=== PATIENT | male | born 1970 | race Caucasian/White ===

== ENCOUNTER 2016-05-14 14:54 | Emergency (ER) | payer MEDICARE ==
--- NOTE | 2016-05-14 15:04 | ER Document Report ---
ED Medical Screen (RME) - General Stated Complaint: MEDS ISSUE Time seen by provider: 15:03 Mode of Arrival: Ambulatory Information source: Patient Notes: 46-year-old male presents to ED for a Haldol injection. The has a letter from [facility] that states that they did not have any bite giving his Haldol today and they would like the emergency room to give him his Haldol. He has the medicine with him. TRAVEL OUTSIDE OF THE [place] IN LAST 30 DAYS: No - Related Data Allergies/Adverse Reactions: No Known Allergies Allergy (Verified 10/22/15 13:02) Past Medical History Pulmonary Medical History: Reports: Hx Bronchitis, Hx COPD Endocrine Medical History: Reports: Hx Diabetes Mellitus Type 2 Skin Medical History: Reports Hx Cellulitis Psychiatric Medical History: Reports: Hx Bipolar Disorder, Hx Depression, Hx Schizophrenia - Immunizations Immunizations up to date: Yes Hx Diphtheria, Pertussis, Tetanus Vaccination: Yes
--- NOTE | 2016-05-14 15:17 | ER Document Report ---
ED General - General Chief Complaint: Medication Refill Stated Complaint: MEDS ISSUE Mode of Arrival: Ambulatory Notes: 46-year-old male past medical history psychiatric disorders here requesting that ED staff give him his dose of monthly Haldol Decanoate because [facility] health services did not have a qualified professional to administer the medication. Therefore they sent him here to the emergency department for us to give him his medication. He does present a letter on official [facility] letterhead and a letter from Amelia Stewart MA TELEGRAPHIC SERVICE DISPATCHER [employer], that states/corroborates what he is describing to us. He denies any other complaints. I called and spoke with Ms. Stewart to verify the dose and the last time it was given. He was last given Haldol Decanoate 150 mg IM on 04/07/16. TRAVEL OUTSIDE OF THE [place] IN LAST 30 DAYS: No - Related Data Allergies/Adverse Reactions: No Known Allergies Allergy (Verified 05/14/16 15:05) Past Medical History - General Information source: Patient - Social History Smoking Status: Unknown if Ever Smoked Chew tobacco use (# tins/day): No Frequency of alcohol use: None Drug Abuse: None Family History: Reviewed & Not Pertinent, CVA, DM, Hypertension Patient has suicidal ideation: No Patient has homicidal ideation: No Pulmonary Medical History: Reports: Hx Bronchitis, Hx COPD Endocrine Medical History: Reports: Hx Diabetes Mellitus Type 2 Renal/ Medical History: Denies: Hx Peritoneal Dialysis Skin Medical History: Reports Hx Cellulitis Psychiatric Medical History: Reports: Hx Bipolar Disorder, Hx Depression, Hx Schizophrenia - Immunizations Immunizations up to date: Yes Hx Diphtheria, Pertussis, Tetanus Vaccination: Yes Review of Systems - Review of Systems Notes: See history of present illness for pertinent positive review of systems; otherwise all review of systems have been reviewed and are negative Physical Exam - Vital signs Vitals: Temp Pulse Resp BP Pulse Ox 97.7 F 88 16 121/76 95 05/14/16 15:05 05/14/16 15:05 05/14/16 15:05 05/14/16 15:05 05/14/16 15:05 - Notes Notes: PHYSICAL EXAMINATION: GENERAL: Well-appearing and in no acute distress. HEAD: Atraumatic, normocephalic. EYES: Pupils equal round and reactive to light, extraocular movements intact, sclera anicteric, conjunctiva are normal. ENT: nares patent, oropharynx clear without exudates. Moist mucous membranes. NECK: Normal range of motion, supple without lymphadenopathy LUNGS: CTAB and equal. No wheezes rales or rhonchi. HEART: Regular rate and rhythm without murmurs ABDOMEN: Soft, no tenderness. No guarding, no rebound EXTREMITIES: Normal range of motion, no pitting edema. No cyanosis. NEUROLOGICAL: Cranial nerves grossly intact. Normal sensory/motor exams. PSYCH: Normal mood, normal affect. SKIN: Warm, Dry, normal turgor, no rashes or lesions noted Course - Re-evaluation Re-evalutation: 05/14/16 15:29 MEDICAL DECISION MAKING: Mr. Ward only brought 1 vial of Haldol Decanoate with him This equates to 100 mg when his usual dose is 150 mg Will order 50 mg here to equal 150 mg IM which will be administered by nurse Patient instructed to continue following up with [facility] outpatient Patient understands and agrees to the plan of care - Vital Signs Vital signs: Temp Pulse Resp BP Pulse Ox 97.7 F 88 16 121/76 95 05/14/16 15:05 05/14/16 15:05 05/14/16 15:05 05/14/16 15:05 05/14/16 15:05 Discharge - Discharge Clinical Impression: Medication refill Condition: Good Disposition: HOME, SELF-CARE Additional Instructions: You were seen in the emergency department at [facility]. You were administered 150 mg of Haldol Decanoate intramuscularly per your request. Please followup with your outpatient provider in the next few days for further management/evaluation. Please return to the emergency department for worsening of symptoms or any symptom that you deem to be concerning or life-threatening. Thank you for allowing us to be part of your care.
[2016-05-14] MEDS ORDERED: HALOPERIDOL DECANOATE INJ 100 MG/1 ML VIAL IM PRN ×2 (15:30→16:10)
[2016-05-14 16:59] VITALS: BP 144/69
== END 2016-05-14 16:45 | disposition home or self-care (01) ==
LOC: ER 14:54
DX: Z76.0 Encounter for issue of repeat prescription (principal)
CPT/HCPCS: 99281; 96372; J1631

== ENCOUNTER 2016-07-01 11:54 | Emergency (ER) | payer MEDICARE ==
[2016-07-01 12:00] VITALS: BP 144/85
--- NOTE | 2016-07-01 12:00 | ER Document Report ---
ED Medical Screen (RME) - General Stated Complaint: INJECTION Notes: patient is a 46 year old male who was referred over by [facility] for medication administration of Haldol IM. I have greeted and performed a rapid initial assessment of this patient. A comprehensive ED assessment and evaluation of the patient, analysis of test results and completion of the medical decision making process will be conducted by additional ED providers. TRAVEL OUTSIDE OF THE [place] IN LAST 30 DAYS: No - Related Data Allergies/Adverse Reactions: No Known Allergies Allergy (Verified 07/01/16 11:56) Past Medical History Pulmonary Medical History: Reports: Hx Bronchitis, Hx COPD Endocrine Medical History: Reports: Hx Diabetes Mellitus Type 2 Renal/ Medical History: Denies: Hx Peritoneal Dialysis Skin Medical History: Reports Hx Cellulitis Psychiatric Medical History: Reports: Hx Bipolar Disorder, Hx Depression, Hx Schizophrenia - Immunizations Immunizations up to date: Yes Hx Diphtheria, Pertussis, Tetanus Vaccination: Yes
--- NOTE | 2016-07-01 12:39 | ER Document Report ---
HPI - HPI Patient complains to provider of: medication injection Onset: Other - monthly Pain Level: Denies Context: Patient presents to the ED with request of medication injection. Patient has hx of schizoeffective disorder and is here requesting that ED staff give him his dose of monthly Haldol Decanoate because [facility] health services did not have a qualified professional to administer the medication. Therefore they sent him here to the emergency department for us to give him his medication. He does present a letter on official [facility] letterhead and a letter from Amelia Stewart MA PMP PROJECT MANAGER [employer], that states/corroborates what he is describing to us. He denies any other complaints. Denies fever vomiting diarrhea. I called and spoke with the sales receptionist Nuris to verify the dose and the last time it was given. She reports the last dose he received according to her was in March there at [facility]. In April he received a dose here at [facility]. He received haloperidol 150 mg on 05/14/16. Patient reports he missed his May dose and he is overdue. Patient is post be following up with [facility] but reports they are not giving him an appointment until August. Associated Symptoms: None Exacerbated by: Denies Relieved by: Denies Similar symptoms previously: Yes Recently seen / treated by doctor: Yes - REPRODUCTIVE Reproductive: DENIES: : - DERM Skin Color: Normal Past Medical History - General Information source: Patient - Social History Smoking Status: Current Every Day Smoker Cigarette use (# per day): Yes Chew tobacco use (# tins/day): Yes Frequency of alcohol use: Occasional Drug Abuse: None Family History: Reviewed & Not Pertinent, CVA, DM, Hypertension Patient has suicidal ideation: No Patient has homicidal ideation: No Pulmonary Medical History: Reports: Hx Bronchitis, Hx COPD Endocrine Medical History: Reports: Hx Diabetes Mellitus Type 2 Renal/ Medical History: Denies: Hx Peritoneal Dialysis Skin Medical History: Reports Hx Cellulitis Psychiatric Medical History: Reports: Hx Bipolar Disorder, Hx Depression, Hx Schizophrenia - Immunizations Immunizations up to date: Yes Hx Diphtheria, Pertussis, Tetanus Vaccination: Yes Vertical Provider Document - CONSTITUTIONAL Agree With Documented VS: Yes Exam Limitations: No Limitations General Appearance: WD/WN, No Apparent Distress - INFECTION CONTROL TRAVEL OUTSIDE OF THE [place] IN LAST 30 DAYS: No - HEENT HEENT: Atraumatic, Normocephalic - NECK Neck: Supple - RESPIRATORY Respiratory: Breath Sounds Normal, No Respiratory Distress O2 Sat by Pulse Oximetry: 95 - CARDIOVASCULAR Cardiovascular: Regular Rate - NEURO Level of Consciousness: Awake, Alert, Appropriate Motor/Sensory: No Motor Deficit - DERM Integumentary: Warm, Dry Course - Re-evaluation Re-evalutation: 07/01/16 12:50 I contacted the pharmacy here in [facility] to ascertain if they needed to check the medication. The pharmacist declined reports that it's an outpatient and they don't need to check it. - Vital Signs Vital signs: Temp Pulse Resp BP Pulse Ox 97.6 F 97 20 144/85 H 95 07/01/16 11:58 07/01/16 11:58 07/01/16 11:58 07/01/16 11:58 07/01/16 11:58 Discharge - Discharge Clinical Impression: medication injection Condition: Stable Disposition: HOME, SELF-CARE Instructions: [facility] Additional Instructions: *You have been treated for a medication injection *Follow up with the [facility] today to schedule an appointment for the monthly injections *Return to ED for worsening condition, changes, needs
== END 2016-07-01 13:30 | disposition home or self-care (01) ==
LOC: ER 11:54
DX: F25.9 Schizoaffective disorder, unspecified (principal); F17.210 Nicotine dependence, cigarettes, uncomplicated
CPT/HCPCS: 99281

== ENCOUNTER 2017-09-11 22:52 | Emergency (ER) | payer MEDICARE, MEDICAID ==
--- NOTE | 2017-09-12 00:46 | EKG REPORT ---
SEVERITY:- NORMAL ECG - SINUS RHYTHM : Confirmed by: Flor Logan 12-Sep-2017 00:44:54
[2017-09-12 01:55] LABS: ABSOLUTE BASOPHILS # (AUTO) 0.1 10^3/uL (0.0-0.2); ABSOLUTE EOSINOPHILS # (AUTO) 0.2 10^3/uL (0.0-0.6); ABSOLUTE LYMPHOCYTES (AUTO) 2.6 10^3/uL (0.5-4.7); ABSOLUTE MONOCYTES (AUTO) 0.8 10^3/uL (0.1-1.4); ABSOLUTE NEUT (AUTO) 8.3 10^3/uL (1.7-8.2); EOSINOPHILS % (AUTO) 2.1 % (0-6); HEMATOCRIT 41.9 % (37.9-51.0); HEMOGLOBIN 14.6 g/dL (13.5-17.0); LYMPHOCYTES % (AUTO) 21.4 % (13-45); MEAN CORPUSCULAR HEMOGLOBIN 30.8 pg (27.0-33.4); MEAN CORPUSCULAR HGB CONC 34.9 g/dL (32.0-36.0); MEAN CORPUSCULAR VOLUME 88 fl (80-97); MONOCYTES % (AUTO) 6.8 % (3-13); PLATELET COUNT 330 10^3/uL (150-450); RED BLOOD COUNT 4.76 10^6/uL (4.35-5.55); RED CELL DISTRIBUTION WIDTH 12.9 % (11.5-14.0); SEGMENTED NEUTROPHILS % (AUTO) 68.7 % (42-78); TOTAL CELLS COUNTED % (AUTO) 100 %
[2017-09-12 02:04] LABS: ACETAMINOPHEN < 10 ug/mL (10-30); ALANINE AMINOTRANSFERASE 30 U/L (21-72); ALBUMIN 3.9 g/dL (3.5-5.0); ALCOHOL < 10 mg/dL (NONE DETECTED); ALKALINE PHOSPHATASE 61 U/L (38-126); ANION GAP 11 (5-19); ASPARTATE AMINO TRANSFERASE 21 U/L (17-59); BILIRUBIN,DIRECT 0.2 mg/dL (0.0-0.4); BILIRUBIN,TOTAL 0.4 mg/dL (0.2-1.3); BLOOD UREA NITROGEN 11 mg/dL (7-20); CARBON DIOXIDE 29 mmol/L (22-30); CHLORIDE 92 mmol/L (98-107); GLUCOSE 154 mg/dL (75-110); POTASSIUM 4.3 mmol/L (3.6-5.0); SALICYLATE < 1.0 mg/dL (2.0-20.0); SODIUM 132.4 mmol/L (137-145); TOTAL PROTEIN 6.4 g/dL (6.3-8.2)
[2017-09-12 02:51] LABS: APPEARANCE,URINE CLEAR; BILIRUBIN,URINE NEGATIVE (NEGATIVE); COLOR,URINE STRAW; GLUCOSE, URINE NEGATIVE (NEGATIVE); KETONES,URINE NEGATIVE (NEGATIVE); LEUKOCYTE ESTERASE,URINE NEGATIVE (NEGATIVE); NITRITE,URINE NEGATIVE (NEGATIVE); PROTEIN,URINE NEGATIVE (NEGATIVE); URINE SPECIFIC GRAVITY 1.002; UROBILINOGEN,URINE NEGATIVE mg/dL (<2.0)
[2017-09-12 03:07] LABS: URINE AMPHETAMINES SCREEN NEGATIVE; URINE BARBITURATES SCREEN NEGATIVE; URINE BENZODIAZEPINES SCREEN NEGATIVE; URINE COCAINE SCREEN NEGATIVE; URINE MARIJUANA (THC) SCREEN NEGATIVE; URINE METHADONE SCREEN NEGATIVE; URINE PHENCYCLIDINE SCREEN NEGATIVE
--- NOTE | 2017-09-12 03:36 | ER Document Report ---
ED General - General Chief Complaint: Psych Problem Stated Complaint: PSYCH EVAL Time Seen by Provider: 09/11/17 23:18 Notes: Patient is a 47-year-old male with a past medical history of schizoaffective disorder currently off all medications who presents with feeling "weird". Patient notes that he has been having more visual and auditory hallucinations and is also feeling somewhat more restless. He states he discontinued his medications 2 weeks ago because he felt they were not working and making him feel unusual. He has not seen his primary care doctor regarding today's concerns. He denies any acute suicidal or homicidal ideation. He states that he has had similar symptoms in the past and his medications have been off. He denies any acute medical concerns. TRAVEL OUTSIDE OF THE [place] IN LAST 30 DAYS: No - Related Data Allergies/Adverse Reactions: No Known Allergies Allergy (Verified 07/01/16 11:56) Past Medical History - General Information source: Patient - Social History Smoking Status: Never Smoker Frequency of alcohol use: None Drug Abuse: None Lives with: Alone Family History: Reviewed & Not Pertinent, CVA, DM, Hypertension Pulmonary Medical History: Reports: Hx Bronchitis, Hx COPD Endocrine Medical History: Reports: Hx Diabetes Mellitus Type 2 Renal/ Medical History: Denies: Hx Peritoneal Dialysis Skin Medical History: Reports Hx Cellulitis Psychiatric Medical History: Reports: Hx Bipolar Disorder, Hx Depression, Hx Schizophrenia - Immunizations Immunizations up to date: Yes Hx Diphtheria, Pertussis, Tetanus Vaccination: Yes Review of Systems - Review of Systems Notes: Constitutional: Negative for fever. HENT: Negative for sore throat. Eyes: Negative for visual changes. Cardiovascular: Negative for chest pain. Respiratory: Negative for shortness of breath. Gastrointestinal: Negative for abdominal pain, vomiting or diarrhea. Genitourinary: Negative for dysuria. Musculoskeletal: Negative for back pain. Skin: Negative for rash. Neurological: Negative for headaches, weakness or numbness. 10 point ROS negative except as marked above and in HPI. Physical Exam - Vital signs Vitals: Temp Pulse Resp BP Pulse Ox 98.0 F 95 16 153/86 H 96 09/11/17 23:01 09/11/17 23:01 09/11/17 23:01 09/11/17 23:01 09/11/17 23:01 Interpretation: Hypertensive Notes: PHYSICAL EXAMINATION: GENERAL: Well-appearing, well-nourished and in no acute distress. HEAD: Atraumatic, normocephalic. EYES: Pupils equal round and reactive to light, extraocular movements intact, sclera anicteric, conjunctiva are normal. ENT: nares patent, oropharynx clear without exudates. Moist mucous membranes. NECK: Normal range of motion, supple without lymphadenopathy LUNGS: Breath sounds clear to auscultation bilaterally and equal. No wheezes rales or rhonchi. HEART: Regular rate and rhythm without murmurs ABDOMEN: Soft, nontender, normoactive bowel sounds. No guarding, no rebound. No masses appreciated. EXTREMITIES: Normal range of motion, no pitting or edema. No cyanosis. NEUROLOGICAL: No focal neurological deficits. Moves all extremities spontaneously and on command. PSYCH: Somewhat restless, vigorously scratching himself. Unable to really sit still. SKIN: Warm, Dry, normal turgor, no rashes or lesions noted. Course - Re-evaluation Re-evalutation: 09/12/17 03:36 Patient presents with some psychomotor agitation, intermittently noted to be talking to himself. He is otherwise pleasant, calm and cooperative. He denies any suicidal homicidal suspect exacerbation of his underlying schizoaffective disorder in the setting of discontinuing his home medications. The patient will remain in the emergency department and be seen by psychiatry in the morning. He has undergone medical clearance examination which is unremarkable. - Vital Signs Vital signs: Temp Pulse Resp BP Pulse Ox 98.0 F 95 16 153/86 H 96 09/11/17 23:01 09/11/17 23:01 09/11/17 23:01 09/11/17 23:01 09/11/17 23:01 - Laboratory Result Diagrams: 09/12/17 01:30 09/12/17 01:30 Laboratory results interpreted by me: 09/12/17 09/12/17 01:30 01:30 WBC 12.0 H Absolute Neutrophils 8.3 H Sodium 132.4 L Chloride 92 L Glucose 154 H Salicylates < 1.0 L Acetaminophen < 10 L - EKG Interpretation by Me Additional EKG results interpreted by me: 09/12/17 03:37 Sinus rhythm. Rate 85. No ST elevations or depressions. QTC is 443. Discharge - Discharge Clinical Impression: Psychomotor agitation Schizoaffective disorder Qualifiers: Schizoaffective disorder type: bipolar Qualified Code(s): F25.0 - Schizoaffective disorder, bipolar type Condition: Fair Disposition: PSYCH HOSP/UNIT
[2017-09-12 06:34] VITALS: BP 133/61
--- NOTE | 2017-09-12 09:51 | PSYCHOLOGICAL NOTE ---
Psych Note - Psych Note Psych Note: Reason for consult: Medication refill Patient is a 47 year old male. Patient reports he came for medication refill. Patient reports he ran out of meds 2 weeks ago but stated he saw his provider one month ago and received his medications. Patient reports he sees Dr. Brown monthly just for medication management. Patient report she has history of schizophrenia. Patient reports he cannot afford his medications, however then stated he has medicaid. Patient reports he does not have any thoughts of wanting to hurt himself or others. Medication recommendations made by contracted [facility] provider Dr. Niraj MD. includes: None Diagnosis: Per History of 295.90 ( F20.9) Schizophrenia Impression/Plan: Patient is psychiatrically cleared for discharge . Patient denied SI/HI thoughts. Recommendation for patient to follow up with [facility] today as walk in for medication refill. Clinician explained plan to patient who agreed to go in as a walk in. Clinician's tire service supervisor is familiar with patient, and stated historically patient has visited the Emergency Department for medications. Attending physician in agreement with plan and disposition. Consulted with Dr. Galeano regarding the management and care of patient.
== END 2017-09-12 10:28 | disposition home or self-care (01) ==
LOC: ER 22:52
DX: F25.0 Schizoaffective disorder, bipolar type (principal); Z91.19 Patient's noncompliance with other medical treatment and regimen; J44.9 Chronic obstructive pulmonary disease, unspecified; E11.9 Type 2 diabetes mellitus without complications; R45.1 Restlessness and agitation
CPT/HCPCS: 36415; 80053; 80307; 81001; 85025; 93005; 93010; 99285

== ENCOUNTER 2017-11-30 03:03 | Emergency (ER) | payer MEDICARE, MEDICAID ==
[2017-11-30] MEDS ORDERED: CITALOPRAM HYDROBROMIDE 20 MG TABLET PO ONE (04:55)
[2017-11-30] MEDS ORDERED: HALOPERIDOL 5 MG TABLET PO ONE (04:55)
[2017-11-30 05:36] LABS: ABSOLUTE BASOPHILS # (AUTO) 0.1 10^3/uL (0.0-0.2); ABSOLUTE EOSINOPHILS # (AUTO) 0.2 10^3/uL (0.0-0.6); ABSOLUTE LYMPHOCYTES (AUTO) 2.6 10^3/uL (0.5-4.7); ABSOLUTE MONOCYTES (AUTO) 0.8 10^3/uL (0.1-1.4); ABSOLUTE NEUT (AUTO) 7.9 10^3/uL (1.7-8.2); EOSINOPHILS % (AUTO) 1.6 % (0-6); HEMATOCRIT 43.6 % (37.9-51.0); HEMOGLOBIN 15.4 g/dL (13.5-17.0); LYMPHOCYTES % (AUTO) 22.3 % (13-45); MEAN CORPUSCULAR HEMOGLOBIN 30.7 pg (27.0-33.4); MEAN CORPUSCULAR HGB CONC 35.4 g/dL (32.0-36.0); MEAN CORPUSCULAR VOLUME 87 fl (80-97); MONOCYTES % (AUTO) 7.2 % (3-13); PLATELET COUNT 332 10^3/uL (150-450); RED BLOOD COUNT 5.02 10^6/uL (4.35-5.55); RED CELL DISTRIBUTION WIDTH 13.1 % (11.5-14.0); SEGMENTED NEUTROPHILS % (AUTO) 67.9 % (42-78); TOTAL CELLS COUNTED % (AUTO) 100 %; WHITE BLOOD COUNT 11.7 10^3/uL (4.0-10.5)
[2017-11-30 05:58] LABS: ALANINE AMINOTRANSFERASE 32 U/L (21-72); ALBUMIN 4.1 g/dL (3.5-5.0); ALKALINE PHOSPHATASE 77 U/L (38-126); ANION GAP 13 (5-19); ASPARTATE AMINO TRANSFERASE 19 U/L (17-59); BILIRUBIN,DIRECT 0.3 mg/dL (0.0-0.4); BILIRUBIN,TOTAL 0.5 mg/dL (0.2-1.3); BLOOD UREA NITROGEN 10 mg/dL (7-20); CALCIUM 10.1 mg/dL (8.4-10.2); CARBON DIOXIDE 28 mmol/L (22-30); CHLORIDE 90 mmol/L (98-107); GLUCOSE 336 mg/dL (75-110); POTASSIUM 4.6 mmol/L (3.6-5.0); SODIUM 130.7 mmol/L (137-145); TOTAL PROTEIN 6.8 g/dL (6.3-8.2)
--- NOTE | 2017-11-30 06:13 | ER Document Report ---
ED General - General Chief Complaint: Psych Problem Stated Complaint: PSYCH EVAL Time Seen by Provider: 11/30/17 04:55 Notes: Patient is a 47-year-old male who presents with complaint of needing his psychiatric medications. He says he has been off the Celexa and Haldol. When is been out for a while he starts to feel unwell. On the triage and he mentioned abdominal pain. Patient says he has chronic abdominal pain that he thinks is related constipation. Today is more right sided more than right upper quadrant. Says his pain also seems to worsen when he has not had his Celexa or Haldol. He denies any vomiting. No diarrhea. No fevers. Pain is not made worse with eating. He has no other complaints this time. He has an upcoming appointment with his psychiatrist in approximately 1 week. TRAVEL OUTSIDE OF THE [place] IN LAST 30 DAYS: No - Related Data Allergies/Adverse Reactions: No Known Allergies Allergy (Verified 07/01/16 11:56) Past Medical History - Social History Smoking Status: Current Every Day Smoker Chew tobacco use (# tins/day): No Frequency of alcohol use: Occasional Drug Abuse: None Family History: Reviewed & Not Pertinent, CVA, DM, Hypertension Patient has suicidal ideation: No Patient has homicidal ideation: No Pulmonary Medical History: Reports: Hx Bronchitis, Hx COPD Endocrine Medical History: Reports: Hx Diabetes Mellitus Type 2 Renal/ Medical History: Denies: Hx Peritoneal Dialysis Skin Medical History: Reports Hx Cellulitis Psychiatric Medical History: Reports: Hx Bipolar Disorder, Hx Depression, Hx Schizophrenia - Immunizations Immunizations up to date: Yes Hx Diphtheria, Pertussis, Tetanus Vaccination: Yes Review of Systems - Review of Systems Notes: My Normal Review Basic REVIEW OF SYSTEMS: CONSTITUTIONAL : Denies fever, chills, or sweats. Denies recent illness. CARDIOVASCULAR: Denies chest pain. RESPIRATORY: Denies cough, cold, or chest congestion. Denies shortness of breath, difficulty breathing, or wheezing. GASTROINTESTINAL: Normal pain. Denies nausea, vomiting, or diarrhea. History of constipation. GENITOURINARY: Denies difficulty urinating, painful urination, burning, frequency, or blood in urine. MUSCULOSKELETAL: Denies neck or back pain or joint pain or swelling. SKIN: Denies rash or skin lesions. NEUROLOGICAL: Denies altered mental status or loss of consciousness. Denies headache. Denies weakness or paralysis or loss of use of either side. Denies problems with gait or speech. Denies sensory or motor loss. PSYCHIATRIC: History of psychosis and Haldol and Celexa. Patient denies any suicidal ideations. ALL OTHER SYSTEMS REVIEWED AND NEGATIVE. Physical Exam - Notes Notes: General Appearance: Well nourished, alert, cooperative, no acute distress, no obvious discomfort. Well appearing. Vitals: reviewed, See vital signs table. Head: no swelling or tenderness to the head Eyes: PERRL, EOMI, Conjuctiva clear Mouth: No decreasd moisture Throat: No tonsillar inflammation, No airway obstruction, No lymphadenopathy Neck: Supple, no neck tenderness, No thyromegaly Lungs: No wheezing, No rales, No rhonci, No accessory muscle use, good air exchange bilaterally. Heart: Normal rate, Regular rythm, No murmur, no rub Abdomen: Normal BS, soft, No rigidity, mild right upper quadrant abdominal tenderness to palpation, No guarding, no rebound, no abdominal masses, no organomegaly Extremities: strength 5/5 in all extremities, good pulses in all extremities, no swelling or tenderness in the extremities, no edema. Skin: warm, dry, appropriate color, no rash Neuro: speech clear, oriented x 3, normal affect, responds appropriately to questions. Psychiatric: Patient answers questions appropriately. Is not tearful or anxious appearing. He is not hallucinating or delusional. Course - Re-evaluation Re-evalutation: 11/30/17 06:24 Patient will be discharged home. He is received his medications and feels better. A right prescription for him for his Celexa and Haldol to get him through until he sees his psychiatrist. His abdominal exam is very benign and his labs are non-concerning. I feel he is safe to be discharged home. I strongly encouraged her return to ER if he has worsening abdominal pain, fevers , vomiting, any thoughts of suicide, if he feels that his psychiatric illness is worsening in any way. Patient agrees with plan will be discharged home. Dictation of this chart was performed using voice recognition software; therefore, there may be some unintended grammatical errors. - Laboratory Result Diagrams: 11/30/17 05:00 11/30/17 05:00 Laboratory results interpreted by me: 11/30/17 11/30/17 05:00 05:00 WBC 11.7 H Sodium 130.7 L Chloride 90 L Glucose 336 H Discharge - Discharge Clinical Impression: Psychiatric care Abdominal pain Qualifiers: Abdominal location: generalized Qualified Code(s): R10.84 - Generalized abdominal pain Condition: Good Disposition: HOME, SELF-CARE Additional Instructions: Please take your medications as prescribed. Please return to the ER immediately if you have worsening abdominal pain, fevers, vomiting, or feel that you are psychiatric illness is worsening or if you feel depressed or suicidal. Prescriptions: Citalopram Hydrobromide [Celexa 20 mg Tablet] 20 mg PO DAILY #30 tablet Haloperidol [Haldol 5 mg Tablet] 10 mg PO BID #60 tablet Referrals: FLORIDA LUIS NP [Primary Care Provider] - Follow up in 3-5 days
[2017-11-30 06:20] VITALS: BP 151/79
== END 2017-11-30 06:37 | disposition home or self-care (01) ==
LOC: ER 03:03
DX: F31.9 Bipolar disorder, unspecified (principal); F20.9 Schizophrenia, unspecified; T43.4X6A Underdosing of butyrophenone and thiothixene neuroleptics, initial encounter; T43.226A Underdosing of selective serotonin reuptake inhibitors, initial encounter; Z91.128 Patient's intentional underdosing of medication regimen for other reason; Z91.14 Patient's other noncompliance with medication regimen; R10.84 Generalized abdominal pain; R10.811 Right upper quadrant abdominal tenderness; F17.200 Nicotine dependence, unspecified, uncomplicated; J44.9 Chronic obstructive pulmonary disease, unspecified; E11.9 Type 2 diabetes mellitus without complications
CPT/HCPCS: 99284; 36415; 85025; 80053; A9270 ×2

== ENCOUNTER 2018-02-20 18:55 | Emergency (ER) | payer MEDICARE, OTHER ==
[2018-02-20] MEDS ORDERED: IBUPROFEN 800 MG TABLET PO ONE (20:34)
--- NOTE | 2018-02-20 20:43 | ER Document Report ---
ED Neck/Back Problem - General Chief Complaint: Hip Pain Stated Complaint: HIP AND LEG PAIN Time Seen by Provider: 02/20/18 20:05 Mode of Arrival: Ambulatory Information source: Patient Notes: 47-year-old male presents to ED for complaint of low back pain that radiates to his left hip down his left leg. He states his been hurting since June or July. He states sometimes it is there and sometimes it is not. He is alert and oriented respirations regular and unlabored and does walk with a even steady gait. TRAVEL OUTSIDE OF THE [place] IN LAST 30 DAYS: No - HPI Patient complains to provider of: Lower back Onset: Other - 6-8 months Onset: Chronic Timing: Still present Quality of pain: Sharp Severity: Moderate Pain Level: 4 Recent injury: No Associated symptoms: Like prior neck/back pain, Radiation to leg Exacerbated by: Movement of trunk, Sitting position Relieved by: Nothing Similar symptoms previously: Yes Recently seen / treated by doctor: Yes - Related Data Allergies/Adverse Reactions: No Known Allergies Allergy (Verified 02/20/18 18:59) Past Medical History - General Information source: Patient - Social History Smoking Status: Current Every Day Smoker Chew tobacco use (# tins/day): No Frequency of alcohol use: None Drug Abuse: None Family History: Reviewed & Not Pertinent, CVA, DM, Hypertension Patient has suicidal ideation: No Patient has homicidal ideation: No - Past Medical History Cardiac Medical History: Reports: None Pulmonary Medical History: Reports: Hx Bronchitis, Hx COPD EENT Medical History: Reports: None Neurological Medical History: Reports: None Endocrine Medical History: Reports: Hx Diabetes Mellitus Type 2 Renal/ Medical History: Reports: None Malignancy Medical History: Reports None GI Medical History: Reports: None Musculoskeletal Medical History: Reports None Skin Medical History: Reports Hx Cellulitis Psychiatric Medical History: Reports: Hx Bipolar Disorder, Hx Depression, Hx Schizophrenia Traumatic Medical History: Reports: None Infectious Medical History: Reports: None Surgical Hx: Negative Past Surgical History: Reports: None - Immunizations Immunizations up to date: Yes Hx Diphtheria, Pertussis, Tetanus Vaccination: Yes Review of Systems - Review of Systems Constitutional: No symptoms reported EENT: No symptoms reported Cardiovascular: No symptoms reported Respiratory: No symptoms reported Gastrointestinal: No symptoms reported Genitourinary: No symptoms reported Male Genitourinary: No symptoms reported Musculoskeletal: Back pain - Radiating down left hip and leg Skin: No symptoms reported Hematologic/Lymphatic: No symptoms reported Neurological/Psychological: No symptoms reported -: Yes All other systems reviewed and negative Physical Exam - Vital signs Vitals: Temp Pulse Resp BP Pulse Ox 98.2 F 96 18 146/69 H 93 02/20/18 19:07 02/20/18 19:07 02/20/18 19:07 02/20/18 19:07 02/20/18 19:07 Interpretation: Normal - General General appearance: Appears well, Alert - HEENT Head: Normocephalic, Atraumatic Eyes: Normal Pupils: PERRL - Respiratory Respiratory status: No respiratory distress Chest status: Nontender Breath sounds: Normal Chest palpation: Normal - Cardiovascular Rhythm: Regular Heart sounds: Normal auscultation Murmur: No - Abdominal Inspection: Normal Distension: No distension Bowel sounds: Normal Tenderness: Nontender Organomegaly: No organomegaly - Back Back: Normal, Nontender, Tender, Vertebra tenderness - Radiating down left leg and hip. No: Deformity/step-off, CVA tenderness, Scars, Scoliosis, Wounds - Extremities General upper extremity: Normal inspection, Nontender, Normal color, Normal ROM , Normal temperature General lower extremity: Normal inspection, Nontender, Normal color, Normal ROM , Normal temperature, Normal weight bearing. No: Kapil's sign - Neurological Neuro grossly intact: Yes Cognition: Normal Orientation: AAOx4 Keon Coma Scale Eye Opening: Spontaneous Ezel Coma Scale Verbal: Oriented Ezel Coma Scale Motor: Obeys Commands Keon Coma Scale Total: 15 Speech: Normal Motor strength normal: LUE, RUE, LLE, RLE Sensory: Normal - Psychological Associated symptoms: Normal affect, Normal mood - Skin Skin Temperature: Warm Skin Moisture: Dry Skin Color: Normal Course - Re-evaluation Re-evalutation: 02/20/18 23:20 X-ray discussed with Dr. Manzanares and she stated that the patient needed to be informed of the fracture and that he should follow-up with pain management if he continued to have pain. Patient was informed that he had a compression fracture and that he needed to follow-up with pain management if he continued to have pain. Patient was given ibuprofen and a Lidoderm patch in the emergency room and instructed on [id number] ibuprofen at home. Patient was also given instructions on ice and warm packs. Patient instructed to follow -up with his psych doctor as scheduled. Patient was given instructions on stopping smoking. Patient verbalized understanding of instructions and was discharged home. - Vital Signs Vital signs: Temp Pulse Resp BP Pulse Ox 97.2 F 88 18 148/77 H 94 02/20/18 22:50 02/20/18 22:50 02/20/18 22:50 02/20/18 22:50 02/20/18 22:50 - Diagnostic Test Radiology reviewed: Image reviewed, Reports reviewed Discharge - Discharge Clinical Impression: Chronic back pain greater than 3 months duration Compression fracture of L1 lumbar vertebra Qualifiers: Encounter type: initial encounter Fracture type: closed Qualified Code(s): S32.010A - Wedge compression fracture of first lumbar vertebra, initial encounter for closed fracture Low back pain Qualifiers: Chronicity: chronic Back pain laterality: left Sciatica presence: with sciatica Sciatica laterality: sciatica of left side Qualified Code(s): M54.42 - Lumbago with sciatica, left side Condition: Stable Disposition: HOME, SELF-CARE Instructions: Use of Kwyr-Wde-Smgragq Ibuprofen ([facility]) Additional Instructions: Compression Fracture of the Spine A vertebra within your spine has been crushed. This is called a "compression fracture." Typically, this type of injury is caused by a sudden bending or compressing force such as an auto accident or a fall. Although painful, the fracture is not serious. You can expect to recover fully within a few weeks. The treatment of this fracture is essentially the same as for a severe back strain. Muscle relaxers or antiinflammatory medication may be prescribed. You should rest in bed for a few days until the pain eases, then begin light activity. A re-check will determine when you are ready to resume work or sports. Ice pack the painful area at first. After you are active again, you may want to apply gentle heat intermittently to relax sore muscles. You can continue with ice packs if you find them helpful in reducing muscle pain. Call the doctor or return at once if you develop radiating pains, muscle weakness, problems with the bladder or bowels, or numbness. LOW BACK PAIN: Three out of every four people will have an episode of disabling back pain during their lifetime. Most commonly the pain is due to straining of the muscles and ligaments in the low back. Usual treatment includes: (1) Rest on a firm surface. Avoid lying on your stomach. (2) Ice pack the painful area. After a few days, gentle heat may be used intermittently to relax the area, or ice packs can be continued. (3) Medication may be needed -- muscle relaxers and antiinflammatory medicines are commonly used. (4) As the back improves, exercises are prescribed to strengthen the back and abdominal muscles. Your doctor will advise you on the proper care for your back at each stage in your recovery. You may be better in a few days -- or healing may take several weeks. If new symptoms of a "herniated disc" (radiation of pain, numbness, or tingling down the back of the leg or weakness in the leg) occur, you should be re-examined. Further testing may be necessary. ICE PACKS: Apply ice packs frequently against the painful area. Many different schedules are recommended, such as "20 minutes on, 20 minutes off" or "one hour ice, two hours rest." If you need to work, you may need to go longer between ice treatments. You should plan to have the area ice packed AT LEAST one fourth of the time. The ice should be applied over the wrap, tape, or splint, or over a layer of cloth -- not directly against the skin. Some ice bags have a built-in cloth and can be put directly on the skin. WARM PACKS: After approximately two days, apply gentle heat (such as a heating pad or hot water bottle) for about 20 to 30 minutes about every two hours -- at least four times daily. Warmth and elevation will help you make a more rapid recovery , and will ease the pain considerably. Do not use HOT heat, and never apply heat for longer than 30 minutes. The continuous heat can invisibly damage skin and muscles -- even when no burn is seen on the surface. Damaged muscles can make you MORE sore. A Lidoderm patch has been applied to your back. Please take it off and 12 hours. This patch cannot stay on more than 12 hours. Please follow-up with a paperhanger and painter if your pain continues. I have given you the name and number of a paperhanger and painter. FOLLOW-UP CARE: If you have been referred to a physician for follow-up care, call the physician s office for an appointment as you were instructed or within the next two days. If you experience worsening or a significant change in your symptoms, notify the physician immediately or return to the Emergency Department at any time for re-evaluation. Forms: Elevated Blood Pressure, Smoking Cessation Education Referrals: [facility] [Provider Group] - Follow up as needed
--- NOTE | 2018-02-20 21:26 | RADIOLOGY REPORT (SQ) ---
EXAM DESCRIPTION: XR LUMBAR SPINE ANTEROPOSTERIOR, LATERAL, AND OBLIQUES COMPLETED DATE/TME: 02/20/2018 20:34 CLINICAL HISTORY: 47 years, Male, left leg and low back pain Findings: There is minimal grade 1 anterolisthesis of L5 versus L4, likely due to degenerative changes. Mild wedging of L1 vertebral body anteriorly with about 15% loss of height. This contributes to mild reversal of normal lordosis at T12-L1. Mild diffuse vascular calcification. IMPRESSION: Mild L1 wedge compression fracture. This is of indeterminate age but may be subacute. Recommend follow-up MRI on nonemergent basis for further evaluation for acuity.
[2018-02-20] MEDS ORDERED: LIDOCAINE 5% (700 MG) TRANSDERMAL ADH..PATCH TP ONE (22:44)
[2018-02-20 23:01] VITALS: BP 148/77
== END 2018-02-20 23:03 | disposition home or self-care (01) ==
LOC: ER 18:55
DX: S32.010A Wedge compression fracture of first lumbar vertebra, initial encounter for closed fracture (principal); X58.XXXA Exposure to other specified factors, initial encounter; M54.42 Lumbago with sciatica, left side; G89.29 Other chronic pain; F17.200 Nicotine dependence, unspecified, uncomplicated; J44.9 Chronic obstructive pulmonary disease, unspecified; E11.9 Type 2 diabetes mellitus without complications
CPT/HCPCS: 99283; 72110; A9270

== ENCOUNTER 2018-03-24 16:55 | Emergency (ER) | payer MEDICARE, MEDICAID ==
[2018-03-24] MEDS ORDERED: ASPIRIN 81 MG TABLET, CHEWABLE PO ONE (17:06)
[2018-03-24] MEDS ORDERED: MECLIZINE HCL 25 MG TABLET PO ONE (17:08)
--- NOTE | 2018-03-24 17:08 | ER Document Report ---
ED Medical Screen (RME) - General Chief Complaint: Numbness of Arm Stated Complaint: TINGLING IN ARM, SPEECH DIFFERENCE Time Seen by Provider: 03/24/18 17:05 Notes: 47 years old male with a history of psychiatric disorder, smoking and alcohol on and off. Presents today with extreme dizziness and lightheadedness since 3: 00. With a history of vertigo. Denies any focal weakness numbness tingling sensation denies any chest pain palpitation or diaphoresis. On examination has horizontal nystagmus noted extreme dizziness. No pronator drift. No focal signs. TRAVEL OUTSIDE OF THE [place] IN LAST 30 DAYS: No - Related Data Allergies/Adverse Reactions: No Known Allergies Allergy (Verified 03/24/18 16:55) Past Medical History Pulmonary Medical History: Reports: Hx Bronchitis, Hx COPD Endocrine Medical History: Reports: Hx Diabetes Mellitus Type 2 Renal/ Medical History: Denies: Hx Peritoneal Dialysis Skin Medical History: Reports Hx Cellulitis Psychiatric Medical History: Reports: Hx Bipolar Disorder, Hx Depression, Hx Schizophrenia - Immunizations Immunizations up to date: Yes Hx Diphtheria, Pertussis, Tetanus Vaccination: Yes
[2018-03-24] MEDS ORDERED: NORMAL SALINE 1000 ML 1,000 ML IV ONE (17:18)
[2018-03-24 17:45] LABS: ABSOLUTE BASOPHILS # (AUTO) 0.1 10^3/uL (0.0-0.2); ABSOLUTE EOSINOPHILS # (AUTO) 0.2 10^3/uL (0.0-0.6); ABSOLUTE LYMPHOCYTES (AUTO) 2.2 10^3/uL (0.5-4.7); ABSOLUTE MONOCYTES (AUTO) 0.5 10^3/uL (0.1-1.4); ABSOLUTE NEUT (AUTO) 6.5 10^3/uL (1.7-8.2); BASOPHILS % (AUTO) 1.4 % (0-2); EOSINOPHILS % (AUTO) 1.8 % (0-6); HEMATOCRIT 44.6 % (37.9-51.0); HEMOGLOBIN 15.8 g/dL (13.5-17.0); LYMPHOCYTES % (AUTO) 23.1 % (13-45); MEAN CORPUSCULAR HEMOGLOBIN 31.1 pg (27.0-33.4); MEAN CORPUSCULAR HGB CONC 35.4 g/dL (32.0-36.0); MEAN CORPUSCULAR VOLUME 88 fl (80-97); MONOCYTES % (AUTO) 5.1 % (3-13); PLATELET COUNT 397 10^3/uL (150-450); RED BLOOD COUNT 5.08 10^6/uL (4.35-5.55); RED CELL DISTRIBUTION WIDTH 13.8 % (11.5-14.0); SEGMENTED NEUTROPHILS % (AUTO) 68.6 % (42-78); TOTAL CELLS COUNTED % (AUTO) 100 %; WHITE BLOOD COUNT 9.5 10^3/uL (4.0-10.5)
[2018-03-24 17:55] LABS: ALANINE AMINOTRANSFERASE 19 U/L (21-72); ALBUMIN 4.1 g/dL (3.5-5.0); ALKALINE PHOSPHATASE 65 U/L (38-126); ANION GAP 14 (5-19); ASPARTATE AMINO TRANSFERASE 16 U/L (17-59); BILIRUBIN,DIRECT 0.3 mg/dL (0.0-0.4); BILIRUBIN,TOTAL 0.6 mg/dL (0.2-1.3); BLOOD UREA NITROGEN 14 mg/dL (7-20); CALCIUM 9.8 mg/dL (8.4-10.2); CARBON DIOXIDE 29 mmol/L (22-30); CHLORIDE 89 mmol/L (98-107); CREATINE KINASE 112 U/L (55-170); GLUCOSE 242 mg/dL (75-110); POTASSIUM 4.3 mmol/L (3.6-5.0); SODIUM 132.2 mmol/L (137-145); TOTAL PROTEIN 6.8 g/dL (6.3-8.2)
[2018-03-24 18:08] LABS: TROPONIN I < 0.012 ng/mL
--- NOTE | 2018-03-24 18:17 | RADIOLOGY REPORT (SQ) ---
EXAM DESCRIPTION: CT HEAD WITHOUT COMPLETED DATE/TIME: 03/24/2018 6:06 pm REASON FOR STUDY: Feeling dizzy COMPARISON: 05/10/2009 and earlier TECHNIQUE: Axial images acquired through the brain without intravenous contrast. Images reviewed wi th bone, brain and subdural windows. Additional sagittal and coronal reconstructions were generated. Images stored on PACS. All CT scanners at this facility use dose modulation, iterative reconstruction, and/or weight based d osing when appropriate to reduce radiation dose to as low as reasonably achievable (ALARA). [facility]: Dose Right [facility]: CareDose [facility]: Dose Right [facility]: Teradose 4D [facility]: Smart [employer] RADIATION DOSE: CT Rad equipment meets quality standard of care and radiation dose reduction techniq ues were employed. CTDIvol: 53.2 mGy. DLP: 1017 mGy-cm. mGy. LIMITATIONS: None. FINDINGS: VENTRICLES: Normal size and contour. CEREBRUM: No masses. No hemorrhage. No midline shift. No evidence for acute infarction. Normal gra y/white matter differentiation. No areas of low density in the white matter. CEREBELLUM: No masses. No hemorrhage. No alteration of density. No evidence for acute infarction. EXTRAAXIAL SPACES: No fluid collections. No masses. ORBITS AND GLOBE: No intra- or extraconal masses. Normal contour of globe without masses. CALVARIUM: No fracture. PARANASAL SINUSES: No fluid or mucosal thickening. SOFT TISSUES: No mass or hematoma. Unchanged nonspecific fullness of the adenoids. OTHER: No other significant finding. IMPRESSION: NO ACUTE INTRACRANIAL IMAGING FINDINGS. EVIDENCE OF ACUTE STROKE: NO. COMMENT: Quality ID # [id number]: Final reports with documentation of one or more dose reduction techniques (e.g., Automated exposure control, adjustment of the mA and/or kV according to patient size, use of iterative reconstruction technique) TECHNICAL DOCUMENTATION: JOB ID: [id number] [employer]- All Rights Reserved Reading location - IP/workstation name: [email or web address]
--- NOTE | 2018-03-24 18:54 | ER Document Report ---
ED General - General Chief Complaint: Numbness of Arm Stated Complaint: TINGLING IN ARM, SPEECH DIFFERENCE Time Seen by Provider: 03/24/18 17:05 TRAVEL OUTSIDE OF THE [place] IN LAST 30 DAYS: No - Related Data Allergies/Adverse Reactions: No Known Allergies Allergy (Verified 03/24/18 16:55) Past Medical History - Social History Smoking Status: Current Every Day Smoker Chew tobacco use (# tins/day): No Frequency of alcohol use: None Drug Abuse: None Family History: Reviewed & Not Pertinent, CVA, DM, Hypertension Patient has suicidal ideation: No Patient has homicidal ideation: No Pulmonary Medical History: Reports: Hx Bronchitis, Hx COPD Endocrine Medical History: Reports: Hx Diabetes Mellitus Type 2 Renal/ Medical History: Denies: Hx Peritoneal Dialysis Skin Medical History: Reports Hx Cellulitis Psychiatric Medical History: Reports: Hx Bipolar Disorder, Hx Depression, Hx Schizophrenia - Immunizations Immunizations up to date: Yes Hx Diphtheria, Pertussis, Tetanus Vaccination: Yes Physical Exam - Vital signs Vitals: Pulse Resp BP Pulse Ox 104 H 20 96/63 L 94 03/24/18 16:57 03/24/18 16:57 03/24/18 16:57 03/24/18 16:57 Course - Re-evaluation Re-evalutation: 03/24/18 18:50 Patient presents with orthostasis and paresthesias the right upper extremity the been ongoing for the past 4-5 hours. Patient states that he was feeling lightheaded, presyncopal when he went from a sitting to standing position which has now resolved after he received a 1 L bolus of normal saline in triage. Patient was placed from a sitting to standing position at the bedside, had no symptoms. He did also complain of some paresthesias of the right upper extremity diffusely. He was very clear to state that there was no loss of sensation or motor weakness. His NIH stroke scale is 0. He has no focal neurologic deficits on complete neurologic examination. RMU motor and sensory distribution is intact laterally including against resistance on motor testing. A CT of the head was obtained in triage, noted to be normal. Labs are remarkable for hyperglycemia as well as mild acute kidney injury which would be consistent with the patient's orthostasis. This may also account for some of the patient's paresthesias of the right upper extremity. I have advised the patient that the likelihood of an acute stroke given the absence of any true neurologic deficit is low. I have advised that he follow-up with his primary care doctor to get under better glycemic control, continue to drink plenty of fluids and that if his right upper extremity paresthesias do not resolve within the next 24-48 hours he should follow-up for possible MRI of the head. I do not believe there is an emergent indication for MRI at this time given the absence of any neurologic deficit and otherwise reassuring evaluation. Very low clinical suspicion for any acute life-threatening event. Patient clearly denies any chest pain, shortness of breath, headache, neck pain, or altered mental status. He states he feels much better after receiving therapy in triage. At this time will discharge with return precautions and follow-up recommendations. Verbal discharge instructions given a the bedside and opportunity for questions given. Medication warnings reviewed. Patient is in agreement with this plan and has verbalized understanding of return precautions and the need for primary care follow-up in the next 24-72 hours. - Vital Signs Vital signs: Temp Pulse Resp BP Pulse Ox 97.7 F 92 19 131/79 H 95 03/24/18 19:46 03/24/18 19:46 03/24/18 19:46 03/24/18 19:46 03/24/18 19:46 - Laboratory Result Diagrams: 03/24/18 17:30 03/24/18 17:30 Laboratory results interpreted by me: 03/24/18 17:30 Sodium 132.2 L Chloride 89 L Creatinine 1.27 H Glucose 242 H AST 16 L ALT 19 L - Diagnostic Test Radiology reviewed: Image reviewed, Reports reviewed Radiology results interpreted by me: 03/24/18 18:52 CT head: No acute intercranial bleed or mass - EKG Interpretation by Me Additional EKG results interpreted by me: 03/24/18 18:52 Sinus rhythm. Rate 80. No ST elevations or depressions. QTC is 466. Discharge - Discharge Clinical Impression: Paresthesia of right upper extremity, Orthostasis, Dehydration Condition: Good Disposition: HOME, SELF-CARE Additional Instructions: You were seen today for lightheadedness/dizziness. The exact cause of your symptoms is unclear, appears likely be related to dehydration given your mildly low blood pressure and labs. Please follow closely with your primary care physician in the next 1-3 days. Return if you pass out, have additional episodes of lightheadedness, develop weakness/loss of sensation in the right upper extremity, have persistent vomiting, chest pain, shortness of breath or any other symptoms that are concerning to you. If the sensation of tingling in your right upper extremity does not resolve in the next 24 hours I would advise that you would do an MRI of your head to definitively exclude a stroke.
--- NOTE | 2018-03-24 19:48 | EKG REPORT ---
SEVERITY:- BORDERLINE ECG - SINUS RHYTHM BORDERLINE T WAVE ABNORMALITIES : Confirmed by: Andrew Dumont MD 24-Mar-2018 19:48:15
[2018-03-24 19:50] VITALS: BP 131/79
--- NOTE | 2018-03-25 03:04 | ER Document Report ---
ED General - General Chief Complaint: Numbness of Arm Stated Complaint: TINGLING IN ARM Time Seen by Provider: 03/24/18 17:05 Notes: Patient is a 47-year-old male with a past history of multiple psychiatric comorbidities, intermittent alcohol and tobacco abuse who presents with positional lightheadedness and right arm tingling that has been ongoing for the past 4 hours. The patient states that he has had intermittent sensation of the arm being asleep but denies any weakness or true loss of sensation. He is still able to use the hand normally. Nothing seems to improve or worsen the symptom. He does note that when he goes from sitting to standing position he feels quite lightheaded like he is about to pass out but has not actually lost consciousness. He denies any headache, neck pain, chest pain or shortness of breath. States that he has had similar symptoms several times in the past that were related to dehydration. Denies any recent medication changes. Denies any trauma to the shoulder or neck. TRAVEL OUTSIDE OF THE [place] IN LAST 30 DAYS: No - Related Data Allergies/Adverse Reactions: No Known Allergies Allergy (Verified 03/24/18 16:55) Past Medical History - General Information source: Patient - Social History Smoking Status: Current Every Day Smoker Chew tobacco use (# tins/day): No Frequency of alcohol use: None Drug Abuse: None Lives with: Spouse/Significant other Family History: Reviewed & Not Pertinent, CVA, DM, Hypertension Patient has suicidal ideation: No Patient has homicidal ideation: No Pulmonary Medical History: Reports: Hx Bronchitis, Hx COPD Endocrine Medical History: Reports: Hx Diabetes Mellitus Type 2 Renal/ Medical History: Denies: Hx Peritoneal Dialysis Skin Medical History: Reports Hx Cellulitis Psychiatric Medical History: Reports: Hx Bipolar Disorder, Hx Depression, Hx Schizophrenia - Immunizations Immunizations up to date: Yes Hx Diphtheria, Pertussis, Tetanus Vaccination: Yes Review of Systems - Review of Systems Notes: Constitutional: Negative for fever. HENT: Negative for sore throat. Eyes: Negative for visual changes. Cardiovascular: Negative for chest pain. Positive for lightheadedness Respiratory: Negative for shortness of breath. Gastrointestinal: Negative for abdominal pain, vomiting or diarrhea. Genitourinary: Negative for dysuria. Musculoskeletal: Negative for back pain. Skin: Negative for rash. Neurological: Negative for headaches, weakness, positive for paresthesias of the right upper extremity 10 point ROS negative except as marked above and in HPI. Physical Exam - Vital signs Vitals: Pulse Resp BP Pulse Ox 104 H 20 96/63 L 94 03/24/18 16:57 03/24/18 16:57 03/24/18 16:57 03/24/18 16:57 Interpretation: Tachycardic Notes: PHYSICAL EXAMINATION: GENERAL: Well-appearing, well-nourished and in no acute distress. HEAD: Atraumatic, normocephalic. EYES: Pupils equal round and reactive to light, extraocular movements intact, sclera anicteric, conjunctiva are normal. ENT: nares patent, oropharynx clear without exudates. Moderately dry mucous membranes. NECK: Normal range of motion, supple without lymphadenopathy LUNGS: Breath sounds clear to auscultation bilaterally and equal. No wheezes rales or rhonchi. HEART: Regular rate and rhythm without murmurs ABDOMEN: Soft, nontender, normoactive bowel sounds. No guarding, no rebound. No masses appreciated. EXTREMITIES: Normal range of motion, no pitting or edema. No cyanosis. NEUROLOGICAL: Face symmetric. Tongue protrudes midline. Extraocular motions intact. Pupils are 2 mm and equally reactive. Normal speech, normal gait. 5 out of 5 strength in both the distal and proximal upper and lower extremities bilaterally. Sensation is grossly intact throughout. Finger to nose testing normal. Pronator drift normal. PSYCH: Normal mood, normal affect. SKIN: Warm, Dry, normal turgor, no rashes or lesions noted. Course - Re-evaluation Re-evalutation: 03/25/18 03:04 Patient presents with orthostasis and paresthesias the right upper extremity the been ongoing for the past 4-5 hours. Patient states that he was feeling lightheaded, presyncopal when he went from a sitting to standing position which has now resolved after he received a 1 L bolus of normal saline in triage. Patient was placed from a sitting to standing position at the bedside, had no symptoms. He did also complain of some paresthesias of the right upper extremity diffusely. He was very clear to state that there was no loss of sensation or motor weakness. His NIH stroke scale is 0. He has no focal neurologic deficits on complete neurologic examination. RMU motor and sensory distribution is intact laterally including against resistance on motor testing. A CT of the head was obtained in triage, noted to be normal. Labs are remarkable for hyperglycemia as well as mild acute kidney injury which would be consistent with the patient's orthostasis. This may also account for some of the patient's paresthesias of the right upper extremity. I have advised the patient that the likelihood of an acute stroke given the absence of any true neurologic deficit is low. I have advised that he follow-up with his primary care doctor to get under better glycemic control, continue to drink plenty of fluids and that if his right upper extremity paresthesias do not resolve within the next 24-48 hours he should follow-up for possible MRI of the head. I do not believe there is an emergent indication for MRI at this time given the absence of any neurologic deficit and otherwise reassuring evaluation. Very low clinical suspicion for any acute life-threatening event. Patient clearly denies any chest pain, shortness of breath, headache, neck pain, or altered mental status. He states he feels much better after receiving therapy in triage. At this time will discharge with return precautions and follow-up recommendations. Verbal discharge instructions given a the bedside and opportunity for questions given. Medication warnings reviewed. Patient is in agreement with this plan and has verbalized understanding of return precautions and the need for primary care follow-up in the next 24-72 hours. - Vital Signs Vital signs: Temp Pulse Resp BP Pulse Ox 97.7 F 92 19 131/79 H 95 03/24/18 19:46 03/24/18 19:46 03/24/18 19:46 03/24/18 19:46 03/24/18 19:46 - Laboratory Result Diagrams: 03/24/18 17:30 03/24/18 17:30 Laboratory results interpreted by me: 03/24/18 17:30 Sodium 132.2 L Chloride 89 L Creatinine 1.27 H Glucose 242 H AST 16 L ALT 19 L - Diagnostic Test Radiology reviewed: Image reviewed, Reports reviewed Radiology results interpreted by me: 03/25/18 03:05 CT head: No acute intracranial bleed or mass - EKG Interpretation by Me Additional EKG results interpreted by me: 03/25/18 03:06 Sinus rhythm. Rate 80. No ST elevations or depressions. QTC is 466. Discharge - Discharge Clinical Impression: Paresthesia of right upper extremity, Orthostasis, Dehydration Condition: Good Disposition: HOME, SELF-CARE Additional Instructions: You were seen today for lightheadedness/dizziness. The exact cause of your symptoms is unclear, appears likely be related to dehydration given your mildly low blood pressure and labs. Please follow closely with your primary care physician in the next 1-3 days. Return if you pass out, have additional episodes of lightheadedness, develop weakness/loss of sensation in the right upper extremity, have persistent vomiting, chest pain, shortness of breath or any other symptoms that are concerning to you. If the sensation of tingling in your right upper extremity does not resolve in the next 24 hours I would advise that you would do an MRI of your head to definitively exclude a stroke.
== END 2018-03-24 19:51 | disposition home or self-care (01) ==
LOC: ER 16:55
DX: R20.0 Anesthesia of skin (principal); I95.1 Orthostatic hypotension; E86.0 Dehydration; F17.200 Nicotine dependence, unspecified, uncomplicated; E11.9 Type 2 diabetes mellitus without complications; J44.9 Chronic obstructive pulmonary disease, unspecified
CPT/HCPCS: 93005; 99285; 96360; 36415; 82553; 82962; 82550; 85025; 80053; 84484; 70450; 93010; A9270 ×2; J7030

== ENCOUNTER 2018-07-28 14:35 | Emergency (ER) | payer MEDICARE, MEDICAID ==
--- NOTE | 2018-07-28 14:49 | ER Document Report ---
ED Medical Screen (RME) - General Chief Complaint: Suicidal Ideation Stated Complaint: PSYCH EVAL Time Seen by Provider: 07/28/18 14:44 Mode of Arrival: Ambulatory Information source: Patient Notes: Patient presents to the emergency department with complaints of request for mental health treatment. Patient reports intermittent suicidal thoughts related to his schizophrenia. He states that he saw his primary care provider who prescribed him Haldol however he does not have injectors for it and he cannot find anyone to help him with this. Patient reports he wants to seek inpatient treatment at [facility] or any other hospital for his mental health issues. Exam: Patient alert, answering all questions. Patient cooperative but anxious. I have greeted and performed a rapid initial assessment of this patient. A comprehensive ED assessment and evaluation of the patient, analysis of test results and completion of the medical decision making process will be conducted by additional ED providers. Dictation of this chart was performed using voice recognition software; therefore, there may be some unintended grammatical errors. TRAVEL OUTSIDE OF THE [place] IN LAST 30 DAYS: No - Related Data Allergies/Adverse Reactions: No Known Allergies Allergy (Verified 07/28/18 14:37) Past Medical History Pulmonary Medical History: Reports: Hx Bronchitis, Hx COPD Endocrine Medical History: Reports: Hx Diabetes Mellitus Type 2 Renal/ Medical History: Denies: Hx Peritoneal Dialysis Skin Medical History: Reports Hx Cellulitis Psychiatric Medical History: Reports: Hx Bipolar Disorder, Hx Depression, Hx Schizophrenia - Immunizations Immunizations up to date: Yes Hx Diphtheria, Pertussis, Tetanus Vaccination: Yes Physical Exam - Vital signs Vitals: Temp Pulse Resp BP Pulse Ox 97.6 F 105 H 16 124/67 95 07/28/18 14:40 07/28/18 14:40 07/28/18 14:40 07/28/18 14:40 07/28/18 14:40 Course - Vital Signs Vital signs: Temp Pulse Resp BP Pulse Ox 97.6 F 105 H 16 124/67 95 07/28/18 14:40 07/28/18 14:40 07/28/18 14:40 07/28/18 14:40 07/28/18 14:40
[2018-07-28 15:07] LABS: HEMOGLOBIN 14.4 g/dL (13.5-17.0); MEAN CORPUSCULAR HEMOGLOBIN 30.5 pg (27.0-33.4); MEAN CORPUSCULAR VOLUME 85 fl (80-97); PLATELET COUNT 357 10^3/uL (150-450); RED BLOOD COUNT 4.72 10^6/uL (4.35-5.55); RED CELL DISTRIBUTION WIDTH 14.1 % (11.5-14.0); WHITE BLOOD COUNT 10.4 10^3/uL (4.0-10.5)
[2018-07-28 15:18] LABS: APPEARANCE,URINE CLEAR; BILIRUBIN,URINE NEGATIVE (NEGATIVE); COLOR,URINE YELLOW; GLUCOSE, URINE NEGATIVE (NEGATIVE); KETONES,URINE NEGATIVE (NEGATIVE); LEUKOCYTE ESTERASE,URINE NEGATIVE (NEGATIVE); NITRITE,URINE NEGATIVE (NEGATIVE); PROTEIN,URINE NEGATIVE (NEGATIVE); URINE SPECIFIC GRAVITY 1.003; UROBILINOGEN,URINE NEGATIVE mg/dL (<2.0)
--- NOTE | 2018-07-28 15:26 | ER Document Report ---
ED Psych Disorder / Suicide <TOMLINSONCASANDRA - Last Filed: 07/28/18 16:29> - General Mode of Arrival: Ambulatory TRAVEL OUTSIDE OF THE [place] IN LAST 30 DAYS: No <PHILLIP TOVAR - Last Filed: 07/28/18 16:54> - General Chief Complaint: Suicidal Ideation Stated Complaint: PSYCH EVAL Time Seen by Provider: 07/28/18 14:44 Primary Care Provider: [facility] [Outside] - Follow up as needed Notes: Patient says he has been abusing cocaine and wanted to go to detox, but when he got there was told that they have no availability. He says he has been feeling depressed because of his using the cocaine. He is also depressed because of the of his mother and father, both in the past 6 months, mother and May and father in January. Patient has a history of schizoaffective disorder for which he is on 8 different medications. He usually gets a Haldol decanoate shot once a month, but says he cannot find a doctor to give it to him now. Patient denies abusing alcohol or any other substances. (PHILLIP TOVAR) - Related Data Allergies/Adverse Reactions: No Known Allergies Allergy (Verified 07/28/18 14:37) Past Medical History - General Information source: Patient - Social History Smoking Status: Current Every Day Smoker Family History: Reviewed & Not Pertinent, CVA, DM, Hypertension Patient has suicidal ideation: No Patient has homicidal ideation: No Pulmonary Medical History: Reports: Hx Bronchitis, Hx COPD Endocrine Medical History: Reports: Hx Diabetes Mellitus Type 2 Skin Medical History: Reports Hx Cellulitis Psychiatric Medical History: Reports: Hx Bipolar Disorder, Hx Depression, Hx Schizophrenia - Immunizations Immunizations up to date: Yes Hx Diphtheria, Pertussis, Tetanus Vaccination: Yes <PHILLIP TOVAR - Last Filed: 07/28/18 16:54> Review of Systems <PHILLIP TOVAR - Last Filed: 07/28/18 16:54> - Review of Systems Notes: REVIEW OF SYSTEMS: CONSTITUTIONAL : Denies fever. EENT: Denies eye, ear, nose or mouth or throat pain or other symptoms. CARDIOVASCULAR: Denies chest pain. RESPIRATORY: Denies cough, chest congestion, or shortness of breath. GASTROINTESTINAL: Denies abdominal pain or nausea, vomiting, or diarrhea. GENITOURINARY: Denies difficulty or painful urinating, urinary frequency, blood in urine. MUSCULOSKELETAL: Denies back or neck pain. Denies joint pain or swelling. SKIN: Denies rash or skin lesions. NEUROLOGICAL: Denies LOC or altered mental status. Denies headache. Denies sensory loss or motor deficits. ALL OTHER SYSTEMS REVIEWED AND NEGATIVE. (PHILLIP TOVAR) Physical Exam - Vital signs Interpretation: Normal <PHILLIP TOVAR - Last Filed: 07/28/18 16:54> - Vital signs Vitals: Temp Pulse Resp BP Pulse Ox 97.6 F 105 H 16 124/67 95 07/28/18 14:40 07/28/18 14:40 07/28/18 14:40 07/28/18 14:40 07/28/18 14:40 Notes: PHYSICAL EXAMINATION: GENERAL: Well-appearing, in no acute distress. Pleasant, cooperative. HEAD: Atraumatic, normocephalic. EYES: Pupils equal round and reactive to light, extraocular movements intact. ENT: oropharynx clear without exudates. Moist mucous membranes. NECK: Normal range of motion, supple. LUNGS: Except for an occasional scattered rhonchus, breath sounds clear and equal bilaterally. HEART: Regular rate and rhythm without murmurs. ABDOMEN: Soft, nontender. No guarding or rebound. No masses. BACK: No tenderness throughout entire back. EXTREMITIES: Normal range of motion without pain. NEUROLOGICAL: Normal speech, normal gait. Normal sensory, motor, and reflex exams. Awake, alert, and oriented x3. Cranial nerves normal. PSYCH: Normal mood, normal affect. Does not appear to be significantly depressed. SKIN: Warm, dry, no rashes. (PHILLIP TOVAR) Course - Laboratory Result Diagrams: 07/28/18 14:55 07/28/18 14:55 <CASANDRA TOMLINSON - Last Filed: 07/28/18 16:29> - Laboratory Result Diagrams: 07/28/18 14:55 07/28/18 14:55 <PHILLIP TOVAR - Last Filed: 07/28/18 16:54> - Vital Signs Vital signs: Temp Pulse Resp BP Pulse Ox 97.6 F 105 H 16 124/67 95 07/28/18 14:40 07/28/18 14:40 07/28/18 14:40 07/28/18 14:40 07/28/18 14:40 - Laboratory Laboratory results interpreted by me: 07/28/18 07/28/18 14:55 14:55 RDW 14.1 H Seg Neuts % (Manual) 80 H Monocytes % (Manual) 1 L Abs Neuts (Manual) 8.3 H Sodium 126.6 L Chloride 88 L BUN 3 L Glucose 165 H Salicylates < 1.0 L Acetaminophen < 10 L Discharge <CASANDRA TOMLINSON - Last Filed: 07/28/18 16:29> <PHILLIP TOVAR - Last Filed: 07/28/18 16:54> - Discharge Clinical Impression: Cocaine abuse, Bipolar 1 disorder Condition: Stable Disposition: HOME, SELF-CARE Additional Instructions: You have been evaluated both medical and behavioral health teams have been deemed appropriate for discharge. You received assistance in administering your home medication of Haldol Decanoate today. Please follow-up with your outpatient mental health provider in 3 to 5 days. You are highly encouraged to follow-up with substance abuse treatment. You have been provided a resource list of area providers including mobile crisis contact information, detox facilities and substance abuse treatment. DEPRESSION: Your evaluation reveals that you have mental depression. While symptoms may be vague, they often include disturbance of sleep, fatigue, loss of appetite, and general loss of interest in life. While depression may be a side effect of drugs, or a reaction to a major change in your life, many cases have no known cause. If depression is acute, and related to a major loss in your life, you can expect it to clear completely with time. If you have been depressed a long time, are prone to repeated bouts of depression or low mood, or have been thinking of suicide, get help. Depression can be treated with anti-depressant medication and counselling. Long-term depression will often take a few weeks to clear, even with appropriate medication. Follow-up care is important. SUICIDAL IDEATION: Suicidal ideation is a common medical term for thoughts about suicide, which may be as detailed as a formulated plan, without the suicidal act itself. Although most people who undergo suicidal ideation do not commit suicide, some go on to make suicide attempts. The range of suicidal ideation varies greatly from fleeting to detailed planning, role playing, and unsuccessful attempts. While thoughts about suicide are common, most people do not carry out serious actions to commit suicide. Based upon your evaluation and discussion with you, we do not believe you are currently at risk to act upon your thoughts of suicide. You have agreed to return to the Emergency Department, at any time, if you feel inclined to act upon your suicidal thoughts. FOLLOW-UP CARE: If you have been referred to a physician for follow-up care, call the physicians office for an appointment as you were instructed or within the next two days. If you experience worsening or a significant change in your symptoms, notify the physician immediately or return to the Emergency Department at any time for re-evaluation. Referrals: [facility] [Outside] - Follow up as needed
[2018-07-28 15:29] LABS: ACETAMINOPHEN < 10 ug/mL (10-30); ALANINE AMINOTRANSFERASE 30 U/L (21-72); ALBUMIN 4.1 g/dL (3.5-5.0); ALCOHOL < 10 mg/dL (NONE DETECTED); ALKALINE PHOSPHATASE 57 U/L (38-126); ANION GAP 12 (5-19); ASPARTATE AMINO TRANSFERASE 22 U/L (17-59); BILIRUBIN,DIRECT 0.3 mg/dL (0.0-0.4); BILIRUBIN,TOTAL 0.5 mg/dL (0.2-1.3); BLOOD UREA NITROGEN 3 mg/dL (7-20); CALCIUM 9.5 mg/dL (8.4-10.2); CARBON DIOXIDE 27 mmol/L (22-30); CHLORIDE 88 mmol/L (98-107); GLUCOSE 165 mg/dL (75-110); POTASSIUM 4.3 mmol/L (3.6-5.0); SALICYLATE < 1.0 mg/dL (2.0-20.0); SODIUM 126.6 mmol/L (137-145); TOTAL PROTEIN 6.7 g/dL (6.3-8.2)
[2018-07-28 15:33] LABS: URINE AMPHETAMINES SCREEN NEGATIVE; URINE BARBITURATES SCREEN NEGATIVE; URINE BENZODIAZEPINES SCREEN NEGATIVE; URINE COCAINE SCREEN UNCONFIRMED POSITIVE; URINE MARIJUANA (THC) SCREEN NEGATIVE; URINE METHADONE SCREEN NEGATIVE; URINE PHENCYCLIDINE SCREEN NEGATIVE
[2018-07-28 15:38] LABS: ABSOLUTE LYMPHOCYTES# (MANUAL) 1.8 10^3/uL (0.5-4.7); ABSOLUTE MONOCYTES # (MANUAL) 0.1 10^3/uL (0.1-1.4); ABSOLUTE NEUTROPHILS# (MANUAL) 8.3 10^3/uL (1.7-8.2); ANISOCYTOSIS SLIGHT; BASOPHILS % (MANUAL) 1 % (0-2); EOSINOPHILS % (MANUAL) 1 % (0-6); LYMPHOCYTES % (MANUAL) 17 % (13-45); MONOCYTES % (MANUAL) 1 % (3-13); OVALOCYTES SLIGHT; PLATELET COMMENT ADEQUATE; POIKILOCYTOSIS SLIGHT; SEGMENTED NEUTROPHILS % (MAN) 80 % (42-78); TOTAL CELLS COUNTED 100
--- NOTE | 2018-07-28 16:29 | PSYCHOLOGICAL NOTE ---
Psych Note - Psych Note Date seen by psych provider: 07/28/18 Time seen by psych provider: 16:00 Psych Note: Reason for Consult: Medication recommendations/substance abuse Patient says he has been abusing cocaine and wanted to go to detox, but when he got there was told that they have no availability. Patient has a history of schizoaffective disorder for which he is on 8 different medications. He usually gets a Haldol decanoate shot once a month, but says he cannot find a doctor to give it to him now. Patient report that his sister drove him to the local [employer] and he took the bus to [facility] because he is having trouble [facility]. He reports that he saw his outpatient mental health provider, Dr. Rivera, 2 days ago and received a prescription which includes his Haldol Decanoate shot. He was told that he had to take his shot to his primary doctor to get it administered however he does not have a primary physician. He reports that he brought it with him to [facility] in the hopes that someone would be able to administer it. When talking about thoughts of wanting to harm himself he discloses that he has chronic passive suicidal ideation i.e. no plans means or intent however has no concerns of returning home if he can get assistance in getting his decanoate shot. When asked about his substance abuse he reports that the last use of cocaine was "maybe 3-4 days ago." When it was explained that it was still in his toxicology patient then stated "maybe was to do 3 days ago." He discloses that he would like resource information for substance abuse treatment. Patient is alert and orientated to person, place, time and circumstance. Mood is euthymic with congruent affect as evidenced by smiling engaging with clinician. Patient reports chronic passive suicidal ideation i.e. no plans means or intent denies homicidal ideation. Delusions are absent behaviors congruent with an intact reality based presentation i.e. organized and linear thought process. Eye contact was well-maintained. Conversational speech is within normal rate, tone and prosody. Intellectual abilities appear to be within the average range. Attention and concentration are fair. Insight, judgment, impulse control are fair.\\ No medication recommendations at this time Cocaine abuse Schizoaffective; bipolar type per history provided by patient Impression\\plan: Patient is cleared from acute psychiatric services. Patient denies current suicidal and homicidal ideation and reports passive suicidal ideation i.e. no plans means or intent prior to arrival. Patient reports last use of cocaine was approximately 2 to 3 days ago. He understands that substance abuse treatment is voluntary. Behavior health team provided detox and substance abuse treatment information to patient. Patient reports that he last saw his outpatient provider 07/25/2018 and received his medications. This includes a Haldol Decanoate shot which his provider told him that he had to go see his doctor to get administered. He reports that he needs assistance in having this medication administered; patient does have the prescription with him. Attending physician ordered for home medication to be administered after pharmacy verified medication. Patient is encouraged to follow-up with substance abuse treatment. Dr. Galeano was consulted and the care management of this patient; attending physicians in agreement with recommendations and disposition.
[2018-07-28] MEDS ORDERED: HALOPERIDOL DECANOATE INJ 100 MG/1 ML VIAL IM PRN (17:00)
[2018-07-28 18:19] VITALS: BP 126/70
--- NOTE | 2018-07-28 18:37 | EKG REPORT ---
SEVERITY:- NORMAL ECG - SINUS RHYTHM : Confirmed by: Andrew Dumont MD 28-Jul-2018 18:36:57
== END 2018-07-28 18:22 | disposition home or self-care (01) ==
LOC: ER 14:35
DX: F14.10 Cocaine abuse, uncomplicated (principal); F25.0 Schizoaffective disorder, bipolar type; Z79.899 Other long term (current) drug therapy; R45.851 Suicidal ideations; F17.200 Nicotine dependence, unspecified, uncomplicated; J44.9 Chronic obstructive pulmonary disease, unspecified; E11.9 Type 2 diabetes mellitus without complications; Z63.4 Disappearance and death of family member
CPT/HCPCS: 93005; 99285; 96372; 36415; 80307 ×4; 85025; 80053; 81001; 93010; J1631

== ENCOUNTER 2018-08-03 00:53 | Emergency (ER) | payer MEDICARE, MEDICAID ==
--- NOTE | 2018-08-03 00:59 | ER Document Report ---
Addendum entered and electronically signed by NATHALIA HUFFMAN DO 08/03/18 14:49: Course - Re-evaluation Re-evalutation: 08/03/18 14:49 EKG shows sinus rhythm at a rate of 75, normal axis, normal R wave progression, no ST segment elevations or depressions, isolated nonspecific T wave inversions in aVL, QRS is slightly prolonged at 108, not significantly changed from prior EKG where it was 102 per my interpretation. - Vital Signs Vital signs: Temp Pulse Resp BP Pulse Ox 98.5 F 80 18 167/83 H 100 08/03/18 13:11 08/03/18 13:11 08/03/18 13:11 08/03/18 13:11 08/03/18 13:11 - Laboratory Result Diagrams: 08/03/18 01:15 08/03/18 01:15 Laboratory results interpreted by me: 08/03/18 08/03/18 01:15 01:15 RDW 14.3 H Sodium 128.3 L Chloride 94 L Acetaminophen < 10 L Addendum entered and electronically signed by NATHALIA HUFFMAN DO 08/03/18 12:59: Discharge - Discharge Clinical Impression: Homicidal thoughts Schizophrenia Qualifiers: Schizophrenia type: unspecified Qualified Code(s): F20.9 - Schizophrenia, unspecified Condition: Stable Disposition: HOME, SELF-CARE Additional Instructions: You have been evaluated by both medical and behavioral health providers while in the emergency department. Coordination was attempted by the [facility] team with outpatient mental health provider [facility] ([facility]) and Primary Care at [facility]. You should continue medications as prescribed by [facility]. You have been cleared from both acute medical and psychiatric services. Bipolar Disorder Bipolar disorder is also called manic-depressive disorder. Depression alternates with brain hyperactivity called tramaine. Each phase lasts from several days to a few weeks. We don't know exactly what causes bipolar disorder, but it's treatable. During the "manic phase," you may feel elated and energetic. You may have racing thoughts, rapid speech, increased activity, and grandiose ideas. During this time, you may not realize how poor your judgement is. Inappropriate spending, drug abuse, excessive alcohol use, marriage problems, and irresponsible sexual behavior are common during the manic phase. During the "depressive phase," you might feel depressed, guilty, worthless, fatigued, and unable to concentrate. You might have thoughts of suicide. Good treatments are available for bipolar disorder. [place] is a classic drug for bipolar disorder, and is still often useful. If the manic phase is very mild, an antidepressant alone can be prescribed. If the manic phase is very severe, an antipsychotic medicine (such as Haldol) may be needed. The treatment must be matched to your symptoms, so it's important to work closely with your psychiatric care provider. Contact your physician, the hospital emergency center, crisis line, or your counsellor if you are losing control or having self-destructive thoughts. Schizophrenia Schizophrenia is a chemical disorder that affects how the brain functions. The exact cause is unknown, but it tends to run in families. It is NOT caused by emotional trauma. Schizophrenia causes disordered thinking, including unusual beliefs and inability to "process" happenings around the patient. Patients with schizophrenia benefit greatly from medicine. These medicines are called antipsychotics. Never stop the medicine without the doctor's approval. Counselling may help the patient deal with his disease. Schizophrenics require a very ordered environment. Stresses and sudden changes may bring out symptoms. Drugs and alcohol abuse may become problems. Contact the counsellor or crisis line if there are thoughts of suicide or of harming others, or if you become aware of unusual thoughts or beliefs When there is a combination of Bipolar and Schizophrenia the diagnosis is often Schizoaffective Disorder Bipolar Type as it is a combination of symptoms from both. HOMICIDAL IDEATION: (often this is verbal expression due to anger and rage towards someone or a situation, there are thoughts, but never action or intent) Homicidal ideation is a common medical term for thoughts about homicide, w hich may be as detailed as a formulated plan, without the homicidal act itself. Although most people who undergo homicidal ideation do not commit homicide, some go on to make homicide attempts. The range of homicidal ideation varies greatly from fleeting to detailed planning, role playing, and unsuccessful attempts. While thoughts about homicide are common, most people do not carry out serious actions to commit homicide. Based upon your evaluation and discussion with you, we do not believe you are currently at risk to act upon your thoughts of homicide. You have agreed to return to the Emergency Department, at any time, if you feel inclined to act upon your homicidal thoughts. FOLLOW-UP CARE: The [facility] team has coordinated with both your mental health provider at [facility] ([facility]) and Primary Care at [facility] about the Haldol Deconoate shot administration. They will both be faxed a patient referral sheet regarding your visit. You should follow up with both your mental health provider and primary care within 7 days. If you experience worsening or a significant change in your symptoms, notify the physician immediately, utilize mobile crisis or return to the Emergency Department at any time for re-evaluation. Referrals: [facility] [Outside] - Follow up in 1 week IF Crisis Team [Outside] - Follow up as needed Addendum entered and electronically signed by LEONILA HILL LPC 08/03/18 12:51: Discharge - Discharge Clinical Impression: Homicidal thoughts Schizophrenia Qualifiers: Schizophrenia type: unspecified Qualified Code(s): F20.9 - Schizophrenia, unspecified Condition: Stable Disposition: HOME, SELF-CARE Additional Instructions: You have been evaluated by both medical and behavioral health providers while in the emergency department. Coordination was attempted by the [facility] team with outpatient mental health provider [facility] ([facility]) and Primary Care at [facility]. You should continue medications as prescribed by [facility]. You have been cleared from both acute medical and psychiatric services. Bipolar Disorder Bipolar disorder is also called manic-depressive disorder. Depression alternates with brain hyperactivity called tramaine. Each phase lasts from several days to a few weeks. We don't know exactly what causes bipolar disorder, but it's treatable. During the "manic phase," you may feel elated and energetic. You may have racing thoughts, rapid speech, increased activity, and grandiose ideas. During this time, you may not realize how poor your judgement is. Inappropriate spending, drug abuse, excessive alcohol use, marriage problems, and irresponsible sexual behavior are common during the manic phase. During the "depressive phase," you might feel depressed, guilty, worthless, fatigued, and unable to concentrate. You might have thoughts of suicide. Good treatments are available for bipolar disorder. [place] is a classic drug for bipolar disorder, and is still often useful. If the manic phase is very mild, an antidepressant alone can be prescribed. If the manic phase is very severe, an antipsychotic medicine (such as Haldol) may be needed. The treatment must be matched to your symptoms, so it's important to work closely with your psychiatric care provider. Contact your physician, the hospital emergency center, crisis line, or your counsellor if you are losing control or having self-destructive thoughts. Schizophrenia Schizophrenia is a chemical disorder that affects how the brain functions. The exact cause is unknown, but it tends to run in families. It is NOT caused by emotional trauma. Schizophrenia causes disordered thinking, including unusual beliefs and inability to "process" happenings around the patient. Patients with schizophrenia benefit greatly from medicine. These medicines are called antipsychotics. Never stop the medicine without the doctor's approval. Counselling may help the patient deal with his disease. Schizophrenics require a very ordered environment. Stresses and sudden changes may bring out symptoms. Drugs and alcohol abuse may become problems. Contact the counsellor or crisis line if there are thoughts of suicide or of harming others, or if you become aware of unusual thoughts or beliefs When there is a combination of Bipolar and Schizophrenia the diagnosis is often Schizoaffective Disorder Bipolar Type as it is a combination of symptoms from both. HOMICIDAL IDEATION: (often this is verbal expression due to anger and rage towards someone or a situation, there are thoughts, but never action or intent) Homicidal ideation is a common medical term for thoughts about homicide, which may be as detailed as a formulated plan, without the homicidal act itself. Although most people who undergo homicidal ideation do not commit homicide, bee e go on to make homicide attempts. The range of homicidal ideation varies greatly from fleeting to detailed planning, role playing, and unsuccessful attempts. While thoughts about homicide are common, most people do not carry out serious actions to commit homicide. Based upon your evaluation and discussion with you, we do not believe you are currently at risk to act upon your thoughts of homicide. You have agreed to return to the Emergency Department, at any time, if you feel inclined to act upon your homicidal thoughts. FOLLOW-UP CARE: The [facility] team has coordinated with both your mental health provider at [facility] ([facility]) and Primary Care at [facility] about the Haldol Deconoate shot administration. They will both be faxed a patient referral sheet regarding your visit. You should follow up with both your mental health provider and primary care within 7 days. If you experience worsening or a significant change in your symptoms, notify the physician immediately, utilize mobile crisis or return to the Emergency Department at any time for re-evaluation. Referrals: [facility] [Outside] - Follow up in 1 week [facility] Crisis Team [Outside] - Follow up as needed Original Note: ED General - General Stated Complaint: HOMICIDAL IDEATIONS Time Seen by Provider: 08/03/18 00:58 Notes: Patient is a 48-year-old male with history of schizophrenia that presents to the emergency department for chief complaint of homicidal ideations and left arm numbness. Patient states that he started feeling his arm numb earlier this e vening, he has had this before, he tells me he has had TIAs in the past, he is currently on Plavix, for history of PAD. He states the numbness bounces back and forth between left and right. He denies having any slurred speech, weakness, difficulty speaking, or swallowing. Has not noticed any facial droop, or lack of coordination. Denies any changes in his vision. He does states he has been having homicidal thoughts, about some of that affected his family, that lives in [place], has been having more these thoughts recently, and has a plan to shoot this individual, if he had the opportunity. He does not reveal this person's name. He has had these thoughts before, but states that there are more increased recently. Past Medical History: Diabetes mellitus, schizophrenia, peripheral artery disease Past Surgical History: Stenting in the left leg Social History: Admits to smoking cigarettes, occasional alcohol use, denies illicit drug use. Family History: Reviewed and noncontributory for presenting illness Allergies: Reviewed, see documented allergy list. REVIEW OF SYSTEMS: Other than noted above, the 12 point review of systems was reviewed with the patient and were negative, all pertinent findings are included in the HPI. PHYSICAL EXAMINATION: Vital signs reviewed, nursing noted reviewed. GENERAL: Patient appears somewhat disheveled, but in no acute distress HEAD: Atraumatic, normocephalic. EYES: Eyes appear normal, extraocular movements intact, sclera anicteric, con junctiva are normal. ENT: nares patent, oropharynx clear without exudates. Moist mucous membranes. NECK: Normal range of motion, supple without lymphadenopathy LUNGS: Breath sounds clear to auscultation bilaterally and equal. No wheezes rales or rhonchi. HEART: Regular rate and rhythm without murmurs ABDOMEN: Soft, nontender, normoactive bowel sounds. No rebound, guarding, or rigidity. No masses appreciated. EXTREMITIES: Nontender, good range of motion, no pitting or edema. NEUROLOGICAL: No focal neurological deficits. Moves all extremities spontaneously Motor and sensory grossly intact on exam. NIH stroke scale score: 0, no focal neurological findings on exam, patient had intact and equal sensation bilaterally in the upper and lower extremities. PSYCH: Normal mood, normal affect. SKIN: Warm, Dry, normal turgor, no rashes or lesions noted on exposed skin TRAVEL OUTSIDE OF THE [place] IN LAST 30 DAYS: No - Related Data Allergies/Adverse Reactions: No Known Allergies Allergy (Verified 07/28/18 14:37) Past Medical History - Social History Smoking Status: Current Every Day Smoker Family History: Reviewed & Not Pertinent, CVA, DM, Hypertension Pulmonary Medical History: Reports: Hx Bronchitis, Hx COPD Endocrine Medical History: Reports: Hx Diabetes Mellitus Type 2 Renal/ Medical History: Denies: Hx Peritoneal Dialysis Skin Medical History: Reports Hx Cellulitis Psychiatric Medical History: Reports: Hx Bipolar Disorder, Hx Depression, Hx Schizophrenia - Immunizations Immunizations up to date: Yes Hx Diphtheria, Pertussis, Tetanus Vaccination: Yes Physical Exam - Vital signs Vitals: Temp Pulse Resp BP Pulse Ox 97.8 F 83 18 131/65 H 97 08/03/18 01:01 08/03/18 01:01 08/03/18 01:01 08/03/18 01:01 08/03/18 01:01 Course - Re-evaluation Re-evalutation: Patient seen and examined, vital signs reviewed. Medical screening testing was ordered including bloodwork, EKG, and toxicology. Results of testing were reviewed. Testing demonstrated mild hyponatremia, which appears to be chronic for this patient based on prior labs, otherwise was unremarkable, his QTC was prolonged from prior though and EKG will be repeated in the morning, as the patient is on Haldol, which could be prolong his QTC. Patient has been stable from a hemodynamic standpoint. CT of the head was performed and negative, I did not suspect stroke or TIA in this patient, he did not have any findings on exam, only subjective numbness that he had earlier in the evening, did not seem consistent with any particular neurological pattern, as it went back and forth between each arm. Patient was complaining of being eyes, was given Visine, which improved this, he was also complaining of nicotine withdrawal symptoms, and nicotine patch was ordered. At this point I feel that the patient is medically cleared, but would want to review repeat EKG, prior to continuing potential QTC prolonging agents. Patient updated on plan of care. Laboratory 08/03/18 08/03/18 08/03/18 01:15 01:15 01:15 WBC 10.2 RBC 4.59 Hgb 14.0 Hct 39.2 MCV 86 MCH 30.5 MCHC 35.6 RDW 14.3 H Plt Count 339 Seg Neutrophils % 65.5 Lymphocytes % 24.8 Monocytes % 7.8 Eosinophils % 0.9 Basophils % 1.0 Absolute Neutrophils 6.7 Absolute Lymphocytes 2.5 Absolute Monocytes 0.8 Absolute Eosinophils 0.1 Absolute Basophils 0.1 Sodium 128.3 L Potassium 3.9 Chloride 94 L Carbon Dioxide 27 Anion Gap 7 BUN 9 Creatinine 0.73 Est GFR ( Amer) > 60 Est GFR (Non-Af Amer) > 60 Glucose 104 Calcium 9.9 Total Bilirubin 0.7 Direct Bilirubin 0.4 Neonat Total Bilirubin Not Reportable Neonat Direct Bilirubin Not Reportable Neonat Indirect Bili Not Reportable AST 34 ALT 38 Alkaline Phosphatase 55 Total Protein 6.8 Albumin 4.2 Urine Color STRAW Urine Appearance CLEAR Urine pH 6.0 Ur Specific [place] 1.003 Urine Protein NEGATIVE Urine Glucose (UA) NEGATIVE Urine Ketones NEGATIVE Urine Blood NEGATIVE Urine Nitrite NEGATIVE Urine Bilirubin NEGATIVE Urine Urobilinogen NEGATIVE Ur Leukocyte Esterase NEGATIVE Urine WBC (Auto) 0 Urine RBC (Auto) 1 Urine Bacteria (Auto) TRACE Urine Mucus (Auto) RARE Urine Ascorbic Acid NEGATIVE Salicylates 2.9 Urine Opiates Screen Urine Methadone Screen Acetaminophen < 10 L Ur Barbiturates Screen Ur Phencyclidine Scrn Ur Amphetamines Screen U Benzodiazepines Scrn Urine Cocaine Screen U Marijuana (THC) Screen Serum Alcohol < 10 08/03/18 01:15 WBC RBC Hgb Hct MCV MCH MCHC RDW Plt Count Seg Neutrophils % Lymphocytes % Monocytes % Eosinophils % Basophils % Absolute Neutrophils Absolute Lymphocytes Absolute Monocytes Absolute Eosinophils Absolute Basophils Sodium Potassium Chloride Carbon Dioxide Anion Gap BUN Creatinine Est GFR ( Amer) Est GFR (Non-Af Amer) Glucose Calcium Total Bilirubin Direct Bilirubin Neonat Total Bilirubin Neonat Direct Bilirubin Neonat Indirect Bili AST ALT Alkaline Phosphatase Total Protein Albumin Urine Color Urine Appearance Urine pH Ur Specific [place] Urine Protein Urine Glucose (UA) Urine Ketones Urine Blood Urine Nitrite Urine Bilirubin Urine Urobilinogen Ur Leukocyte Esterase Urine WBC (Auto) Urine RBC (Auto) Urine Bacteria (Auto) Urine Mucus (Auto) Urine Ascorbic Acid Salicylates Urine Opiates Screen NEGATIVE Urine Methadone Screen NEGATIVE Acetaminophen Ur Barbiturates Screen NEGATIVE Ur Phencyclidine Scrn NEGATIVE Ur Amphetamines Screen NEGATIVE U Benzodiazepines Scrn NEGATIVE Urine Cocaine Screen NEGATIVE U Marijuana (THC) Screen NEGATIVE Serum Alcohol - Vital Signs Vital signs: Temp Pulse Resp BP Pulse Ox 97.8 F 83 18 131/65 H 97 08/03/18 01:01 08/03/18 01:01 08/03/18 01:01 08/03/18 01:01 08/03/18 01:01 - Laboratory Result Diagrams: 08/03/18 01:15 08/03/18 01:15 Laboratory results interpreted by me: 08/03/18 08/03/18 01:15 01:15 RDW 14.3 H Sodium 128.3 L Chloride 94 L Acetaminophen < 10 L - EKG Interpretation by Me Additional EKG results interpreted by me: EKG demonstrates sinus rhythm with a ventricular rate of 97 bpm, normal axis, QTC prolonged at 508 ms, no evidence of acute ischemia, this is compared to prior EKG from 07/28/2018 where the QTC seems to be prolonged on today's EKG. Discharge - Discharge Clinical Impression: Homicidal thoughts Schizophrenia Qualifiers: Schizophrenia type: unspecified Qualified Code(s): F20.9 - Schizophrenia, unspecified Condition: Stable Disposition: PSYCH HOSP/UNIT
[2018-08-03 01:38] LABS: ABSOLUTE BASOPHILS # (AUTO) 0.1 10^3/uL (0.0-0.2); ABSOLUTE EOSINOPHILS # (AUTO) 0.1 10^3/uL (0.0-0.6); ABSOLUTE LYMPHOCYTES (AUTO) 2.5 10^3/uL (0.5-4.7); ABSOLUTE MONOCYTES (AUTO) 0.8 10^3/uL (0.1-1.4); ABSOLUTE NEUT (AUTO) 6.7 10^3/uL (1.7-8.2); EOSINOPHILS % (AUTO) 0.9 % (0-6); HEMATOCRIT 39.2 % (37.9-51.0); LYMPHOCYTES % (AUTO) 24.8 % (13-45); MEAN CORPUSCULAR HEMOGLOBIN 30.5 pg (27.0-33.4); MEAN CORPUSCULAR HGB CONC 35.6 g/dL (32.0-36.0); MEAN CORPUSCULAR VOLUME 86 fl (80-97); MONOCYTES % (AUTO) 7.8 % (3-13); PLATELET COUNT 339 10^3/uL (150-450); RED BLOOD COUNT 4.59 10^6/uL (4.35-5.55); RED CELL DISTRIBUTION WIDTH 14.3 % (11.5-14.0); SEGMENTED NEUTROPHILS % (AUTO) 65.5 % (42-78); TOTAL CELLS COUNTED % (AUTO) 100 %; WHITE BLOOD COUNT 10.2 10^3/uL (4.0-10.5)
[2018-08-03 02:06] LABS: APPEARANCE,URINE CLEAR; BILIRUBIN,URINE NEGATIVE (NEGATIVE); COLOR,URINE STRAW; GLUCOSE, URINE NEGATIVE (NEGATIVE); KETONES,URINE NEGATIVE (NEGATIVE); LEUKOCYTE ESTERASE,URINE NEGATIVE (NEGATIVE); NITRITE,URINE NEGATIVE (NEGATIVE); PROTEIN,URINE NEGATIVE (NEGATIVE); URINE SPECIFIC GRAVITY 1.003; UROBILINOGEN,URINE NEGATIVE mg/dL (<2.0)
[2018-08-03 02:14] LABS: ALANINE AMINOTRANSFERASE 38 U/L (21-72); ALBUMIN 4.2 g/dL (3.5-5.0); ALKALINE PHOSPHATASE 55 U/L (38-126); ANION GAP 7 (5-19); ASPARTATE AMINO TRANSFERASE 34 U/L (17-59); BILIRUBIN,DIRECT 0.4 mg/dL (0.0-0.4); BILIRUBIN,TOTAL 0.7 mg/dL (0.2-1.3); BLOOD UREA NITROGEN 9 mg/dL (7-20); CALCIUM 9.9 mg/dL (8.4-10.2); CARBON DIOXIDE 27 mmol/L (22-30); CHLORIDE 94 mmol/L (98-107); GLUCOSE 104 mg/dL (75-110); POTASSIUM 3.9 mmol/L (3.6-5.0); SALICYLATE 2.9 mg/dL (2.0-20.0); SODIUM 128.3 mmol/L (137-145); TOTAL PROTEIN 6.8 g/dL (6.3-8.2)
[2018-08-03 02:15] LABS: ACETAMINOPHEN < 10 ug/mL (10-30); ALCOHOL < 10 mg/dL (NONE DETECTED)
[2018-08-03 02:16] LABS: URINE AMPHETAMINES SCREEN NEGATIVE; URINE BARBITURATES SCREEN NEGATIVE; URINE BENZODIAZEPINES SCREEN NEGATIVE; URINE COCAINE SCREEN NEGATIVE; URINE MARIJUANA (THC) SCREEN NEGATIVE; URINE METHADONE SCREEN NEGATIVE; URINE PHENCYCLIDINE SCREEN NEGATIVE
[2018-08-03] MEDS ORDERED: TETRAHYDROZOLINE HCL 0.05% OPH SOLN 15 ML OU ONE (02:35)
[2018-08-03] MEDS ORDERED: NICOTINE 21 MG/24 HR PATCH.TD24 TD ONE (02:37)
[2018-08-03] MEDS ORDERED: TETRAHYDROZOLINE HCL 0.05% OPH SOLN 15 ML ONE (03:36)
--- NOTE | 2018-08-03 07:59 | RADIOLOGY REPORT (SQ) ---
EXAM DESCRIPTION: CT HEAD WITHOUT IV CONTRAST COMPLETED DATE/TME: 08/03/2018 01:27 CLINICAL HISTORY: 48 years Male, left arm numbness COMPARISON:Mar 24 2018 TECHNIQUE: No contrast. This exam was performed according to our departmental dose-optimization program, which includes automated exposure control, adjustment of the mA and/or kV according to patient size and/or use of iterative reconstruction technique. FINDINGS: No hemorrhage or infarct. No mass, mass effect, or midline shift. Atherosclerosis. Brain and extra-axial structures appear otherwise intact. IMPRESSION: No acute findings.
--- NOTE | 2018-08-03 11:07 | EKG REPORT ---
SEVERITY:- ABNORMAL ECG - SINUS RHYTHM PROLONGED QT INTERVAL : Confirmed by: Flor Logan 03-Aug-2018 11:07:06
--- NOTE | 2018-08-03 11:07 | EKG REPORT ---
SEVERITY:- NORMAL ECG - SINUS RHYTHM : Confirmed by: Flor Logan 03-Aug-2018 11:06:59
[2018-08-03 13:17] VITALS: BP 167/83
--- NOTE | 2018-08-03 18:47 | ER Document Report ---
Entered by FRIDA HOWARD SCRIBE 08/03/18 1834 Acting as scribe for:NATHALIA HUFFMAN DO Doctor's Note Notes: 08/03/18 18:34 Patient reports being able to get some rest last night. Patient states he feels much better today and he wishes to go home. Patient is in no acute distress and has no complaints at this time. PHYSICAL EXAM GENERAL: Alert, interacts well. No acute distress. HEAD: Normocephalic, atraumatic. EYES: Pupils equal, round, and reactive to light. Extraocular movements intact. ENT: Oral mucosa moist, tongue midline. NECK: Full range of motion. Supple. Trachea midline. LUNGS: Clear to auscultation bilaterally, no wheezes, rales, or rhonchi. No respiratory distress. HEART: Regular rate and rhythm. No murmurs, gallops, or rubs. EXTREMITIES: Moves all 4 extremities spontaneously. No edema, radial and dorsalis pedis pulses 2/4 bilaterally. No cyanosis. NEUROLOGICAL: Alert and oriented x3. Normal speech. PSYCH: Normal affect, normal mood. SKIN: Warm, dry, normal turgor. No rashes or lesions noted. 08/03/18 18:46 Agree with behavioral health team, patient is psychiatrically cleared. Discha rged home. I personally performed the services described in the documentation, reviewed and edited the documentation which was dictated to the scribe in my presence, and it accurately records my words and actions.
--- NOTE | 2018-08-04 17:58 | PSYCHOLOGICAL NOTE ---
Psych Note - Psych Note Date seen by psych provider: 08/03/18 Time seen by psych provider: 08:10 - At 0803 patient in Restroom. Evaluation from [id number]. Spoke to [facility] (at 0948) and [facility] Psych Note: Reason for Consult: Hx Schizophrenia, HI Contact Permissions: None. 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 He stated "I lost sleep the past 3 days and ain't right in the head." He reported he sees Dr. Tillman at [facility] and is prescribed Haldol Deconoate, Haldol, Cogentin, Celexa, Buspar and something for diabetes. He stated "I take my medications as prescribed, I don't drink, I don't do any other drugs but do smoke cigarettes." He admitted to previous hospitalizations, the last time was over the past year after his father and mother 4 months apart (January 2018 to May 2018) at [place], but before that had been 5 years. He mentioned having been to [facility] and [facility] as well as "hospitals in all surrounding counties." He denied SI/HI. He stated "I came in because of my right arm, I thought I was having a stroke, I have had TIAs before, I had a clot in my artery and a stent was put in my leg at [facility]." He noted "I was also concerned about no sleep, I don't want to hurt anybody I just wanted to get help." He stated "I hear things and people can read my mind but that's part of my diagnosis." He noted concern with "when I work, I go to get up and sometimes feel like I am going to pass out." As the day went on he inquired about getting discharged and commented "I need to get to work" which shows future/forward/goal oriented thinking. Commented on patients eyes being red and he said "it's this pollen, allergies, I mowed the yard the other day." UDS was negative for all substances tested for. He identified his PCM is Luz Downey at [facility]. Patient was alert and oriented to self, person, place, time and situation. Mood was euthymic with congruent affect. He denied SI/HI and he was worried about getting to work (future/forward/goal oriented thinking). He did not appear to be responding to internal stimuli as evidenced by fair eye contact, answering questions appropriately when addressed, staying on topic and carrying on dialogue conversation. Thought processes were linear. Conversational speech was within normal limits for rate, tone and prosody. Intellectual abilities are estimated to be average. Insight, judgment and impulse control were fair as evidenced by seeking help after not getting sleep and being concerns about arm pain since he has had previous TIAs. Coordinated care with [facility]. Spoke to Annalise. Completed a Release of Information and faxed it to [facility]. Annalise faxed over information from 06/27/2018 appointment. Documentation noted patient was "stable and doing well." Diagnosis is: Schizoaffective Bipolar Type. Medications are: Cogentin 1MG BID, Buspar 15MG BID, Celexa 20MG QD, Haldol 5MG BID and Haldol Deconoate 100MG IM Q monthly. [facility] identified they cannot administer the Deconoate shot due to no nurse staff availability. Documentation noted PCM would do it. [facility] stated patient has been going to their agency since November 2017 and was referred by A. Documentation also noted patient has a history of alcohol use, has had ECT treatment and has had TIAs. Contacted [employer] who noted Haldol Deconoate 100MG was picked up 07/24/18 and Haldol 10MG pills on 07/25/18 at [facility] location. Chart review revealed patient was seen 07/28/18 after his PCM would not administer Haldol Deconoate shot. It was administered by ED nurse at that time. UDS was positive for Cocaine at that visit. Contacted [facility] and left voice message. They returned call and said they would look into ability to administer Deconoate shot. They called again saying they would not be able to and mentioned Health Dept might. They stated they would try to find this out for patient. Diagnosis: 295.70 (F25.0) Schizoaffective Disorder, Bipolar Type by History per outpatient Provider [facility] Hx Polysubstance Use Alcohol Use Disorder (per [facility] information) Cocaine Use disorder (positive on 07/28/18 UDS) Impression/Plan: Patient is cleared from acute psychiatric services. He denied SI/HI and no observed psychosis that interfered with ability to appropriately interact with others and express wants/needs. He has a diagnosis of Schizoaffective Bipolar Type and history of polysubstance use. Patient was worried about getting to work as he was already supposed to be there (future/forward/goal oriented thinking). Coordinated with [facility] (current outpatient provider, seen 06/27/18), [facility] (last pick remover of Haldol Deconoate 100MG was 07/24/18, Haldol 10MG PO 07/25/18) and PCM at [facility]. He was seen in ED by behavioral health 07/28/18 because PCM would not administer Deconoate shot which he did get on 07/28/18 in the ED. [facility] mentioned [facility] for Deconoate administration and said would look into it for patient. Consulted with Dr. Galeano regarding the management and care of patient. ED Physician in agreement with recommendations.
== END 2018-08-03 13:17 | disposition home or self-care (01) ==
LOC: ER 00:53
DX: F20.9 Schizophrenia, unspecified (principal); R45.850 Homicidal ideations; R20.0 Anesthesia of skin; E11.9 Type 2 diabetes mellitus without complications; J44.9 Chronic obstructive pulmonary disease, unspecified; F17.210 Nicotine dependence, cigarettes, uncomplicated
CPT/HCPCS: 93005; 99285; 36415; 80307 ×4; 85025; 80053; 81001; 70450; 93010; J3490

== ENCOUNTER 2018-08-03 22:55 | Emergency (ER) | payer MEDICARE, MEDICAID ==
[2018-08-03 23:16] VITALS: BP 141/80
--- NOTE | 2018-08-03 23:37 | RADIOLOGY REPORT (SQ) ---
EXAM DESCRIPTION: XR FOREARM 2 VIEWS COMPLETED DATE/TME: 08/03/2018 00:00 CLINICAL HISTORY: 48 years, Male, pain COMPARISON: None. NUMBER OF VIEWS: Two TECHNIQUE: Frontal and lateral radiographs of the right forearm were obtained LIMITATIONS: None. FINDINGS: Visualized osseous structures are normal in appearance. Joint spaces are well-maintained. No acute fracture or dislocation is evident. IMPRESSION: No osseous anomaly. copyright 2010 [employer]- All Rights Reserved
== END 2018-08-03 23:38 | disposition left against medical advice (07) ==
LOC: ER 22:55
DX: Z53.21 Procedure and treatment not carried out due to patient leaving prior to being seen by health care provider (principal)

== ENCOUNTER 2018-08-04 00:35 | Emergency (ER) | payer MEDICARE, MEDICAID ==
--- NOTE | 2018-08-04 01:46 | ER Document Report ---
ED General - General Chief Complaint: Psych Problem Stated Complaint: PSYCH EVAL Time Seen by Provider: 08/04/18 01:23 Notes: Patient is a 48-year-old male that presents to the emergency department for chief complaint of abnormal thoughts. Patient states that he has schizophrenia and bipolar, he is to take his medication, but feels that he cannot sleep as well as he usually has and is been having racing thoughts, and states that he is having thoughts about demons. He was having homicidal thoughts yesterday and was seen in the emergency department about a person that lives in [place], but is no longer having those thoughts today. He feels that maybe his medications are working as well, he does have a psychiatrist that he sees, he received his Haldol decanoate injection 2 weeks ago. He states he has been taking his medications as prescribed. He was discharged after being seen by the psychiatric team in the emergency department earlier today. He is complaining of some numbness in the right arm, and his foot, that is unchanged from before, denies any other symptoms at this time. Past Medical History: Bipolar disorder, schizophrenia, peripheral vascular disease and history of TIA Past Surgical History: Lower extremity stent Social History: Admits to smoking, denies alcohol or drug use. Family History: Reviewed and noncontributory for presenting illness Allergies: Reviewed, see documented allergy list. REVIEW OF SYSTEMS: Other than noted above, the 12 point review of systems was reviewed with the patient and were negative, all pertinent findings are included in the HPI. PHYSICAL EXAMINATION: Vital signs reviewed, nursing noted reviewed. GENERAL: Well-appearing, well-nourished and in no acute distress. HEAD: Atraumatic, normocephalic. EYES: Eyes appear normal, extraocular movements intact, sclera anicteric, conjunctiva are normal. ENT: nares patent, oropharynx clear without exudates. Moist mucous membranes. NECK: Normal range of motion, supple without lymphadenopathy LUNGS: Breath sounds clear to auscultation bilaterally and equal. No wheezes rales or rhonchi. HEART: Regular rate and rhythm without murmurs ABDOMEN: Soft, nontender, normoactive bowel sounds. No rebound, guarding, or rigidity. No masses appreciated. EXTREMITIES: Nontender, good range of motion, no pitting or edema. NEUROLOGICAL: No focal neurological deficits. Moves all extremities spontaneously Motor and sensory grossly intact on exam. PSYCH: Normal mood, normal affect. SKIN: Warm, Dry, normal turgor, no rashes or lesions noted on exposed skin TRAVEL OUTSIDE OF THE [place] IN LAST 30 DAYS: No - Related Data Allergies/Adverse Reactions: No Known Allergies Allergy (Verified 08/03/18 07:18) Past Medical History - Social History Smoking Status: Current Every Day Smoker Family History: Reviewed & Not Pertinent, CVA, DM, Hypertension Patient has suicidal ideation: No Patient has homicidal ideation: No Pulmonary Medical History: Reports: Hx Bronchitis, Hx COPD Endocrine Medical History: Reports: Hx Diabetes Mellitus Type 2 Renal/ Medical History: Denies: Hx Peritoneal Dialysis Skin Medical History: Reports Hx Cellulitis Psychiatric Medical History: Reports: Hx Bipolar Disorder, Hx Depression, Hx Schizophrenia - Immunizations Immunizations up to date: Yes Hx Diphtheria, Pertussis, Tetanus Vaccination: Yes Physical Exam - Vital signs Vitals: Temp Pulse Resp BP Pulse Ox 97.4 F 81 22 H 154/83 H 97 08/04/18 00:55 08/04/18 00:55 08/04/18 00:55 08/04/18 00:55 08/04/18 00:55 Course - Re-evaluation Re-evalutation: Patient seen and examined, vital signs reviewed, patient appears well, and at baseline, I did see him yesterday, he was seen by our psychiatric team, he is having what sounds like a degree of insomnia, but he was resting comfortably, in the emergency department, plan on discharging the patient home, he was seen by our psychiatric team earlier today, and and has not had any new or change symptoms, he denies any suicidal or homicidal thoughts at this time. He denies having any active auditory or visual hallucinations, just thoughts of what he describes as "demons" advised he needs to follow-up with his psychiatrist, see me need to adjust medications, but this can be done as an outpatient, as I do not feel the patient needs acute management at this time as he is not demonstrating any active delusions, psychosis, suicidal or homicidal ideations. Patient was agreeable with this plan of care. - Vital Signs Vital signs: Temp Pulse Resp BP Pulse Ox 97.4 F 81 22 H 154/83 H 97 08/04/18 00:55 08/04/18 00:55 08/04/18 00:55 08/04/18 00:55 08/04/18 00:55 Discharge - Discharge Clinical Impression: Bipolar 1 disorder Schizophrenia Qualifiers: Schizophrenia type: unspecified Qualified Code(s): F20.9 - Schizophrenia, unspecified Condition: Stable Disposition: HOME, SELF-CARE Instructions: Schizophrenia ([facility]) Additional Instructions: Please follow-up with your primary care physician and your psychiatrist, as you may need adjustments to your medications, if you are continuing to have these symptoms. Referrals: [facility] [Provider Group] - Follow up as needed (mobile crisis )
[2018-08-04 06:33] VITALS: BP 140/84
== END 2018-08-04 06:32 | disposition home or self-care (01) ==
LOC: ER 00:35
DX: F20.9 Schizophrenia, unspecified (principal); F31.9 Bipolar disorder, unspecified; F17.200 Nicotine dependence, unspecified, uncomplicated; E11.9 Type 2 diabetes mellitus without complications
CPT/HCPCS: 99283

== ENCOUNTER 2018-08-04 20:57 | Emergency (ER) | payer MEDICARE, MEDICAID ==
[2018-08-04 22:43] LABS: ABSOLUTE BASOPHILS # (AUTO) 0.1 10^3/uL (0.0-0.2); ABSOLUTE EOSINOPHILS # (AUTO) 0.1 10^3/uL (0.0-0.6); ABSOLUTE LYMPHOCYTES (AUTO) 2.2 10^3/uL (0.5-4.7); ABSOLUTE MONOCYTES (AUTO) 0.7 10^3/uL (0.1-1.4); ABSOLUTE NEUT (AUTO) 7.6 10^3/uL (1.7-8.2); ALANINE AMINOTRANSFERASE 28 U/L (21-72); ALKALINE PHOSPHATASE 48 U/L (38-126); ANION GAP 10 (5-19); ASPARTATE AMINO TRANSFERASE 24 U/L (17-59); BASOPHILS % (AUTO) 1.2 % (0-2); BILIRUBIN,DIRECT 0.3 mg/dL (0.0-0.4); BILIRUBIN,TOTAL 0.4 mg/dL (0.2-1.3); BLOOD UREA NITROGEN 5 mg/dL (7-20); CALCIUM 9.6 mg/dL (8.4-10.2); CARBON DIOXIDE 26 mmol/L (22-30); CHLORIDE 94 mmol/L (98-107); EOSINOPHILS % (AUTO) 0.8 % (0-6); GLUCOSE 71 mg/dL (75-110); HEMATOCRIT 36.6 % (37.9-51.0); HEMOGLOBIN 13.1 g/dL (13.5-17.0); LYMPHOCYTES % (AUTO) 20.6 % (13-45); MEAN CORPUSCULAR HEMOGLOBIN 30.6 pg (27.0-33.4); MEAN CORPUSCULAR HGB CONC 35.8 g/dL (32.0-36.0); MEAN CORPUSCULAR VOLUME 86 fl (80-97); MONOCYTES % (AUTO) 6.9 % (3-13); PLATELET COUNT 322 10^3/uL (150-450); RED BLOOD COUNT 4.28 10^6/uL (4.35-5.55); RED CELL DISTRIBUTION WIDTH 14.4 % (11.5-14.0); SEGMENTED NEUTROPHILS % (AUTO) 70.5 % (42-78); SODIUM 129.6 mmol/L (137-145); TOTAL CELLS COUNTED % (AUTO) 100 %; TOTAL PROTEIN 6.5 g/dL (6.3-8.2); WHITE BLOOD COUNT 10.8 10^3/uL (4.0-10.5)
[2018-08-04 22:45] LABS: ACETAMINOPHEN < 10 ug/mL (10-30); ALCOHOL < 10 mg/dL (NONE DETECTED); SALICYLATE < 1.0 mg/dL (2.0-20.0)
[2018-08-04 23:34] LABS: APPEARANCE,URINE CLEAR; BILIRUBIN,URINE NEGATIVE (NEGATIVE); COLOR,URINE STRAW; GLUCOSE, URINE NEGATIVE (NEGATIVE); KETONES,URINE NEGATIVE (NEGATIVE); LEUKOCYTE ESTERASE,URINE NEGATIVE (NEGATIVE); NITRITE,URINE NEGATIVE (NEGATIVE); PROTEIN,URINE NEGATIVE (NEGATIVE); URINE SPECIFIC GRAVITY 1.004; UROBILINOGEN,URINE NEGATIVE mg/dL (<2.0)
[2018-08-04 23:47] LABS: URINE AMPHETAMINES SCREEN NEGATIVE; URINE BARBITURATES SCREEN NEGATIVE; URINE BENZODIAZEPINES SCREEN NEGATIVE; URINE COCAINE SCREEN NEGATIVE; URINE MARIJUANA (THC) SCREEN NEGATIVE; URINE METHADONE SCREEN NEGATIVE; URINE PHENCYCLIDINE SCREEN NEGATIVE
--- NOTE | 2018-08-04 23:55 | ER Document Report ---
ED General - General Chief Complaint: Psych Problem Stated Complaint: PSYCH Time Seen by Provider: 08/04/18 21:31 Primary Care Provider: LANDON COMBS PA-C [Primary Care Provider] - Follow up as needed Notes: Patient is a 48-year-old male with past medical history of schizoaffective disorder who stating that he is feeling suicidal. Does arrive by EMS. Was just discharged from the psychiatric service less than 24 hours ago. Patient states that after being released he tried to get an appointment with his primary psychiatric provider and was unable to obtain one. States "has been a rough day since that left and a lot of stuff has happened". States that he began to feel suicidal without a specific plan, means or intent to complete. However he came back to the emergency department feeling like he may not see it be safe to be by himself. He then states that he is here mostly because he has had insomnia and could not sleep tonight. Denies homicidal ideation. Denies any acute medical concerns. Nothing seems to improve or worsen his symptoms. TRAVEL OUTSIDE OF THE [place] IN LAST 30 DAYS: No - Related Data Allergies/Adverse Reactions: No Known Allergies Allergy (Verified 08/03/18 07:18) Past Medical History - General Information source: Patient - Social History Smoking Status: Current Every Day Smoker Chew tobacco use (# tins/day): No Frequency of alcohol use: None Drug Abuse: None Lives with: Alone Family History: Reviewed & Not Pertinent, CVA, DM, Hypertension Patient has suicidal ideation: Yes Patient has homicidal ideation: No Pulmonary Medical History: Reports: Hx Bronchitis, Hx COPD Endocrine Medical History: Reports: Hx Diabetes Mellitus Type 2 Renal/ Medical History: Denies: Hx Peritoneal Dialysis Skin Medical History: Reports Hx Cellulitis Psychiatric Medical History: Reports: Hx Bipolar Disorder, Hx Depression, Hx Schizophrenia - Immunizations Immunizations up to date: Yes Hx Diphtheria, Pertussis, Tetanus Vaccination: Yes Review of Systems - Review of Systems Notes: Constitutional: Negative for fever. HENT: Negative for sore throat. Eyes: Negative for visual changes. Cardiovascular: Negative for chest pain. Respiratory: Negative for shortness of breath. Gastrointestinal: Negative for abdominal pain, vomiting or diarrhea. Genitourinary: Negative for dysuria. Musculoskeletal: Negative for back pain. Skin: Negative for rash. Neurological: Negative for headaches, weakness or numbness. 10 point ROS negative except as marked above and in HPI. Physical Exam - Vital signs Vitals: Temp Pulse Resp BP Pulse Ox 97.3 F 96 20 161/80 H 96 08/04/18 21:03 08/04/18 21:03 08/04/18 21:03 08/04/18 21:03 08/04/18 21:03 Interpretation: Hypertensive Notes: PHYSICAL EXAMINATION: GENERAL: Well-appearing, well-nourished and in no acute distress. HEAD: Atraumatic, normocephalic. EYES: Pupils equal round and reactive to light, extraocular movements intact, sclera anicteric, conjunctiva are normal. ENT: nares patent, oropharynx clear without exudates. Moist mucous membranes. NECK: Normal range of motion, supple without lymphadenopathy LUNGS: Breath sounds clear to auscultation bilaterally and equal. No wheezes rales or rhonchi. HEART: Regular rate and rhythm without murmurs ABDOMEN: Soft, nontender, normoactive bowel sounds. No guarding, no rebound. No masses appreciated. EXTREMITIES: Normal range of motion, no pitting or edema. No cyanosis. NEUROLOGICAL: No focal neurological deficits. Moves all extremities spontaneously and on command. PSYCH: Somewhat anxious, talkative SKIN: Warm, Dry, normal turgor, no rashes or lesions noted. Course - Re-evaluation Re-evalutation: 08/04/18 23:54 Patient presents for suicidal ideation without specific plan. Patient states that he was just discharged this morning from psychiatric service, left, was unable to follow-up with his primary psychiatric provider, began feeling very suicidal. States that he continues to feel suicidal right now but does not state the manner in which he would commit suicide. Denies acute medical complaints. States that he has been compliant with all medications. Denies illicit substance use. Physical exam otherwise unremarkable. He is cleared for evaluation disposition by [facility] in the morning. 08/05/18 01:00 Patient states that he no longer feels suicidal at all. Patient never had a psychiatric plan, means or intention to complete. He is very forward thinking states that he is looking forward to follow-up as an outpatient, is adamant that he does not want to harm himself. Willing to d contract for safety. He does not meet IVC criteria, I do not have grounds but wished to hold him here against his will. Patient is electing to go home at this time and declining psychiatric evaluation in the morning. At this time will discharge with return precautions and follow-up recommendations. Verbal discharge instructions given a the bedside and opportunity for questions given. Patient is in agreement with this plan and has verbalized understanding of return precautions and the need for follow-up with his psychiatric provider in the morning. - Vital Signs Vital signs: Temp Pulse Resp BP Pulse Ox 98.1 F 81 20 155/78 H 97 08/05/18 01:06 08/05/18 01:06 08/05/18 01:06 08/05/18 01:06 08/05/18 01:06 - Laboratory Result Diagrams: 08/04/18 22:10 08/04/18 22:10 Laboratory results interpreted by me: 08/04/18 08/04/18 08/04/18 22:10 22:10 22:22 WBC 10.8 H RBC 4.28 L Hgb 13.1 L Hct 36.6 L RDW 14.4 H Sodium 129.6 L Chloride 94 L BUN 5 L Glucose 71 L Urine Blood SMALL H Salicylates < 1.0 L Acetaminophen < 10 L - EKG Interpretation by Me Additional EKG results interpreted by me: 08/05/18 04:06 Sinus rhythm, rate 83. No ST elevations or depressions. QTC is 461. Discharge - Discharge Clinical Impression: Passive suicidal ideations Schizophrenia Qualifiers: Schizophrenia type: unspecified Qualified Code(s): F20.9 - Schizophrenia, uns pecified Insomnia Qualifiers: Insomnia type: unspecified Qualified Code(s): G47.00 - Insomnia, unspecified Condition: Good Disposition: HOME, SELF-CARE Additional Instructions: Please return if you have thoughts of wanting to hurt yourself, hurt others, or have any other symptoms that are concerning to you. Referrals: LANDON COMBS PA-C [Primary Care Provider] - Follow up as needed
[2018-08-05 01:07] VITALS: BP 155/78
--- NOTE | 2018-08-05 13:16 | EKG REPORT ---
SEVERITY:- NORMAL ECG - SINUS RHYTHM : Confirmed by: Flor Logan 05-Aug-2018 13:15:34
== END 2018-08-05 01:05 | disposition home or self-care (01) ==
LOC: ER 20:57
DX: R45.851 Suicidal ideations (principal); G47.00 Insomnia, unspecified; F20.9 Schizophrenia, unspecified; E11.9 Type 2 diabetes mellitus without complications
CPT/HCPCS: 36415; 80053; 80307; 81001; 85025; 93005; 93010; 99284

== ENCOUNTER 2019-01-26 21:52 | Emergency (ER) | payer MEDICARE, MEDICAID ==
[2019-01-26 21:59] VITALS: BP 169/91
== END 2019-01-26 22:30 | disposition left against medical advice (07) ==
LOC: ER 21:52
DX: Z53.29 Procedure and treatment not carried out because of patient's decision for other reasons (principal); R73.9 Hyperglycemia, unspecified

== ENCOUNTER 2019-01-26 23:18 | Emergency (ER) | payer MEDICARE, MEDICAID ==
[2019-01-26 23:32] VITALS: BP 164/90
[2019-01-27 03:57] LABS: ABSOLUTE BASOPHILS # (AUTO) 0.1 10^3/uL (0.0-0.2); ABSOLUTE EOSINOPHILS # (AUTO) 0.1 10^3/uL (0.0-0.6); ABSOLUTE LYMPHOCYTES (AUTO) 1.6 10^3/uL (0.5-4.7); ABSOLUTE MONOCYTES (AUTO) 0.5 10^3/uL (0.1-1.4); ABSOLUTE NEUT (AUTO) 7.5 10^3/uL (1.7-8.2); BASOPHILS % (AUTO) 0.7 % (0-2); EOSINOPHILS % (AUTO) 0.8 % (0-6); HEMOGLOBIN 15.4 g/dL (13.5-17.0); LYMPHOCYTES % (AUTO) 16.1 % (13-45); MEAN CORPUSCULAR HEMOGLOBIN 30.5 pg (27.0-33.4); MEAN CORPUSCULAR HGB CONC 34.9 g/dL (32.0-36.0); MEAN CORPUSCULAR VOLUME 87 fl (80-97); MONOCYTES % (AUTO) 5.3 % (3-13); PLATELET COUNT 353 10^3/uL (150-450); RED BLOOD COUNT 5.04 10^6/uL (4.35-5.55); RED CELL DISTRIBUTION WIDTH 13.9 % (11.5-14.0); SEGMENTED NEUTROPHILS % (AUTO) 77.1 % (42-78); TOTAL CELLS COUNTED % (AUTO) 100 %; WHITE BLOOD COUNT 9.8 10^3/uL (4.0-10.5)
--- NOTE | 2019-01-27 03:58 | ER Document Report ---
ED General - General Chief Complaint: Low Blood Sugar Stated Complaint: GLUCOSE CHECK Time Seen by Provider: 01/27/19 02:24 Primary Care Provider: LANDON COMBS PA-C [Primary Care Provider] - Follow up in 1 week Mode of Arrival: Ambulatory Information source: Patient Notes: This 48-year-old male presents emergency department with reports that he was sent over here by [facility] for rehab. He reports he did have a bed there but he left AMA and when he went back he was told the bed was not available but it would be available in the morning and that he could wait over here at [place]. He denies fever vomiting diarrhea. Reports he has not had anything to drink in a long time. Denies drugs. Patient denies suicidal or homicidal ideations. Reports he has a history of stroke schizoaffective disorder and diabetes. I contacted [facility] at [phone]. I was informed by Caitlin that patient was admitted there for alcohol abuse but he left because he was having breathing problems with a history of COPD. He did return but was instructed that no bed was available and he could return tomorrow. He was not instructed to go to [facility] TRAVEL OUTSIDE OF THE U.S. IN LAST 30 DAYS: No - HPI Onset: Just prior to arrival Quality of pain: No pain Pain Level: Denies Associated symptoms: None Exacerbated by: Denies Relieved by: Denies Similar symptoms previously: Yes Recently seen / treated by doctor: No - Related Data Allergies/Adverse Reactions: No Known Allergies Allergy (Verified 08/03/18 07:18) Past Medical History - General Information source: Patient - Social History Smoking Status: Current Every Day Smoker Cigarette use (# per day): Yes Chew tobacco use (# tins/day): No Frequency of alcohol use: Occasional Drug Abuse: None Family History: Reviewed & Not Pertinent, CVA, DM, Hypertension Patient has suicidal ideation: No Patient has homicidal ideation: No Pulmonary Medical History: Reports: Hx Bronchitis, Hx COPD Endocrine Medical History: Reports: Hx Diabetes Mellitus Type 2 Renal/ Medical History: Denies: Hx Peritoneal Dialysis Skin Medical History: Reports Hx Cellulitis Psychiatric Medical History: Reports: Hx Bipolar Disorder, Hx Depression, Hx Schizoaffective Disorder, Hx Schizophrenia Surgical Hx: Negative - Immunizations Immunizations up to date: Yes Hx Diphtheria, Pertussis, Tetanus Vaccination: Yes Review of Systems - Review of Systems Notes: Review HPI for review of systems., All other systems negative Physical Exam - Vital signs Vitals: Temp Pulse Resp BP Pulse Ox 97.8 F 92 18 164/90 H 96 01/26/19 23:27 01/26/19 23:27 01/26/19 23:27 01/26/19 23:27 01/26/19 23:27 - General General appearance: Appears well, Alert In distress: None - HEENT Head: Normocephalic Eyes: Normal Neck: Normal, Supple. No: Lymphadenopathy - Respiratory Respiratory status: No respiratory distress Chest status: Nontender Breath sounds: Normal Chest palpation: Normal - Cardiovascular Rhythm: Regular Heart sounds: Normal auscultation Murmur: No - Abdominal Inspection: Normal Distension: No distension Tenderness: Nontender - Back Back: Normal - Extremities General upper extremity: Normal ROM General lower extremity: Normal ROM - Neurological Neuro grossly intact: Yes Cognition: Normal Orientation: AAOx4 [place] Coma Scale Eye Opening: Spontaneous [place] Coma Scale Verbal: Oriented [place] Coma Scale Motor: Obeys Commands [place] Coma Scale Total: 15 Speech: Normal - Psychological Associated symptoms: Normal affect, Normal mood - Skin Skin Temperature: Warm Skin Moisture: Dry Skin Color: Normal Course - Re-evaluation Re-evalutation: 01/27/19 04:00 Patient Accu-Chek was a little bit elevated at 149 upon checking in. Labs will be done with plan to discharge patient with all labs are unremarkable. 01/27/19 04:57 Patient called me to his bed. Reports he is ready to go home. He is calling his friend to come pick him up. He was also instructed on the importance of follow-up with [facility] for help with EtOH and his primary care provider to manage his diabetes. No leukocytosis sodium is 133. Review of chart shows he has had a lower sodium in the past with other labs comparable to his other previous visits.. Patient denies feeling weak numbness tingling cramps. Patient again was instructed to follow-up with his primary care provider, he verbalized understanding to all instructions. 01/27/19 03:39 01/27/19 03:39 MCV 87 fl (80-97) 01/27/19 03:39 MCH 30.5 pg (27.0-33.4) 01/27/19 03:39 MCHC 34.9 g/dL (32.0-36.0) 01/27/19 03:39 RDW 13.9 % (11.5-14.0) 01/27/19 03:39 Seg Neutrophils % 77.1 % (42-78) 01/27/19 03:39 Chloride 92 mmol/L (98-107) L 01/27/19 03:39 Carbon Dioxide 32 mmol/L (22-30) H 01/27/19 03:39 Anion Gap 9 (5-19) 01/27/19 03:39 Est GFR ( Amer) > 60 (>60) 01/27/19 03:39 Glucose 158 mg/dL (75-110) H 01/27/19 03:39 Calcium 9.7 mg/dL (8.4-10.2) 01/27/19 03:39 Total Bilirubin 0.4 mg/dL (0.2-1.3) 01/27/19 03:39 AST 31 U/L (17-59) 01/27/19 03:39 Alkaline Phosphatase 68 U/L (38-126) 01/27/19 03:39 Total Protein 7.4 g/dL (6.3-8.2) 01/27/19 03:39 Albumin 4.5 g/dL (3.5-5.0) 01/27/19 03:39 . - Vital Signs Vital signs: Temp Pulse Resp BP Pulse Ox 97.8 F 92 18 164/90 H 96 01/26/19 23:27 01/26/19 23:27 01/26/19 23:27 01/26/19 23:27 01/26/19 23:27 - Laboratory Result Diagrams: 01/27/19 03:39 01/27/19 03:39 Laboratory results interpreted by me: 01/27/19 01/27/19 03:36 03:39 Sodium 133.0 L Chloride 92 L Carbon Dioxide 32 H BUN 5 L Glucose 158 H POC Glucose 167 H Discharge - Discharge Clinical Impression: Low blood sugar Condition: Stable Disposition: HOME, SELF-CARE Additional Instructions: *You have been evaluated for low blood sugar *Take your medication as prescribed *Follow up with a primary care provider within one week for recheck *avoid ETOH, Follow up with [facility] tomorrow *Return to ED for worsening condition, changes, needs Monitor your blood pressure. Your blood pressure was elevated today. This may be because you were anxious, in pain or because you need medication. It is important to follow up with your primary care provider for full evaluation. * Forms: Smoking Cessation Education, Elevated Blood Pressure Referrals: LANDON COMBS PA-C [Primary Care Provider] - Follow up in 1 week
[2019-01-27 04:14] LABS: ALBUMIN 4.5 g/dL (3.5-5.0); ALKALINE PHOSPHATASE 68 U/L (38-126); ANION GAP 9 (5-19); ASPARTATE AMINO TRANSFERASE 31 U/L (17-59); BILIRUBIN,DIRECT 0.2 mg/dL (0.0-0.4); BILIRUBIN,TOTAL 0.4 mg/dL (0.2-1.3); BLOOD UREA NITROGEN 5 mg/dL (7-20); CALCIUM 9.7 mg/dL (8.4-10.2); CARBON DIOXIDE 32 mmol/L (22-30); CHLORIDE 92 mmol/L (98-107); GLUCOSE 158 mg/dL (75-110); POTASSIUM 4.5 mmol/L (3.6-5.0); TOTAL PROTEIN 7.4 g/dL (6.3-8.2)
[2019-01-27 04:22] LABS: ALCOHOL < 10 mg/dL (NONE DETECTED)
== END 2019-01-27 04:58 | disposition home or self-care (01) ==
LOC: ER 23:18
DX: E11.649 Type 2 diabetes mellitus with hypoglycemia without coma (principal); F17.210 Nicotine dependence, cigarettes, uncomplicated; J44.9 Chronic obstructive pulmonary disease, unspecified
CPT/HCPCS: 36415; 80053; 80307; 82962; 85025; 99284

== ENCOUNTER 2019-01-28 | Emergency (ER) | payer MEDICARE, MEDICAID ==
[2019-01-28 00:08] VITALS: BP 154/99
--- NOTE | 2019-01-28 00:49 | ER Document Report ---
HPI - HPI Patient complains to provider of: cough Time Seen by Provider: 01/28/19 00:34 Onset: This morning Onset/Duration: Sudden Pain Level: 3 Context: This 48-year-old male with history of COPD diabetic bipolor presents to the emergency department for reports of cough. He reports he started coughing today. Patient was evaluated in the emergency department last night for low blood sugar. He reports that he is trying to get a bed at [facility] for alcohol abuse. He did have a bed there but left AMA because he wanted to have a cigarette. When he returned they did not have a bed form so he came to the emergency department with reports of low blood sugar. He was cleared here and left with a friend. Patient tells me today that he went to [facility] and try to get in there. He reports he is going to sleep in the gazebo until Tuesday morning until he can get a bed at [facility]. Pt is speaking in clear sentences no cough noted during interview and exam. Patient reports that while he was sit ting at the [facility]ebo he believes he had a manic episode. He denies suicide or homicidal ideations. Reports he feels fine now Associated Symptoms: Nonproductive cough Exacerbated by: Denies Relieved by: Denies Similar symptoms previously: No Recently seen / treated by doctor: Yes - REPRODUCTIVE Reproductive: DENIES: : Past Medical History - General Information source: Patient - Social History Smoking Status: Current Every Day Smoker Cigarette use (# per day): Yes Chew tobacco use (# tins/day): No Frequency of alcohol use: recovering alcoholic Drug Abuse: None Lives with: Homeless Family History: Reviewed & Not Pertinent, CVA, DM, Hypertension Patient has suicidal ideation: No Patient has homicidal ideation: No Pulmonary Medical History: Reports: Hx Bronchitis, Hx COPD Endocrine Medical History: Reports: Hx Diabetes Mellitus Type 2 Renal/ Medical History: Denies: Hx Peritoneal Dialysis Skin Medical History: Reports Hx Cellulitis Psychiatric Medical History: Reports: Hx Bipolar Disorder, Hx Depression, Hx Schizoaffective Disorder, Hx Schizophrenia - Immunizations Immunizations up to date: Yes Hx Diphtheria, Pertussis, Tetanus Vaccination: Yes Vertical Provider Document - CONSTITUTIONAL Agree With Documented VS: Yes Exam Limitations: No Limitations General Appearance: WD/WN, No Apparent Distress - INFECTION CONTROL TRAVEL OUTSIDE OF THE [place] IN LAST 30 DAYS: No - HEENT HEENT: Atraumatic, Normocephalic. negative: Conjuctival Injection - NECK Neck: Normal Inspection, Supple. negative: Lymphadenopathy-Left, Lymphadenopathy-Right - RESPIRATORY Respiratory: No Respiratory Distress, Rhonchi. negative: Rales, Wheezing - CARDIOVASCULAR Cardiovascular: Regular Rate, Regular Rhythm - GI/ABDOMEN Gastrointestinal: Abdomen Soft, Abdomen Non-Tender - BACK Back: Normal Inspection - MUSCULOSKELETAL/EXTREMETIES Musculoskeletal/Extremeties: MAEW, FROM, Non-Tender - NEURO Level of Consciousness: Awake, Alert, Appropriate Motor/Sensory: No Motor Deficit - DERM Integumentary: Warm, Dry Course - Re-evaluation Re-evalutation: 01/28/19 01:17 48-year-old male with history of COPD diabetes bipolar presents emergency depart ment with reports of cough that started today. Was at this time reports he [facility] a bed opens at the [facility]. Denies fever vomiting diarrhea. Reports just having a cough. Chest x-ray negative. Patient was instructed to quit smoking, he was also instructed to monitor his cough and if he has difficulty breathing or any concerns to return here. He verbalized understanding. Chest X-Ray 01/28/19 00:00 IMPRESSION: Clear lungs. - Vital Signs Vital signs: Temp Pulse Resp BP Pulse Ox 97.8 F 109 H 18 154/99 H 95 01/28/19 00:07 01/28/19 00:07 01/28/19 00:07 01/28/19 00:07 01/28/19 00:07 - Diagnostic Test Radiology reviewed: Image reviewed, Reports reviewed Discharge - Discharge Clinical Impression: Cough Condition: Stable Disposition: HOME, SELF-CARE Instructions: Acetaminophen Additional Instructions: *You have been evaluated for cough *Increase fluid intake as discussed *quit smoking *Monitor your temperature, take Tylenol as indicated *Follow up with a primary care provider within one week *Return to ED for worsening condition, changes, needs, difficulty breathing, concerns Forms: Smoking Cessation Education Referrals: LANDON COMBS PA-C [Primary Care Provider] - Follow up in 1 week
--- NOTE | 2019-01-28 01:10 | RADIOLOGY REPORT (SQ) ---
CLINICAL HISTORY: difficulty breathing COMPARISON: None. TECHNIQUE: XR CHEST 2 VIEWS 01/28/2019 12:00 AM CDT FINDINGS: Cardiac silhouette is normal in size. Lungs are clear without consolidation, atelectasis, mass or edema. There is no pleural effusion. There is no pneumothorax. There are no acute osseous findings. IMPRESSION: Clear lungs.
== END 2019-01-28 01:30 | disposition home or self-care (01) ==
LOC: ER
DX: R05 Cough (principal); J44.9 Chronic obstructive pulmonary disease, unspecified; F31.9 Bipolar disorder, unspecified; F17.210 Nicotine dependence, cigarettes, uncomplicated; E11.9 Type 2 diabetes mellitus without complications
CPT/HCPCS: 71046; 99283

== ENCOUNTER 2019-01-30 22:08 | Observation (INO) | payer MEDICARE, MEDICAID ==
[2019-01-30 23:33] LABS: ALBUMIN 3.5 g/dL (3.5-5.0); ALKALINE PHOSPHATASE 51 U/L (38-126); ANION GAP 7 (5-19); ASPARTATE AMINO TRANSFERASE 30 U/L (17-59); BILIRUBIN,DIRECT 0.2 mg/dL (0.0-0.4); BILIRUBIN,TOTAL 0.3 mg/dL (0.2-1.3); BLOOD UREA NITROGEN 7 mg/dL (7-20); CALCIUM 8.8 mg/dL (8.4-10.2); CARBON DIOXIDE 29 mmol/L (22-30); CHLORIDE 85 mmol/L (98-107); GLUCOSE 173 mg/dL (75-110); TOTAL PROTEIN 5.9 g/dL (6.3-8.2)
[2019-01-30 23:34] LABS: ABSOLUTE BASOPHILS # (AUTO) 0.1 10^3/uL (0.0-0.2); ABSOLUTE EOSINOPHILS # (AUTO) 0.2 10^3/uL (0.0-0.6); ABSOLUTE LYMPHOCYTES (AUTO) 1.7 10^3/uL (0.5-4.7); ABSOLUTE MONOCYTES (AUTO) 0.8 10^3/uL (0.1-1.4); ABSOLUTE NEUT (AUTO) 6.8 10^3/uL (1.7-8.2); BASOPHILS % (AUTO) 0.6 % (0-2); EOSINOPHILS % (AUTO) 1.7 % (0-6); HEMATOCRIT 38.4 % (37.9-51.0); HEMOGLOBIN 13.5 g/dL (13.5-17.0); LYMPHOCYTES % (AUTO) 18.2 % (13-45); MEAN CORPUSCULAR HEMOGLOBIN 30.1 pg (27.0-33.4); MEAN CORPUSCULAR HGB CONC 35.1 g/dL (32.0-36.0); MEAN CORPUSCULAR VOLUME 86 fl (80-97); PLATELET COUNT 331 10^3/uL (150-450); RED BLOOD COUNT 4.48 10^6/uL (4.35-5.55); RED CELL DISTRIBUTION WIDTH 13.9 % (11.5-14.0); SEGMENTED NEUTROPHILS % (AUTO) 71.5 % (42-78); TOTAL CELLS COUNTED % (AUTO) 100 %; WHITE BLOOD COUNT 9.5 10^3/uL (4.0-10.5)
--- NOTE | 2019-01-30 23:40 | ER Document Report ---
ED General - General Chief Complaint: Psych Problem Stated Complaint: HANDS/FEET CRAMPING Time Seen by Provider: 01/30/19 22:56 Primary Care Provider: LANDON COMBS PA-C [Primary Care Provider] - Follow up as needed Notes: 48-year-old male presents emergency department complaining that he thinks he is having a stroke. Complains of numbness to his right arm and numbness to his bilateral feet that started earlier today, denies any weakness, slurred speech or facial droop. Also complains of cramping throughout his entire body. Doubt she had a bad [employer] is giving me a blue box cannot give me an exact last known well. States that he had a TIA back in July and this feels similar. Patient then very quickly transitions to talking about the fact that he is out of his bipolar medications. Patient states that he has been out of his bipolar medications for at least the past 7 days if not longer because he left them in a hotel room somewhere else in [place]. States that he has not had his Haldol, Celexa, Cogentin, BuSpar or trazodone in at least 7 days. States that if we just give him his psychiatric medications and a cab voucher and some food that he will go home and come back in the morning and pay us for his cab voucher. States that he will be able to get his other psychiatric medications tomorrow. Denies any suicidal or homicidal ideation, denies any auditory or visual hallucinations. TRAVEL OUTSIDE OF THE [place] IN LAST 30 DAYS: No - Related Data Allergies/Adverse Reactions: No Known Allergies Allergy (Verified 08/03/18 07:18) Past Medical History - General Information source: Patient - Social History Smoking Status: Current Every Day Smoker Frequency of alcohol use: 1 beer a day Drug Abuse: None Family History: Reviewed & Not Pertinent, CVA, DM, Hypertension Patient has suicidal ideation: No Patient has homicidal ideation: No Pulmonary Medical History: Reports: Hx Bronchitis, Hx COPD Endocrine Medical History: Reports: Hx Diabetes Mellitus Type 2 Renal/ Medical History: Denies: Hx Peritoneal Dialysis Skin Medical History: Reports Hx Cellulitis Psychiatric Medical History: Reports: Hx Bipolar Disorder, Hx Depression, Hx Schizoaffective Disorder, Hx Schizophrenia - Immunizations Immunizations up to date: Yes Hx Diphtheria, Pertussis, Tetanus Vaccination: Yes Review of Systems - Review of Systems Constitutional: No symptoms reported EENT: No symptoms reported Cardiovascular: No symptoms reported Respiratory: No symptoms reported Musculoskeletal: See HPI Neurological/Psychological: See HPI -: Yes All other systems reviewed and negative Physical Exam - Vital signs Vitals: Temp Pulse Resp BP Pulse Ox 98.2 F 95 16 134/79 H 97 01/30/19 22:21 01/30/19 22:21 01/30/19 22:21 01/30/19 22:21 01/30/19 22:21 Interpretation: Normal - Notes Notes: GENERAL: Alert,, somewhat distracted, jumps from subject to subject. No acute distress. HEAD: Normocephalic, atraumatic EYES: Pupils equal, round and reactive to light, extraocular movements intact. ENT: Oral mucosa moist, tongue midline. NECK: Full range of motion, supple, trachea midline. LUNGS: Clear to auscultation bilaterally, no wheezes, rales or rhonchi, no respiratory distress. HEART: Regular rate and rhythm, no murmurs, gallops, rubs. ABDOMEN: Soft, nontender, nondistended, bowel sounds present in all 4 quadrants. EXTREMITIES: Moves all 4 extremities spontaneously, no edema, radial and dorsalis pedis pulses 2/4 bilaterally. No cyanosis. NEUROLOGICAL: Alert and oriented x3, normal speech, cranial nerves II through XII grossly intact, biceps and patellar DTRs 2+ bilaterally. [id number] and [id number]-bs-[id number] test intact, able to walk up and down the wall without difficulty, NIH stroke scale 0. No focal deficits. PSYCH: Easily distracted, jumps from subject to subject however he is able to answer my questions, gives long and rambling answers. SKIN: Warm, Dry, normal turgor. Course - Re-evaluation Re-evalutation: 01/31/19 01:10 Absolutely no neurologic deficits whatsoever, no evidence of TIA, considering the patient states that he has numbness in his right hand and bilateral feet that was sudden onset I doubt that this represents a TIA as this does not correlate with neuroanatomy, CT scan of the head does not show any acute process, I think this is more likely related to some peripheral neuropathy as well as his sodium of 121.4, CBC unremarkable, CMP shows market hyponatremia at 121.4, patient has never had this before, mag low at 1.5, potassium normal, alcohol level is pending. Patient was discussed with hospitalist Dr. Haque for admission, agrees to admit the patient to his service on telemetry care unit. Patient does not currently meet any involuntary commitment criteria. No active evidence of acute ongoing psychiatric issues. Patient given home psychiatric medications. Patient agreeable to staying. Aware that there are no inpatient beds available in the hospital right now and agreeable to staying in the emergency department until a bed is available. - Vital Signs Vital signs: Temp Pulse Resp BP Pulse Ox 98.2 F 95 16 134/79 H 97 01/30/19 22:21 01/30/19 22:21 01/30/19 22:21 01/30/19 22:21 01/30/19 22:21 - Laboratory Result Diagrams: 01/30/19 22:28 01/30/19 22:28 Laboratory results interpreted by me: 01/30/19 22:28 Sodium 121.4 L Chloride 85 L Glucose 173 H Magnesium 1.5 L Total Protein 5.9 L Discharge - Discharge Clinical Impression: Hyponatremia, Noncompliance with home medications, Paresthesias Condition: Good Disposition: ADMITTED INPATIENT Admitting Provider: Garland (Hospitalist) Unit Admitted: Telemetry Referrals: LANDON COMBS PA-C [Primary Care Provider] - Follow up as needed ED NIH Stroke Scale - NIH Stroke Scale When completed:: Before Alteplase *: 1. NIH scale should be completed with appropriate accompanying assessment tools. *: 2. The NIH should reflect what the patient is capable of doing and should not be coached by the clinician. 1a. Level of Consciousness: 0=Alert;keenly responsive -: 1=Drowsy -: 2=Obtunded -: 3=Coma/unresponsive or reflex to noxious stimuli. 1a. Responses: 0 1b. Orientation Questions: a. What month is it? -: b. How old are you? -: 0=Answers both questions correctly. -: 1=Answers one question correctly or patient is intubated or has orotracheal trauma. -: 2=Answers neither question correctly. 1b. Responses: 0 1c. Response to commands: a. Open and close eyes? -: b. Chicken Buyer and release hand? -: Credit is given despite weakness. Demonstration of task is permitted. Substitute command if hands cannot be used. -: 0=Performs both tasks correctly -: 1=Performs one task correctly -: 2=Performs neither task correctly 1c. Responses: 0 2. Gaze: Establish eye contact and instruct patient to "Follow my finger" -: 0=Normal -: 1=Partial gaze palsy. Gaze is abnormal in one or both eyes, but where forced deviation or total gaze paresis is not present. -: 2=Forced deviation or total gaze paresis. 2. Responses: 0 3. Visual Gore: Sees fingers in all four quadrants. -: 0=No visual loss. -: 1=Partial hemianopsia. -: 2=Complete hemianopsia. -: 3=Bilateral hemianopsia (including Cortical blindness) 3. Responses: 0 4. Facial Movement: Instruct patient to: -: a. Show me your teeth -: b. Raise your eyebrows -: c. Close your eyes -: d. Smile -: 0=Normal symmetrical movement -: 1=Minor paralysis (flattened nasolabial fold, asymmetry on smiling). -: 2=Partial paralysis (total or near total paralysis of lower face). -: 3=Complete paralysis of upper and lower face 4. Responses: 0 5. Motor functions (left arm): Alternate sides and extend each arm with palms down (90 degrees if sitting or 45 degrees for supine). -: 0=No drift;limb holds for full 10 seconds. -: 1=Drift; limb holds but drifts down before full 10 seconds, but does not hit bed. -: 2=Some effort against gravity; limb cannot get to or maintain position. -: 3=No effort against gravity; limb falls. -: 4=No movement. -: UN=Amputation, joint fusion, explain in comments. 5. Responses (left arm): 0 5. Motor Functions (right arm): Alternate sides and extend each arm with palms down (90 degrees if sitting or 45 degrees for supine). -: 0=No drift;limb holds for full 10 seconds. -: 1=Drift; limb holds but drifts down before full 10 seconds, but does not hit bed. -: 2=Some effort against gravity; limb cannot get to or maintain position. -: 3=No effort against gravity; limb falls. -: 4=No movement. -: UN=Amputation, joint fusion, explain in comments. 5. Responses (right arm): 0 6. Motor Functions (left leg): With patient lying supine, alternate sides and extend each leg (30 degrees always while supine). -: 0=No drift, leg holds position for full 5 seconds -: 1=Drift; leg falls before full 5 seconds but does not hit bed. -: 2=Some effort against gravity, leg falls to bed but some effort against gravity. -: 3=No effort against gravity, leg falls to bed immediately. -: 4=No movement. -: UN=Amputation, joint fusion; explain in comments. 6. Responses (left leg): 0 6. Motor Functions (right leg): With patient lying supine, alternate sides and extend each leg (30 degrees always while supine). -: 0=No drift, leg holds position for full 5 seconds -: 1=Drift; leg falls before full 5 seconds but does not hit bed. -: 2=Some effort against gravity, leg falls to bed but some effort against gravity. -: 3=No effort against gravity, leg falls to bed immediately. -: 4=No movement. -: UN=Amputation, joint fusion; explain in comments. 6. Responses (right leg): 0 7. Limb Ataxia: With eyes open instruct patient to: -: a. "Touch your finger to your nose". -: b. "Touch your heel to your newton" -: 0=Absent -: 1=Present in one limb. -: 2=Present in two limbs. -: UN=Amputation or joint fusion; explain in comments. 7. Responses: 0 8. Sensory: Test sensation using pinprick or noxious stimuli. Test as many body parts as possible. -: 0=Normal;no sensory loss -: 1=Mile to moderate sensory loss (patient feels pin prick but is less sharp on affected side). -: 2=Severe or total sensory loss. 8. Responses: 0 9. Best Language: Instruct patient to: -: a. "Describe what you see in this picture." -: b. "Name the items in this picture." -: c. "Read these sentences." -: 0=No aphasia, normal -: 1=Mild to moderate aphasia. -: 2=Severe aphasia -: 3=Mute, global aphasia, no usable speech or auditory comprehension. 9. Responses: 0 10. Articulation, Dysarthia: Instruct patient to: -: "Read these words" or "Repeat these words" -: 0=Normal -: 1=Mild to moderate; patient may slur some words but can be understood without difficulty. -: 2=Severe; patients speech so slurred as to be unintelligible in the absence of dysphasia. -: UN=Intubated or other physical barrier, explain in comments. 10. Responses: 0 11. Extinction or inattention: 0=No abnormality -: 1= Visual, tactile, auditory, spatial, or personal inattention or extinction to bilateral simulation in one or the sensory modalities. -: 2=Profound pina-inattention or pina-inattention to more than one modality; does not recognize own hand. 11. Responses: 0 Total Score: 0 ED Alteplase Inc/Exc Criteria - Date/Time patient last known well: Date/Time: patient unable to specifiy - Date/Time patient arrived in ED: _: 01/30/19 22:08 - Inclusion Criteria: 1: Patient presented to ED within 3 hours of acute ischemic stroke symptom onset? -: No 2: Did baseline CT exclude intracranial hemorrhage and/or other risk factors? -: Yes 3: Is the age of the patient 18 years of age or greater? -: Yes : If any of the above questions are answered "NO" then stop, patient is not a candidate for Alteplase, : If all of the above questions are answered "YES" then continue with Exclusion Criteria. - Exclusion Criteria: 1: Is there evidence of intracranial hemorrhage on baseline CT? -: No 2: Is there suspicion of subarachnoid hemorrhage (even if CT negative)? -: No 3: Is there a history of serious head trauma, recent previous stroke or NC within 3 months? -: No 4: Does the patient have a clinical presentation consistent with NC or post-NC pericarditis? -: No 5: Is there history of intracranial hemorrhage? -: No 6: On repeated measurement is Systolic BP greater than 185mmHg or Diastolic BP greater that 110 mmHg and is aggressive treatment needed to reduce blood pressure to these limits (e.g. constant infusion of an anti-hypertensive)? -: No 7: Did the patient awake with stroke symptoms? -: No 8: Has the patient had a lumbar puncture or an arterial puncture at a non- compressile site within 7 days? -: No 9: With in the last 14 days did the patient have surgery or major trauma? -: No 10: Is the patient or less than 2 weeks? -: No 11: Was there any active bleeding or acute trauma? -: No 12: Does the patient have intracranial neoplasm, arteriovenous malformation or aneurysm? -: No 13: Does the patient have abnormal glucose (less than 50 or greater than 400mg/dl)? Record glucose in Comment. -: No 14: Patient has rapidly improving symptoms at the time Alteplase is to be Administered. -: Yes 15: Does the patient have any risks for bleeding, including but not limited to: a.: Current use of Coumadin with PT greater than 15 seconds or INR greater than 1.7. b.: Current use of Pradaxa (Dabigatran). c.: Heparin administereed within the past 48 hours and PTT elevated. d.: Platelet count less than 100,000/mm. e.: Major surgery or serious trauma within 14 days. f.: Gastrointestinal or gynecological urinary bleeding within 14 days. g.: Myocardial Infarction (NC) within 3 months. -: No : If the answer to any of the above questions is "YES" then stop, the patient is not a candidate for Alteplase. : If the answer to all of the above questions is "NO" then the patient may be eligible for the Administration of Alteplase. : If the patient is noted to have seizure activity at onset of Stroke symptoms; Consult Neurologist for further evaluation. - The patient is: -: Included and is eligible to receive Alteplase. *Initiate bed placement at higher level of care* --: No Reviewed risks & benefits of thrombolytic therapy: I have reviewed the risks and benefits of thrombolytic therapy with the patient and/or his/her family. -: Excluded and not eligible to receive Alteplase for the above exclusions. -: Excluded and not eligible to receive Alteplase for other reasons (specify in comments): - Diagnosis of TIA: -: Patient presented with transient symptoms that are now resolved and no other neurologic findings are currently present. List symptoms in comments. -: Patient is NOT a candidate for tPA. -: No -: ____(put name in comment) has been consulted for admission and continued evaluation of risk factor assessment. Comment: Patient has absolutely no symptoms at this time. No evidence of stroke or
[2019-01-31] MEDS ORDERED: CITALOPRAM HYDROBROMIDE 20 MG TABLET PO ONE (00:15)
[2019-01-31] MEDS ORDERED: HALOPERIDOL 5 MG TABLET PO ONE (00:15)
[2019-01-31] MEDS ORDERED: BENZTROPINE MESYLATE 1 MG TABLET PO ONE ×2 (00:15→06:26)
[2019-01-31] MEDS ORDERED: GABAPENTIN 100 MG CAPSULE PO ONE (00:15)
[2019-01-31] MEDS ORDERED: SITAGLIPTIN PHOSPHATE 25 MG TABLET PO ONE (00:15)
[2019-01-31] MEDS ORDERED: BUSPIRONE HCL 10 MG TABLET PO ONE (00:15)
--- NOTE | 2019-01-31 00:30 | RADIOLOGY REPORT (SQ) ---
EXAM DESCRIPTION: CT HEAD WITHOUT IV CONTRAST COMPLETED DATE/TME: 01/30/2019 23:20 CLINICAL HISTORY: 48 years, Male, right hand numbness COMPARISON: 08/03/2018 TECHNIQUE: Axial CT images of the brain were obtained without contrast. Sagittal and coronal reformats were performed. DL 1096 Images stored on PACS. All CT scanners at this facility use dose modulation, iterative reconstruction, and/or weight based dosing when appropriate to reduce radiation dose to as low as reasonably achievable (ALARA). [facility]: Dose Right [facility]: CareDose [facility]: Dose Right [facility]: Teradose 4D [facility]: [employer] LIMITATIONS: None. FINDINGS: There is no acute cortical infarct, hemorrhage, mass, edema, hydrocephalus, or extra-axial fluid collection. The bentley-white matter differentiation is preserved. The paranasal sinuses and mastoid air cells are clear. There is no acute fracture. IMPRESSION: No acute intracranial abnormality. TECHNICAL DOCUMENTATION: Quality ID # [id number]: Final reports with documentation of one or more dose reduction techniques (e.g., Automated exposure control, adjustment of the mA and/or kV according to patient size, use of iterative reconstruction technique) copyright 2010 [employer]- All Rights Reserved
[2019-01-31] MEDS ORDERED: TRAZODONE HCL 50 MG TABLET PO ONE (00:55)
[2019-01-31] MEDS ORDERED: HYDRALAZINE HCL INJ/PF 20 MG/1 ML SDV IV PRN (03:14)
[2019-01-31] MEDS ORDERED: IPRATROPIUM/ALBUTEROL 0.5-2.5 MG/3 ML AMPUL NEB PRN (03:15)
[2019-01-31] MEDS ORDERED: ACETAMINOPHEN 325 MG TABLET PO PRN (03:15)
[2019-01-31] MEDS ORDERED: MAG HYDROX/AL HYDROX/SIMETH SUSP 30 ML UDCUP PO PRN (03:15)
[2019-01-31] MEDS: MAGNESIUM SULFATE/D5W 1 GM/100 ML RTUPB IV SCH ×2 (04:44→05:57)
[2019-01-31] MEDS: HEPARIN SOD (PORCINE) 5,000 UNIT/ML 1 ML VIAL SUBCUT SCH ×3 (05:57→22:28)
--- NOTE | 2019-01-31 06:25 | PDOC H&P ---
History of Present Illness Admission Date/PCP: 01/31/19 01:23 LANDON COMBS PA-C History of Present Illness: TINY MCCLAIN is a 48 year old male with a history of obstructive sleep apnea, bipolar, COPD, tobacco, alcohol depression and anxiety. He presents with uncontrolled anxiety, confusion and muscle cramping following an abrupt discontinuation of his psychiatric regiment. In the emergency room is found to have hypertonicity of forearm musculature with twitching. He receives Cogentin, BiPAP and referred to the hospitalist for admission. Patient denies chest pain, shortness of breath, nausea vomiting. Patient is a poor historian Past Medical History Pulmonary Medical History: Reports: Bronchitis, Chronic Obstructive Pulmonary Disease (COPD) Endocrine Medical History: Reports: Diabetes Mellitus Type 2 Psychiatric Medical History: Reports: Alcohol Dependency, Bipolar Disorder, Depr ession, Schizoaffective Disorder, Tobacco Dependency Social History Information Source: Patient Smoking Status: Current Every Day Smoker Frequency of Alcohol Use: Heavy Drugs: Marijuana Hx Prescription Drug Abuse: No - Advance Directive Resuscitation Status: Full Code Family History Family History: CVA, DM, Hypertension Parental Family History Reviewed: Yes Children Family History Reviewed: Yes Sibling(s) Family History Reviewed.: Yes Medication/Allergy Home Medications: Benztropine Mesylate [Cogentin 1 mg Tablet] 2 mg PO BID 05/03/13 Citalopram Hydrobromide [Celexa 20 mg Tablet] 20 mg PO DAILY 05/03/13 Haloperidol [Haldol 5 mg Tablet] 10 mg PO BID 05/03/13 Hydroxyzine Pamoate [Vistaril 50 mg Capsule] 50 mg PO Q12H PRN 05/03/13 Buspirone HCl [Buspar 15 mg Tablet] 15 mg PO DAILY #0 tablet 03/27/14 Fluticasone Propionate [Flonase Nasal [place] 50 Mcg/[place] 16 gm] 2 spray NASL DAILY #1 spray.pump 03/27/14 Folic Acid [Folvite 1 mg Tablet] 1 mg PO DAILY #30 tablet 03/27/14 Lansoprazole [Prevacid 30 mg Odt Tablet] 30 mg PO BIDACBS #60 tab.rap. Thiamine HCl [Thiamine 100 mg Tablet] 100 mg PO DAILY #30 tablet 03/27/14 Albuterol Sulfate [Proair HFA Inhalation Aerosol 8.5 gm MDI] 1 puff IH Q4 PRN #1 mdi 07/24/14 Prednisone 40 mg PO DAILY #8 tablet 07/24/14 Sulfamethoxazole/Trimethoprim [Bactrim Ds Tablet] 2 each PO BID 10 Days tablet 08/04/14 Amoxicillin Trihydrate [Amoxil 500 mg Capsule] 500 mg PO TID #30 cap 04/28/15 Hydrocodone Bit/Acetaminophen [Hydrocodon-Acetaminophen 5-325] 1 each PO ASDIR PRN #15 tablet 04/28/15 Citalopram Hydrobromide [Celexa 20 mg Tablet] 20 mg PO DAILY #30 tablet 11/30/17 Haloperidol [Haldol 5 mg Tablet] 10 mg PO BID #60 tablet 11/30/17 Allergies/Adverse Reactions: No Known Allergies Allergy (Verified 08/03/18 07:18) Review of Systems ROS unobtainable: Due to mental status Physical Exam Vital Signs: Temp Pulse Resp BP Pulse Ox 98.6 F 76 21 H 141/74 H 99 01/31/19 02:45 01/31/19 05:39 01/31/19 05:39 01/31/19 05:39 01/31/19 05:39 Intake & Output 01/29/19 01/30/19 01/31/19 11:59 11:59 11:59 Intake Total 12 Balance 12 Weight 104.1 kg General appearance: PRESENT: disheveled, mild distress, well-developed, well- nourished. ABSENT: cooperative Head exam: PRESENT: atraumatic, normocephalic Eye exam: PRESENT: conjunctiva pink, EOMI, PERRLA. ABSENT: scleral icterus Ear exam: PRESENT: normal external ear exam Mouth exam: PRESENT: moist, tongue midline Neck exam: ABSENT: carotid bruit, JVD, lymphadenopathy, thyromegaly Respiratory exam: PRESENT: clear to auscultation joseph. ABSENT: rales, rhonchi, wheezes Cardiovascular exam: PRESENT: RRR. ABSENT: diastolic murmur, rubs, systolic murmur Pulses: PRESENT: normal dorsalis pedis pul Vascular exam: PRESENT: normal capillary refill GI/Abdominal exam: PRESENT: normal bowel sounds, soft. ABSENT: distended, guarding, mass, organolmegaly, rebound, tenderness Rectal exam: PRESENT: deferred Extremities exam: PRESENT: full ROM. ABSENT: calf tenderness, clubbing, pedal edema Musculoskeletal exam: PRESENT: full ROM, other. ABSENT: normal inspection, tenderness Neurological exam: PRESENT: alert, awake, oriented to person, oriented to place, oriented to time, oriented to situation, CN II-XII grossly intact. ABSENT: motor sensory deficit Psychiatric exam: PRESENT: agitated, anxious, unusual affect. ABSENT: normal mood Skin exam: PRESENT: dry, intact, warm. ABSENT: cyanosis, rash Results Laboratory Results: 01/30/19 22:28 01/30/19 22:28 01/30/19 01/30/19 01/30/19 22:28 22:28 22:28 WBC 9.5 RBC 4.48 Hgb 13.5 Hct 38.4 MCV 86 MCH 30.1 MCHC 35.1 RDW 13.9 Plt Count 331 Seg Neutrophils % 71.5 Sodium 121.4 L Potassium 4.0 Chloride 85 L Carbon Dioxide 29 Anion Gap 7 BUN 7 Creatinine 0.60 Est GFR ( Amer) > 60 Glucose 173 H Calcium 8.8 Magnesium 1.5 L Total Bilirubin 0.3 AST 30 Alkaline Phosphatase 51 Total Protein 5.9 L Albumin 3.5 TSH 0.78 01/30/19 22:28 NT-Pro-B Natriuret Pep 87 Impressions: Head CT 01/30/19 23:20 IMPRESSION: No acute intracranial abnormality. TECHNICAL DOCUMENTATION: Quality ID # [id number]: Final reports with documentation of one or more dose reduction techniques (e.g., Automated exposure control, adjustment of the mA and/or kV according to patient size, use of iterative reconstruction technique) copyright 2011 [employer]- All Rights Reserved Assessment and Plan - Diagnosis (1) Myoclonus Is this a current diagnosis for this admission?: Yes Plan: Secondary to abrupt discontinuation of Cogentin resume Cogentin (2) Selective serotonin reuptake inhibitor (SSRI) discontinuation syndrome Is this a current diagnosis for this admission?: Yes Plan: Resume SSRI, telemetry (3) Bipolar 1 disorder Is this a current diagnosis for this admission?: Yes Plan: Consider psychiatric consult. (4) ETOH abuse Is this a current diagnosis for this admission?: Yes Plan: Unclear history of alcohol withdrawal. Thiamine, Ativan as needed withdrawal symptoms (5) Tobacco abuse Is this a current diagnosis for this admission?: Yes Plan: Tobacco cessation counseling, nicotine replacement options discussed - Time Time Spent with patient: 25-34 minutes
[2019-01-31 07:36] LABS: ANION GAP 8 (5-19); BLOOD UREA NITROGEN 5 mg/dL (7-20); CALCIUM 8.6 mg/dL (8.4-10.2); CARBON DIOXIDE 28 mmol/L (22-30); CHLORIDE 87 mmol/L (98-107); GLUCOSE 176 mg/dL (75-110); POTASSIUM 4.1 mmol/L (3.6-5.0)
--- NOTE | 2019-01-31 09:28 | Progress Note ---
Provider Note Provider Note: Patient with a psychiatric history on multiple psychiatric medications including Haldol and Cogentin came in because he had been out of his medications for about a week and was wanting refills. He was also having some tremulousness and said he thought it was like a TIA that he had had before. The history is not really consistent with TIA and some labs were checked and so his sodium was 121. He had a bag of IV fluids and his sodium was, 123. His magnesium level was also a little bit low it has been replaced. We will continue normal saline and repeat his blood work. His psych medications have been restarted.
[2019-01-31] MEDS: HALOPERIDOL 5 MG TABLET PO SCH ×2 (09:29→22:27)
[2019-01-31] MEDS ORDERED: CITALOPRAM HYDROBROMIDE 20 MG TABLET PO SCH (10:00)
[2019-01-31] MEDS ORDERED: LORAZEPAM 1 MG TABLET PO ONE (11:41)
[2019-01-31] MEDS ORDERED: NICOTINE 7 MG/24 HR PATCH.TD24 TD ONE (11:41)
[2019-01-31 13:50] LABS: ANION GAP 9 (5-19); BLOOD UREA NITROGEN 8 mg/dL (7-20); CALCIUM 8.9 mg/dL (8.4-10.2); CARBON DIOXIDE 30 mmol/L (22-30); CHLORIDE 87 mmol/L (98-107); GLUCOSE 111 mg/dL (75-110); POTASSIUM 4.3 mmol/L (3.6-5.0)
[2019-01-31] MEDS: NORMAL SALINE 1000 ML 1,000 ML IV PRN (16:55)
[2019-01-31 20:14] LABS: ANION GAP 8 (5-19); BLOOD UREA NITROGEN 11 mg/dL (7-20); CALCIUM 8.8 mg/dL (8.4-10.2); CARBON DIOXIDE 29 mmol/L (22-30); CHLORIDE 87 mmol/L (98-107); GLUCOSE 96 mg/dL (75-110); POTASSIUM 4.6 mmol/L (3.6-5.0)
[2019-01-31] MEDS ORDERED: BENZTROPINE MESYLATE 1 MG TABLET PO SCH (22:00)
[2019-02-01 01:56] LABS: ANION GAP 9 (5-19); BLOOD UREA NITROGEN 11 mg/dL (7-20); CALCIUM 8.9 mg/dL (8.4-10.2); CARBON DIOXIDE 28 mmol/L (22-30); CHLORIDE 90 mmol/L (98-107); GLUCOSE 218 mg/dL (75-110); POTASSIUM 4.6 mmol/L (3.6-5.0)
[2019-02-01 02:09] VITALS: BP 149/74
[2019-02-01] MEDS: NORMAL SALINE 1000 ML 1,000 ML IV PRN (05:47)
[2019-02-01] MEDS: HEPARIN SOD (PORCINE) 5,000 UNIT/ML 1 ML VIAL SUBCUT SCH (05:51)
[2019-02-01] MEDS ORDERED: INFLUENZA QUAD (6MOS+) 2019-20 VAC 0.5 ML SYR IM ONE (08:00)
[2019-02-01 08:01] LABS: ANION GAP 7 (5-19); BLOOD UREA NITROGEN 9 mg/dL (7-20); CALCIUM 8.9 mg/dL (8.4-10.2); CARBON DIOXIDE 31 mmol/L (22-30); CHLORIDE 88 mmol/L (98-107); GLUCOSE 126 mg/dL (75-110); POTASSIUM 4.7 mmol/L (3.6-5.0)
--- NOTE | 2019-02-01 09:53 | Left Against Medical Advice ---
Against Medical Advice Admission Date/Time: 01/31/19 01:23 Primary Care Provider: LANDON COMBS PA-C Date of Patient Emigration: 02/01/19 - Diagnosis: (1) Hyponatremia Is this a current diagnosis for this admission?: Yes - Summary: Summary: Please see Admission and Progress Notes as well. TINY MCCLAIN is a 48 M, who LEFT AGAINST MEDICAL ADVICE. The Patient was admitted on 01/31/19 01:23.
== END 2019-02-01 08:00 | disposition left against medical advice (07) ==
LOC: ER 22:08 → EH 01-31 01:23 → INTOOBSV 01-31 01:23 → 5 01-31 15:49
PROVIDERS: ADMIT Internal Medicine; ATTEND Internal Medicine
DX: E87.1 Hypo-osmolality and hyponatremia (principal); G47.33 Obstructive sleep apnea (adult) (pediatric); J44.9 Chronic obstructive pulmonary disease, unspecified; F41.9 Anxiety disorder, unspecified; E11.9 Type 2 diabetes mellitus without complications; F10.20 Alcohol dependence, uncomplicated; F17.200 Nicotine dependence, unspecified, uncomplicated; F25.9 Schizoaffective disorder, unspecified; F12.90 Cannabis use, unspecified, uncomplicated; G25.3 Myoclonus; T44.3X5A Adverse effect of other parasympatholytics [anticholinergics and antimuscarinics] and spasmolytics, initial encounter; T43.225A Adverse effect of selective serotonin reuptake inhibitors, initial encounter; F31.9 Bipolar disorder, unspecified; Z91.14 Patient's other noncompliance with medication regimen; Z71.6 Tobacco abuse counseling; Z83.3 Family history of diabetes mellitus
CPT/HCPCS: 99285; 36415 ×3; 82962; 80307; 83735; 84443; 85025; 80048 ×2; 80053; 83880; 70450; 94660 ×2; 94640; G0378 ×3; A9270 ×10; J1644; J3475; J7030 ×2; J3490; J7620

== ENCOUNTER 2019-04-28 02:05 | Emergency (ER) | payer MEDICARE, MEDICAID ==
[2019-04-28 07:04] VITALS: BP 155/90
--- NOTE | 2019-04-28 08:43 | ER Document Report ---
ED Extremity Problem, Lower - General Chief Complaint: Skin Sore(s) Stated Complaint: BLISTERS ON FEET Time Seen by Provider: 04/28/19 08:09 Primary Care Provider: SAY MCKEON MD [Primary Care Provider] - Follow up as needed Notes: Patient is a 48-year-old male with a history of sleep apnea, bipolar, COPD, depr ession, anxiety who presents to the emergency department with a chief complaint of bilateral foot pain. Patient reports having bilateral foot pain that started yesterday. He reports that he is a type II diabetic and is on Januvia. Patient reports last time he checked his blood sugar was yesterday but cannot remember what his blood sugar was. Patient denies any open wounds. Patient reports he does walk a lot as he does not have a vehicle. Patient reports he does reside in [place] and is at [facility] because his son lives here. Patient denies fever. TRAVEL OUTSIDE OF THE [place] IN LAST 30 DAYS: No - Related Data Allergies/Adverse Reactions: No Known Allergies Allergy (Verified 04/28/19 02:37) Past Medical History - General Information source: Patient - Social History Smoking Status: Former Smoker Chew tobacco use (# tins/day): Yes Drug Abuse: Marijuana Lives with: Alone Family History: CVA, DM, Hypertension Patient has suicidal ideation: No Patient has homicidal ideation: No - Past Medical History Cardiac Medical History: Reports: None Pulmonary Medical History: Reports: Hx Bronchitis, Hx COPD EENT Medical History: Reports: None Neurological Medical History: Reports: None Endocrine Medical History: Reports: Hx Diabetes Mellitus Type 2 Renal/ Medical History: Reports: None. Denies: Hx Peritoneal Dialysis Malignancy Medical History: Reports None GI Medical History: Reports: None Musculoskeletal Medical History: Reports None Skin Medical History: Reports Hx Cellulitis Psychiatric Medical History: Reports: Hx Bipolar Disorder, Hx Depression, Hx Schizoaffective Disorder, Hx Schizophrenia Traumatic Medical History: Reports: None Infectious Medical History: Reports: None Surgical Hx: Negative - Immunizations Immunizations up to date: Yes Hx Diphtheria, Pertussis, Tetanus Vaccination: Yes Review of Systems - Review of Systems Constitutional: No symptoms reported EENT: No symptoms reported Cardiovascular: No symptoms reported Respiratory: No symptoms reported Gastrointestinal: No symptoms reported Genitourinary: No symptoms reported Male Genitourinary: No symptoms reported Musculoskeletal: See HPI Skin: No symptoms reported Hematologic/Lymphatic: No symptoms reported Neurological/Psychological: No symptoms reported Physical Exam - Vital signs Vitals: Temp Pulse Resp BP Pulse Ox 98.6 F 79 16 150/85 H 97 04/28/19 02:11 04/28/19 02:11 04/28/19 02:11 04/28/19 02:11 04/28/19 02:11 Interpretation: Hypertensive - Notes Notes: GENERAL: Sleeping, arouses to verbal stimuli, slurred speech, falls back asleep during questioning/conversation. HEAD: Atraumatic, normocephalic. EYES: Pupils equal round and reactive to light, extraocular movements intact, sclera anicteric, conjunctiva are normal. ENT: Nares patent, oropharynx clear without exudates. Moist mucous membranes. NECK: Normal range of motion, supple without lymphadenopathy or JVD. LUNGS: Breath sounds clear to auscultation bilaterally and equal. No wheezes rales or rhonchi. HEART: Regular rate and rhythm without murmurs, rubs or gallops. ABDOMEN: Soft, nontender, normoactive bowel sounds. No guarding, no rebound. No masses appreciated. BACK: No cervical, thoracic, lumbar midline tenderness. No saddle anesthesia, normal distal neurovascular exam. GENITOURINARY: Deferred. EXTREMITIES: Normal range of motion, no pitting or edema. No clubbing or cyanosis. NEUROLOGICAL: Cranial nerves II through XII grossly intact. Normal speech, normal gait. PSYCH: Normal mood, normal affect. SKIN: Multiple callus noted to bilateral feet on the plantar aspect, large blister noted to the right lateral foot beneath the lateral malleolus. No open wounds or draining wounds. No signs of cellulitis. No abscess. Course - Re-evaluation Re-evalutation: 04/28/19 08:39 Upon initial assessment patient is sleeping on the stretcher. Patient will arouse to verbal stimuli but speech is slurred. Patient reports he does drink marijuana occasionally but does not drink alcohol or has not done any other recreational drugs. Patient currently is a poor historian. Will obtain basic labs including a urine drug screen as well as a alcohol level. Patient does have blistering noted to his feet for examination. There is no open wounds. No signs of active infection such as cellulitis. 04/28/19 10:28 Patient sodium level 129.8. I did compare this to his previous sodium levels which does appear higher today than his baseline. Patient tolerating Gatorade and liquids at this time. Patient reports she does socially drink alcohol and his last alcohol use was about 2 weeks ago. Patient reports a few days ago he had a couple of episodes of vomiting but has since been able to tolerate liquids. Patient has had no nausea, vomiting or diarrhea since being here in the emergency department. Patient is more awake and alert at this time. Patient reports that he was just significantly tired. Patient reports he has been off of all of his medications for weeks. Patient reports that he does not take any of his medications because he feels like she has significant side effects. I did consult with Dr. De Los Santos my attending supervisor microfilm duplicating unit who suggests adding on a magnesium level. This was added. Patient refusing to stay. Left AMA. 04/28/19 11:39 Patient decided to stay and did not leave AMA. Patient's mag is 2.0 which is normal. Patient reports he feels much better and would like to go home. Patien t is not examined any new or worsening symptoms. Patient given strict return precautions. Patient to follow-up with his primary care physician. - Vital Signs Vital signs: Temp Pulse Resp BP Pulse Ox 97.4 F 81 20 155/90 H 97 04/28/19 06:52 04/28/19 06:52 04/28/19 06:52 04/28/19 06:52 04/28/19 06:52 - Laboratory Result Diagrams: 04/28/19 09:12 04/28/19 09:12 Laboratory results interpreted by me: 04/28/19 09:12 Sodium 129.8 L Chloride 93 L Glucose 126 H Laboratory 04/28/19 04/28/19 04/28/19 09:12 09:12 09:12 WBC 6.6 RBC 5.16 Hgb 16.0 Hct 44.7 MCV 87 MCH 31.0 MCHC 35.8 RDW 13.8 Plt Count 351 Lymph % (Auto) 21.9 [place] % (Auto) 8.2 Eos % (Auto) 1.4 Baso % (Auto) 1.2 Absolute Neuts (auto) 4.5 Absolute Lymphs (auto) 1.5 Absolute Monos (auto) 0.5 Absolute Eos (auto) 0.1 Absolute Basos (auto) 0.1 Seg Neutrophils % 67.3 Sodium 129.8 L Potassium 4.5 Chloride 93 L Carbon Dioxide 29 Anion Gap 8 BUN 7 Creatinine 0.59 Est GFR ( Amer) > 60 Est GFR (MDRD) Non-Af > 60 Glucose 126 H Calcium 9.6 Total Bilirubin 0.7 Direct Bilirubin 0.2 Neonat Total Bilirubin Not Reportable Neonat Direct Bilirubin Not Reportable Neonat Indirect Bili Not Reportable AST 36 ALT 39 Alkaline Phosphatase 66 Total Protein 7.3 Albumin 4.3 Urine Color STRAW Urine Appearance CLEAR Urine pH 8.0 Ur Specific Schu[place] 1.004 Urine Protein NEGATIVE Urine Glucose (UA) NEGATIVE Urine Ketones NEGATIVE Urine Blood NEGATIVE Urine Nitrite NEGATIVE Urine Bilirubin NEGATIVE Urine Urobilinogen NEGATIVE Ur Leukocyte Esterase NEGATIVE Urine WBC (Auto) 1 Urine RBC (Auto) 0 Urine Mucus (Auto) RARE Urine Ascorbic Acid NEGATIVE Urine Opiates Screen Urine Methadone Screen Ur Barbiturates Screen Ur Phencyclidine Scrn Ur Amphetamines Screen U Benzodiazepines Scrn Urine Cocaine Screen U Marijuana (THC) Screen Serum Alcohol < 10 04/28/19 09:12 WBC RBC Hgb Hct MCV MCH MCHC RDW Plt Count Lymph % (Auto) [place] % (Auto) Eos % (Auto) Baso % (Auto) Absolute Neuts (auto) Absolute Lymphs (auto) Absolute Monos (auto) Absolute Eos (auto) Absolute Basos (auto) Seg Neutrophils % Sodium Potassium Chloride Carbon Dioxide Anion Gap BUN Creatinine Est GFR ( Amer) Est GFR (MDRD) Non-Af Glucose Calcium Total Bilirubin Direct Bilirubin Neonat Total Bilirubin Neonat Direct Bilirubin Neonat Indirect Bili AST ALT Alkaline Phosphatase Total Protein Albumin Urine Color Urine Appearance Urine pH Ur Specific [place] Urine Protein Urine Glucose (UA) Urine Ketones Urine Blood Urine Nitrite Urine Bilirubin Urine Urobilinogen Ur Leukocyte Esterase Urine WBC (Auto) Urine RBC (Auto) Urine Mucus (Auto) Urine Ascorbic Acid Urine Opiates Screen NEGATIVE Urine Methadone Screen NEGATIVE Ur Barbiturates Screen NEGATIVE Ur Phencyclidine Scrn NEGATIVE Ur Amphetamines Screen NEGATIVE U Benzodiazepines Scrn NEGATIVE Urine Cocaine Screen NEGATIVE U Marijuana (THC) Screen NEGATIVE Serum Alcohol Discharge - Discharge Clinical Impression: Foot pain, bilateral, Hyponatremia Condition: Stable Disposition: AGAINST MEDICAL ADVICE Additional Instructions: *Today was seen in the emergency department for bilateral foot pain. You do have multiple calluses to the bottom of your feet which could be due to the constant walking that you have stated that you do daily. You also do have multiple blisters. Blisters are usually due to the rubbing of your shoes. Do not pop these blisters have you have reported you are a diabetic. Please continue taking your diabetes medications as prescribed. Please keep your feet clean and dry as possible. Monitor for skin breakdown and redness. Please check in between your toes as you can also have breakdown of skin in these areas. Please return if you notice any increased redness, swelling. Please rest and elevate your feet. *It was also noted in your blood work that you do have a low sodium level. This does appear consistent with your previous visits. This can cause weakness, fatigue and confusion even seizures. Make sure that you are hydrating a ppropriately with Gatorade and Pedialyte as an example. Please return emergency department if you have severe weakness, muscle twitching or cramping, palpitations, confusion, headache seizures or any new or alarming symptoms. Hyponatremia You have an abnormally low level of serum sodium, called hyponatremia. Low serum sodium may cause weakness, fatigue, confusion, or even seizures. Usually, low sodium is due to taking diuretics (water pills), combined with drinking too much water. It can also be due to excessive vomiting or diarrhea. If no obvious cause is evident, further evaluation will be necessary. If the hyponatremia results from taking diuretics, it's treated by restricting the amount of water you can drink. If it's due to vomiting and diarrhea, it's treated by drinking liberal amounts of rehydration solution (for example Lytren or Pedialyte). A follow-up blood test is often done to see that the sodium is returning to normal. Call the physician if you have severe weakness, muscle twitching or cramping, palpitations (pounding or irregular heartbeat), confusion, headache, seizures, or any other new or alarming symptoms. Referrals: SAY MCKEON MD [Primary Care Provider] - Follow up as needed
[2019-04-28 09:28] LABS: ABSOLUTE BASOPHILS # (AUTO) 0.1 10^3/uL (0.0-0.2); ABSOLUTE EOSINOPHILS # (AUTO) 0.1 10^3/uL (0.0-0.6); ABSOLUTE LYMPHOCYTES (AUTO) 1.5 10^3/uL (0.5-4.7); ABSOLUTE MONOCYTES (AUTO) 0.5 10^3/uL (0.1-1.4); ABSOLUTE NEUT (AUTO) 4.5 10^3/uL (1.7-8.2); BASOPHILS % (AUTO) 1.2 % (0-2); EOSINOPHILS % (AUTO) 1.4 % (0-6); HEMATOCRIT 44.7 % (37.9-51.0); LYMPHOCYTES % (AUTO) 21.9 % (13-45); MEAN CORPUSCULAR HGB CONC 35.8 g/dL (32.0-36.0); MEAN CORPUSCULAR VOLUME 87 fl (80-97); MONOCYTES % (AUTO) 8.2 % (3-13); PLATELET COUNT 351 10^3/uL (150-450); RED BLOOD COUNT 5.16 10^6/uL (4.35-5.55); RED CELL DISTRIBUTION WIDTH 13.8 % (11.5-14.0); SEGMENTED NEUTROPHILS % (AUTO) 67.3 % (42-78); TOTAL CELLS COUNTED % (AUTO) 100 %; WHITE BLOOD COUNT 6.6 10^3/uL (4.0-10.5)
[2019-04-28 09:35] LABS: APPEARANCE,URINE CLEAR; BILIRUBIN,URINE NEGATIVE (NEGATIVE); COLOR,URINE STRAW; GLUCOSE, URINE NEGATIVE (NEGATIVE); KETONES,URINE NEGATIVE (NEGATIVE); LEUKOCYTE ESTERASE,URINE NEGATIVE (NEGATIVE); NITRITE,URINE NEGATIVE (NEGATIVE); PROTEIN,URINE NEGATIVE (NEGATIVE); URINE SPECIFIC GRAVITY 1.004; UROBILINOGEN,URINE NEGATIVE mg/dL (<2.0)
[2019-04-28 09:50] LABS: ALBUMIN 4.3 g/dL (3.5-5.0); ALKALINE PHOSPHATASE 66 U/L (38-126); ANION GAP 8 (5-19); ASPARTATE AMINO TRANSFERASE 36 U/L (17-59); BILIRUBIN,DIRECT 0.2 mg/dL (0.0-0.4); BILIRUBIN,TOTAL 0.7 mg/dL (0.2-1.3); BLOOD UREA NITROGEN 7 mg/dL (7-20); CALCIUM 9.6 mg/dL (8.4-10.2); CARBON DIOXIDE 29 mmol/L (22-30); CHLORIDE 93 mmol/L (98-107); GLUCOSE 126 mg/dL (75-110); POTASSIUM 4.5 mmol/L (3.6-5.0); TOTAL PROTEIN 7.3 g/dL (6.3-8.2)
[2019-04-28 09:53] LABS: URINE AMPHETAMINES SCREEN NEGATIVE; URINE BARBITURATES SCREEN NEGATIVE; URINE BENZODIAZEPINES SCREEN NEGATIVE; URINE COCAINE SCREEN NEGATIVE; URINE MARIJUANA (THC) SCREEN NEGATIVE; URINE METHADONE SCREEN NEGATIVE; URINE PHENCYCLIDINE SCREEN NEGATIVE
[2019-04-28 09:55] LABS: ALCOHOL < 10 mg/dL (NONE DETECTED)
== END 2019-04-28 12:32 | disposition left against medical advice (07) ==
LOC: ER 02:05
DX: M79.671 Pain in right foot (principal); M79.672 Pain in left foot; E87.1 Hypo-osmolality and hyponatremia; L98.9 Disorder of the skin and subcutaneous tissue, unspecified; R47.81 Slurred speech; L84 Corns and callosities; Z87.891 Personal history of nicotine dependence
CPT/HCPCS: 36415; 80053; 80307; 81001; 83735; 85025; 99283

== ENCOUNTER 2019-04-30 15:48 | Emergency (ER) | payer MEDICARE, MEDICAID ==
--- NOTE | 2019-04-30 16:36 | ER Document Report ---
ED Medical Screen (RME) - General Chief Complaint: Psych Problem Stated Complaint: PSYCH EVAL Time Seen by Provider: 04/30/19 16:33 Primary Care Provider: SAY MCKEON MD [Primary Care Provider] - Follow up as needed Notes: Patient presents reporting a history of schizoaffective disorder. Patient reports visual hallucinations and suicidal ideation. Patient denies any homicidal ideation. Patient states he just wants to kill the demons. Patient states he is been off of his medications for the past 3 weeks. I have greeted and performed a rapid initial assessment of this patient. A comprehensive ED assessment and evaluation of the patient, analysis of test results and completion of the medical decision making process will be conducted by additional ED providers. TRAVEL OUTSIDE OF THE [place] IN LAST 30 DAYS: No - Related Data Allergies/Adverse Reactions: No Known Allergies Allergy (Verified 04/28/19 02:37) Past Medical History Pulmonary Medical History: Reports: Hx Bronchitis, Hx COPD Endocrine Medical History: Reports: Hx Diabetes Mellitus Type 2 Renal/ Medical History: Denies: Hx Peritoneal Dialysis Skin Medical History: Reports Hx Cellulitis Psychiatric Medical History: Reports: Hx Bipolar Disorder, Hx Depression, Hx Schizoaffective Disorder, Hx Schizophrenia - Immunizations Immunizations up to date: Yes Hx Diphtheria, Pertussis, Tetanus Vaccination: Yes Physical Exam - General General appearance: Alert In distress: None - Psychological Associated symptoms: Visual hallucinations Doctor's Discharge - Discharge Referrals: SAY MCKEON MD [Primary Care Provider] - Follow up as needed
[2019-04-30 17:45] LABS: ABSOLUTE BASOPHILS # (AUTO) 0.2 10^3/uL (0.0-0.2); ABSOLUTE EOSINOPHILS # (AUTO) 0.1 10^3/uL (0.0-0.6); ABSOLUTE LYMPHOCYTES (AUTO) 2.3 10^3/uL (0.5-4.7); ABSOLUTE MONOCYTES (AUTO) 0.7 10^3/uL (0.1-1.4); ABSOLUTE NEUT (AUTO) 5.3 10^3/uL (1.7-8.2); BASOPHILS % (AUTO) 1.8 % (0-2); EOSINOPHILS % (AUTO) 1.3 % (0-6); HEMATOCRIT 35.1 % (37.9-51.0); LYMPHOCYTES % (AUTO) 27.3 % (13-45); MEAN CORPUSCULAR HEMOGLOBIN 30.5 pg (27.0-33.4); MEAN CORPUSCULAR HGB CONC 35.6 g/dL (32.0-36.0); MEAN CORPUSCULAR VOLUME 86 fl (80-97); MONOCYTES % (AUTO) 7.8 % (3-13); PLATELET COUNT 357 10^3/uL (150-450); RED BLOOD COUNT 4.09 10^6/uL (4.35-5.55); RED CELL DISTRIBUTION WIDTH 13.8 % (11.5-14.0); SEGMENTED NEUTROPHILS % (AUTO) 61.8 % (42-78); TOTAL CELLS COUNTED % (AUTO) 100 %; WHITE BLOOD COUNT 8.6 10^3/uL (4.0-10.5)
[2019-04-30 17:47] LABS: HEMOGLOBIN 12.5 g/dL (13.5-17.0)
[2019-04-30 18:01] LABS: ACETAMINOPHEN < 10 ug/mL (10-30); ALBUMIN 3.8 g/dL (3.5-5.0); ALCOHOL < 10 mg/dL (NONE DETECTED); ALKALINE PHOSPHATASE 55 U/L (38-126); ANION GAP 8 (5-19); ASPARTATE AMINO TRANSFERASE 39 U/L (17-59); BILIRUBIN,DIRECT 0.3 mg/dL (0.0-0.4); BILIRUBIN,TOTAL 0.5 mg/dL (0.2-1.3); BLOOD UREA NITROGEN 11 mg/dL (7-20); CALCIUM 9.3 mg/dL (8.4-10.2); CARBON DIOXIDE 27 mmol/L (22-30); CHLORIDE 92 mmol/L (98-107); GLUCOSE 93 mg/dL (75-110); POTASSIUM 4.3 mmol/L (3.6-5.0); TOTAL PROTEIN 6.5 g/dL (6.3-8.2)
[2019-04-30 19:10] LABS: APPEARANCE,URINE CLEAR; BILIRUBIN,URINE NEGATIVE (NEGATIVE); COLOR,URINE STRAW; GLUCOSE, URINE NEGATIVE (NEGATIVE); KETONES,URINE NEGATIVE (NEGATIVE); LEUKOCYTE ESTERASE,URINE NEGATIVE (NEGATIVE); NITRITE,URINE NEGATIVE (NEGATIVE); PROTEIN,URINE NEGATIVE (NEGATIVE); URINE SPECIFIC GRAVITY 1.003
[2019-04-30 19:22] LABS: URINE AMPHETAMINES SCREEN NEGATIVE; URINE BARBITURATES SCREEN NEGATIVE; URINE BENZODIAZEPINES SCREEN NEGATIVE; URINE COCAINE SCREEN NEGATIVE; URINE MARIJUANA (THC) SCREEN NEGATIVE; URINE METHADONE SCREEN NEGATIVE; URINE PHENCYCLIDINE SCREEN NEGATIVE
--- NOTE | 2019-04-30 19:42 | ER Document Report ---
ED General - General Chief Complaint: Psych Problem Stated Complaint: PSYCH EVAL Time Seen by Provider: 04/30/19 16:33 Primary Care Provider: SAY MCKEON MD [Primary Care Provider] - Follow up as needed TRAVEL OUTSIDE OF THE [place]. IN LAST 30 DAYS: No - HPI Notes: Patient is a 48-year-old male with a known history of schizophrenia presents to the emergency department for evaluation. He admits to suicidal ideation, states he has access to both a knife and guns. He also states he is homicidal. He states he "wants to kill the devil." He states that he is also looking out for demons, "anyone that would hurt women." He states he is not been compliant with his medications, but really cannot tell me anything further in regards to why or how long he has been without any of his medications. He states he is interested in staying here for further evaluation. Patient notes that he has had some blistering on his feet, but otherwise denies any acute pain or other issues. - Related Data Allergies/Adverse Reactions: No Known Allergies Allergy (Verified 04/28/19 02:37) Home Medications: Unknown at this time. Patient states he has taken Januvia in the past. Past Medical History - General Information source: Patient - Social History Smoking Status: Current Every Day Smoker Frequency of alcohol use: None Drug Abuse: None Family History: CVA, DM, Hypertension Patient has suicidal ideation: Yes Patient has homicidal ideation: Yes Pulmonary Medical History: Reports: Hx Bronchitis, Hx COPD Endocrine Medical History: Reports: Hx Diabetes Mellitus Type 2 Renal/ Medical History: Denies: Hx Peritoneal Dialysis Skin Medical History: Reports Hx Cellulitis Psychiatric Medical History: Reports: Hx Bipolar Disorder, Hx Depression, Hx Schizoaffective Disorder, Hx Schizophrenia - Immunizations Immunizations up to date: Yes Hx Diphtheria, Pertussis, Tetanus Vaccination: Yes Review of Systems - Review of Systems Constitutional: No symptoms reported EENT: No symptoms reported Cardiovascular: No symptoms reported Respiratory: No symptoms reported Gastrointestinal: No symptoms reported Genitourinary: No symptoms reported Musculoskeletal: No symptoms reported Skin: See HPI Neurological/Psychological: See HPI Physical Exam - Vital signs Vitals: Temp Pulse Resp BP Pulse Ox 98.0 F 80 20 126/90 H 99 04/30/19 16:35 04/30/19 16:35 04/30/19 16:35 04/30/19 16:35 04/30/19 16:35 - Notes Notes: Is a 48-year-old gentleman who appears her stated age in no acute distress. He is cooperative with examiner, but does exhibit some mild tramaine and flight of ideas. He repeatedly talks to me about the devil and demons. Vital signs reviewed, please refer to chart. Head is normocephalic, atraumatic. Pupils equal round, reactive to light. Dentition is poor but I do not appreciate any a bscesses. Neck is supple without meningismus. Heart is regular rate and rhythm. Lungs are clear to auscultation bilaterally. Abdomen is soft, nontender, normoactive bowel sounds throughout. Extremities without cyanosis, clubbing. Posterior calves are nontender. Peripheral pulses are equal. Skin is warm and dry. He does have some calluses noted to the posterior feet and around the heels bilaterally, but no signs of ulceration or active infection at this time. Patient is awake, alert, neurological exam is nonfocal. Course - Re-evaluation Re-evalutation: 04/30/19 19:41 Patient presents emergency department for evaluation. Laboratory investigations were obtained. His hemoglobin is 12.5, was last 16. I did order heme studies of his stool, but currently he denies any melena and his abdomen is nontender. Patient claims to be a diabetic, used to be on Januvia and metformin. At this point his blood sugar is 93. I do not feel comfortable ordering any sort of diabetic medications at this time. We will put in for blood sugar orders while he is here. Otherwise, he is currently medically cleared, awaiting psychosocial evaluation. Patient has a chronic hyponatremia, it seems to be about stable. - Vital Signs Vital signs: Temp Pulse Resp BP Pulse Ox 98.0 F 80 20 126/90 H 99 04/30/19 16:35 04/30/19 16:35 04/30/19 16:35 04/30/19 16:35 04/30/19 16:35 - Laboratory Result Diagrams: 04/30/19 17:36 04/30/19 17:36 Laboratory results interpreted by me: 04/30/19 04/30/19 04/30/19 17:36 17:36 18:43 RBC 4.09 L Hgb 12.5 L D Hct 35.1 L Sodium 126.7 L Chloride 92 L Urine Urobilinogen 2.0 H Salicylates 1.0 L Acetaminophen < 10 L - EKG Interpretation by Me Additional EKG results interpreted by me: 04/30/19 19:43 Sinus mechanism with a rate of 85 bpm. Normal axis and intervals, no acute ST changes concerning for ischemia or infarction. 04/30/19 19:43 Discharge - Discharge Clinical Impression: Suicidal ideation Psychosis Qualifiers: Psychosis type: unspecified psychosis type Qualified Code(s): F29 - Unspecified psychosis not due to a substance or known physiological condition Schizophrenia Qualifiers: Schizophrenia type: unspecified Qualified Code(s): F20.9 - Schizophrenia, unspecified Condition: Stable Disposition: OTHER Referrals: SAY MCKEON MD [Primary Care Provider] - Follow up as needed
[2019-04-30] MEDS ORDERED: DEXTROSE 40% GEL 15 GM TUBE PO PRN ×2 (22:03)
[2019-04-30] MEDS ORDERED: GLUCAGON,HUMAN RECOMB 1 MG INJ IM PRN (22:03)
[2019-04-30] MEDS ORDERED: DEXTROSE 50%-WATER 25 GM/50 ML DISP.SYRIN IV PRN ×2 (22:03)
--- NOTE | 2019-04-30 22:20 | EKG REPORT ---
SEVERITY:- NORMAL ECG - SINUS RHYTHM : Confirmed by: Flor Logan 30-Apr-2019 22:19:27
[2019-05-01 01:32] LABS: ABSOLUTE EOSINOPHILS # (AUTO) 0.2 10^3/uL (0.0-0.6); ABSOLUTE MONOCYTES (AUTO) 0.6 10^3/uL (0.1-1.4); ABSOLUTE NEUT (AUTO) 4.3 10^3/uL (1.7-8.2); EOSINOPHILS % (AUTO) 2.4 % (0-6); HEMOGLOBIN 13.8 g/dL (13.5-17.0); TOTAL CELLS COUNTED % (AUTO) 100 %
[2019-05-01 01:41] LABS: ABSOLUTE BASOPHILS # (AUTO) 0.1 10^3/uL (0.0-0.2); BASOPHILS % (AUTO) 0.8 % (0-2); HEMATOCRIT 39.7 % (37.9-51.0); LYMPHOCYTES % (AUTO) 28.6 % (13-45); MEAN CORPUSCULAR HEMOGLOBIN 30.3 pg (27.0-33.4); MEAN CORPUSCULAR HGB CONC 34.7 g/dL (32.0-36.0); MEAN CORPUSCULAR VOLUME 87 fl (80-97); MONOCYTES % (AUTO) 7.8 % (3-13); PLATELET COUNT 354 10^3/uL (150-450); RED BLOOD COUNT 4.55 10^6/uL (4.35-5.55); SEGMENTED NEUTROPHILS % (AUTO) 60.4 % (42-78); WHITE BLOOD COUNT 7.2 10^3/uL (4.0-10.5)
[2019-05-01 01:43] LABS: ANION GAP 7 (5-19); BLOOD UREA NITROGEN 11 mg/dL (7-20); CALCIUM 9.2 mg/dL (8.4-10.2); CARBON DIOXIDE 29 mmol/L (22-30); CHLORIDE 96 mmol/L (98-107); GLUCOSE 118 mg/dL (75-110); POTASSIUM 4.3 mmol/L (3.6-5.0)
--- NOTE | 2019-05-01 09:57 | ER Document Report ---
Doctor's Note Notes: 05/01/19 09:56 Patient's vital signs and previous labs, diagnostic images reviewed. Reviewed mental health notes, nurse's notes and previous providers notes. VSS. Pt is in no distress at this time. Denies any SI or HI. Mental health has been at bedside and feels that patient is appropriate for discharge, does not have any suicidal homicidal ideations. Calling pharmacy to see if patient does need a 10-day supply of metformin, lisinopril, atorvastatin. General: A&Ox3. Answers questions appropriately. Heart: RRR Lungs: CTAB Psych: Flat affect A/P: Continue monitoring and rec's per MH. Normal diet consider discharge
[2019-05-01 11:22] VITALS: BP 117/68
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
== END 2019-05-01 12:40 | disposition home or self-care (01) ==
LOC: ER 15:48
DX: R45.851 Suicidal ideations (principal); R45.850 Homicidal ideations; F20.9 Schizophrenia, unspecified; F29 Unspecified psychosis not due to a substance or known physiological condition; Z59.0 Homelessness; L84 Corns and callosities; E87.1 Hypo-osmolality and hyponatremia; F17.200 Nicotine dependence, unspecified, uncomplicated; J44.9 Chronic obstructive pulmonary disease, unspecified; E11.9 Type 2 diabetes mellitus without complications; Z91.14 Patient's other noncompliance with medication regimen
CPT/HCPCS: 36415; 80053; 80307; 81001; 82962; 85025; 93005; 93010; 94660; 99285

== ENCOUNTER 2019-05-03 18:21 | Emergency (ER) | payer MEDICARE, MEDICAID ==
[2019-05-03 18:57] VITALS: BP 132/75
== END 2019-05-03 19:10 | disposition left against medical advice (07) ==
LOC: ER 18:21
DX: Z53.21 Procedure and treatment not carried out due to patient leaving prior to being seen by health care provider (principal)

== ENCOUNTER 2019-05-03 21:52 | Emergency (ER) | payer MEDICARE, MEDICAID ==
[2019-05-03] MEDS ORDERED: PREDNISONE 20 MG TABLET PO ONE (23:42)
[2019-05-03] MEDS ORDERED: IPRATROPIUM/ALBUTEROL 0.5-2.5 MG/3 ML AMPUL NEB ONE (23:42)
--- NOTE | 2019-05-03 23:45 | ER Document Report ---
ED Medical Screen (RME) - General Chief Complaint: Painful Cough Stated Complaint: MENTAL HEALTH CHECK Time Seen by Provider: 05/03/19 23:42 Primary Care Provider: SAY MCKEON MD [Primary Care Provider] - Follow up as needed TRAVEL OUTSIDE OF THE [place] IN LAST 30 DAYS: No - HPI Notes: 05/03/19 23:43 48-year-old male to the emergency department with complaints of cough and shortness of breath that began this morning. He states that he has been coughing up things and he has been feeling hot. Denies any measured temperatures or chills. He admits to some nasal congestion. He states it hurts when he takes a big deep breath and when he coughs. He also reports an episode of syncope yesterday. He states that he was at [employer] and just went out for a couple of seconds. He states he has not had any further episodes of syncope today. He denies any current dizziness or lightheadedness. He actually came to the emergency department earlier today for this cough and shortness of breath. He states that he called the medics about it and they gave him a breathing treatment. He however, patient did not get seen and left prior to evaluation. I performed a brief medical screening exam on the patient determined he will need further evaluation by main side provider. I placed initial orders to aid in his care this evening. On physical exam he has decreased breath sounds throughout with a wet hacking cough. - Related Data Allergies/Adverse Reactions: No Known Allergies Allergy (Verified 05/03/19 23:39) Past Medical History Pulmonary Medical History: Reports: Hx Bronchitis, Hx COPD Endocrine Medical History: Reports: Hx Diabetes Mellitus Type 2 Renal/ Medical History: Denies: Hx Peritoneal Dialysis Skin Medical History: Reports Hx Cellulitis Psychiatric Medical History: Reports: Hx Bipolar Disorder, Hx Depression, Hx Schizoaffective Disorder, Hx Schizophrenia - Immunizations Immunizations up to date: Yes Hx Diphtheria, Pertussis, Tetanus Vaccination: Yes Physical Exam - Vital signs Vitals: Temp Pulse Resp BP Pulse Ox 98.5 F 93 22 H 126/75 H 96 05/03/19 21:57 05/03/19 21:57 05/03/19 21:57 05/03/19 21:57 05/03/19 21:57 Course - Vital Signs Vital signs: Temp Pulse Resp BP Pulse Ox 98.5 F 93 22 H 126/75 H 96 05/03/19 21:57 05/03/19 21:57 05/03/19 21:57 05/03/19 21:57 05/03/19 21:57 Doctor's Discharge - Discharge Referrals: SAY MCKEON MD [Primary Care Provider] - Follow up as needed
[2019-05-04 00:16] LABS: ABSOLUTE BASOPHILS # (AUTO) 0.1 10^3/uL (0.0-0.2); ABSOLUTE EOSINOPHILS # (AUTO) 0.1 10^3/uL (0.0-0.6); ABSOLUTE LYMPHOCYTES (AUTO) 1.9 10^3/uL (0.5-4.7); ABSOLUTE MONOCYTES (AUTO) 0.6 10^3/uL (0.1-1.4); ABSOLUTE NEUT (AUTO) 6.1 10^3/uL (1.7-8.2); BASOPHILS % (AUTO) 1.3 % (0-2); EOSINOPHILS % (AUTO) 1.4 % (0-6); HEMATOCRIT 35.1 % (37.9-51.0); HEMOGLOBIN 12.7 g/dL (13.5-17.0); LYMPHOCYTES % (AUTO) 21.4 % (13-45); MEAN CORPUSCULAR HEMOGLOBIN 31.5 pg (27.0-33.4); MEAN CORPUSCULAR HGB CONC 36.1 g/dL (32.0-36.0); MEAN CORPUSCULAR VOLUME 87 fl (80-97); MONOCYTES % (AUTO) 7.2 % (3-13); PLATELET COUNT 345 10^3/uL (150-450); RED BLOOD COUNT 4.03 10^6/uL (4.35-5.55); SEGMENTED NEUTROPHILS % (AUTO) 68.7 % (42-78); TOTAL CELLS COUNTED % (AUTO) 100 %; WHITE BLOOD COUNT 8.9 10^3/uL (4.0-10.5)
[2019-05-04 00:32] LABS: ALBUMIN 3.9 g/dL (3.5-5.0); ALKALINE PHOSPHATASE 56 U/L (38-126); ANION GAP 10 (5-19); ASPARTATE AMINO TRANSFERASE 33 U/L (17-59); BILIRUBIN,DIRECT 0.2 mg/dL (0.0-0.4); BILIRUBIN,TOTAL 0.6 mg/dL (0.2-1.3); BLOOD UREA NITROGEN 12 mg/dL (7-20); CALCIUM 9.3 mg/dL (8.4-10.2); CARBON DIOXIDE 28 mmol/L (22-30); CHLORIDE 89 mmol/L (98-107); GLUCOSE 140 mg/dL (75-110); POTASSIUM 3.9 mmol/L (3.6-5.0); TOTAL PROTEIN 6.6 g/dL (6.3-8.2)
--- NOTE | 2019-05-04 00:37 | RADIOLOGY REPORT (SQ) ---
EXAM DESCRIPTION: XR CHEST 1 VIEW COMPLETED DATE/TME: 05/03/2019 23:42 CLINICAL HISTORY: 48 years, Male, cough, SOB, syncope COMPARISON: 01/28/2019 chest NUMBER OF VIEWS: 1 TECHNIQUE: Portable chest LIMITATIONS: None. FINDINGS: The heart size is normal. Lungs are clear. There is no pneumothorax IMPRESSION: Negative chest copyright 2010 [facility]- All Rights Reserved
[2019-05-04 01:12] LABS: APPEARANCE,URINE CLEAR; BILIRUBIN,URINE NEGATIVE (NEGATIVE); COLOR,URINE YELLOW; GLUCOSE, URINE NEGATIVE (NEGATIVE); KETONES,URINE NEGATIVE (NEGATIVE); LEUKOCYTE ESTERASE,URINE NEGATIVE (NEGATIVE); NITRITE,URINE NEGATIVE (NEGATIVE); PROTEIN,URINE NEGATIVE (NEGATIVE); URINE SPECIFIC GRAVITY 1.006
--- NOTE | 2019-05-04 02:09 | ER Document Report ---
ED General - General Chief Complaint: Painful Cough Stated Complaint: MENTAL HEALTH CHECK Time Seen by Provider: 05/03/19 23:42 Primary Care Provider: SAY MCKEON MD [Primary Care Provider] - Follow up as needed Notes: Patient is a 48-year-old male with a known history of schizophrenia, COPD, type 2 diabetes, tobacco abuse, and alcohol abuse that comes emergency department for chief complaint of shortness of breath and cough. He denies fevers or chills. He admits to some nasal congestion. He states it hurts to take a deep breath and hurts when he coughs. He denies any other complaints. He was actually pescribed prednisone 4 days ago from this facility, he was given breathing treatment and prednisone on arrival for wheezing, he has no current complaints. He is homeless. TRAVEL OUTSIDE OF THE [place] IN LAST 30 DAYS: No - Related Data Allergies/Adverse Reactions: No Known Allergies Allergy (Verified 05/03/19 23:39) Past Medical History - General Information source: Patient - Social History Smoking Status: Current Every Day Smoker Smoking Education Provided: Yes - <3 min Frequency of alcohol use: Heavy Lives with: Alone Family History: CVA, DM, Hypertension Patient has suicidal ideation: No Patient has homicidal ideation: No Pulmonary Medical History: Reports: Hx Bronchitis, Hx COPD Endocrine Medical History: Reports: Hx Diabetes Mellitus Type 2 Renal/ Medical History: Denies: Hx Peritoneal Dialysis Skin Medical History: Reports Hx Cellulitis Psychiatric Medical History: Reports: Hx Bipolar Disorder, Hx Depression, Hx Schizoaffective Disorder, Hx Schizophrenia - Immunizations Immunizations up to date: Yes Hx Diphtheria, Pertussis, Tetanus Vaccination: Yes Review of Systems - Review of Systems Constitutional: See HPI EENT: No symptoms reported Cardiovascular: No symptoms reported Respiratory: See HPI Gastrointestinal: No symptoms reported Genitourinary: No symptoms reported Male Genitourinary: No symptoms reported Musculoskeletal: No symptoms reported Skin: No symptoms reported Hematologic/Lymphatic: No symptoms reported Neurological/Psychological: See HPI Physical Exam - Vital signs Vitals: Temp Pulse Resp BP Pulse Ox 98.5 F 93 22 H 126/75 H 96 05/03/19 21:57 05/03/19 21:57 05/03/19 21:57 05/03/19 21:57 05/03/19 21:57 - Notes Notes: GENERAL: Sleeping but easily aroused, interactive, cooperative HEAD: Normocephalic, atraumatic. EYES: Pupils equal, round, and reactive to light. Extraocular movements intact. ENT: Oral mucosa moist, tongue midline. Oropharynx unremarkable. Airway patent. NECK: Full range of motion. Supple. Trachea midline. LUNGS: Clear to auscultation bilaterally, no wheezes, rales, or rhonchi. No respiratory distress. HEART: Regular rate and rhythm. No murmur ABDOMEN: Soft, non-tender. Non-distended. Bowel sounds present in all 4 quadrants. GENITOURINARY: Deferred EXTREMITIES: Moves all 4 extremities spontaneously. No edema, normal radial and dorsalis pedis pulses bilaterally. No cyanosis. BACK: no cervical, thoracic, lumbar midline tenderness. No saddle anesthesia, normal distal neurovascular exam. Moves all extremities in full range of motion. NEUROLOGICAL: Alert and oriented x3. Normal speech. Cranial nerves II through XII grossly intact. PSYCH: Normal affect, normal mood. Cooperative and makes good eye contact SKIN: Warm, dry, normal turgor. No rashes or lesions noted. Course - Re-evaluation Re-evalutation: CBC unremarkable, chemistry shows hyponatremia but this is baseline with patient's chronic alcoholism. Chest x-ray unremarkable. Remaining work-up and evaluation unremarkable. On my evaluation patient has no wheezing, no cough, no complaints. He states he feels really good. He states he actually did not fill the prednisone but he is planning to. Patient states he is not suicidal homicidal. Patient is stating appreciation for care and asking if he can leave. His daughter did call and check on him to ask where he was, plan is to discharge him, patient was ordered food by nursing staff and he will be completing this first. Patient rechecked, vital signs unremarkable, lungs clear, patient is requesting to leave and anxious to leave. Patient is still making good eye contact, cooperative, no signs of psychosis, patient will be discharged with return precautions. Stable at time of discharge. - Vital Signs Vital signs: Temp Pulse Resp BP Pulse Ox 98 F 80 14 128/59 H 96 05/04/19 05:00 05/04/19 05:00 05/04/19 05:00 05/04/19 05:00 05/04/19 05:00 - Laboratory Result Diagrams: 05/04/19 00:00 05/04/19 00:00 Laboratory results interpreted by me: 05/04/19 05/04/19 05/04/19 00:00 00:00 00:55 RBC 4.03 L Hgb 12.7 L Hct 35.1 L MCHC 36.1 H Sodium 127.2 L Chloride 89 L Glucose 140 H Urine Urobilinogen 2.0 H - EKG Interpretation by Me Additional EKG results interpreted by me: EKG shows sinus rhythm at a rate of 84, normal axis, QTC 445, no T wave inversions or ST segment changes in consecutive leads Discharge - Discharge Clinical Impression: Cough, Homelessness Condition: Stable Disposition: HOME, SELF-CARE Additional Instructions: Your imaging, laboratory work-up, and evaluation are reassuring at this time. Fill and take your prednisone from the previous visit. Follow-up with primary care. Return for any concerning or worsening symptoms including fevers, difficulty breathing, or something is not right. Referrals: SAY MCKEON MD [Primary Care Provider] - Follow up as needed
[2019-05-04 06:00] VITALS: BP 128/59
--- NOTE | 2019-05-04 21:02 | EKG REPORT ---
SEVERITY:- NORMAL ECG - SINUS RHYTHM : Confirmed by: Flor Logna 04-May-2019 21:01:02
== END 2019-05-04 06:14 | disposition home or self-care (01) ==
LOC: ER 21:52
DX: R05 Cough (principal); Z59.0 Homelessness; F20.9 Schizophrenia, unspecified; J44.9 Chronic obstructive pulmonary disease, unspecified; E11.9 Type 2 diabetes mellitus without complications; F17.210 Nicotine dependence, cigarettes, uncomplicated
CPT/HCPCS: 93005; 94640; 99284; 36415; 85025; 80053; 81001; 84484; 71045; 93010; A9270 ×2; J7512; J7620

== ENCOUNTER 2019-05-08 19:49 | Emergency (ER) | payer MEDICARE, MEDICAID ==
[2019-05-08 19:57] VITALS: BP 141/83
== END 2019-05-08 20:11 | disposition home or self-care (01) ==
LOC: ER 19:49
DX: Z53.21 Procedure and treatment not carried out due to patient leaving prior to being seen by health care provider (principal)

== ENCOUNTER 2019-05-08 21:13 | Emergency (ER) | payer MEDICARE, MEDICAID ==
--- NOTE | 2019-05-08 21:33 | ER Document Report ---
ED Medical Screen (RME) - General Chief Complaint: Psych Problem Stated Complaint: SI Time Seen by Provider: 05/08/19 21:28 Primary Care Provider: SAY MCKEON MD [Primary Care Provider] - Follow up as needed Mode of Arrival: Ambulatory Information source: Patient, Friend - [facility] associate Notes: 48-year-old male patient known to our facility presenting after an attempted hanging. Patient was reportedly trying to hang himself with his boot laces from a flag pole near the [facility] office that is located near the hospital. Exam: Patient is a flight of ideas, he is answering questions although he is making no sense whatsoever, apparently patient has multiple mental health diagnoses and has been off of his medications for quite some time. I have greeted and performed a rapid initial assessment of this patient. A comprehensive ED assessment and evaluation of the patient, analysis of test results and completion of the medical decision making process will be conducted by additional ED providers. I have specifically instructed the patient or family members with the patient to immediately return to any nursing staff should anything change in the patient's condition or with their chief complaint. TRAVEL OUTSIDE OF THE [place] IN LAST 30 DAYS: No - Related Data Allergies/Adverse Reactions: No Known Allergies Allergy (Verified 05/03/19 23:39) Past Medical History Pulmonary Medical History: Reports: Hx Bronchitis, Hx COPD Endocrine Medical History: Reports: Hx Diabetes Mellitus Type 2 Renal/ Medical History: Denies: Hx Peritoneal Dialysis Skin Medical History: Reports Hx Cellulitis Psychiatric Medical History: Reports: Hx Bipolar Disorder, Hx Depression, Hx Schizoaffective Disorder, Hx Schizophrenia - Immunizations Immunizations up to date: Yes Hx Diphtheria, Pertussis, Tetanus Vaccination: Yes Physical Exam - Vital signs Vitals: Temp Pulse Resp BP Pulse Ox 98.1 F 95 20 166/88 H 96 05/08/19 21:20 05/08/19 21:20 05/08/19 21:20 05/08/19 21:20 05/08/19 21:20 Course - Vital Signs Vital signs: Temp Pulse Resp BP Pulse Ox 98.1 F 95 20 166/88 H 96 05/08/19 21:20 05/08/19 21:20 05/08/19 21:20 05/08/19 21:20 05/08/19 21:20 Doctor's Discharge - Discharge Referrals: SAY MCKEON MD [Primary Care Provider] - Follow up as needed
[2019-05-08 22:08] LABS: APPEARANCE,URINE CLEAR; BILIRUBIN,URINE NEGATIVE (NEGATIVE); COLOR,URINE STRAW; GLUCOSE, URINE NEGATIVE (NEGATIVE); KETONES,URINE NEGATIVE (NEGATIVE); LEUKOCYTE ESTERASE,URINE NEGATIVE (NEGATIVE); NITRITE,URINE NEGATIVE (NEGATIVE); PROTEIN,URINE NEGATIVE (NEGATIVE); URINE SPECIFIC GRAVITY 1.002; UROBILINOGEN,URINE NEGATIVE mg/dL (<2.0)
[2019-05-08 22:16] LABS: ABSOLUTE BASOPHILS # (AUTO) 0.1 10^3/uL (0.0-0.2); ABSOLUTE LYMPHOCYTES (AUTO) 1.9 10^3/uL (0.5-4.7); ABSOLUTE MONOCYTES (AUTO) 0.9 10^3/uL (0.1-1.4); ABSOLUTE NEUT (AUTO) 7.1 10^3/uL (1.7-8.2); BASOPHILS % (AUTO) 1.3 % (0-2); EOSINOPHILS % (AUTO) 0.4 % (0-6); HEMATOCRIT 36.7 % (37.9-51.0); HEMOGLOBIN 13.2 g/dL (13.5-17.0); LYMPHOCYTES % (AUTO) 19.2 % (13-45); MEAN CORPUSCULAR HEMOGLOBIN 31.6 pg (27.0-33.4); MEAN CORPUSCULAR VOLUME 88 fl (80-97); MONOCYTES % (AUTO) 8.6 % (3-13); PLATELET COUNT 399 10^3/uL (150-450); RED BLOOD COUNT 4.18 10^6/uL (4.35-5.55); RED CELL DISTRIBUTION WIDTH 14.1 % (11.5-14.0); SEGMENTED NEUTROPHILS % (AUTO) 70.5 % (42-78); TOTAL CELLS COUNTED % (AUTO) 100 %; WHITE BLOOD COUNT 10.1 10^3/uL (4.0-10.5)
[2019-05-08 22:30] LABS: URINE AMPHETAMINES SCREEN NEGATIVE; URINE BARBITURATES SCREEN NEGATIVE; URINE BENZODIAZEPINES SCREEN NEGATIVE; URINE COCAINE SCREEN NEGATIVE; URINE MARIJUANA (THC) SCREEN NEGATIVE; URINE METHADONE SCREEN NEGATIVE; URINE PHENCYCLIDINE SCREEN NEGATIVE
[2019-05-08 22:31] LABS: ACETAMINOPHEN < 10 ug/mL (10-30); ALBUMIN 4.1 g/dL (3.5-5.0); ALCOHOL < 10 mg/dL (NONE DETECTED); ALKALINE PHOSPHATASE 62 U/L (38-126); ANION GAP 11 (5-19); ASPARTATE AMINO TRANSFERASE 37 U/L (17-59); BILIRUBIN,DIRECT 0.3 mg/dL (0.0-0.4); BILIRUBIN,TOTAL 0.9 mg/dL (0.2-1.3); BLOOD UREA NITROGEN 7 mg/dL (7-20); CALCIUM 9.6 mg/dL (8.4-10.2); CARBON DIOXIDE 25 mmol/L (22-30); CHLORIDE 93 mmol/L (98-107); GLUCOSE 110 mg/dL (75-110); POTASSIUM 3.7 mmol/L (3.6-5.0); SALICYLATE < 1.0 mg/dL (2.0-20.0); TOTAL PROTEIN 6.9 g/dL (6.3-8.2)
--- NOTE | 2019-05-08 22:45 | ER Document Report ---
ED Psych Disorder / Suicide - General Chief Complaint: Suicidal Ideation Stated Complaint: SI Time Seen by Provider: 05/08/19 21:28 Primary Care Provider: SAY MCKEON MD [Primary Care Provider] - Follow up as needed Mode of Arrival: Ambulatory Information source: Patient Cannot obtain history due to: Uncooperative, Other - Initially, patient obtunded and prefers a sleeping would not cooperate with exam. Patient reports that he had gone to the NA meeting and Tylenol if he was doing this to get attention but he attempted to hang himself. Patient states he is no longer depressed and has no thoughts of harming himself or anyone else at this time. However I will petition patient on an involuntary commitment document to be seen by mental health. TRAVEL OUTSIDE OF THE [place] IN LAST 30 DAYS: No - HPI Patient complains to provider of: Bizarre behavior, Suicidal ideation, Suicidal attempt Onset: Just prior to arrival Quality of pain: No pain Severity: None Pain Level: Denies Suicide Risk Factors: Other - History of substance abuse in the past but denies it now. He also reports that there is something going on with his family I was unsure what he was trying to explain to me but the sound like is a broken home Suicide Attempt Method: Hanging Normal mood: Yes Associated symptoms: Anxious, Other - Tangential conversation and pressured speech Similar symptoms previously: Yes Notes: Patient did not suffer any harm or injury to himself and his apparent suicide attempt. - Related Data Allergies/Adverse Reactions: No Known Allergies Allergy (Verified 05/03/19 23:39) Home Medications: " PT REPORTS GAVE THEM AWAY". Past Medical History - General Information source: Patient, Friend - [facility] associate - Social History Smoking Status: Current Every Day Smoker Chew tobacco use (# tins/day): Yes Frequency of alcohol use: Heavy Drug Abuse: None Lives with: Alone Family History: Reviewed & Not Pertinent, CVA, DM, Hypertension Patient has suicidal ideation: Yes Patient has homicidal ideation: No - Past Medical History Cardiac Medical History: Reports: None Pulmonary Medical History: Reports: None, Hx Bronchitis, Hx COPD EENT Medical History: Reports: None Neurological Medical History: Reports: None Endocrine Medical History: Reports: Hx Diabetes Mellitus Type 2 Renal/ Medical History: Reports: None. Denies: Hx Peritoneal Dialysis Malignancy Medical History: Reports None GI Medical History: Reports: None Musculoskeletal Medical History: Reports None Skin Medical History: Reports Hx Cellulitis Psychiatric Medical History: Reports: Hx Bipolar Disorder, Hx Depression, Hx Schizoaffective Disorder, Hx Schizophrenia Traumatic Medical History: Reports: None Infectious Medical History: Reports: None - Immunizations Immunizations up to date: Yes Hx Diphtheria, Pertussis, Tetanus Vaccination: Yes Physical Exam - Vital signs Vitals: Temp Pulse Resp BP Pulse Ox 98.1 F 95 20 166/88 H 96 05/08/19 21:20 05/08/19 21:20 05/08/19 21:20 05/08/19 21:20 05/08/19 21:20 Interpretation: Normal - General General appearance: Appears well, Alert - HEENT Head: Normocephalic, Atraumatic Eyes: Normal Pupils: PERRL - Respiratory Respiratory status: No respiratory distress Chest status: Nontender Breath sounds: Normal, Other - Trace expiratory wheezing Chest palpation: Normal - Cardiovascular Rhythm: Regular Heart sounds: Normal auscultation Murmur: No - Abdominal Inspection: Normal Distension: No distension Bowel sounds: Normal Tenderness: Nontender Organomegaly: No organomegaly - Back Back: Normal, Nontender - Extremities General upper extremity: Normal inspection, Nontender, Normal color, Normal ROM, Normal temperature General lower extremity: Normal inspection, Nontender, Normal color, Normal ROM, Normal temperature, Normal weight bearing. No: Kapil's sign - Neurological Neuro grossly intact: Yes Cognition: Normal Orientation: AAOx4 [place] Coma Scale Eye Opening: Spontaneous [place] Coma Scale Verbal: Oriented [place] Coma Scale Motor: Obeys Commands [place] Coma Scale Total: 15 Speech: Normal Motor strength normal: LUE, RUE, LLE, RLE Sensory: Normal - Psychological Associated symptoms: Normal affect, Normal mood, Flight of ideas - Skin Skin Temperature: Warm Skin Moisture: Dry Skin Color: Normal Course - Re-evaluation Re-evalutation: 05/09/19 05:41 Patient is fully awake and cooperative at this time requesting nicotine patch because of his smoking history. Patient denies any complaints at this time and asking questions about when he is going home. I told patient that he is on a involuntary commitment due to his behavior of attempting suicide by hanging himself. I told him to expect the mental health team to be by to evaluate him further today. Patient voices no complaints about any medical problems at this time. Did note on his labs that he has a sodium of 129 which I will begin some sodium chloride IV fluids for him which should improve that number. Plan to add further labs of a troponin and EKG. 05/09/19 07:25 Patient is medically cleared and is pending mental health consult to determine the patient ultimate disposition per inpatient or outpatient mental health care. Patient is under IVC commitment papers due to suicidal behavior in a attempt to hang himself. - Vital Signs Vital signs: Temp Pulse Resp BP Pulse Ox 97.7 F 95 18 166/90 H 95 05/09/19 02:23 05/09/19 02:23 05/09/19 02:23 05/09/19 02:23 05/09/19 02:23 - Laboratory Result Diagrams: 05/08/19 22:01 05/08/19 22:01 Laboratory results interpreted by me: 05/08/19 05/08/19 22:01 22:01 RBC 4.18 L Hgb 13.2 L Hct 36.7 L RDW 14.1 H Sodium 129.2 L Chloride 93 L Salicylates < 1.0 L Acetaminophen < 10 L Discharge - Discharge Clinical Impression: Suicide ideation Condition: Good Disposition: PSYCH HOSP/UNIT Referrals: SAY MCKEON MD [Primary Care Provider] - Follow up as needed
--- NOTE | 2019-05-09 00:46 | RADIOLOGY REPORT (SQ) ---
EXAM DESCRIPTION: XR CHEST 1 VIEW COMPLETED DATE/TME: 05/08/2019 23:52 CLINICAL HISTORY: 48 years, Male, snoring respirations COMPARISON: Generally 2019 NUMBER OF VIEWS: Single TECHNIQUE: LIMITATIONS: None. FINDINGS: Cardiomediastinal silhouette is prominent but stable lungs grossly clear. No effusion. No pneumothorax IMPRESSION: No active intrathoracic disease. No adverse change copyright 2010 [employer]- All Rights Reserved
[2019-05-09] MEDS ORDERED: NICOTINE 21 MG/24 HR PATCH.TD24 TD ONE (05:37)
--- NOTE | 2019-05-09 05:38 | EKG REPORT ---
SEVERITY:- NORMAL ECG - SINUS RHYTHM : Confirmed by: Kayleigh Rollins MD 09-May-2019 05:37:27
[2019-05-09] MEDS ORDERED: NORMAL SALINE 1000 ML 1,000 ML IV ONE (05:39)
[2019-05-09 09:28] VITALS: BP 143/88
[2019-05-09] MEDS ORDERED: BENZTROPINE MESYLATE INJ 2 MG/2 ML AMPULE IM ONE (11:00)
[2019-05-09] MEDS ORDERED: HALOPERIDOL DECANOATE INJ 100 MG/1 ML VIAL IM ONE (11:00)
--- NOTE | 2019-05-09 12:53 | ER Document Report ---
Doctor's Note Notes: 05/09/19 12:52 Chart reviewed patient rounded on 05/09/19 14:24 PHYSICAL EXAMINATION: GENERAL: Well-appearing and in no acute distress HEAD: Atraumatic, normocephalic. EYES: extraocular movements intact, sclera anicteric, conjunctiva are normal. ENT: nares patent, . Moist mucous membranes. NECK: Normal range of motion, supple LUNGS: Respiratory rate even unlabored HEART: Regular rate ABDOMEN: No complaints of pain EXTREMITIES: Normal range of motion NEUROLOGICAL: Cranial nerves grossly intact. PSYCH: Normal mood, normal affect. Calm SKIN: Warm, Dry, Patient was instructed that he would be discharged. He reports he is very thankful he will follow-up with [facility] to see if he can get his medications back. He reports he is not suicidal or homicidal.
--- NOTE | 2019-05-10 14:26 | PSYCHOLOGICAL NOTE ---
Psych Note - Psych Note Date seen by psych provider: 05/09/19 Time seen by psych provider: 08:20 - atempt Evalution at 1015 Psych Note: Reason For Consult:Suicidal ideation Patient reports he is trying to get into a 3-day program or at least 24 hours so they can get assistance for a "3 or 6-month program." He states that he does not get paid until the 24 and has nowhere to go. He confirms he picked up his medications however "gave them away." He reports he did this because he is homeless. Patient reports that he engaged in suicidal gesture because he was "frustrated because no one will take me in I just have nowhere to go to spend the night." Patient confirms again that he put his medications in the "Eric" at the [facility]'s office. Patient is alert and orientated to person, place, time and circumstance. Mood is euthymic with congruent affect. Patient denies suicidal and homicidal ideation; admits to suicidal gesture when mad that he had "no where to sleep." Delusions are absent and behaviors congruent with an intact reality based presentation ie organized and linear thought process. Eye contact is well- maintained. Conversational speech is within normal rate, tone and prosody. Intellectual abilities appear to be within the average range. Attention and concentration are good. Insight, judgment, impulse control are fair. Behavioral health team contacted mobile crisis to coordinate plan of care see mental health care note Medication recommendations per [facility]'s contracted psychiatrist Dr. Niraj MARIEE are as follows Haldol Decanoate 150 mg IM once Cogentin 1 mg IM once Impression\\plan: Patient is recommended for rescind of IVC and is cleared from acute psychiatric services. Patient is attempting to use inpatient psychiatric treatment for temporary housing. He reports that he does not get paid until the 24th of this month and has nowhere to stay. Clinician provided psychoeducation importance of using inpatient psychiatric treatment and emergency services appropriately. Patient confirms he had no intent at harming himself when he engaged in a suicidal gesture stating that he was just frustrated because he wanted a place to stay. Clinician notes patient was assisted by mobile crisis and getting his medications however he deposited them into the medication turn and been at the [facility]'s office. It is noted that the patient is due for his Haldol Decanoate shot so was provided his Haldol Decanoate today 05/09/2019. Dr. Galeano was consulted to care management of this patient; attending physicians in agreement with recommendations and disposition.
== END 2019-05-09 14:34 | disposition home or self-care (01) ==
LOC: ER 21:13
DX: T14.91XA Suicide attempt, initial encounter (principal); X83.8XXA Intentional self-harm by other specified means, initial encounter; Y92.198 Other place in other specified residential institution as the place of occurrence of the external cause; R06.2 Wheezing; Z59.0 Homelessness; Z59.8 Other problems related to housing and economic circumstances; F17.200 Nicotine dependence, unspecified, uncomplicated; E11.9 Type 2 diabetes mellitus without complications
CPT/HCPCS: 93005; 99285; 96372; 96360; 36415; 80307 ×4; 85025; 80053; 81001; 84484; 71045; 93010; J0515; J1631; J7030; A9270

== ENCOUNTER 2019-05-19 23:30 | Emergency (ER) | payer MEDICARE, MEDICAID ==
[2019-05-19 23:40] VITALS: BP 149/100
--- NOTE | 2019-05-19 23:46 | ER Document Report ---
ED Medical Screen (RME) - General Chief Complaint: Medical Clearance Stated Complaint: MEDICAL CLEARANCE Primary Care Provider: SAY MCKEON MD [Primary Care Provider] - Follow up as needed Mode of Arrival: Ambulatory Information source: Patient Notes: 49-year-old male with history of drug abuse presents emergency department with reports he is trying to get medical clearance for help. Reports he just got paid yesterday. Reports he has been smoking some heroin and weed. Denies IV drugs. Denies suicidal or homicidal ideations. Patient reports he is mad at his sister because she took his ID and some of his money. I have greeted and performed a rapid initial assessment of this patient. A comprehensive ED assessment and evaluation of the patient, analysis of test results and completion of the medical decision making process will be conducted by additional ED providers. TRAVEL OUTSIDE OF THE [place] IN LAST 30 DAYS: No - Related Data Allergies/Adverse Reactions: No Known Allergies Allergy (Verified 05/03/19 23:39) Past Medical History Pulmonary Medical History: Reports: Hx Bronchitis, Hx COPD Endocrine Medical History: Reports: Hx Diabetes Mellitus Type 2 Renal/ Medical History: Denies: Hx Peritoneal Dialysis Skin Medical History: Reports Hx Cellulitis Psychiatric Medical History: Reports: Hx Bipolar Disorder, Hx Depression, Hx Schizoaffective Disorder, Hx Schizophrenia - Immunizations Immunizations up to date: Yes Hx Diphtheria, Pertussis, Tetanus Vaccination: Yes Physical Exam - Vital signs Vitals: Temp Pulse Resp BP Pulse Ox 97.9 F 91 20 149/100 H 100 05/19/19 23:39 05/19/19 23:39 05/19/19 23:39 05/19/19 23:39 05/19/19 23:39 Course - Vital Signs Vital signs: Temp Pulse Resp BP Pulse Ox 97.9 F 91 20 149/100 H 100 05/19/19 23:39 05/19/19 23:39 05/19/19 23:39 05/19/19 23:39 05/19/19 23:39 Doctor's Discharge - Discharge Referrals: SAY MCKEON MD [Primary Care Provider] - Follow up as needed
[2019-05-20 00:20] LABS: ABSOLUTE BASOPHILS # (AUTO) 0.1 10^3/uL (0.0-0.2); ABSOLUTE EOSINOPHILS # (AUTO) 0.1 10^3/uL (0.0-0.6); ABSOLUTE LYMPHOCYTES (AUTO) 1.8 10^3/uL (0.5-4.7); ABSOLUTE MONOCYTES (AUTO) 0.6 10^3/uL (0.1-1.4); ABSOLUTE NEUT (AUTO) 4.6 10^3/uL (1.7-8.2); BASOPHILS % (AUTO) 1.4 % (0-2); EOSINOPHILS % (AUTO) 1.3 % (0-6); HEMATOCRIT 41.3 % (37.9-51.0); HEMOGLOBIN 14.6 g/dL (13.5-17.0); LYMPHOCYTES % (AUTO) 24.8 % (13-45); MEAN CORPUSCULAR HEMOGLOBIN 31.2 pg (27.0-33.4); MEAN CORPUSCULAR HGB CONC 35.3 g/dL (32.0-36.0); MEAN CORPUSCULAR VOLUME 88 fl (80-97); MONOCYTES % (AUTO) 8.5 % (3-13); PLATELET COUNT 407 10^3/uL (150-450); RED BLOOD COUNT 4.68 10^6/uL (4.35-5.55); RED CELL DISTRIBUTION WIDTH 14.4 % (11.5-14.0); TOTAL CELLS COUNTED % (AUTO) 100 %; WHITE BLOOD COUNT 7.1 10^3/uL (4.0-10.5)
[2019-05-20 00:22] LABS: APPEARANCE,URINE CLEAR; BILIRUBIN,URINE NEGATIVE (NEGATIVE); COLOR,URINE YELLOW; GLUCOSE, URINE NEGATIVE (NEGATIVE); KETONES,URINE NEGATIVE (NEGATIVE); LEUKOCYTE ESTERASE,URINE NEGATIVE (NEGATIVE); NITRITE,URINE NEGATIVE (NEGATIVE); PROTEIN,URINE NEGATIVE (NEGATIVE); URINE SPECIFIC GRAVITY 1.004; UROBILINOGEN,URINE NEGATIVE mg/dL (<2.0)
[2019-05-20 00:33] LABS: URINE AMPHETAMINES SCREEN NEGATIVE; URINE BARBITURATES SCREEN NEGATIVE; URINE BENZODIAZEPINES SCREEN NEGATIVE; URINE COCAINE SCREEN NEGATIVE; URINE MARIJUANA (THC) SCREEN NEGATIVE; URINE METHADONE SCREEN NEGATIVE; URINE PHENCYCLIDINE SCREEN NEGATIVE
[2019-05-20 00:37] LABS: ACETAMINOPHEN < 10 ug/mL (10-30); ALBUMIN 4.5 g/dL (3.5-5.0); ALCOHOL < 10 mg/dL (NONE DETECTED); ALKALINE PHOSPHATASE 62 U/L (38-126); ANION GAP 9 (5-19); ASPARTATE AMINO TRANSFERASE 53 U/L (17-59); BILIRUBIN,DIRECT 0.3 mg/dL (0.0-0.4); BILIRUBIN,TOTAL 0.5 mg/dL (0.2-1.3); BLOOD UREA NITROGEN 4 mg/dL (7-20); CALCIUM 10.4 mg/dL (8.4-10.2); CARBON DIOXIDE 33 mmol/L (22-30); CHLORIDE 90 mmol/L (98-107); GLUCOSE 137 mg/dL (75-110); POTASSIUM 4.8 mmol/L (3.6-5.0); SALICYLATE < 1.0 mg/dL (2.0-20.0); TOTAL PROTEIN 7.5 g/dL (6.3-8.2)
--- NOTE | 2019-05-20 08:13 | EKG REPORT ---
SEVERITY:- NORMAL ECG - SINUS RHYTHM : Confirmed by: Andrew Dumont MD 20-May-2019 08:12:17
== END 2019-05-20 05:08 | disposition left against medical advice (07) ==
LOC: ER 23:30
DX: Z00.8 Encounter for other general examination (principal)
CPT/HCPCS: 36415; 80053; 80307; 81001; 82962; 85025; 93005; 93010; 99281

== ENCOUNTER 2019-05-25 17:35 | Emergency (ER) | payer MEDICARE, MEDICAID | END 2019-05-25 20:46 | disposition left against medical advice (07) | LOC: ER 17:35 | DX: Z53.21 Procedure and treatment not carried out due to patient leaving prior to being seen by health care provider (principal) ==

== ENCOUNTER 2019-06-08 22:25 | Emergency (ER) | payer MEDICARE, MEDICAID ==
[2019-06-08 22:34] VITALS: BP 131/72
[2019-06-08] MEDS ORDERED: HALOPERIDOL 5 MG TABLET PO ONE (23:37)
[2019-06-08] MEDS ORDERED: BENZTROPINE MESYLATE 1 MG TABLET PO ONE (23:37)
--- NOTE | 2019-06-08 23:40 | ER Document Report ---
ED General - General Chief Complaint: Medication Refill Stated Complaint: MEDICATION CHECK Primary Care Provider: SAY MCKEON MD [Primary Care Provider] - Follow up as needed Notes: Patient is a 49-year-old white male who is currently homeless living in a intermediate with a history of schizophrenia who presents to the emergency department with a chief complaint of needing his nightly medications. He states that he has a prescription for Haldol and Cogentin which he normally takes every night but states that he has not had the money to fill the prescription yet. He states he wants to be stable and does not want to miss any doses so he reported here for the dosing of his medication. He states he takes 5 mg p.o. Haldol and 2 mg p.o. Cogentin every night. He states he feels stable otherwise, has no acute complaints. Denies any suicidal or homicidal ideation. Denies any hallucinations or delusions. TRAVEL OUTSIDE OF THE [place] IN LAST 30 DAYS: No - Related Data Allergies/Adverse Reactions: No Known Allergies Allergy (Verified 05/03/19 23:39) Home Medications: cogentin 2 mg qhs. haldol 15 mg qhs Past Medical History - Social History Smoking Status: Current Every Day Smoker Lives with: Homeless Family History: Reviewed & Not Pertinent, CVA, DM, Hypertension Patient has suicidal ideation: No Patient has homicidal ideation: No Pulmonary Medical History: Reports: Hx Bronchitis, Hx COPD Endocrine Medical History: Reports: Hx Diabetes Mellitus Type 2 Renal/ Medical History: Denies: Hx Peritoneal Dialysis Skin Medical History: Reports Hx Cellulitis Psychiatric Medical History: Reports: Hx Bipolar Disorder, Hx Depression, Hx Schizoaffective Disorder, Hx Schizophrenia - Immunizations Immunizations up to date: Yes Hx Diphtheria, Pertussis, Tetanus Vaccination: Yes Review of Systems - Review of Systems -: Yes All other systems reviewed and negative Physical Exam - Vital signs Vitals: Temp Pulse Resp BP Pulse Ox 98.4 F 90 22 H 131/72 H 97 06/08/19 22:33 06/08/19 22:33 06/08/19 22:33 06/08/19 22:33 06/08/19 22:33 - General General appearance: Appears well, Alert In distress: None - Respiratory Respiratory status: No respiratory distress Chest status: Nontender Breath sounds: Normal Chest palpation: Normal - Cardiovascular Rhythm: Regular Heart sounds: Normal auscultation - Neurological Neuro grossly intact: Yes Cognition: Normal Orientation: AAOx4 [place] Coma Scale Eye Opening: Spontaneous [place] Coma Scale Verbal: Oriented [place] Coma Scale Motor: Obeys Commands [place] Coma Scale Total: 15 Speech: Normal - Psychological Associated symptoms: Normal affect, Normal mood - Skin Skin Temperature: Warm Skin Moisture: Dry Skin Color: Normal Course - Re-evaluation Re-evalutation: 06/08/19 23:38 Patient given his nightly dose here. He will follow-up with his regular doctor as scheduled. Advised to return here or any ER immediately with any new or worsening symptoms. He verbalized understood and agreed. - Vital Signs Vital signs: Temp Pulse Resp BP Pulse Ox 98.4 F 90 22 H 131/72 H 97 06/08/19 22:33 06/08/19 22:33 06/08/19 22:33 06/08/19 22:33 06/08/19 22:33 Discharge - Discharge Clinical Impression: Medication administered Condition: Stable Disposition: HOME, SELF-CARE Instructions: Schizophrenia ([facility]) Additional Instructions: Follow-up with your regular doctor in 2 to 3 days for reevaluation. Return here or any ER immediately with any new, persistent or worsening symptoms. Referrals: SAY MCKEON MD [Primary Care Provider] - Follow up as needed
== END 2019-06-08 23:45 | disposition home or self-care (01) ==
LOC: ER 22:25
DX: Z76.0 Encounter for issue of repeat prescription (principal); Z59.0 Homelessness; F20.9 Schizophrenia, unspecified; F17.200 Nicotine dependence, unspecified, uncomplicated; E11.9 Type 2 diabetes mellitus without complications; J44.9 Chronic obstructive pulmonary disease, unspecified
CPT/HCPCS: 99281; A9270 ×2

== ENCOUNTER 2019-06-13 04:18 | Emergency (ER) | payer MEDICARE, MEDICAID ==
[2019-06-13 05:04] LABS: ABSOLUTE BASOPHILS # (AUTO) 0.1 10^3/uL (0.0-0.2); ABSOLUTE EOSINOPHILS # (AUTO) 0.1 10^3/uL (0.0-0.6); ABSOLUTE LYMPHOCYTES (AUTO) 1.9 10^3/uL (0.5-4.7); ABSOLUTE MONOCYTES (AUTO) 0.8 10^3/uL (0.1-1.4); BASOPHILS % (AUTO) 1.3 % (0-2); HEMATOCRIT 36.2 % (37.9-51.0); HEMOGLOBIN 12.9 g/dL (13.5-17.0); MEAN CORPUSCULAR HEMOGLOBIN 31.5 pg (27.0-33.4); MEAN CORPUSCULAR HGB CONC 35.6 g/dL (32.0-36.0); MEAN CORPUSCULAR VOLUME 88 fl (80-97); PLATELET COUNT 335 10^3/uL (150-450); RED CELL DISTRIBUTION WIDTH 13.4 % (11.5-14.0); SEGMENTED NEUTROPHILS % (AUTO) 70.7 % (42-78); TOTAL CELLS COUNTED % (AUTO) 100 %; WHITE BLOOD COUNT 9.9 10^3/uL (4.0-10.5)
--- NOTE | 2019-06-13 05:21 | ER Document Report ---
ED General - General Chief Complaint: Chest Pain > 30 Stated Complaint: CHEST PAIN Time Seen by Provider: 06/13/19 04:52 Primary Care Provider: SAY MCKEON MD [Primary Care Provider] - Follow up as needed Notes: 49-year-old male presents the emergency department complaining of sudden onset of chest pain as he was leaving the wall while this evening. States that it was left-sided chest pressure that did not radiate. It was decreased with 1 spray of nitroglycerin from EMS. Patient has no history of heart attack, has had two TIAs in the past. No shortness of breath, no nausea, no diaphoresis. TRAVEL OUTSIDE OF THE [place] IN LAST 30 DAYS: No - Related Data Allergies/Adverse Reactions: olanzapine [From Zyprexa] Allergy (Verified 06/13/19 04:36) metformin Adverse Reaction (Verified 06/13/19 04:36) Home Medications: cymalta. haldol. januvia. ventolin Past Medical History - General Information source: Patient - Social History Smoking Status: Current Every Day Smoker Frequency of alcohol use: None - States he used to drink heavily but has quit. Drug Abuse: None Family History: Reviewed & Not Pertinent, CVA, DM, Hypertension Patient has suicidal ideation: No Patient has homicidal ideation: No Pulmonary Medical History: Reports: Hx Bronchitis, Hx COPD Endocrine Medical History: Reports: Hx Diabetes Mellitus Type 2 Renal/ Medical History: Denies: Hx Peritoneal Dialysis Skin Medical History: Reports Hx Cellulitis Psychiatric Medical History: Reports: Hx Bipolar Disorder, Hx Depression, Hx Schizoaffective Disorder, Hx Schizophrenia - Immunizations Immunizations up to date: Yes Hx Diphtheria, Pertussis, Tetanus Vaccination: Yes Review of Systems - Review of Systems Constitutional: No symptoms reported Cardiovascular: See HPI, Chest pain Respiratory: No symptoms reported Gastrointestinal: No symptoms reported -: Yes All other systems reviewed and negative Physical Exam - Vital signs Vitals: Resp 23 H 06/13/19 04:29 Interpretation: Normal - Notes Notes: GENERAL: Sleeping, awakens easily, falls asleep frequently during examination. Appears intoxicated. HEAD: Normocephalic, atraumatic EYES: Pupils equal, round and reactive to light, extraocular movements intact. ENT: Oral mucosa moist, tongue midline. NECK: Full range of motion, supple, trachea midline. LUNGS: Clear to auscultation bilaterally, no wheezes, rales or rhonchi, no respiratory distress. HEART: Regular rate and rhythm, no murmurs, gallops, rubs. ABDOMEN: Soft, nontender, nondistended, bowel sounds present in all 4 quadrants. EXTREMITIES: Moves all 4 extremities spontaneously, no edema, radial and dorsalis pedis pulses 2/4 bilaterally. No cyanosis. NEUROLOGICAL: Alert and oriented x3, slightly slurred speech, no difficulty with word finding, biceps and patellar DTRs 2+ bilaterally. No facial droop. PSYCH: Normal mood, normal affect. SKIN: Warm, Dry, normal turgor. Course - Re-evaluation Re-evalutation: 06/13/19 05:31 CBC shows mild anemia, chemistries show hyponatremia with a sodium of 127, this is relatively chronic, cardiac enzymes pending. Patient did have some hypoxia while sleeping, frequently became apneic and snoring. Patient admits strong history of sleep apnea, patient placed on CPAP and apnea resolved. 06/13/19 06:08 CBC shows mild anemia with hemoglobin 12.9, CMP shows chronic hyponatremia of 127.0 likely related to prior heavy drinking, troponin negative, CK and CK-MB both mildly elevated, alcohol is undetectable. Patient is now wide awake, completely chest pain-free, patient is requesting to be discharged, states that he needs to walk to [place]. Patient is completely chest pain-free. Discussed with patient that if he develops any chest pain while walking he needs to return to the emergency department, otherwise follow-up with [facility] as an outpatient. Discharged home. 06/13/19 06:10 Alcohol level is actually negative. Now that the patient has had a few hours sleep and is wide awake he has no longer having any trouble with falling asleep while talking to me, does not appear intoxicated. Is walking without difficulty. - Vital Signs Vital signs: Temp Pulse Resp BP Pulse Ox 98.0 F 21 H 129/85 H 95 06/13/19 04:55 06/13/19 04:32 06/13/19 04:32 06/13/19 04:32 - Laboratory Result Diagrams: 06/13/19 04:50 06/13/19 04:50 Laboratory results interpreted by me: 06/13/19 06/13/19 06/13/19 04:50 04:50 04:50 RBC 4.10 L Hgb 12.9 L Hct 36.2 L Sodium 127.0 L Chloride 92 L Creatine Kinase 208 H CK-MB (CK-2) 6.57 H Total Protein 6.1 L - EKG Interpretation by Me Additional EKG results interpreted by me: 06/13/19 05:31 EKG shows sinus rhythm at a rate of 83, normal axis, normal intervals, no ST segment elevations or depressions, no T wave inversions per my interpretation. Discharge - Discharge Clinical Impression: Left-sided chest pain, Hyponatremia Condition: Stable Disposition: HOME, SELF-CARE Additional Instructions: Chest Pain of Unclear Cause The exact cause of your chest pain isn't clear. Fortunately, there is no evidence of a dangerous medical condition. Further testing may be required to find the source of the pain. Most often, we find that this pain is coming from the chest wall -- the muscles or rib joints in the chest. But chest pain can come from the lung and lung lining, the esophagus, the heart valves or heart lining, and even the stomach or gallbladder. Rest. Eat lightly until the pain is gone. We may prescribe medicine for pain and inflammation. You should call the physician immediately if the pain radiates to the shoulder, jaw or arms; if you start to run a fever or develop a cough; or if you develop shortness of breath, or other new or alarming symptoms. If you develop pain while walking please rest and return to the emergency department. If you continue to be able to walk long distances every day without any pain please call a [facility] to set up a follow-up appointment as an outpatient regarding your chest pain today. Referrals: SAY MCKEON MD [Primary Care Provider] - Follow up as needed CORNELIUS UNDERWOOD MD [ACTIVE STAFF] - Follow up as needed
[2019-06-13 05:23] LABS: ALBUMIN 3.6 g/dL (3.5-5.0); ALKALINE PHOSPHATASE 56 U/L (38-126); ANION GAP 7 (5-19); ASPARTATE AMINO TRANSFERASE 24 U/L (17-59); BILIRUBIN,DIRECT 0.2 mg/dL (0.0-0.4); BILIRUBIN,TOTAL 0.7 mg/dL (0.2-1.3); BLOOD UREA NITROGEN 10 mg/dL (7-20); CALCIUM 8.9 mg/dL (8.4-10.2); CARBON DIOXIDE 28 mmol/L (22-30); CHLORIDE 92 mmol/L (98-107); CREATINE KINASE 208 U/L (55-170); GLUCOSE 100 mg/dL (75-110); POTASSIUM 4.1 mmol/L (3.6-5.0); TOTAL PROTEIN 6.1 g/dL (6.3-8.2)
[2019-06-13 05:35] LABS: CREATINE KINASE MB 6.57 ng/mL (<4.55)
[2019-06-13 05:39] LABS: TROPONIN I < 0.012 ng/mL
[2019-06-13 06:26] VITALS: BP 158/84
== END 2019-06-13 06:28 | disposition home or self-care (01) ==
LOC: ER 04:18
DX: R07.89 Other chest pain (principal); E87.1 Hypo-osmolality and hyponatremia; D64.9 Anemia, unspecified; G47.30 Sleep apnea, unspecified; J44.9 Chronic obstructive pulmonary disease, unspecified; F17.200 Nicotine dependence, unspecified, uncomplicated; E11.9 Type 2 diabetes mellitus without complications; F25.9 Schizoaffective disorder, unspecified; F31.9 Bipolar disorder, unspecified; Z79.899 Other long term (current) drug therapy; Z79.84 Long term (current) use of oral hypoglycemic drugs
CPT/HCPCS: 36415; 80053; 80307; 82550; 82553; 84484; 85025; 94660; 99285

== ENCOUNTER 2019-06-13 22:28 | Emergency (ER) | payer MEDICARE, MEDICAID ==
--- NOTE | 2019-06-14 09:11 | EKG REPORT ---
SEVERITY:- NORMAL ECG - SINUS RHYTHM : Confirmed by: Flor Logan 14-Jun-2019 09:10:08
== END 2019-06-14 01:47 | disposition left against medical advice (07) ==
LOC: ER 22:28
DX: Z53.21 Procedure and treatment not carried out due to patient leaving prior to being seen by health care provider (principal)

== ENCOUNTER 2019-06-15 16:03 | Emergency (ER) | payer MEDICARE, MEDICAID ==
[2019-06-15 16:14] VITALS: BP 142/89
--- NOTE | 2019-06-15 16:30 | ER Document Report ---
ED Medical Screen (RME) - General Chief Complaint: ETOH Abuse Stated Complaint: DETOX Time Seen by Provider: 06/15/19 16:27 Primary Care Provider: SAY MCKEON MD [Primary Care Provider] - Follow up as needed TRAVEL OUTSIDE OF THE U.S. IN LAST 30 DAYS: No - HPI Notes: 06/15/19 16:29 Patient is a 49-year-old male with a history of alcohol and drug abuse who presents per the direction of [facility] for medical clearance. They did tell him that they have a bed waiting for him. His last drink of alcohol was last night. He is otherwise feeling well, just tired. He is able to eat and drink without difficulty. He is urinating normally and having normal bowel movements. No fever, chest pain, or shortness of breath. No abdominal pain. I have treated and performed a rapid initial assessment of this patient. A comprehensive ED assessment and evaluation of the patient, analysis of test results and completion of medical decision making process will be conducted by additional ED providers. PHYSICAL EXAMINATION: GENERAL: Well-appearing, well-nourished and in no acute distress. A&Ox4. Answers questions appropriately. Heart: RRR Lungs: CTAB - Related Data Allergies/Adverse Reactions: olanzapine [From Zyprexa] Allergy (Verified 06/15/19 16:25) metformin Adverse Reaction (Verified 06/15/19 16:25) Past Medical History - Social History Chew tobacco use (# tins/day): Yes Frequency of alcohol use: Heavy Drug Abuse: None Pulmonary Medical History: Reports: Hx Bronchitis, Hx COPD Endocrine Medical History: Reports: Hx Diabetes Mellitus Type 2 Renal/ Medical History: Denies: Hx Peritoneal Dialysis Skin Medical History: Reports Hx Cellulitis Psychiatric Medical History: Reports: Hx Bipolar Disorder, Hx Depression, Hx Schizoaffective Disorder, Hx Schizophrenia - Immunizations Immunizations up to date: Yes Hx Diphtheria, Pertussis, Tetanus Vaccination: Yes Physical Exam - Vital signs Vitals: Temp Pulse Resp BP Pulse Ox 98 F 94 18 142/89 H 100 06/15/19 16:13 06/15/19 16:13 06/15/19 16:13 06/15/19 16:13 06/15/19 16:13 Course - Vital Signs Vital signs: Temp Pulse Resp BP Pulse Ox 98 F 94 18 142/89 H 100 06/15/19 16:13 06/15/19 16:13 06/15/19 16:13 06/15/19 16:13 06/15/19 16:13 Doctor's Discharge - Discharge Referrals: SAY MCKEON MD [Primary Care Provider] - Follow up as needed
[2019-06-15 17:23] LABS: ABSOLUTE BASOPHILS # (AUTO) 0.1 10^3/uL (0.0-0.2); ABSOLUTE EOSINOPHILS # (AUTO) 0.1 10^3/uL (0.0-0.6); ABSOLUTE LYMPHOCYTES (AUTO) 2.1 10^3/uL (0.5-4.7); ABSOLUTE MONOCYTES (AUTO) 0.6 10^3/uL (0.1-1.4); ABSOLUTE NEUT (AUTO) 6.2 10^3/uL (1.7-8.2); APPEARANCE,URINE CLEAR; BASOPHILS % (AUTO) 1.3 % (0-2); BILIRUBIN,URINE NEGATIVE (NEGATIVE); COLOR,URINE STRAW; EOSINOPHILS % (AUTO) 1.6 % (0-6); GLUCOSE, URINE NEGATIVE (NEGATIVE); HEMATOCRIT 39.5 % (37.9-51.0); HEMOGLOBIN 13.9 g/dL (13.5-17.0); KETONES,URINE NEGATIVE (NEGATIVE); LEUKOCYTE ESTERASE,URINE NEGATIVE (NEGATIVE); LYMPHOCYTES % (AUTO) 22.7 % (13-45); MEAN CORPUSCULAR HEMOGLOBIN 31.3 pg (27.0-33.4); MEAN CORPUSCULAR HGB CONC 35.2 g/dL (32.0-36.0); MEAN CORPUSCULAR VOLUME 89 fl (80-97); MONOCYTES % (AUTO) 6.7 % (3-13); NITRITE,URINE NEGATIVE (NEGATIVE); PLATELET COUNT 380 10^3/uL (150-450); PROTEIN,URINE NEGATIVE (NEGATIVE); RED BLOOD COUNT 4.44 10^6/uL (4.35-5.55); RED CELL DISTRIBUTION WIDTH 13.7 % (11.5-14.0); SEGMENTED NEUTROPHILS % (AUTO) 67.7 % (42-78); TOTAL CELLS COUNTED % (AUTO) 100 %; URINE SPECIFIC GRAVITY 1.003; UROBILINOGEN,URINE NEGATIVE mg/dL (<2.0); WHITE BLOOD COUNT 9.1 10^3/uL (4.0-10.5)
[2019-06-15] MEDS ORDERED: IPRATROPIUM/ALBUTEROL 0.5-2.5 MG/3 ML AMPUL NEB ONE (17:33)
--- NOTE | 2019-06-15 17:35 | ER Document Report ---
ED General - General Chief Complaint: ETOH Abuse Stated Complaint: DETOX Time Seen by Provider: 06/15/19 16:27 Primary Care Provider: SAY MCKEON MD [Primary Care Provider] - Follow up as needed Notes: Patient is a 49-year-old male with multiple mental health problems and alcohol abuse who presents emergency department with a chief complaint of medical clearance. Patient reports that [facility] problem. Patient reports his last alcoholic beverage was last night i ncluded a 24 ounce beverage. Patient reports he thinks he drank a seltzer. Patient has not had beverages since then. Patient states he did not have any other alcohol intake yesterday. Patient denies recent drug use within the past few months. Patient reports he does smoke 1 pack/day and has a history of COPD. Patient reports he wants to be medically cleared if possible so he can go back to [place] get the help that he needs. Patient has no complaints at this time. TRAVEL OUTSIDE OF THE [place] IN LAST 30 DAYS: No - Related Data Allergies/Adverse Reactions: olanzapine [From Zyprexa] Allergy (Verified 06/15/19 16:25) metformin Adverse Reaction (Verified 06/15/19 16:25) Past Medical History - General Information source: Patient - Social History Smoking Status: Current Every Day Smoker Chew tobacco use (# tins/day): Yes Frequency of alcohol use: Heavy Drug Abuse: None Lives with: Family Family History: Reviewed & Not Pertinent, CVA, DM, Hypertension Patient has suicidal ideation: No Patient has homicidal ideation: No - Past Medical History Cardiac Medical History: Reports: None Pulmonary Medical History: Reports: Hx Bronchitis, Hx COPD EENT Medical History: Reports: None Neurological Medical History: Reports: None Endocrine Medical History: Reports: Hx Diabetes Mellitus Type 2 Renal/ Medical History: Reports: None. Denies: Hx Peritoneal Dialysis Malignancy Medical History: Reports None GI Medical History: Reports: None Musculoskeletal Medical History: Reports None Skin Medical History: Reports Hx Cellulitis Psychiatric Medical History: Reports: Hx Bipolar Disorder, Hx Depression, Hx Schizoaffective Disorder, Hx Schizophrenia Traumatic Medical History: Reports: None Infectious Medical History: Reports: None Surgical Hx: Negative - Immunizations Immunizations up to date: Yes Hx Diphtheria, Pertussis, Tetanus Vaccination: Yes Review of Systems - Review of Systems Constitutional: No symptoms reported EENT: No symptoms reported Cardiovascular: No symptoms reported Respiratory: No symptoms reported Gastrointestinal: No symptoms reported Genitourinary: No symptoms reported Male Genitourinary: No symptoms reported Musculoskeletal: No symptoms reported Skin: No symptoms reported Hematologic/Lymphatic: No symptoms reported Neurological/Psychological: No symptoms reported Physical Exam - Vital signs Vitals: Temp Pulse Resp BP Pulse Ox 98 F 94 18 142/89 H 100 06/15/19 16:13 06/15/19 16:13 06/15/19 16:13 06/15/19 16:13 06/15/19 16:13 Interpretation: Normal - Notes Notes: GENERAL: Well-appearing, well-nourished and in no acute distress. HEAD: Atraumatic, normocephalic. EYES: Pupils equal round and reactive to light, extraocular movements intact, sclera anicteric, conjunctiva are normal. ENT: Nares patent, oropharynx clear without exudates. Moist mucous membranes. NECK: Normal range of motion, supple without lymphadenopathy or JVD. LUNGS: Expiratory wheeze noted throughout all lung madrigal. Patient is in no respiratory distress. HEART: Regular rate and rhythm without murmurs, rubs or gallops. ABDOMEN: Soft, nontender, normoactive bowel sounds. No guarding, no rebound. No masses appreciated. BACK: No cervical, thoracic, lumbar midline tenderness. No saddle anesthesia, normal distal neurovascular exam. GENITOURINARY: Deferred. EXTREMITIES: Normal range of motion, no pitting or edema. No clubbing or cyanosis. NEUROLOGICAL: Cranial nerves II through XII grossly intact. Normal speech, normal gait. PSYCH: Normal mood, normal affect. SKIN: Warm, Dry, normal turgor, no rashes or lesions noted. Course - Re-evaluation Re-evalutation: 06/15/19 17:34 Initial evaluation patient's not tachycardic. Patient is not having any evide nce of withdrawal to include hallucinations, tremors. No nausea or vomiting. Patient reports he did vomit once this morning but has been fine since. Patient does have some scattered expiratory wheeze noted. Will give a DuoNeb and reevaluate. Lab work and urinalysis pending. Patient is very pleasant, calm and in no acute distress. 06/15/19 17:59 Blood work was unremarkable. Patient does have a hyponatremia which appears to be chronic in nature. This is actually improved from his labs that were drawn a few days ago. Patient is asymptomatic without signs of withdrawal. Plan is to give patient a DuoNeb and to go to [facility] as he is medically cleared. 06/15/19 18:30 The nurse did call over to [facility] to state that the patient was medically clear, patient does not have a room, please see nursing note. Come to find out the patient lied about having placement because he wants to be with his significant other. I did inform the patient he does not have a bed at this time. Patient will continue to be discharged. Patient's lung sounds were reevaluated after his breathing treatment, all wheezing has improved. Patient no acute distress. Patient states he will continue with his AA meetings. - Vital Signs Vital signs: Temp Pulse Resp BP Pulse Ox 98 F 94 18 142/89 H 100 06/15/19 16:13 06/15/19 16:13 06/15/19 16:13 06/15/19 16:13 06/15/19 16:13 - Laboratory Result Diagrams: 06/15/19 16:57 06/15/19 16:57 Laboratory results interpreted by me: 06/15/19 16:57 Sodium 130.8 L Chloride 92 L Carbon Dioxide 31 H Salicylates < 1.0 L Acetaminophen < 10 L Patient does not have a leukocytosis, anemia. Patient does have a sodium of 130.8. Patient appears to have a chronically low sodium, last blood draw 3 days ago revealed sodium of 127 -this has improved. No alteration in kidney function or liver enzymes. Urinalysis unremarkable. Urine drug screen negative. Laboratory 06/15/19 06/15/19 06/15/19 16:57 16:57 16:57 WBC 9.1 RBC 4.44 Hgb 13.9 Hct 39.5 MCV 89 MCH 31.3 MCHC 35.2 RDW 13.7 Plt Count 380 Lymph % (Auto) 22.7 [place] % (Auto) 6.7 Eos % (Auto) 1.6 Baso % (Auto) 1.3 Absolute Neuts (auto) 6.2 Absolute Lymphs (auto) 2.1 Absolute Monos (auto) 0.6 Absolute Eos (auto) 0.1 Absolute Basos (auto) 0.1 Seg Neutrophils % 67.7 Sodium 130.8 L Potassium 4.5 Chloride 92 L Carbon Dioxide 31 H Anion Gap 8 BUN 7 Creatinine 0.60 Est GFR ( Amer) > 60 Est GFR (MDRD) Non-Af > 60 Glucose 94 Calcium 9.6 Total Bilirubin 0.5 Direct Bilirubin 0.3 Neonat Total Bilirubin Not Reportable Neonat Direct Bilirubin Not Reportable Neonat Indirect Bili Not Reportable AST 30 ALT 22 Alkaline Phosphatase 64 Total Protein 7.1 Albumin 4.2 Urine Color STRAW Urine Appearance CLEAR Urine pH 7.0 Ur Specific Brandon 1.003 Urine Protein NEGATIVE Urine Glucose (UA) NEGATIVE Urine Ketones NEGATIVE Urine Blood NEGATIVE Urine Nitrite NEGATIVE Urine Bilirubin NEGATIVE Urine Urobilinogen NEGATIVE Ur Leukocyte Esterase NEGATIVE Urine Mucus (Auto) RARE Urine Ascorbic Acid NEGATIVE Salicylates < 1.0 L Urine Opiates Screen Urine Methadone Screen Acetaminophen < 10 L Ur Barbiturates Screen Ur Phencyclidine Scrn Ur Amphetamines Screen U Benzodiazepines Scrn Urine Cocaine Screen U Marijuana (THC) Screen Serum Alcohol < 10 06/15/19 16:57 WBC RBC Hgb Hct MCV MCH MCHC RDW Plt Count Lymph % (Auto) [place] % (Auto) Eos % (Auto) Baso % (Auto) Absolute Neuts (auto) Absolute Lymphs (auto) Absolute Monos (auto) Absolute Eos (auto) Absolute Basos (auto) Seg Neutrophils % Sodium Potassium Chloride Carbon Dioxide Anion Gap BUN Creatinine Est GFR ( Amer) Est GFR (MDRD) Non-Af Glucose Calcium Total Bilirubin Direct Bilirubin Neonat Total Bilirubin Neonat Direct Bilirubin Neonat Indirect Bili AST ALT Alkaline Phosphatase Total Protein Albumin Urine Color Urine Appearance Urine pH Ur Specific Brandon Urine Protein Urine Glucose (UA) Urine Ketones Urine Blood Urine Nitrite Urine Bilirubin Urine Urobilinogen Ur Leukocyte Esterase Urine Mucus (Auto) Urine Ascorbic Acid Salicylates Urine Opiates Screen NEGATIVE Urine Methadone Screen NEGATIVE Acetaminophen Ur Barbiturates Screen NEGATIVE Ur Phencyclidine Scrn NEGATIVE Ur Amphetamines Screen NEGATIVE U Benzodiazepines Scrn NEGATIVE Urine Cocaine Screen NEGATIVE U Marijuana (THC) Screen NEGATIVE Serum Alcohol - EKG Interpretation by Me Additional EKG results interpreted by me: 06/15/19 18:09 Patient's EKG shows sinus rhythm with a heart rate of 79. Patient's IN interval 168, QT is 384 and QTC is 441. Patient has a normal axis deviation without ST segment changes in consecutive leads. Does not appear to be a significant change from previous EKG that was performed on 06/13/2019. Discharge - Discharge Clinical Impression: Alcohol abuse, Hyponatremia, Tobacco abuse COPD (chronic obstructive pulmonary disease) Qualifiers: COPD type: unspecified COPD Qualified Code(s): J44.9 - Chronic obstructive pulmonary disease, unspecified Condition: Stable Disposition: HOME, SELF-CARE Additional Instructions: *Today using the emergency department for medical clearance. *After obtaining blood work, urine you are being discharged. Please go to [facility] as they do have a bed for you. We did give you a breathing treatment while you are here in the emergency department due to wheezing. Your wheezing did improve after the breathing treatment. I will give you an albuterol inhaler to go home with. Please use this as directed which is 2 puffs every 4 hours as needed. [address] [address] Forms: Smoking Cessation Education Referrals: SAY MCKEON MD [Primary Care Provider] - Follow up as needed
[2019-06-15 17:40] LABS: ALBUMIN 4.2 g/dL (3.5-5.0); ALKALINE PHOSPHATASE 64 U/L (38-126); ANION GAP 8 (5-19); ASPARTATE AMINO TRANSFERASE 30 U/L (17-59); BILIRUBIN,DIRECT 0.3 mg/dL (0.0-0.4); BILIRUBIN,TOTAL 0.5 mg/dL (0.2-1.3); BLOOD UREA NITROGEN 7 mg/dL (7-20); CALCIUM 9.6 mg/dL (8.4-10.2); CARBON DIOXIDE 31 mmol/L (22-30); CHLORIDE 92 mmol/L (98-107); GLUCOSE 94 mg/dL (75-110); POTASSIUM 4.5 mmol/L (3.6-5.0); TOTAL PROTEIN 7.1 g/dL (6.3-8.2)
[2019-06-15 17:42] LABS: URINE AMPHETAMINES SCREEN NEGATIVE; URINE BARBITURATES SCREEN NEGATIVE; URINE BENZODIAZEPINES SCREEN NEGATIVE; URINE COCAINE SCREEN NEGATIVE; URINE MARIJUANA (THC) SCREEN NEGATIVE; URINE METHADONE SCREEN NEGATIVE; URINE PHENCYCLIDINE SCREEN NEGATIVE
[2019-06-15 17:44] LABS: ACETAMINOPHEN < 10 ug/mL (10-30); ALCOHOL < 10 mg/dL (NONE DETECTED); SALICYLATE < 1.0 mg/dL (2.0-20.0)
[2019-06-15] MEDS ORDERED: ALBUTEROL SULFATE HFA (90 MCG/PUFF) 8 GM MDI (1 MDI/ER DISP) IH PRN (18:02)
--- NOTE | 2019-06-15 18:42 | EKG REPORT ---
SEVERITY:- NORMAL ECG - SINUS RHYTHM : Confirmed by: Flor Logan 15-Jun-2019 18:41:32
== END 2019-06-15 18:38 | disposition home or self-care (01) ==
LOC: ER 16:03
DX: F10.10 Alcohol abuse, uncomplicated (principal); J44.9 Chronic obstructive pulmonary disease, unspecified; E87.1 Hypo-osmolality and hyponatremia; F17.200 Nicotine dependence, unspecified, uncomplicated; E11.9 Type 2 diabetes mellitus without complications; Z88.8 Allergy status to other drugs, medicaments and biological substances
CPT/HCPCS: 93005; 94640; 99281; 99283; 36415; 80307 ×4; 85025; 80053; 81001; 93010; A9270 ×2; J3490; J7620

== ENCOUNTER 2019-06-15 21:14 | Emergency (ER) | payer MEDICARE, MEDICAID ==
[2019-06-15 21:30] VITALS: BP 141/79
--- NOTE | 2019-06-15 21:36 | ER Document Report ---
ED Medical Screen (RME) - General Chief Complaint: Breathing Difficulty Stated Complaint: DIFFICULTY BREATHING/ABDOMINAL PAIN Time Seen by Provider: 06/15/19 21:32 Primary Care Provider: SAY MCKEON MD [Primary Care Provider] - Follow up as needed TRAVEL OUTSIDE OF THE U.S. IN LAST 30 DAYS: No - HPI Notes: 06/15/19 21:35 Patient was just evaluated and discharged this evening, please refer to that note as well. Patient states that he returns at this time because he started having testicular pain/scrotal pain mostly in the right side about 40 minutes ago. He still urinating normally. He has not noticed any bruising, redness, or swelling. No fever. I have treated and performed a rapid initial assessment of this patient. A comprehensive ED assessment and evaluation of the patient, analysis of test results and completion of medical decision making process will be conducted by additional ED providers. PHYSICAL EXAMINATION: GENERAL: Well-appearing, well-nourished and in no acute distress. A&Ox4. Answers questions appropriately. : No obvious discharge, erythema, ecchymosis, lesion, ulceration. Difficult to adequately assess in triage otherwise. Will need further evaluation. - Related Data Allergies/Adverse Reactions: olanzapine [From Zyprexa] Allergy (Verified 06/15/19 16:25) metformin Adverse Reaction (Verified 06/15/19 16:25) Past Medical History Pulmonary Medical History: Reports: Hx Bronchitis, Hx COPD Endocrine Medical History: Reports: Hx Diabetes Mellitus Type 2 Renal/ Medical History: Denies: Hx Peritoneal Dialysis Skin Medical History: Reports Hx Cellulitis Psychiatric Medical History: Reports: Hx Bipolar Disorder, Hx Depression, Hx Schizoaffective Disorder, Hx Schizophrenia - Immunizations Immunizations up to date: Yes Hx Diphtheria, Pertussis, Tetanus Vaccination: Yes Physical Exam - Vital signs Vitals: Temp Pulse Resp BP Pulse Ox 98.2 F 93 18 141/79 H 100 06/15/19 21:25 06/15/19 21:25 06/15/19 21:25 06/15/19 21:25 06/15/19 21:25 Course - Vital Signs Vital signs: Temp Pulse Resp BP Pulse Ox 98.2 F 93 18 141/79 H 100 06/15/19 21:25 06/15/19 21:25 06/15/19 21:25 06/15/19 21:25 06/15/19 21:25 Doctor's Discharge - Discharge Referrals: SAY MCKEON MD [Primary Care Provider] - Follow up as needed
--- NOTE | 2019-06-15 23:09 | ER Document Report ---
ED General - General Chief Complaint: Groin Pain Stated Complaint: DIFFICULTY BREATHING/ABDOMINAL PAIN Time Seen by Provider: 06/15/19 21:32 Primary Care Provider: SAY MCKEON MD [Primary Care Provider] - Follow up as needed Notes: Patient was just evaluated and discharged this evening, please refer to that note as well. Patient states that he returns at this time because he started having testicular pain/scrotal pain mostly in the right side about 40 minutes ago. He still urinating normally. He has not noticed any bruising, redness, or swelling. No fever. This note was by JAD Dave 49-year-old male presents the emergency department complaining of sudden onset of chest pain as he was leaving the wall while this evening. States that it was left-sided chest pressure that did not radiate. It was decreased with 1 spray of nitroglycerin from EMS. Patient has no history of heart attack, has had two TIAs in the past. No shortness of breath, no nausea, no diaphoresis. Note on 13 June was per [address] . I bruised this patient's visits to the ER and it appears that he is here at least once a week. TRAVEL OUTSIDE OF THE [place] IN LAST 30 DAYS: No - Related Data Allergies/Adverse Reactions: olanzapine [From Zyprexa] Allergy (Verified 06/15/19 16:25) metformin Adverse Reaction (Verified 06/15/19 16:25) Past Medical History - General Information source: Patient - Social History Smoking Status: Current Every Day Smoker Cigarette use (# per day): No Chew tobacco use (# tins/day): No Smoking Education Provided: No Family History: Reviewed & Not Pertinent, CVA, DM, Hypertension Patient has suicidal ideation: No Patient has homicidal ideation: No Pulmonary Medical History: Reports: Hx Bronchitis, Hx COPD Endocrine Medical History: Reports: Hx Diabetes Mellitus Type 2 Renal/ Medical History: Denies: Hx Peritoneal Dialysis Skin Medical History: Reports Hx Cellulitis Psychiatric Medical History: Reports: Hx Bipolar Disorder, Hx Depression, Hx Schizoaffective Disorder, Hx Schizophrenia - Immunizations Immunizations up to date: Yes Hx Diphtheria, Pertussis, Tetanus Vaccination: Yes Review of Systems - Review of Systems Constitutional: No symptoms reported EENT: No symptoms reported Cardiovascular: No symptoms reported Respiratory: No symptoms reported Gastrointestinal: No symptoms reported Genitourinary: No symptoms reported Male Genitourinary: No symptoms reported Musculoskeletal: No symptoms reported Skin: No symptoms reported Hematologic/Lymphatic: No symptoms reported Neurological/Psychological: No symptoms reported Physical Exam - Vital signs Vitals: Temp Pulse Resp BP Pulse Ox 98.2 F 93 18 141/79 H 100 06/15/19 21:25 06/15/19 21:25 06/15/19 21:25 06/15/19 21:25 06/15/19 21:25 Course - Vital Signs Vital signs: Temp Pulse Resp BP Pulse Ox 98.2 F 93 18 141/79 H 100 06/15/19 21:25 06/15/19 21:25 06/15/19 21:25 06/15/19 21:25 06/15/19 21:25 Critical Care Note - Critical Care Note Comments: Please note patient was not seen by me and he looked into the 26 degree cold weather. Discharge - Discharge Clinical Impression: Groin injury Qualifiers: Encounter type: initial encounter Qualified Code(s): S39.91XA - Unspecified injury of abdomen, initial encounter Disposition: ELOPED Referrals: SAY MCKEON MD [Primary Care Provider] - Follow up as needed
== END 2019-06-15 22:55 | disposition left against medical advice (07) ==
LOC: ER 21:14
DX: S39.91XA Unspecified injury of abdomen, initial encounter (principal); X58.XXXA Exposure to other specified factors, initial encounter; N50.811 Right testicular pain; N50.82 Scrotal pain; F17.200 Nicotine dependence, unspecified, uncomplicated; J44.9 Chronic obstructive pulmonary disease, unspecified; E11.9 Type 2 diabetes mellitus without complications; Z88.8 Allergy status to other drugs, medicaments and biological substances; Z53.20 Procedure and treatment not carried out because of patient's decision for unspecified reasons
CPT/HCPCS: 99281

== ENCOUNTER 2019-06-16 01:06 | Emergency (ER) | payer MEDICARE, MEDICAID ==
--- NOTE | 2019-06-16 02:40 | ER Document Report ---
HPI - HPI Time Seen by Provider: 06/16/19 02:04 Pain Level: 3 Context: Patient is a 49-year-old male that comes to the emergency department for chief complaint of alcohol intoxication and wanting his feet checked. He states he was out in the cold and his feet got wet and he wonders if he got frostbite. He denies any wounds, he denies any particular areas of pain, he denies vomiting, chest pain, or any other complaints. He states he was drinking beer earlier but he only "had a few". Past medical history includes alcohol abuse, diabetes, schizoaffective disorder, homelessness. - REPRODUCTIVE Reproductive: DENIES: : - MUSCULOSKELETAL Musculoskeletal: REPORTS: Extremity pain - both feet - DERM Skin Color: Normal, [place] Past Medical History - General Information source: Patient - Social History Smoking Status: Current Every Day Smoker Frequency of alcohol use: Heavy Lives with: Spouse/Significant other Family History: Reviewed & Not Pertinent, CVA, DM, Hypertension Patient has suicidal ideation: No Patient has homicidal ideation: No Pulmonary Medical History: Reports: Hx Bronchitis, Hx COPD Endocrine Medical History: Reports: Hx Diabetes Mellitus Type 2 Renal/ Medical History: Denies: Hx Peritoneal Dialysis Skin Medical History: Reports Hx Cellulitis Psychiatric Medical History: Reports: Hx Bipolar Disorder, Hx Depression, Hx Schizoaffective Disorder, Hx Schizophrenia - Immunizations Immunizations up to date: Yes Hx Diphtheria, Pertussis, Tetanus Vaccination: Yes Vertical Provider Document - CONSTITUTIONAL General Appearance: WD/WN, No Apparent Distress - Patient is actually alert and well-appearing - INFECTION CONTROL TRAVEL OUTSIDE OF THE [place] IN LAST 30 DAYS: No - HEENT HEENT: Atraumatic, Normocephalic - NECK Neck: Normal Inspection - RESPIRATORY Respiratory: Breath Sounds Normal, No Respiratory Distress - CARDIOVASCULAR Cardiovascular: Regular Rate, Regular Rhythm. negative: Tachycardia - GI/ABDOMEN Gastrointestinal: Abdomen Soft, Abdomen Non-Tender. negative: Abdomen Tender - BACK Back: Normal Inspection - MUSCULOSKELETAL/EXTREMETIES Musculoskeletal/Extremeties: MAEW, FROM, Non-Tender. negative: Tender - There is some dried/old/flaking skin over the base and sides of the foot but there are no open wounds, erythema, tenderness, swelling, or concerning findings. Normal pulses and sensation. Unremarkable lower extremities otherwise. - NEURO Level of Consciousness: Awake, Alert, Appropriate Motor/Sensory: No Motor Deficit, No Sensory Deficit - DERM Integumentary: Warm, Dry, No Rash Course - Re-evaluation Re-evalutation: Patient mainly tells me how he was intoxicated earlier, however his significant other wants him to go to detox, and how he feels better now. His foot exam shows a dirty feet but he was provided with dry socks and he was very appreciative and had no further complaints in regards to his feet. There are no wounds or signs of infection in this diabetic patient. Vital signs unremarkable. Patient got up and ambulated without any difficulty, his speech is at baseline, he does not appear to be clinically intoxicated. Patient with no additional complaints. Patient states that he is planning on going over to detox but he states he wants to do this later on his own accord. He is not suicidal homicidal. Stable at time of discharge. - Vital Signs Vital signs: Temp Pulse Resp BP Pulse Ox 97.8 F 91 18 142/73 H 99 06/16/19 01:09 06/16/19 01:09 06/16/19 01:09 06/16/19 01:09 06/16/19 01:09 Discharge - Discharge Clinical Impression: Alcohol intoxication Qualifiers: Complication of substance-induced condition: uncomplicated Qualified Code(s): F10.920 - Alcohol use, unspecified with intoxication, uncomplicated Exposure to environmental cold Qualifiers: Encounter type: initial encounter Qualified Code(s): T69.9XXA - Effect of reduced temperature, unspecified, initial encounter Condition: Stable Disposition: HOME, SELF-CARE Additional Instructions: Your evaluation does not show any infection or concerning findings. Avoid drinking alcohol to intoxication, consider following up with the detox center referral listed below. Follow-up with primary care for management of your diabetes. Return if you worsen including developing or spreading redness, fever, vomiting, or any other concerning symptoms. [facility] [address] [place] [address] , [place] [address] Hours: Open 24 hours Forms: Elevated Blood Pressure
[2019-06-16 03:06] VITALS: BP 152/79
== END 2019-06-16 03:00 | disposition home or self-care (01) ==
LOC: ER 01:06
DX: F10.120 Alcohol abuse with intoxication, uncomplicated (principal); M79.671 Pain in right foot; M79.672 Pain in left foot; T69.9XXA Effect of reduced temperature, unspecified, initial encounter; E11.9 Type 2 diabetes mellitus without complications; F17.200 Nicotine dependence, unspecified, uncomplicated; J44.9 Chronic obstructive pulmonary disease, unspecified
CPT/HCPCS: 99283

== ENCOUNTER 2019-06-16 05:24 | Emergency (ER) | payer MEDICARE, MEDICAID | END 2019-06-16 06:27 | disposition left against medical advice (07) | LOC: ER 05:24 | DX: Z53.21 Procedure and treatment not carried out due to patient leaving prior to being seen by health care provider (principal) ==

== ENCOUNTER 2019-06-16 18:29 | Emergency (ER) | payer MEDICARE, MEDICAID ==
--- NOTE | 2019-06-16 20:29 | ER Document Report ---
ED Psych Disorder / Suicide - General Chief Complaint: Psych Problem Stated Complaint: PSYCH EVAL Time Seen by Provider: 06/16/19 20:09 Primary Care Provider: SAY MCKEON MD [Primary Care Provider] - Follow up as needed Notes: Patient is a 49-year-old male that comes emergency department for chief complaint of alcohol intoxication. Patient states that he comes by EMS, he states that EMS brought him after police came to scene, he states that he was trying to get his money and medications from his sister but she refused to give it to him, he states that he became angry and threatening, stating he was going to hurt her. He states that he is sore he said so, he states that he would never actually hurt her, he denies suicidal ideations, he denies any other complaints. He denies any sick symptoms. He states that he just wants to get placed in detox and "sober up". He denies recreational drugs. TRAVEL OUTSIDE OF THE [place] IN LAST 30 DAYS: No - Related Data Allergies/Adverse Reactions: olanzapine [From Zyprexa] Allergy (Verified 06/15/19 16:25) metformin Adverse Reaction (Verified 06/15/19 16:25) Past Medical History - General Information source: Patient - Social History Smoking Status: Current Every Day Smoker Frequency of alcohol use: Heavy Lives with: Spouse/Significant other Family History: Reviewed & Not Pertinent, CVA, DM, Hypertension Patient has suicidal ideation: Yes Patient has homicidal ideation: Yes Pulmonary Medical History: Reports: Hx Bronchitis, Hx COPD Endocrine Medical History: Reports: Hx Diabetes Mellitus Type 2 Renal/ Medical History: Denies: Hx Peritoneal Dialysis Skin Medical History: Reports Hx Cellulitis Psychiatric Medical History: Reports: Hx Bipolar Disorder, Hx Depression, Hx Schizoaffective Disorder, Hx Schizophrenia - Immunizations Immunizations up to date: Yes Hx Diphtheria, Pertussis, Tetanus Vaccination: Yes Review of Systems - Review of Systems Constitutional: No symptoms reported EENT: No symptoms reported Cardiovascular: No symptoms reported Respiratory: No symptoms reported Gastrointestinal: No symptoms reported Genitourinary: No symptoms reported Male Genitourinary: No symptoms reported Musculoskeletal: No symptoms reported Skin: No symptoms reported Hematologic/Lymphatic: No symptoms reported Neurological/Psychological: See HPI Physical Exam - Vital signs Vitals: Temp Pulse Resp BP Pulse Ox 98.0 F 101 H 20 170/72 H 93 06/16/19 19:30 06/16/19 19:30 06/16/19 19:30 06/16/19 19:30 06/16/19 19:30 - Notes Notes: GENERAL: Drowsy but no signs of distress HEAD: Normocephalic, atraumatic. EYES: Pupils equal, round, and reactive to light. Extraocular movements intact. ENT: Oral mucosa moist, tongue midline. Oropharynx unremarkable. Airway patent. LUNGS: Clear to auscultation bilaterally, no wheezes, rales, or rhonchi. No respiratory distress. HEART: Regular rate and rhythm. No murmur ABDOMEN: Soft, non-tender. Non-distended. Bowel sounds present in all 4 quadrants. GENITOURINARY: Deferred EXTREMITIES: Moves all 4 extremities spontaneously. No edema, normal radial and dorsalis pedis pulses bilaterally. No cyanosis. BACK: no cervical, thoracic, lumbar midline tenderness. No saddle anesthesia, normal distal neurovascular exam. Moves all extremities in full range of motion. NEUROLOGICAL: Drowsy but oriented x3. Slight slurring of speech but this is baseline for the patient. Cranial nerves II through XII grossly intact. PSYCH: Normal affect, normal mood. Makes good eye contact. SKIN: Warm, dry, normal turgor. No rashes or lesions noted. Course - Re-evaluation Re-evalutation: Patient drowsy but well-appearing. Physical exam unremarkable otherwise. He does not smell of alcohol. Vital signs are unremarkable. CBC, chemistry unremarkable, alcohol is actually negative, urine drug screen negative as well. I went back in and woke up the patient. I explained that his alcohol and drug screens were negative, he does not at this time appear to need to "sober up" from anything. He states that he is feeling better. He reiterates that he is not suicidal or homicidal, he states that he feels fine and he thinks he might go to detox but he does not want to be transferred there now. I reminded patient that he was actually transferred there 2 days ago but he had left. Patient has no other complaints and states he is ready to leave. Patient discharged with instructions to follow-up with detox. Discussed return precautions. Patient states understanding and agreement. - Vital Signs Vital signs: Temp Pulse Resp BP Pulse Ox 97.3 F 102 H 20 157/95 H 93 06/17/19 00:40 06/17/19 00:40 06/17/19 00:40 06/17/19 00:40 06/17/19 00:40 - Laboratory Result Diagrams: 06/16/19 22:00 06/16/19 22:00 Laboratory results interpreted by me: 06/16/19 22:00 Sodium 134.1 L Glucose 131 H Salicylates < 1.0 L Acetaminophen < 10 L Discharge - Discharge Clinical Impression: Homelessness, Alcohol abuse Condition: Stable Disposition: HOME, SELF-CARE Additional Instructions: Your work-up does not show any concerning findings at this time. Follow-up with the detox facility as listed below. Return to the emergency department for any concerning symptoms (vomiting, fever, difficulty breathing, etc.) [facility] [address] [place] [id number] Hours: Open 24 hours Referrals: SAY MCKEON MD [Primary Care Provider] - Follow up as needed
[2019-06-16 22:13] LABS: ABSOLUTE BASOPHILS # (AUTO) 0.1 10^3/uL (0.0-0.2); ABSOLUTE EOSINOPHILS # (AUTO) 0.2 10^3/uL (0.0-0.6); ABSOLUTE LYMPHOCYTES (AUTO) 1.7 10^3/uL (0.5-4.7); ABSOLUTE MONOCYTES (AUTO) 0.7 10^3/uL (0.1-1.4); ABSOLUTE NEUT (AUTO) 6.7 10^3/uL (1.7-8.2); BASOPHILS % (AUTO) 1.3 % (0-2); EOSINOPHILS % (AUTO) 2.2 % (0-6); HEMATOCRIT 39.9 % (37.9-51.0); HEMOGLOBIN 13.8 g/dL (13.5-17.0); LYMPHOCYTES % (AUTO) 17.6 % (13-45); MEAN CORPUSCULAR HEMOGLOBIN 30.9 pg (27.0-33.4); MEAN CORPUSCULAR HGB CONC 34.5 g/dL (32.0-36.0); MEAN CORPUSCULAR VOLUME 90 fl (80-97); MONOCYTES % (AUTO) 7.5 % (3-13); PLATELET COUNT 375 10^3/uL (150-450); RED BLOOD COUNT 4.46 10^6/uL (4.35-5.55); RED CELL DISTRIBUTION WIDTH 13.6 % (11.5-14.0); SEGMENTED NEUTROPHILS % (AUTO) 71.4 % (42-78); TOTAL CELLS COUNTED % (AUTO) 100 %; WHITE BLOOD COUNT 9.5 10^3/uL (4.0-10.5)
[2019-06-16 22:39] LABS: ALBUMIN 3.9 g/dL (3.5-5.0); ALKALINE PHOSPHATASE 64 U/L (38-126); ANION GAP 7 (5-19); ASPARTATE AMINO TRANSFERASE 27 U/L (17-59); BILIRUBIN,DIRECT 0.3 mg/dL (0.0-0.4); BILIRUBIN,TOTAL 0.4 mg/dL (0.2-1.3); BLOOD UREA NITROGEN 9 mg/dL (7-20); CALCIUM 9.3 mg/dL (8.4-10.2); CARBON DIOXIDE 29 mmol/L (22-30); CHLORIDE 98 mmol/L (98-107); GLUCOSE 131 mg/dL (75-110); POTASSIUM 4.4 mmol/L (3.6-5.0); TOTAL PROTEIN 6.7 g/dL (6.3-8.2)
[2019-06-16 22:43] LABS: ACETAMINOPHEN < 10 ug/mL (10-30); ALCOHOL < 10 mg/dL (NONE DETECTED); SALICYLATE < 1.0 mg/dL (2.0-20.0)
[2019-06-16 23:29] LABS: APPEARANCE,URINE CLEAR; BILIRUBIN,URINE NEGATIVE (NEGATIVE); COLOR,URINE STRAW; GLUCOSE, URINE NEGATIVE (NEGATIVE); KETONES,URINE NEGATIVE (NEGATIVE); LEUKOCYTE ESTERASE,URINE NEGATIVE (NEGATIVE); NITRITE,URINE NEGATIVE (NEGATIVE); PROTEIN,URINE NEGATIVE (NEGATIVE); URINE SPECIFIC GRAVITY 1.005; UROBILINOGEN,URINE NEGATIVE mg/dL (<2.0)
[2019-06-16 23:42] LABS: URINE AMPHETAMINES SCREEN NEGATIVE; URINE BARBITURATES SCREEN NEGATIVE; URINE BENZODIAZEPINES SCREEN NEGATIVE; URINE COCAINE SCREEN NEGATIVE; URINE MARIJUANA (THC) SCREEN NEGATIVE; URINE METHADONE SCREEN NEGATIVE; URINE PHENCYCLIDINE SCREEN NEGATIVE
[2019-06-17 00:41] VITALS: BP 157/95
--- NOTE | 2019-06-17 11:59 | EKG REPORT ---
SEVERITY:- ABNORMAL ECG - SINUS ARRHYTHMIA, RATE 105-107 VENTRICULAR PREMATURE COMPLEX ABNRM R PROG, CONSIDER ASMI OR LEAD PLACEMENT BORDERLINE PROLONGED QT INTERVAL : Confirmed by: Flor Logan 17-Jun-2019 11:58:36
== END 2019-06-17 00:40 | disposition home or self-care (01) ==
LOC: ER 18:29
DX: Z59.0 Homelessness (principal); F10.129 Alcohol abuse with intoxication, unspecified; Z88.8 Allergy status to other drugs, medicaments and biological substances; J44.9 Chronic obstructive pulmonary disease, unspecified; E11.9 Type 2 diabetes mellitus without complications
CPT/HCPCS: 36415; 80053; 80307; 81001; 85025; 93005; 93010; 99284

== ENCOUNTER 2019-06-24 20:32 | Emergency (ER) | payer MEDICARE, MEDICAID ==
--- NOTE | 2019-06-24 21:53 | ER Document Report ---
ED Medical Screen (RME) - General Chief Complaint: Medication Refill Stated Complaint: PAIN IN BOTH FEET Time Seen by Provider: 06/24/19 21:40 Primary Care Provider: SAY MCKEON MD [Primary Care Provider] - Follow up as needed Notes: Patient is a 49-year-old male who presents to the emergency department with a chief complaint of bilateral feet pain. Patient is homeless and has been walking around town. He states that he has had this problem before. Patient also states that he has been out of his Haldol and would like a refill. Exam: Disorganized thoughts. Erythema noted to bilateral feet. I have greeted and performed a rapid initial assessment of this patient. A comprehensive ED assessment and evaluation of the patient, analysis of test results and completion of medical decision making process will be conducted by an additional ED providers. TRAVEL OUTSIDE OF THE [place] IN LAST 30 DAYS: No - Related Data Allergies/Adverse Reactions: olanzapine [From Zyprexa] Allergy (Verified 06/15/19 16:25) metformin Adverse Reaction (Verified 06/15/19 16:25) Home Medications: pt out of meds needs refills. Past Medical History Pulmonary Medical History: Reports: Hx Bronchitis, Hx COPD Endocrine Medical History: Reports: Hx Diabetes Mellitus Type 2 Renal/ Medical History: Denies: Hx Peritoneal Dialysis Skin Medical History: Reports Hx Cellulitis Psychiatric Medical History: Reports: Hx Bipolar Disorder, Hx Depression, Hx Schizoaffective Disorder, Hx Schizophrenia - Immunizations Immunizations up to date: Yes Hx Diphtheria, Pertussis, Tetanus Vaccination: Yes Physical Exam - Vital signs Vitals: Temp Pulse Resp BP Pulse Ox 98.1 F 95 20 127/72 H 99 06/24/19 21:02 06/24/19 21:02 06/24/19 21:02 06/24/19 21:02 06/24/19 21:02 Course - Vital Signs Vital signs: Temp Pulse Resp BP Pulse Ox 98.1 F 95 20 127/72 H 99 06/24/19 21:02 06/24/19 21:02 06/24/19 21:02 06/24/19 21:02 06/24/19 21:02 Doctor's Discharge - Discharge Referrals: SAY MCKEON MD [Primary Care Provider] - Follow up as needed
[2019-06-25] MEDS ORDERED: NALOXONE HCL INJ/PF 0.4 MG/1 ML SDV IV ONE (00:20)
[2019-06-25] MEDS ORDERED: NALOXONE HCL INJ/PF 0.4 MG/1 ML SDV ONE (00:20)
[2019-06-25 00:39] LABS: ABSOLUTE BASOPHILS # (AUTO) 0.1 10^3/uL (0.0-0.2); ABSOLUTE EOSINOPHILS # (AUTO) 0.1 10^3/uL (0.0-0.6); ABSOLUTE MONOCYTES (AUTO) 0.7 10^3/uL (0.1-1.4); ABSOLUTE NEUT (AUTO) 4.1 10^3/uL (1.7-8.2); BASOPHILS % (AUTO) 1.5 % (0-2); EOSINOPHILS % (AUTO) 2.1 % (0-6); HEMATOCRIT 38.7 % (37.9-51.0); HEMOGLOBIN 13.4 g/dL (13.5-17.0); LYMPHOCYTES % (AUTO) 28.6 % (13-45); MEAN CORPUSCULAR HEMOGLOBIN 30.6 pg (27.0-33.4); MEAN CORPUSCULAR HGB CONC 34.5 g/dL (32.0-36.0); MEAN CORPUSCULAR VOLUME 89 fl (80-97); MONOCYTES % (AUTO) 9.7 % (3-13); PLATELET COUNT 365 10^3/uL (150-450); RED BLOOD COUNT 4.37 10^6/uL (4.35-5.55); RED CELL DISTRIBUTION WIDTH 13.5 % (11.5-14.0); SEGMENTED NEUTROPHILS % (AUTO) 58.1 % (42-78); TOTAL CELLS COUNTED % (AUTO) 100 %
[2019-06-25 01:04] LABS: ALKALINE PHOSPHATASE 58 U/L (38-126); ANION GAP 7 (5-19); ASPARTATE AMINO TRANSFERASE 53 U/L (17-59); BILIRUBIN,DIRECT 0.2 mg/dL (0.0-0.4); BILIRUBIN,TOTAL 0.5 mg/dL (0.2-1.3); BLOOD UREA NITROGEN 10 mg/dL (7-20); CALCIUM 9.5 mg/dL (8.4-10.2); CARBON DIOXIDE 29 mmol/L (22-30); CHLORIDE 95 mmol/L (98-107); GLUCOSE 102 mg/dL (75-110); POTASSIUM 4.3 mmol/L (3.6-5.0); TOTAL PROTEIN 6.8 g/dL (6.3-8.2)
[2019-06-25 01:13] LABS: ACETAMINOPHEN < 10 ug/mL (10-30); ALCOHOL < 10 mg/dL (NONE DETECTED); SALICYLATE < 1.0 mg/dL (2.0-20.0)
[2019-06-25 01:26] LABS: APPEARANCE,URINE CLEAR; BILIRUBIN,URINE NEGATIVE (NEGATIVE); COLOR,URINE YELLOW; GLUCOSE, URINE NEGATIVE (NEGATIVE); KETONES,URINE NEGATIVE (NEGATIVE); LEUKOCYTE ESTERASE,URINE NEGATIVE (NEGATIVE); NITRITE,URINE NEGATIVE (NEGATIVE); PROTEIN,URINE NEGATIVE (NEGATIVE); URINE SPECIFIC GRAVITY 1.004; UROBILINOGEN,URINE NEGATIVE mg/dL (<2.0)
[2019-06-25 01:29] LABS: URINE AMPHETAMINES SCREEN NEGATIVE; URINE BARBITURATES SCREEN NEGATIVE; URINE BENZODIAZEPINES SCREEN NEGATIVE; URINE COCAINE SCREEN NEGATIVE; URINE MARIJUANA (THC) SCREEN NEGATIVE; URINE METHADONE SCREEN NEGATIVE; URINE PHENCYCLIDINE SCREEN NEGATIVE
--- NOTE | 2019-06-25 04:00 | ER Document Report ---
ED General - General Chief Complaint: Medication Refill Stated Complaint: PAIN IN BOTH FEET Time Seen by Provider: 06/24/19 21:40 Primary Care Provider: SAY MCKEON MD [Primary Care Provider] - Follow up as needed Mode of Arrival: Ambulatory Information source: Patient Cannot obtain history due to: Altered mental status, Other - somnolence likely from his psych meds TRAVEL OUTSIDE OF THE [place] IN LAST 30 DAYS: No - HPI Onset: Other Onset/Duration: Gradual Quality of pain: No pain Severity: Mild Pain Level: Denies Associated symptoms: None Exacerbated by: Denies Relieved by: Denies Similar symptoms previously: Yes Recently seen / treated by doctor: Yes Notes: 49 year old male with a history of Bipolar, Schizophrenia, Depression, DM, COPD here because he would like refills of all his psych medications. The patient cannot tell me what medications he is on however or what doses he takes. The patient falls asleep when speaking to me and when speaking to nurse staffing. Nursing staff placed the patient on O2 since the patient would desat to the 80s when falling asleep in the ER. The patient clearly seems to be over medicated on something today. The patient denies SI or HI today. - Related Data Allergies/Adverse Reactions: olanzapine [From Zyprexa] Allergy (Verified 06/15/19 16:25) metformin Adverse Reaction (Verified 06/15/19 16:25) Home Medications: pt out of meds needs refills. Past Medical History - General Information source: Patient - Social History Smoking Status: Current Some Day Smoker Frequency of alcohol use: None Drug Abuse: None Lives with: Alone Family History: Reviewed & Not Pertinent, CVA, DM, Hypertension Patient has suicidal ideation: No Patient has homicidal ideation: No Pulmonary Medical History: Reports: Hx Bronchitis, Hx COPD Endocrine Medical History: Reports: Hx Diabetes Mellitus Type 2 Renal/ Medical History: Denies: Hx Peritoneal Dialysis Skin Medical History: Reports Hx Cellulitis Psychiatric Medical History: Reports: Hx Bipolar Disorder, Hx Depression, Hx Schizoaffective Disorder, Hx Schizophrenia - Immunizations Immunizations up to date: Yes Hx Diphtheria, Pertussis, Tetanus Vaccination: Yes Review of Systems - Review of Systems Constitutional: No symptoms reported EENT: No symptoms reported Cardiovascular: No symptoms reported Respiratory: No symptoms reported Gastrointestinal: No symptoms reported Genitourinary: No symptoms reported Male Genitourinary: No symptoms reported Musculoskeletal: No symptoms reported Skin: No symptoms reported Hematologic/Lymphatic: No symptoms reported Neurological/Psychological: No symptoms reported -: Yes All other systems reviewed and negative Physical Exam - Vital signs Vitals: Temp Pulse Resp BP Pulse Ox 98.1 F 95 20 127/72 H 99 06/24/19 21:02 06/24/19 21:02 06/24/19 21:02 06/24/19 21:02 06/24/19 21:02 - Notes Notes: GENERAL: Poorly groomed but well-appearing, well-nourished and in no acute distress. HEAD: Atraumatic, normocephalic. EYES: Pupils equal round and reactive to light, extraocular movements intact, sclera anicteric, conjunctiva are normal. ENT: Nares patent, oropharynx clear without exudates. Moist mucous membranes. NECK: Normal range of motion, supple without lymphadenopathy or JVD. LUNGS: Breath sounds clear to auscultation bilaterally and equal. No wheezes rales or rhonchi. HEART: Regular rate and rhythm without murmurs, rubs or gallops. ABDOMEN: Soft, nontender, normoactive bowel sounds. No guarding, no rebound. No masses appreciated. EXTREMITIES: Normal range of motion, no pitting or edema. No clubbing or cyanosis. NEUROLOGICAL: Cranial nerves II through XII grossly intact. Slurred speech, normal gait. PSYCH: Normal mood, normal affect except the patient seems over medicated and he will fall asleep when speaking. SKIN: Warm, Dry, normal turgor, no rashes or lesions noted. Course - Re-evaluation Re-evalutation: 06/25/19 04:06 The patient came to the ER since he would like a refill of his psych medications. The patient however seems over medicated to me at the moment and he falls asleep mid sentence. The patient is denying SI or HI. Since I am not sure what medications the patient is supposed to be on and since it appears the patient is well known to psych, will have psych see the patient in the AM. Patient signed out to the oncoming ER provider. - Vital Signs Vital signs: Temp Pulse Resp BP Pulse Ox 98.1 F 95 26 H 137/80 H 71 L 06/24/19 21:02 06/24/19 21:02 06/25/19 02:01 06/25/19 02:00 06/25/19 02:01 - Laboratory Result Diagrams: 06/25/19 00:24 06/25/19 00:24 Laboratory results interpreted by me: 06/25/19 06/25/19 06/25/19 00:24 00:24 00:31 Hgb 13.4 L Sodium 130.7 L Chloride 95 L Creatinine 0.51 L POC Glucose 116 H Salicylates < 1.0 L Acetaminophen < 10 L - EKG Interpretation by Me EKG shows normal: Sinus rhythm, [place], Intervals, QRS Complexes, ST-T Waves Rate: Normal Rhythm: NSR Discharge - Discharge Clinical Impression: Medication refill, Somnolence Condition: Stable Disposition: OTHER Referrals: SAY MCKEON MD [Primary Care Provider] - Follow up as needed
--- NOTE | 2019-06-25 04:40 | ER Document Report ---
Doctor's Note Notes: 06/25/19 04:37 Care of this patient was turned over to me during my shift. Evidently, the patient came in requesting refills of his medications. During the course of his stay he was found to be somnolent. I wanted to evaluate the patient. He was awake and alert, cooperative. He states he needs refills of all of his me dications. He is able to tell me specifically that he needs his blood pressure medicine, his diabetes medicine. He also asks for his Cogentin. He states he would like to have his Haldol refilled as well. When I asked him about the Haldol medication, he states that his sister keeps it because "she is afraid I will overdose on it." The patient otherwise denies any acute complaints or concerns. He states he needs a primary care provider. On physical exam, patient has heart rate of 85, blood pressure of 131/90, he is 96% on 2 L and breathing 18 times a minute. Patient is awake and alert, cooperative with examiner. He has mild tangential thinking, but is easily redirectable. In short, this patient has an extensive psychiatric history, as well as a history of diabetes and hypertension, and needs his medications. I do not feel comfortable administering Haldol, neither here by IM injection nor by prescription. He does have a history of overuse of this medication. [facility] I will refill his atorvastatin, Januvia, lisinopril, Cogentin, Advair, Celexa, and Plavix. He is to return to the ED with worsening or new concerning symptoms of any sort. 06/25/19 04:40
[2019-06-25 04:54] VITALS: BP 155/94
--- NOTE | 2019-06-25 07:12 | EKG REPORT ---
SEVERITY:- NORMAL ECG - SINUS RHYTHM : Confirmed by: Andrew Dumont MD 25-Jun-2019 07:11:24
== END 2019-06-25 04:52 | disposition other institution (70) ==
LOC: ER 20:32
DX: Z76.0 Encounter for issue of repeat prescription (principal); R40.0 Somnolence; M79.672 Pain in left foot; M79.671 Pain in right foot; Z88.8 Allergy status to other drugs, medicaments and biological substances; F17.200 Nicotine dependence, unspecified, uncomplicated; J44.9 Chronic obstructive pulmonary disease, unspecified; E11.9 Type 2 diabetes mellitus without complications
CPT/HCPCS: 93005; 99282; 96374; 36415; 82962; 80307 ×4; 85025; 80053; 81001; 93010; J2310

== ENCOUNTER 2019-06-25 19:05 | Emergency (ER) | payer MEDICARE, MEDICAID ==
[2019-06-25 19:23] VITALS: BP 120/68
[2019-06-25] MEDS ORDERED: ACETAMINOPHEN 325 MG TABLET PO ONE (19:45)
--- NOTE | 2019-06-25 19:59 | ER Document Report ---
HPI - HPI Time Seen by Provider: 06/25/19 19:32 Pain Level: 3 Context: Patient is a 49-year-old male with a history of bipolar, schizophrenia, diabetes, COPD and depression who presents emergency department with a chief complaint of right upper leg pain. Patient reports he has been walking outside a lot lately and complains of right anterior leg pain. Patient denies injury or fall. Patient reports he feels like this is his nerve pain as he has been out of his Neurontin. Patient was seen here last night and did receive multiple prescription refills. Patient reports that his doctor that does normally prescribe his Neurontin he has not seen and did run out of his medication at the end of May. Patient requesting prescription for Neurontin. - REPRODUCTIVE Reproductive: DENIES: : - MUSCULOSKELETAL Musculoskeletal: REPORTS: Extremity pain - Right groin/thigh Past Medical History - General Information source: Patient - Social History Smoking Status: Current Every Day Smoker Chew tobacco use (# tins/day): Yes - Daily Frequency of alcohol use: None Drug Abuse: None Lives with: Family Family History: Reviewed & Not Pertinent, CVA, DM, Hypertension Patient has suicidal ideation: No Patient has homicidal ideation: No - Past Medical History Cardiac Medical History: Reports: None Pulmonary Medical History: Reports: Hx Bronchitis, Hx COPD EENT Medical History: Reports: None Neurological Medical History: Reports: None Endocrine Medical History: Reports: Hx Diabetes Mellitus Type 2 Renal/ Medical History: Reports: None. Denies: Hx Peritoneal Dialysis Malignancy Medical History: Reports None GI Medical History: Reports: None Musculoskeletal Medical History: Reports None Skin Medical History: Reports Hx Cellulitis Psychiatric Medical History: Reports: Hx Bipolar Disorder, Hx Depression, Hx Schizoaffective Disorder, Hx Schizophrenia Traumatic Medical History: Reports: None Infectious Medical History: Reports: None - Immunizations Immunizations up to date: Yes Hx Diphtheria, Pertussis, Tetanus Vaccination: Yes Vertical Provider Document - CONSTITUTIONAL Agree With Documented VS: Yes Exam Limitations: No Limitations General Appearance: No Apparent Distress - INFECTION CONTROL TRAVEL OUTSIDE OF THE [place] IN LAST 30 DAYS: No - HEENT HEENT: Atraumatic, Normal ENT Exam, Normocephalic, PERRLA - NECK Neck: Normal Inspection - RESPIRATORY Respiratory: Breath Sounds Normal, No Respiratory Distress - CARDIOVASCULAR Cardiovascular: Regular Rate, Regular Rhythm - GI/ABDOMEN Gastrointestinal: Abdomen Soft, Abdomen Non-Tender, Normal Bowel Sounds - BACK Back: Normal Inspection - MUSCULOSKELETAL/EXTREMETIES Musculoskeletal/Extremeties: FROM Notes: I was able to visualize the right hip and right thigh. There is no ecchymosis, edema or erythema. There is no point tenderness. Patient ambulating with a steady gait. - NEURO Level of Consciousness: Awake, Alert, Appropriate - DERM Integumentary: Warm, Dry, No Rash Course - Re-evaluation Re-evalutation: 06/25/19 19:56 I did inform the patient that ultimately he needs to follow-up with his doctor that typically prescribes his Neurontin as well as his Haldol. Patient did receive multiple prescription refills last night here in the emergency department. I did offer the patient Tylenol will give this to him for his di scomfort. Patient reports he will follow-up with [facility] tomorrow. Patient is alert and oriented x3, nontoxic-appearing. - Vital Signs Vital signs: Temp Pulse Resp BP Pulse Ox 98.5 F 87 20 120/68 95 06/25/19 19:22 06/25/19 19:22 06/25/19 19:22 06/25/19 19:22 06/25/19 19:22 Discharge - Discharge Clinical Impression: Chronic pain of right lower extremity Condition: Stable Disposition: HOME, SELF-CARE Additional Instructions: *Today you are seen in the emergency department for right leg pain. You do need to follow-up with Dr. Ward who typically prescribes your Neurontin and Haldol. *Your physical exam is reassuring and that your right leg pain is most likely due to your nerve pain. There was no trauma. And x-rays not needed at this time. Please return the emergency department if symptoms worsen or change. Leg Pain, Nonspecific We did not find an obvious cause for your leg pain. There's no sign of blood clot, infection, or other serious disease. Possible causes of vague leg pain include muscle or joint inflammation, disc disease in the lower back, pressure on the nerves in the back, or reduced blood flow through the arteries of the leg. Rest the leg. Pain can be eased with an antiinflammatory pain medicine such as ibuprofen. If the pain involves a small area, a heating pad might help. Call the doctor or return if the leg becomes swollen, weak, discolored, or increasingly painful, or if you develop any other significant change in your health. Referrals: SAY MCKEON MD [Primary Care Provider] - Follow up as needed
== END 2019-06-25 19:57 | disposition home or self-care (01) ==
LOC: ER 19:05
DX: G89.29 Other chronic pain (principal); M79.604 Pain in right leg; M79.651 Pain in right thigh; F17.220 Nicotine dependence, chewing tobacco, uncomplicated; E11.9 Type 2 diabetes mellitus without complications
CPT/HCPCS: 99283; A9270

== ENCOUNTER 2019-06-26 00:22 | Emergency (ER) | payer MEDICARE, MEDICAID ==
[2019-06-26 00:28] VITALS: BP 148/82
== END 2019-06-26 01:14 | disposition left against medical advice (07) ==
LOC: ER 00:22
DX: Z53.21 Procedure and treatment not carried out due to patient leaving prior to being seen by health care provider (principal)

== ENCOUNTER 2019-06-26 02:32 | Emergency (ER) | payer MEDICARE, MEDICAID ==
--- NOTE | 2019-06-26 02:53 | ER Document Report ---
HPI - HPI Patient complains to provider of: Right leg pain Time Seen by Provider: 06/26/19 02:46 Onset: Other Pain Level: 3 Context: This 49-year-old male with history of bipolar schizophrenia COPD depression diabetes and chronic leg pain presents to the emergency department for the second time today for complaints of chronic right leg pain. Patient reports he has had the pain for a while. Denies recent trauma. No other complaints such as fever vomiting diarrhea. patient denies falling or hurting himself. Patient reports he has been out of his Neurontin and believes he needs some for his nerve pain. Patient was seen here last night and did receive multiple prescription refills. Reports he does have a primary care provider who usually feels his Neurontin. Associated Symptoms: None Exacerbated by: Denies Relieved by: Denies Similar symptoms previously: Yes Recently seen / treated by doctor: Yes - REPRODUCTIVE Reproductive: DENIES: : Past Medical History - General Information source: Patient - Social History Smoking Status: Current Every Day Smoker Chew tobacco use (# tins/day): No Family History: Reviewed & Not Pertinent, CVA, DM, Hypertension Patient has suicidal ideation: No Patient has homicidal ideation: No Pulmonary Medical History: Reports: Hx Bronchitis, Hx COPD Endocrine Medical History: Reports: Hx Diabetes Mellitus Type 2 Renal/ Medical History: Denies: Hx Peritoneal Dialysis Skin Medical History: Reports Hx Cellulitis Psychiatric Medical History: Reports: Hx Bipolar Disorder, Hx Depression, Hx Schizoaffective Disorder, Hx Schizophrenia - Immunizations Immunizations up to date: Yes Hx Diphtheria, Pertussis, Tetanus Vaccination: Yes Vertical Provider Document - CONSTITUTIONAL Agree With Documented VS: Yes Exam Limitations: No Limitations General Appearance: WD/WN, No Apparent Distress - INFECTION CONTROL TRAVEL OUTSIDE OF THE [place] IN LAST 30 DAYS: No - HEENT HEENT: Atraumatic, Normocephalic - NECK Neck: Supple - RESPIRATORY Respiratory: No Respiratory Distress - CARDIOVASCULAR Cardiovascular: Regular Rate - MUSCULOSKELETAL/EXTREMETIES Musculoskeletal/Extremeties: MAEW, FROM, Non-Tender - No complaints of pain with palpation to patient's right leg. +3 pedal pulse, full range of motion ambulates without problems - NEURO Level of Consciousness: Awake, Alert, Appropriate Motor/Sensory: No Motor Deficit - DERM Integumentary: Warm, Dry Course - Re-evaluation Re-evalutation: 06/26/19 04:41 Presents emergency department with complaints of right leg pain. He is already been evaluated once today. He was also evaluated last night for same plan complaints. Patient does have a history of mental health issues. He also has a history of chronic leg pain has taken Neurontin in the past. He reports he is out of his Neurontin. Patient was instructed follow-up with his primary care provider for this pain. - Vital Signs Vital signs: Temp Pulse Resp BP Pulse Ox 97.2 F 83 18 149/65 H 99 06/26/19 02:34 06/26/19 02:34 06/26/19 02:34 06/26/19 02:34 06/26/19 02:34 Discharge - Discharge Clinical Impression: chronic right leg pain Condition: Stable Disposition: HOME, SELF-CARE Instructions: Acetaminophen Additional Instructions: *You have been evaluated for chronic right leg pain *Follow up with your primary care provider within 1 week to discuss your medications *Take tylenol as indicated for pain *Return to ED for worsening condition, changes, needs Monitor your blood pressure. Your blood pressure was elevated today. This may be because you were anxious, in pain or because you need medication. It is important to follow up with your primary care provider for full evaluation. Forms: Elevated Blood Pressure
[2019-06-26 03:15] VITALS: BP 161/75
== END 2019-06-26 03:15 | disposition home or self-care (01) ==
LOC: ER 02:32
DX: G89.29 Other chronic pain (principal); M79.604 Pain in right leg; F17.200 Nicotine dependence, unspecified, uncomplicated; E11.9 Type 2 diabetes mellitus without complications; J44.9 Chronic obstructive pulmonary disease, unspecified
CPT/HCPCS: 99283

== ENCOUNTER 2019-06-27 12:02 | Inpatient (IN) | payer MEDICARE, MEDICAID ==
[2019-06-27] MEDS ORDERED: NORMAL SALINE 1000 ML 1,000 ML IV ONE (12:08)
[2019-06-27] MEDS ORDERED: NALOXONE HCL INJ/PF 0.4 MG/1 ML SDV IV ONE (12:09)
[2019-06-27 12:23] LABS: ABSOLUTE BASOPHILS # (AUTO) 0.1 10^3/uL (0.0-0.2); ABSOLUTE EOSINOPHILS # (AUTO) 0.1 10^3/uL (0.0-0.6); ABSOLUTE LYMPHOCYTES (AUTO) 1.3 10^3/uL (0.5-4.7); ABSOLUTE MONOCYTES (AUTO) 0.7 10^3/uL (0.1-1.4); ABSOLUTE NEUT (AUTO) 7.2 10^3/uL (1.7-8.2); BASOPHILS % (AUTO) 0.7 % (0-2); EOSINOPHILS % (AUTO) 0.6 % (0-6); HEMATOCRIT 38.1 % (37.9-51.0); HEMOGLOBIN 13.3 g/dL (13.5-17.0); LYMPHOCYTES % (AUTO) 13.5 % (13-45); MEAN CORPUSCULAR HEMOGLOBIN 30.8 pg (27.0-33.4); MEAN CORPUSCULAR VOLUME 88 fl (80-97); MONOCYTES % (AUTO) 7.2 % (3-13); PLATELET COUNT 362 10^3/uL (150-450); RED BLOOD COUNT 4.34 10^6/uL (4.35-5.55); RED CELL DISTRIBUTION WIDTH 13.5 % (11.5-14.0); TOTAL CELLS COUNTED % (AUTO) 100 %; WHITE BLOOD COUNT 9.3 10^3/uL (4.0-10.5)
[2019-06-27 12:37] LABS: INTERNATIONAL RATION (INR) 0.96; PROTHROMBIN TIME 12.8 SEC (11.4-15.4)
--- NOTE | 2019-06-27 12:40 | RADIOLOGY REPORT (SQ) ---
EXAM DESCRIPTION: CT HEAD WITHOUT COMPLETED DATE/TIME: 06/27/2019 12:26 pm REASON FOR STUDY: ams COMPARISON: CT of the head without contrast from 01/30/2019. TECHNIQUE: Axial images acquired through the brain without intravenous contrast. Images reviewed wi th bone, brain and subdural windows. Additional sagittal and coronal reconstructions were generated. Images stored on PACS. All CT scanners at this facility use dose modulation, iterative reconstruction, and/or weight based d osing when appropriate to reduce radiation dose to as low as reasonably achievable (ALARA). [facility]: Dose Right [facility]: CareDose [facility]: Dose Right [facility]: Teradose 4D [facility]: Leadhit RADIATION DOSE: CT Rad equipment meets quality standard of care and radiation dose reduction techniq ues were employed. CTDIvol: 55.2 mGy. DLP: 1194 mGy-cm. LIMITATIONS: None. FINDINGS: There is no acute intracranial hemorrhage, vascular territorial infarct, extra-axial fluid collection, mass effect or midline shift. The bentley-white matter differentiation is preserved. There is no effacement of the cerebral sulci or basal subarachnoid cisterns. The caliber of the ventricles is concordant with the degree of sulcation. The orbits and globes are intact. The paranasal sinuses are clear. There is no fracture of the calv arium. IMPRESSION: No acute intracranial abnormality. EVIDENCE OF ACUTE STROKE: NO. COMMENT: Quality ID # [id number]: Final reports with documentation of one or more dose reduction techniques (e.g., Automated exposure control, adjustment of the mA and/or kV according to patient size, use of iterative reconstruction technique) TECHNICAL DOCUMENTATION: JOB ID: [id number] 2010 [email or web address]- All Rights Reserved Reading location - IP/workstation name: [email or web address]-
[2019-06-27 12:43] LABS: ALBUMIN 4.1 g/dL (3.5-5.0); ALKALINE PHOSPHATASE 65 U/L (38-126); ANION GAP 9 (5-19); ASPARTATE AMINO TRANSFERASE 54 U/L (17-59); BILIRUBIN,DIRECT 0.3 mg/dL (0.0-0.4); BILIRUBIN,TOTAL 1.2 mg/dL (0.2-1.3); BLOOD UREA NITROGEN 11 mg/dL (7-20); CALCIUM 9.1 mg/dL (8.4-10.2); CARBON DIOXIDE 28 mmol/L (22-30); CHLORIDE 92 mmol/L (98-107); GLUCOSE 81 mg/dL (75-110); POTASSIUM 4.5 mmol/L (3.6-5.0)
[2019-06-27 12:47] LABS: ALCOHOL < 10 mg/dL (NONE DETECTED)
[2019-06-27 12:55] LABS: APPEARANCE,URINE CLEAR; BILIRUBIN,URINE NEGATIVE (NEGATIVE); COLOR,URINE YELLOW; GLUCOSE, URINE NEGATIVE (NEGATIVE); KETONES,URINE TRACE mg/dL (NEGATIVE); PROTEIN,URINE NEGATIVE (NEGATIVE); URINE SPECIFIC GRAVITY 1.008
--- NOTE | 2019-06-27 13:02 | RADIOLOGY REPORT (SQ) ---
EXAM DESCRIPTION: CHEST SINGLE VIEW COMPLETED DATE/TIME: 06/27/2019 12:46 pm REASON FOR STUDY: ams COMPARISON: AP view of the chest from 05/09/2019. EXAM PARAMETERS: NUMBER OF VIEWS: One view. TECHNIQUE: An AP view of the chest was obtained. RADIATION DOSE: NA LIMITATIONS: None. FINDINGS: LUNGS AND PLEURA: Low inspiratory lung volumes without a superimposed consolidation, pleur al effusion or pneumothorax. MEDIASTINUM AND HILAR STRUCTURES: No mediastinal or hilar contour abnormality. HEART AND VASCULAR STRUCTURES: The cardiac silhouette and pulmonary vasculature are within normal coley its. BONES: No acute findings. HARDWARE: None in the chest. OTHER: No other finding. IMPRESSION: Low inspiratory lung volumes without a superimposed acute cardiopulmonary process. TECHNICAL DOCUMENTATION: JOB ID: [id number] 2010 [employer]- All Rights Reserved Reading location - IP/workstation name: [email or web address]
[2019-06-27 13:10] LABS: URINE AMPHETAMINES SCREEN NEGATIVE; URINE BARBITURATES SCREEN NEGATIVE; URINE BENZODIAZEPINES SCREEN NEGATIVE; URINE COCAINE SCREEN NEGATIVE; URINE MARIJUANA (THC) SCREEN NEGATIVE; URINE METHADONE SCREEN NEGATIVE; URINE PHENCYCLIDINE SCREEN NEGATIVE
--- NOTE | 2019-06-27 13:19 | ER Document Report ---
ED General - General Chief Complaint: S/S of Possible Stroke Stated Complaint: POSSIBLE STROKE Time Seen by Provider: 06/27/19 12:06 Mode of Arrival: Ambulatory Information source: Patient TRAVEL OUTSIDE OF THE [place] IN LAST 30 DAYS: No - HPI Notes: Patient is brought in by ambulance. The ambulance was called because patient was seen to be stumbling and falling down while walking outside. Paramedics state that when they arrived patient seemed confused and then became unresponsive when placed in the ambulance. Patient arrives here and is very somnolent but will arouse to painful stimuli and talk and answer questions. Patient remains though a very poor historian. Patient denies taking any type of medications. He denies doing any type of illicit drug use or drinking alcohol. Patient is unable to tell me why he has been falling down. He denies any pain or shortness of breath. Patient is obviously confused. This confusion appears to be constant. Breath appears make it better or worse. I was he does not have radiation. It appears to be moderate in intensity. His somnolence is significant. - Related Data Allergies/Adverse Reactions: olanzapine [From Zyprexa] Allergy (Verified 06/26/19 02:33) metformin Adverse Reaction (Verified 06/26/19 02:33) Past Medical History - General Information source: Patient, Emergency Med Personnel - Social History Smoking Status: Current Every Day Smoker Chew tobacco use (# tins/day): No Frequency of alcohol use: None Drug Abuse: None Family History: Reviewed & Not Pertinent, CVA, DM, Hypertension Patient has suicidal ideation: No Patient has homicidal ideation: No Pulmonary Medical History: Reports: Hx Bronchitis, Hx COPD Endocrine Medical History: Reports: Hx Diabetes Mellitus Type 2 Renal/ Medical History: Denies: Hx Peritoneal Dialysis Skin Medical History: Reports Hx Cellulitis Psychiatric Medical History: Reports: Hx Bipolar Disorder, Hx Depression, Hx Schizoaffective Disorder, Hx Schizophrenia - Immunizations Immunizations up to date: Yes Hx Diphtheria, Pertussis, Tetanus Vaccination: Yes Review of Systems - Review of Systems -: Yes ROS unobtainable due to patient's medical condition - Patient has very confused and unable to do review of symptoms Physical Exam - Vital signs Vitals: Resp BP Pulse Ox 23 H 172/88 H 96 06/27/19 12:05 06/27/19 12:05 03/04/20 12:05 Interpretation: Hypertensive - General General appearance: Lethargic In distress: None - HEENT Head: Normocephalic, Atraumatic Eyes: Normal Pupils: PERRL - Respiratory Respiratory status: No respiratory distress Chest status: Nontender Breath sounds: Normal Chest palpation: Normal - Cardiovascular Rhythm: Regular Heart sounds: Normal auscultation Murmur: No - Abdominal Inspection: Normal Distension: No distension Bowel sounds: Normal Tenderness: Nontender Organomegaly: No organomegaly - Back Back: Normal, Nontender - Extremities General upper extremity: Normal inspection, Nontender, Normal color, Normal ROM, Normal temperature General lower extremity: Nontender, Normal color, Normal ROM, Normal temperature, Other - Patient has abrasions to bilateral knees. No: Kapil's sign - Neurological Cognition: Confused Orientation: Disoriented to place, Disoriented to time [place] Coma Scale Eye Opening: To Pain [place] Coma Scale Verbal: Confused [place] Coma Scale Motor: Obeys Commands [place] Coma Scale Total: 12 Speech: Normal Motor strength normal: LUE, RUE, LLE, RLE Sensory: Normal - Psychological Associated symptoms: Excessive sleeping, Flat affect, Psychomotor depression - Skin Skin Temperature: Warm Skin Moisture: Dry Skin Color: Normal Course - Re-evaluation Re-evalutation: 06/27/19 13:17 Patient is brought in by ambulance report is the patient has been falling down. Patient is obviously very somnolent. Reviewing past medical history shows the patient has been here numerous times. Patient does have psychiatric diagnoses. It appears patient may have ingested some type of prescribed or possible illicit substance. Narcan was given but had no effect. When painful stimuli is applied patient will wake up and converse normally but then immediately falls back to sleep. Vital signs have been stable. Laboratories are not significantly remarkable. Although patient would not cooperate with exam I can find no focal deficits. Patient's head CT is normal. Chest x-ray shows no infiltrates. At this time the most prudent thing seems to be to admit the patient for observation and IV fluids until the somnolence and confusion can be further evaluated. Of note a tox screen is still pending. Patient was brought in as a stroke alert initially. Patient is obviously not a TPA candidate since there is no ability to obtain a last known well time. Patient also at this time has no obvious focal deficits. - Vital Signs Vital signs: Temp Pulse Resp BP Pulse Ox 97.3 F 71 18 166/79 H 94 06/27/19 12:39 06/27/19 12:36 06/27/19 12:46 06/27/19 12:46 06/27/19 12:46 - Laboratory Result Diagrams: 06/27/19 11:43 06/27/19 11:43 Laboratory results interpreted by me: 06/27/19 06/27/19 06/27/19 11:43 11:43 12:35 RBC 4.34 L Hgb 13.3 L Sodium 129.1 L Chloride 92 L Urine Ketones TRACE H Urine Urobilinogen 4.0 H - Diagnostic Test Radiology reviewed: Image reviewed, Reports reviewed Discharge - Discharge Clinical Impression: Abrasion, right knee, initial encounter, Abrasion, left knee, initial encounter AMS (altered mental status) Qualifiers: Altered mental status type: somnolence Qualified Code(s): R40.0 - Somnolence Condition: Fair Disposition: ADMITTED INPATIENT Admitting Provider: Giovanna (Hospitalist) Unit Admitted: [facility]
--- NOTE | 2019-06-27 15:41 | PDOC H&P ---
History of Present Illness Admission Date/PCP: 06/27/19 13:26 Patient complains of: Obtunded History of Present Illness: TINY MCCLAIN is a 49 year old male was transported to the emergency department. His obtunded. Past Medical History Pulmonary Medical History: Reports: Bronchitis, Chronic Obstructive Pulmonary Disease (COPD) Endocrine Medical History: Reports: Diabetes Mellitus Type 2 Psychiatric Medical History: Reports: Alcohol Dependency, Bipolar Disorder, Depression, Schizoaffective Disorder, Tobacco Dependency Past Surgical History Past Surgical History: Reports: None Social History Information [facility] Lives with: Alone Smoking Status: Current Every Day Smoker Electronic Cigarette use?: No Frequency of Alcohol Use: Heavy Hx Recreational Drug Use: Yes Drugs: Marijuana Hx Prescription Drug Abuse: No - Advance Directive Resuscitation Status: Full Code Family History Family History: Reviewed & Not Pertinent, CVA, DM, Hypertension Parental Family History Reviewed: Yes Children Family History Reviewed: Yes Sibling(s) Family History Reviewed.: Yes Medication/Allergy Home Medications: Atorvastatin Calcium [Lipitor] 80 mg PO QHS 05/01/19 Citalopram Hydrobromide [Celexa 20 mg Tablet] 20 mg PO DAILY #30 tablet 06/25/19 Clopidogrel Bisulfate [Plavix 75 mg Tablet] 75 mg PO DAILY #30 tablet 06/25/19 Lisinopril [Prinivil 5 mg Tablet] 5 mg PO DAILY #30 tablet 06/25/19 Albuterol Sulfate [Ventolin Hfa 8 gm Mdi (1 Mdi/ER Disp)] 2 puff IH Q6HP PRN 06/27/19 Benztropine Mesylate [Cogentin 1 mg Tablet] 2 mg PO QHS 06/27/19 Fluticasone/Salmeterol [Advair 250-50 Diskus 14 Dose/Diskus] 1 inh IH Q12 06/27/19 Gabapentin [Neurontin 100 mg Capsule] 100 mg PO Q8 06/27/19 Haloperidol [Haldol 5 mg Tablet] 15 mg PO QHS 06/27/19 Sitagliptin Phosphate [Januvia 25 mg Tablet] 25 mg PO DAILY 06/27/19 Trazodone HCl 50 mg PO HSP PRN 06/27/19 Allergies/Adverse Reactions: olanzapine [From Zyprexa] Allergy (Verified 06/27/19 14:39) metformin Adverse Reaction (Verified 06/27/19 14:39) Review of Systems ROS unobtainable: Due to mental status Physical Exam Vital Signs: Temp Pulse Resp BP Pulse Ox 97.3 F 71 17 167/80 H 98 06/27/19 12:39 06/27/19 12:36 06/27/19 14:01 06/27/19 14:01 06/27/19 14:01 Intake & Output 06/26/19 06/27/19 06/28/19 06:59 06:59 06:59 Intake Total 1000 Balance 1000 Weight 80.5 kg General appearance: PRESENT: no acute distress. ABSENT: cooperative - Intermittently opens his eyes but does not participate meaningfully in the encounter Head exam: PRESENT: normocephalic. ABSENT: atraumatic - Some bruising on his lips Ear exam: PRESENT: normal external ear exam. ABSENT: bleeding, drainage Respiratory exam: PRESENT: clear to auscultation joseph, symmetrical, unlabored. ABSENT: rales, rhonchi, tachypnea, wheezes Cardiovascular exam: PRESENT: RRR, +S1, +S2. ABSENT: diastolic murmur, systolic murmur GI/Abdominal exam: PRESENT: normal bowel sounds, soft. ABSENT: distended, tenderness Rectal exam: PRESENT: deferred Extremities exam: ABSENT: pedal edema Musculoskeletal exam: PRESENT: normal inspection Neurological exam: PRESENT: altered - Mostly keeps his eyes closed. Difficult to tell if he is purposefully ignoring my interaction or truly sleeping. He does open his eyes on occasion.. ABSENT: awake Psychiatric exam: PRESENT: flat affect. ABSENT: agitated Focused psych exam: PRESENT: other - Difficult to assess Skin exam: PRESENT: abrasion - Lesion on his lower lip, dry, normal color, warm. ABSENT: rash Results Laboratory Results: 06/27/19 11:43 06/27/19 11:43 06/27/19 06/27/19 06/27/19 11:43 11:43 12:35 WBC 9.3 RBC 4.34 L Hgb 13.3 L Hct 38.1 MCV 88 MCH 30.8 MCHC 35.0 RDW 13.5 Plt Count 362 Seg Neutrophils % 78.0 Sodium 129.1 L Potassium 4.5 Chloride 92 L Carbon Dioxide 28 Anion Gap 9 BUN 11 Creatinine 0.54 Est GFR ( Amer) > 60 Glucose 81 Calcium 9.1 Total Bilirubin 1.2 AST 54 Alkaline Phosphatase 65 Total Protein 7.0 Albumin 4.1 Urine Color YELLOW Urine Appearance CLEAR Urine pH 7.0 Ur Specific [place] 1.008 Urine Protein NEGATIVE Urine Glucose (UA) NEGATIVE Urine Ketones TRACE H Urine Blood NEGATIVE Urine RBC (Auto) 0 06/27/19 11:43 Troponin I < 0.012 Impressions: Chest X-Ray 06/27/19 12:06 IMPRESSION: Low inspiratory lung volumes without a superimposed acute cardiopulmonary process. Head CT 06/27/19 12:07 IMPRESSION: No acute intracranial abnormality. EVIDENCE OF ACUTE STROKE: NO. Assessment and Plan - Diagnosis (1) Encephalopathy, toxic Is this a current diagnosis for this admission?: Yes Plan: 06/27/2019 Reviewing old records it is noted that the patient has presented in this state before. Typically it is related to noncompliance with his medications. This is most likely the case since his toxicology screen was negative for drugs or alcohol. We will administer IV fluids and monitor the patient on telemetry as well as with close vital signs. He does have a history of alcoholism as well as bipolar disorder. As he emerges from his encephalopathic state we will need to reassess and treat accordingly. His current medication list is based on his recent admission. (2) COPD (chronic obstructive pulmonary disease) Qualifiers: COPD type: unspecified COPD Qualified Code(s): J44.9 - Chronic obstructive pulmonary disease, unspecified Is this a current diagnosis for this admission?: Yes Plan: 06/27/2019 The patient is a current smoker. He does not appear to be of any difficulty breathing. We will consider nebulizer treatments and a nicotine patch based on reevaluation. (3) Hypertension Qualifiers: Hypertension type: essential hypertension Qualified Code(s): I10 - Essential (primary) hypertension Is this a current diagnosis for this admission?: Yes Plan: 06/27/2019 We will monitor vital signs. If the patient is awake enough we will administer oral medication. If not we can administer intravenous medication. (4) Hyponatremia Is this a current diagnosis for this admission?: Yes Plan: 06/27/2019 Review of old records shows that hyponatremia is a constant issue for this patient. We will monitor his sodium through recurrent basic metabolic panels. If this is truly his baseline then no acute intervention at this time. (5) Somnolence Is this a current diagnosis for this admission?: Yes Plan: 06/27/2019 Likely due to medication mismanagement as there is no evidence of alcohol on board or recreational drugs. We will monitor the patient and hopefully with time the effects of the causative agent will her off and then we will reassess. (6) Bipolar 1 disorder Is this a current diagnosis for this admission?: Yes Plan: 06/27/2019 Multiple entries in the patient's chart by psychiatric services. The patient h as an appropriate medication regimen he just chooses not to be compliant. (7) Noncompliance Is this a current diagnosis for this admission?: Yes Plan: 06/27/2019 Noncompliance is well-documented in his chart. - Time Time Spent with patient: 35 or more minutes Medications reviewed and adjusted accordingly: Yes - Inpatient Certification Based on my medical assessment, after consideration of the patient's comorbidities, presenting symptoms, or acuity I expect that the services needed warrant INPATIENT care.: Yes I certify that my determination is in accordance with my understanding of Medicare's requirements for reasonable and necessary INPATIENT services [42 CFR 412.3e].: Yes Medical Necessity: Need For IV Fluids, Need For Continuous Telemetry Monitoring Post Hospital Care: D/C [employer] Documentation
[2019-06-27 16:01] LABS: VENOUS BLOOD BASE EXCESS -3.2 mmol/L; VENOUS BLOOD HCO3 23.4 mmol/L (20-32); VENOUS BLOOD PH 7.31 (7.30-7.42)
[2019-06-27] MEDS ORDERED: ALBUTEROL SULFATE 0.083% NEB 2.5 MG/3 ML AMPUL NEB PRN (17:51)
[2019-06-27] MEDS ORDERED: MAGNESIUM HYDROXIDE SUSP 30 ML UDCUP PO PRN (17:51)
[2019-06-27] MEDS ORDERED: ACETAMINOPHEN 325 MG TABLET PO PRN (17:51)
[2019-06-27] MEDS ORDERED: DOCUSATE SODIUM 100 MG/10 ML UDC PO SCH (18:00)
[2019-06-27] MEDS ORDERED: TRAZODONE HCL 50 MG TABLET PO PRN (18:01)
[2019-06-27] MEDS ORDERED: DEXTROSE 50%-WATER 25 GM/50 ML DISP.SYRIN IV PRN ×2 (18:04)
[2019-06-27] MEDS ORDERED: GLUCAGON,HUMAN RECOMB 1 MG INJ IM PRN (18:04)
[2019-06-27] MEDS ORDERED: NICOTINE 14 MG/24 HR PATCH.TD24 TD PRN (18:04)
[2019-06-27] MEDS ORDERED: DEXTROSE 40% GEL 15 GM TUBE PO PRN ×2 (18:04)
[2019-06-27] MEDS: NORMAL SALINE 1000 ML 1,000 ML IV PRN (18:14)
--- NOTE | 2019-06-27 18:43 | EKG REPORT ---
SEVERITY:- NORMAL ECG - SINUS RHYTHM : Confirmed by: Andrew Dumont MD 27-Jun-2019 18:43:17
[2019-06-27] MEDS: INSULIN LISPRO 100 UNIT/ML 3 ML VIAL SUBCUT SCH (21:55)
[2019-06-27] MEDS ORDERED: HALOPERIDOL 5 MG TABLET PO SCH (22:00)
[2019-06-27] MEDS ORDERED: BENZTROPINE MESYLATE 1 MG TABLET PO SCH (22:00)
[2019-06-27] MEDS ORDERED: (PENDING PHARMACY ID) (Fluticasone/Salmeterol 1 INH) IH SCH (22:00)
[2019-06-27] MEDS ORDERED: ATORVASTATIN CALCIUM 80 MG TABLET PO SCH (22:00)
[2019-06-28] MEDS: NORMAL SALINE 1000 ML 1,000 ML IV PRN (01:07)
[2019-06-28 05:42] LABS: ABSOLUTE BASOPHILS # (AUTO) 0.1 10^3/uL (0.0-0.2); ABSOLUTE EOSINOPHILS # (AUTO) 0.1 10^3/uL (0.0-0.6); ABSOLUTE LYMPHOCYTES (AUTO) 1.2 10^3/uL (0.5-4.7); ABSOLUTE MONOCYTES (AUTO) 0.6 10^3/uL (0.1-1.4); ABSOLUTE NEUT (AUTO) 6.2 10^3/uL (1.7-8.2); BASOPHILS % (AUTO) 1.1 % (0-2); EOSINOPHILS % (AUTO) 1.3 % (0-6); HEMATOCRIT 35.7 % (37.9-51.0); HEMOGLOBIN 12.6 g/dL (13.5-17.0); LYMPHOCYTES % (AUTO) 14.8 % (13-45); MEAN CORPUSCULAR HEMOGLOBIN 31.4 pg (27.0-33.4); MEAN CORPUSCULAR HGB CONC 35.4 g/dL (32.0-36.0); MEAN CORPUSCULAR VOLUME 89 fl (80-97); MONOCYTES % (AUTO) 7.3 % (3-13); PLATELET COUNT 313 10^3/uL (150-450); RED BLOOD COUNT 4.03 10^6/uL (4.35-5.55); RED CELL DISTRIBUTION WIDTH 13.4 % (11.5-14.0); SEGMENTED NEUTROPHILS % (AUTO) 75.5 % (42-78); TOTAL CELLS COUNTED % (AUTO) 100 %; WHITE BLOOD COUNT 8.2 10^3/uL (4.0-10.5)
[2019-06-28 05:55] LABS: ANION GAP 10 (5-19); BLOOD UREA NITROGEN 12 mg/dL (7-20); CALCIUM 8.5 mg/dL (8.4-10.2); CARBON DIOXIDE 23 mmol/L (22-30); CHLORIDE 96 mmol/L (98-107); GLUCOSE 90 mg/dL (75-110); POTASSIUM 4.3 mmol/L (3.6-5.0)
[2019-06-28] MEDS: INSULIN LISPRO 100 UNIT/ML 3 ML VIAL SUBCUT SCH (08:18)
[2019-06-28 08:22] VITALS: BP 152/72
[2019-06-28] MEDS ORDERED: CLOPIDOGREL BISULFATE 75 MG TABLET PO SCH (10:00)
[2019-06-28] MEDS ORDERED: FLUTICASONE/VILANTEROL 200-25 MCG/DOSE IH SCH (10:00)
[2019-06-28] MEDS ORDERED: ENOXAPARIN SODIUM INJ 40 MG/0.4 ML DISP.SYRIN SUBCUT SCH (10:00)
[2019-06-28] MEDS ORDERED: CITALOPRAM HYDROBROMIDE 20 MG TABLET PO SCH (10:00)
[2019-06-28] MEDS ORDERED: LISINOPRIL 5 MG TABLET PO SCH (10:00)
--- NOTE | 2019-06-28 21:44 | Left Against Medical Advice ---
Against Medical Advice Admission Date/Time: 06/27/19 13:26 Primary Care Provider: Date of Patient Emigration: 06/28/19 - Diagnosis: (1) COPD (chronic obstructive pulmonary disease) Is this a current diagnosis for this admission?: Yes (2) Encephalopathy, toxic Is this a current diagnosis for this admission?: Yes (3) Hyponatremia Is this a current diagnosis for this admission?: Yes (4) Noncompliance Is this a current diagnosis for this admission?: Yes - Summary: Summary: Please see Admission and Progress Notes as well. TINY MCCLAIN is a 49 M, who LEFT AGAINST MEDICAL ADVICE. The Patient was admitted on 06/27/19 13:26. 06/28/2019 I was called by the patient's nurse earlier today. The patient is demanding to sign out AGAINST MEDICAL ADVICE. He has a long history of this behavior. After reviewing his old records including this pattern of behavior I did not see a need to try and involuntarily commit the patient as he does not appear to be an acute danger to anyone else. His constant pattern of signing out AGAINST MEDICAL ADVICE and medical noncompliance, although worrisome, is not likely to be corrected.
== END 2019-06-28 09:03 | disposition left against medical advice (07) | DRG 91 ==
LOC: ER 12:02 → EH 13:26 → 3S 16:41
PROVIDERS: ADMIT Hospitalist; ATTEND Hospitalist
DX: G92 Toxic encephalopathy (principal); R40.2122 Coma scale, eyes open, to pain, at arrival to emergency department; E87.1 Hypo-osmolality and hyponatremia; J44.9 Chronic obstructive pulmonary disease, unspecified; I10 Essential (primary) hypertension; E11.8 Type 2 diabetes mellitus with unspecified complications; S80.212A Abrasion, left knee, initial encounter; S80.211A Abrasion, right knee, initial encounter; F32.9 Major depressive disorder, single episode, unspecified; F20.9 Schizophrenia, unspecified; R40.2242 Coma scale, best verbal response, confused conversation, at arrival to emergency department; R40.2362 Coma scale, best motor response, obeys commands, at arrival to emergency department; F17.210 Nicotine dependence, cigarettes, uncomplicated; W18.39XA Other fall on same level, initial encounter; Y93.89 Activity, other specified; Y92.018 Other place in single-family (private) house as the place of occurrence of the external cause; Z60.2 Problems related to living alone; Z91.19 Patient's noncompliance with other medical treatment and regimen
CPT/HCPCS: 36415; 70450; 71045; 80048; 80053; 80307; 81001; 82803; 82962; 83605; 83735; 84443; 84484; 85025; 85610; 87040; 93005; 93010; 96361; 96374; 99285; J2310; J3490; J7030

== ENCOUNTER 2019-06-28 22:07 | Observation (INO) | payer MEDICARE, MEDICAID ==
[2019-06-29 00:51] LABS: APPEARANCE,URINE CLEAR; BILIRUBIN,URINE NEGATIVE (NEGATIVE); COLOR,URINE COLORLESS; GLUCOSE, URINE NEGATIVE (NEGATIVE); KETONES,URINE NEGATIVE (NEGATIVE); PROTEIN,URINE NEGATIVE (NEGATIVE); URINE SPECIFIC GRAVITY 1.003; UROBILINOGEN,URINE NEGATIVE mg/dL (<2.0)
[2019-06-29 01:12] LABS: URINE AMPHETAMINES SCREEN NEGATIVE; URINE BARBITURATES SCREEN NEGATIVE; URINE BENZODIAZEPINES SCREEN NEGATIVE; URINE COCAINE SCREEN NEGATIVE; URINE MARIJUANA (THC) SCREEN NEGATIVE; URINE METHADONE SCREEN NEGATIVE; URINE PHENCYCLIDINE SCREEN NEGATIVE
[2019-06-29 01:23] LABS: ABSOLUTE BASOPHILS # (AUTO) 0.1 10^3/uL (0.0-0.2); ABSOLUTE EOSINOPHILS # (AUTO) 0.1 10^3/uL (0.0-0.6); ABSOLUTE LYMPHOCYTES (AUTO) 1.3 10^3/uL (0.5-4.7); ABSOLUTE MONOCYTES (AUTO) 0.7 10^3/uL (0.1-1.4); ABSOLUTE NEUT (AUTO) 10.2 10^3/uL (1.7-8.2); BASOPHILS % (AUTO) 0.7 % (0-2); EOSINOPHILS % (AUTO) 1.1 % (0-6); HEMATOCRIT 39.8 % (37.9-51.0); HEMOGLOBIN 14.1 g/dL (13.5-17.0); LYMPHOCYTES % (AUTO) 10.6 % (13-45); MEAN CORPUSCULAR HEMOGLOBIN 31.4 pg (27.0-33.4); MEAN CORPUSCULAR HGB CONC 35.5 g/dL (32.0-36.0); MEAN CORPUSCULAR VOLUME 89 fl (80-97); MONOCYTES % (AUTO) 5.7 % (3-13); PLATELET COUNT 368 10^3/uL (150-450); RED BLOOD COUNT 4.49 10^6/uL (4.35-5.55); RED CELL DISTRIBUTION WIDTH 13.4 % (11.5-14.0); SEGMENTED NEUTROPHILS % (AUTO) 81.9 % (42-78); TOTAL CELLS COUNTED % (AUTO) 100 %; WHITE BLOOD COUNT 12.4 10^3/uL (4.0-10.5)
[2019-06-29 01:38] LABS: ACETAMINOPHEN < 10 ug/mL (10-30); ALBUMIN 4.3 g/dL (3.5-5.0); ALCOHOL < 10 mg/dL (NONE DETECTED); ALKALINE PHOSPHATASE 69 U/L (38-126); ANION GAP 8 (5-19); ASPARTATE AMINO TRANSFERASE 44 U/L (17-59); BILIRUBIN,DIRECT 0.1 mg/dL (0.0-0.4); BILIRUBIN,TOTAL 0.7 mg/dL (0.2-1.3); BLOOD UREA NITROGEN 5 mg/dL (7-20); CARBON DIOXIDE 27 mmol/L (22-30); CHLORIDE 91 mmol/L (98-107); GLUCOSE 128 mg/dL (75-110); POTASSIUM 4.3 mmol/L (3.6-5.0)
[2019-06-29] MEDS ORDERED: NORMAL SALINE 1000 ML 1,000 ML IV ONE (02:02)
--- NOTE | 2019-06-29 02:15 | ER Document Report ---
ED General - General Chief Complaint: Psych Problem Stated Complaint: PSYCH Time Seen by Provider: 06/28/19 23:21 TRAVEL OUTSIDE OF THE [place] IN LAST 30 DAYS: No - HPI Notes: Mr. Ward is a 49-year-old homeless male with a history of alcohol abuse and schizoaffective disorder who had been admitted to the hospitalist service through the emergency department on 06/26/2019 because of altered mental status h yponatremia and hypomagnesemia. He was apparently allowed to sign himself out AMA around 9:30 AM on 12/29/2019 although review of the physician's note does not really provide any substantial details. This man returned to the emergency department late in the evening on 06/28/2019 and was triaged to the psychiatric holding area for mental health evaluation because 1 nurses stated that he made a comment about not wishing to live although he did not express any specific suicidal ideation. When I saw this man he was very drowsy and difficult to arouse. He was oriented to person and place but not to time and conversation with mostly confabulation with little factual information obtainable. I went back through a lot of old medical records here and this man is a frequent visitor to the emergency department. He has been admitted on at least one other occasion with significant hyponatremia and hypomagnesemia and had similar findings of altered mental status. I note that within the last 24 hours he has had a normal chest x-ray and a normal head CT also. - Related Data Allergies/Adverse Reactions: olanzapine [From Zyprexa] Allergy (Verified 06/27/19 14:39) metformin Adverse Reaction (Verified 06/27/19 14:39) Past Medical History - General Information source: Patient, [facility] Records - Social History Smoking Status: Current Every Day Smoker Family History: Reviewed & Not Pertinent, CVA, DM, Hypertension Patient has suicidal ideation: Yes Patient has homicidal ideation: No Pulmonary Medical History: Reports: Hx Bronchitis, Hx COPD Endocrine Medical History: Reports: Hx Diabetes Mellitus Type 2 Renal/ Medical History: Denies: Hx Peritoneal Dialysis Skin Medical History: Reports Hx Cellulitis Psychiatric Medical History: Reports: Hx Bipolar Disorder, Hx Depression, Hx Schizoaffective Disorder, Hx Schizophrenia - Immunizations Immunizations up to date: Yes Hx Diphtheria, Pertussis, Tetanus Vaccination: Yes Review of Systems - Review of Systems -: Yes ROS unobtainable due to patient's medical condition Physical Exam - Vital signs Vitals: Temp Pulse Resp BP Pulse Ox 98.1 F 96 24 H 166/86 H 96 06/28/19 22:16 06/28/19 22:16 06/28/19 22:16 06/28/19 22:16 06/28/19 22:16 - Notes Notes: GENERAL: Chronically ill-appearing middle-age male. Very sleepy and slurred sp eech but no obvious odor of alcohol. Disheveled appearance. SKIN: Good turgor no rashes. HEAD: Normocephalic atraumatic. EYES: PERRLA. EOMI. Conjunctivae and sclerae clear. EARS: CANALS AND TMS CLEAR. NOSE: CLEAR. MOUTH: Moist mucosa. Good dentition. No stridor or edema. No drooling. NECK: Supple. No masses or thyromegaly. No adenopathy. Carotids 2+ without bruits. No JVD. BACK: Symmetrical without tenderness. CHEST: Respirations unlabored. Breath sounds clear and symmetrical. HEART: Tachycardic. Regular rhythm. No murmur gallop or rub. ABDOMEN: Soft nontender without masses, organomegaly or rebound. Bowel sounds normally active. No bruits. GENITALIA: Deferred. EXTREMITIES: No edema. No calf tenderness. Cap refill less than 1.5 seconds. Dorsalis pedis and posterior tibial pulses 3+ and symmetrical. NEUROLOGICAL: GCS 13. Oriented to person only. Eyes closed but open to loud verbal stimuli. Follows commands. Very slurred speech. Cranial nerves II thro ugh XII intact. Sensation and motor function grossly intact with no lateralization. Diffuse hyperreflexia. Course - Vital Signs Vital signs: Temp Pulse Resp BP Pulse Ox 98.1 F 81 20 166/86 H 92 06/29/19 02:28 06/29/19 02:28 06/29/19 02:28 06/28/19 22:16 06/29/19 02:28 - Laboratory Result Diagrams: 06/29/19 01:00 06/29/19 01:00 Laboratory results interpreted by me: 06/29/19 06/29/19 06/29/19 01:00 01:00 02:32 WBC 12.4 H Lymph % (Auto) 10.6 L Absolute Neuts (auto) 10.2 H Seg Neutrophils % 81.9 H Carbonic Acid 1.51 H ABG pCO2 50.3 H ABG pO2 66.4 L ABG HCO3 28.0 H ABG Total CO2 29.6 H ABG O2 Saturation 92.3 L Sodium 125.9 L Chloride 91 L BUN 5 L Creatinine 0.41 L Glucose 128 H Acetaminophen < 10 L Discharge - Discharge Clinical Impression: Hyponatremia Altered mental status Qualifiers: Altered mental status type: unspecified Qualified Code(s): R41.82 - Altered mental status, unspecified Condition: Fair Disposition: ADMITTED INPATIENT Admitting Provider: cecily Unit Admitted: Medical Floor
[2019-06-29] MEDS: MAGNESIUM SULFATE/D5W 1 GM/100 ML RTUPB IV SCH ×2 (02:44→03:32)
[2019-06-29 02:52] LABS: ARTERIAL BLOOD BASE EXCESS 1.8 mmol/L; ARTERIAL BLOOD H2CO3 1.51 mmol/L (1.05-1.35); ARTERIAL BLOOD O2 SATURATION 92.3 % (94-98); ARTERIAL BLOOD PCO2 50.3 mmHg (35-45); ARTERIAL BLOOD PH 7.36 (7.35-7.45); ARTERIAL BLOOD PO2 66.4 mmHg (80-100); ARTERIAL BLOOD TOTAL CO2 29.6 mmol/L (23-27)
[2019-06-29 03:01] LABS: ARTERIAL BLOOD FIO2 ROOM AIR
[2019-06-29] MEDS ORDERED: ACETAMINOPHEN 325 MG TABLET PO PRN (03:43)
[2019-06-29] MEDS ORDERED: ONDANSETRON 4 MG TAB.RAPDIS PO PRN (03:43)
[2019-06-29] MEDS ORDERED: NORMAL SALINE 1000 ML 1,000 ML IV PRN (03:43)
[2019-06-29] MEDS ORDERED: ONDANSETRON HCL INJ/PF 4 MG/2 ML SDV IV PRN (03:43)
--- NOTE | 2019-06-29 03:58 | PDOC H&P ---
History of Present Illness History of Present Illness: TINY MCCLAIN is a 49 year old male with past medical history significant for schizoaffective disorder, chronic hyponatremia, poor medication compliance, COPD, TIA, NV, asthma who presents with a complaint of "I just want to get my Haldol shot and leave". He states he has no current complaints and only came to the ER because he wanted to get his Haldol shot. He is fully alert and oriented x4 and answers all questions appropriately. He ambulates to the bathroom without oxygen and without assistance. He states he is not short of breath at rest or on exertion. Upon chart review, it seems that he has been continued on his Celexa many times in the past despite having significant hyponatremia. This medication will be stopped and should not be restarted in the future. He states he agrees to stay in the hospital this time until his sodium is corrected. Past Medical History Cardiac Medical History: Reports: Myocardial Infarction, Hypertension Pulmonary Medical History: Reports: Bronchitis, Chronic Obstructive Pulmonary Disease (COPD) Endocrine Medical History: Reports: Diabetes Mellitus Type 2 Psychiatric Medical History: Reports: Bipolar Disorder, Depression, Schizoaffective Disorder Social History Lives with: Alone, Homeless Smoking Status: Current Every Day Smoker Frequency of Alcohol Use: Heavy Hx Recreational Drug Use: Yes Drugs: Marijuana Hx Prescription Drug Abuse: No - Advance Directive Resuscitation Status: Full Code Surrogate healthcare decision maker:: None Family History Family History: Reviewed & Not Pertinent, CVA, DM, Hypertension Parental Family History Reviewed: Yes Children Family History Reviewed: Yes Sibling(s) Family History Reviewed.: Yes Medication/Allergy Home Medications: Atorvastatin Calcium [Lipitor] 80 mg PO QHS 05/01/19 Citalopram Hydrobromide [Celexa 20 mg Tablet] 20 mg PO DAILY #30 tablet 06/25/19 Clopidogrel Bisulfate [Plavix 75 mg Tablet] 75 mg PO DAILY #30 tablet 06/25/19 Lisinopril [Prinivil 5 mg Tablet] 5 mg PO DAILY #30 tablet 06/25/19 Albuterol Sulfate [Ventolin Hfa 8 gm Mdi (1 Mdi/ER Disp)] 2 puff IH Q6HP PRN Benztropine Mesylate [Cogentin 1 mg Tablet] 2 mg PO QHS 06/27/19 Fluticasone/Salmeterol [Advair 250-50 Diskus 14 Dose/Diskus] 1 inh IH Q12 06/27/19 Gabapentin [Neurontin 100 mg Capsule] 100 mg PO Q8 06/27/19 Haloperidol [Haldol 5 mg Tablet] 15 mg PO QHS 06/27/19 Sitagliptin Phosphate [Januvia 25 mg Tablet] 25 mg PO DAILY 06/27/19 Trazodone HCl 50 mg PO HSP PRN 06/27/19 Allergies/Adverse Reactions: olanzapine [From Zyprexa] Allergy (Verified 06/27/19 14:39) metformin Adverse Reaction (Verified 06/27/19 14:39) Review of Systems All systems: reviewed and no additional remarkable complaints except as stated - No complaints Physical Exam Vital Signs: Temp Pulse Resp BP Pulse Ox 98.1 F 81 20 166/86 H 92 06/29/19 02:28 06/29/19 02:28 06/29/19 02:28 06/28/19 22:16 06/29/19 02:28 Intake & Output 06/27/19 06/28/19 06/29/19 06:59 06:59 06:59 Intake Total 100 Balance 100 Weight 89 kg General appearance: PRESENT: no acute distress, cooperative, disheveled, obese, well-developed, well-nourished Head exam: PRESENT: atraumatic, normocephalic Eye exam: PRESENT: conjunctiva pink Mouth exam: PRESENT: moist Respiratory exam: PRESENT: clear to auscultation joseph, wheezes - Scant wheezing. ABSENT: rales, rhonchi Cardiovascular exam: PRESENT: RRR. ABSENT: diastolic murmur, rubs, systolic murmur GI/Abdominal exam: PRESENT: normal bowel sounds, soft. ABSENT: distended, guarding, mass, organolmegaly, rebound, tenderness Rectal exam: PRESENT: deferred Musculoskeletal exam: PRESENT: ambulatory Neurological exam: PRESENT: alert, awake, oriented to person, oriented to place, oriented to time, oriented to situation, normal gait Psychiatric exam: PRESENT: flat affect, normal mood Skin exam: PRESENT: dry, intact, warm Results Laboratory Results: 06/29/19 01:00 06/29/19 01:00 06/28/19 06/29/19 06/29/19 23:50 01:00 01:00 WBC 12.4 H RBC 4.49 Hgb 14.1 Hct 39.8 MCV 89 MCH 31.4 MCHC 35.5 RDW 13.4 Plt Count 368 Seg Neutrophils % 81.9 H Carbonic Acid HCO3/H2CO3 Ratio ABG pH ABG pCO2 ABG pO2 ABG HCO3 ABG O2 Saturation ABG Base Excess FiO2 Sodium 125.9 L Potassium 4.3 Chloride 91 L Carbon Dioxide 27 Anion Gap 8 BUN 5 L Creatinine 0.41 L Est GFR ( Amer) > 60 Glucose 128 H Calcium 9.0 Total Bilirubin 0.7 AST 44 Alkaline Phosphatase 69 Total Protein 7.0 Albumin 4.3 Urine Color COLORLESS Urine Appearance CLEAR Urine pH 7.0 Ur Specific [place] 1.003 Urine Protein NEGATIVE Urine Glucose (UA) NEGATIVE Urine Ketones NEGATIVE Urine Blood NEGATIVE Urine RBC (Auto) 1 06/29/19 02:32 WBC RBC Hgb Hct MCV MCH MCHC RDW Plt Count Seg Neutrophils % Carbonic Acid 1.51 H HCO3/H2CO3 Ratio 18:1 ABG pH 7.36 ABG pCO2 50.3 H ABG pO2 66.4 L ABG HCO3 28.0 H ABG O2 Saturation 92.3 L ABG Base Excess 1.8 FiO2 ROOM AIR Sodium Potassium Chloride Carbon Dioxide Anion Gap BUN Creatinine Est GFR ( Amer) Glucose Calcium Total Bilirubin AST Alkaline Phosphatase Total Protein Albumin Urine Color Urine Appearance Urine pH Ur Specific [place] Urine Protein Urine Glucose (UA) Urine Ketones Urine Blood Urine RBC (Auto) Assessment and Plan - Diagnosis (1) Hyponatremia Is this a current diagnosis for this admission?: Yes Plan: Per records this appears to be an acute on chronic condition Stop Celexa, recommend not restarting this medication as this is likely the cause of his hyponatremia IV normal saline Recheck BMP (2) COPD (chronic obstructive pulmonary disease) Is this a current diagnosis for this admission?: Yes Plan: States he just refilled his Advair and albuterol Add Spiriva at discharge, added ipratropium nebs while inpatient Not in exacerbation (3) Hypertension Is this a current diagnosis for this admission?: Yes Plan: Continue home medications (4) Medication refill Is this a current diagnosis for this admission?: Yes Plan: Patient is requesting his Haldol shot prior to discharge (5) Tobacco abuse Is this a current diagnosis for this admission?: Yes Plan: Continues to smoke, counseled to quit - Time Time Spent with patient: 35 or more minutes Smoking Cessation Education: 3 to 10 minutes Medications reviewed and adjusted accordingly: Yes Within: within 48 hours
--- NOTE | 2019-06-29 03:58 | ADVANCED CARE ---
- Diagnosis (1) Hyponatremia Diagnosis Current: Yes (2) COPD (chronic obstructive pulmonary disease) Diagnosis Current: Yes (3) Hypertension Diagnosis Current: Yes (4) Medication refill Diagnosis Current: Yes (5) Tobacco abuse Diagnosis Current: Yes Attendance: Patient Resuscitation Status: Full Code Discussion: All aspects of CODE STATUS discussed including chest compressions, cardioversion, intubation and patient states she would like to be full code. Time Spent: 17 minutes
[2019-06-29 06:51] LABS: ANION GAP 9 (5-19); BLOOD UREA NITROGEN 5 mg/dL (7-20); CALCIUM 8.8 mg/dL (8.4-10.2); CARBON DIOXIDE 29 mmol/L (22-30); CHLORIDE 91 mmol/L (98-107); GLUCOSE 129 mg/dL (75-110); POTASSIUM 4.6 mmol/L (3.6-5.0)
--- NOTE | 2019-06-29 07:49 | EKG REPORT ---
SEVERITY:- ABNORMAL ECG - SINUS TACHYCARDIA PROLONGED QT INTERVAL NONSPECIFIC LATERAL ST-T CHANGES : Confirmed by: Andrew Dumont MD 29-Jun-2019 07:48:00
[2019-06-29] MEDS ORDERED: IPRATROPIUM BROMIDE 0.02% NEB 0.5 MG/2.5 ML AMPUL NEB SCH (08:00)
[2019-06-29 08:22] VITALS: BP 142/77
[2019-06-29] MEDS ORDERED: ENOXAPARIN SODIUM INJ 40 MG/0.4 ML DISP.SYRIN SUBCUT SCH (10:00)
--- NOTE | 2019-06-29 15:24 | Left Against Medical Advice ---
Against Medical Advice Admission Date/Time: 06/29/19 04:09 Primary Care Provider: Date of Patient Emigration: 06/29/19 - Diagnosis: (1) Hyponatremia Is this a current diagnosis for this admission?: Yes (2) COPD (chronic obstructive pulmonary disease) Is this a current diagnosis for this admission?: Yes (3) Hypertension Is this a current diagnosis for this admission?: Yes (4) Medication refill Is this a current diagnosis for this admission?: Yes (5) Tobacco abuse Is this a current diagnosis for this admission?: Yes - Summary: Summary: Please see Admission and Progress Notes as well. TINY MCCLAIN is a 49 M, who LEFT AGAINST MEDICAL ADVICE. The Patient was admitted on 06/29/19 04:09.
== END 2019-06-29 10:12 | disposition left against medical advice (07) ==
LOC: ER 22:07 → EH 06-29 04:09 → INTOOBSV 06-29 04:09 → 3W 06-29 05:32
PROVIDERS: ADMIT Internal Medicine; ATTEND Internal Medicine
DX: E87.1 Hypo-osmolality and hyponatremia (principal); J44.9 Chronic obstructive pulmonary disease, unspecified; I10 Essential (primary) hypertension; Z76.0 Encounter for issue of repeat prescription; F17.200 Nicotine dependence, unspecified, uncomplicated; F25.9 Schizoaffective disorder, unspecified; E11.9 Type 2 diabetes mellitus without complications; E66.9 Obesity, unspecified; F10.11 Alcohol abuse, in remission; R00.0 Tachycardia, unspecified; R47.81 Slurred speech; R41.82 Altered mental status, unspecified; R29.2 Abnormal reflex; I25.2 Old myocardial infarction; Z86.73 Personal history of transient ischemic attack (TIA), and cerebral infarction without residual deficits; Z59.0 Homelessness; Z82.3 Family history of stroke; Z83.3 Family history of diabetes mellitus; Z82.49 Family history of ischemic heart disease and other diseases of the circulatory system
CPT/HCPCS: 93005; 99283; 99285; 96365; 36415; 80307 ×3; 82140; 82803; 85025; 80053; 81001; 93010; 94640; G0378 ×2; J1650; J3475; J7030; J3490

== ENCOUNTER 2019-06-29 23:54 | Emergency (ER) | payer MEDICARE, MEDICAID ==
[2019-06-30] VITALS: BP 132/60
[2019-06-30] MEDS ORDERED: ACETAMINOPHEN 325 MG TABLET PO ONE (00:36)
--- NOTE | 2019-06-30 00:37 | ER Document Report ---
HPI - HPI Time Seen by Provider: 06/30/19 00:31 Notes: Patient is a 49-year-old male presenting to the emergency department with complaints of bilateral leg pain. Patient frequently comes to our facility with this complaint. He is also homeless. He reports it is cold outside. Patient denies any direct trauma to his legs, denies any new injury. He is able to ambulate on his legs without difficulty. - REPRODUCTIVE Reproductive: DENIES: : Past Medical History - General Information source: Patient - Social History Smoking Status: Never Smoker Frequency of alcohol use: Heavy Drug Abuse: None Family History: Reviewed & Not Pertinent, CVA, DM, Hypertension - Past Medical History Cardiac Medical History: Reports: Hx Heart Attack, Hx Hypertension Pulmonary Medical History: Reports: Hx Bronchitis, Hx COPD Endocrine Medical History: Reports: Hx Diabetes Mellitus Type 2 Renal/ Medical History: Denies: Hx Peritoneal Dialysis Skin Medical History: Reports Hx Cellulitis Psychiatric Medical History: Reports: Hx Bipolar Disorder, Hx Depression, Hx Schizoaffective Disorder, Hx Schizophrenia - Immunizations Immunizations up to date: Yes Hx Diphtheria, Pertussis, Tetanus Vaccination: Yes Vertical Provider Document - CONSTITUTIONAL Notes: PHYSICAL EXAMINATION: GENERAL: Well-appearing, well-nourished and in no acute distress. HEAD: Atraumatic, normocephalic. EYES: Pupils equal round extraocular movements intact, conjunctiva are normal. ENT: Nares patent NECK: Normal range of motion LUNGS: No respiratory distress Musculoskeletal: Normal range of motion, no obvious injury or trauma to bilateral legs. NEUROLOGICAL: Normal speech, normal gait. PSYCH: Normal mood, normal affect. SKIN: Warm, Dry, normal turgor, no rashes or lesions noted. - INFECTION CONTROL TRAVEL OUTSIDE OF THE [place] IN LAST 30 DAYS: No Course - Re-evaluation Re-evalutation: Patient ambulated into the triage room with a stable and steady gait. No obvious injury or trauma noted to his legs. He will be given a dose of acetaminophen and discharged in stable condition. - Vital Signs Vital signs: Temp Pulse Resp BP Pulse Ox 97.5 F 70 20 132/60 H 96 06/29/19 23:59 06/29/19 23:59 06/29/19 23:59 06/29/19 23:59 06/29/19 23:59 Discharge - Discharge Clinical Impression: Chronic pain of lower extremity, bilateral, Homelessness Condition: Stable Disposition: HOME, SELF-CARE Additional Instructions: Please continue to take all medications as prescribed. Return to the emergency department for any life-threatening complaints.
== END 2019-06-30 00:47 | disposition home or self-care (01) ==
LOC: ER 23:54
DX: G89.29 Other chronic pain (principal); M79.605 Pain in left leg; M79.604 Pain in right leg; I10 Essential (primary) hypertension; I25.2 Old myocardial infarction; E11.9 Type 2 diabetes mellitus without complications; J44.9 Chronic obstructive pulmonary disease, unspecified; Z59.0 Homelessness
CPT/HCPCS: 99283; A9270

== ENCOUNTER 2019-07-02 23:51 | Emergency (ER) | payer MEDICARE, MEDICAID ==
[2019-07-03 00:01] VITALS: BP 130/86
--- NOTE | 2019-07-03 00:28 | ER Document Report ---
HPI - HPI Pain Level: Denies Notes: Patient is a 49-year-old male well-known to the emergency department, homeless, who presents for evaluation of his left foot pain that is chronic in nature. Patient states that he was out in the cold recently and wanted it looked at. He has not noticed any blistering, redness, bruising, or injury. He is able to eat and drink without difficulty. He is urinating normally and having normal bowel movements. No other concerns or complaints. Denies any headache, fever, neck pain, URI, sore throat, chest pain, palpitations, syncope, cough, shortness of breath, wheeze, dyspnea, abdominal pain, nausea/vomiting/diarrhea, urinary retention, dysuria, hematuria, loss of control of bowel or bladder, numbness/tingling, muscle paralysis, or rash. - ROS Systems Reviewed and Negative: Yes All other systems reviewed and negative - REPRODUCTIVE Reproductive: DENIES: : Past Medical History - Social History Smoking Status: Never Smoker Family History: Reviewed & Not Pertinent, CVA, DM, Hypertension Patient has suicidal ideation: No Patient has homicidal ideation: No - Past Medical History Cardiac Medical History: Reports: Hx Heart Attack, Hx Hypertension Pulmonary Medical History: Reports: Hx Bronchitis, Hx COPD Endocrine Medical History: Reports: Hx Diabetes Mellitus Type 2 Renal/ Medical History: Denies: Hx Peritoneal Dialysis Skin Medical History: Reports Hx Cellulitis Psychiatric Medical History: Reports: Hx Bipolar Disorder, Hx Depression, Hx Schizoaffective Disorder, Hx Schizophrenia - Immunizations Immunizations up to date: Yes Hx Diphtheria, Pertussis, Tetanus Vaccination: Yes Vertical Provider Document - CONSTITUTIONAL Agree With Documented VS: Yes Notes: PHYSICAL EXAMINATION: GENERAL: Well-appearing, well-nourished and in no acute distress. LUNGS: Breath sounds clear to auscultation bilaterally and equal. No wheezes rales or rhonchi. HEART: Regular rate and rhythm without murmurs, rubs, gallops. Musculoskeletal: Lt foot/ankle: No ecchymosis or deformity. FROM to passive/active. Strength 5+/5. N/V intact distal. No bony tenderness of the foot/ankle. Achilles intact. Lis Franc maneuver neg. Anterior drawer neg. Extremities: No cyanosis, clubbing, or edema b/l. Peripheral pulses 2+. Capillary refill less than 3 seconds. NEUROLOGICAL: Normal speech, normal gait. Normal sensory, motor exams PSYCH: Normal mood, normal affect. SKIN: Warm, Dry, normal turgor, no rashes or lesions noted. - INFECTION CONTROL TRAVEL OUTSIDE OF THE [place] IN LAST 30 DAYS: No Course - Re-evaluation Re-evalutation: 07/03/19 00:30 Patient is an afebrile, well-hydrated, 49yo male who presents to the ED with chronic foot pain, w/o acute findings today. Vitals are acceptable without any significant tachycardia, tachypnea, or hypoxia. PE is otherwise unremarkable for any neurovascular compromise, obvious tendon/ligament rupture, obvious fracture/dislocation, septic joint. Patient is nontoxic-appearing. New socks given today. No other labs or imaging warranted at this time based on H&P. Conservative measures otherwise for symptoms. Recheck with your PCM in 3-5 days. Return to the ED with any worsening/concerning symptoms otherwise as reviewed in discharge. Patient is in agreement. - Vital Signs Vital signs: Temp Pulse Resp BP Pulse Ox 97.7 F 82 20 130/86 H 95 07/02/19 23:59 07/02/19 23:59 07/02/19 23:59 07/02/19 23:59 07/02/19 23:59 Discharge - Discharge Clinical Impression: Left foot pain Condition: Stable Disposition: HOME, SELF-CARE Additional Instructions: Rest, Ice, Compression, Elevation Tylenol/ibuprofen as needed Light stretches daily Strength exercises as able Moist heat and massage may help F/u with your PCP in 3-5 days for a recheck Consider consult(s) with Orthopedics/physical therapy for ongoing/worsening symptoms Keep consult with your mental health provider. Use integrated family services needed. Return to the ED with any worsening symptoms and/or development of fever, headache, chest pain, palpitations, syncope, shortness of breath, trouble breathing, abdominal pain, n/v/d, muscle weakness/paralysis, numbness/tingling, swelling, redness, or other worsening symptoms that are concerning to you. Forms: Elevated Blood Pressure Referrals: [facility] [Provider Group] - Follow up as needed [facility] [Provider Group] - Follow up as needed
== END 2019-07-03 00:30 | disposition home or self-care (01) ==
LOC: ER 23:51
DX: G89.29 Other chronic pain (principal); M79.672 Pain in left foot; E11.9 Type 2 diabetes mellitus without complications; I10 Essential (primary) hypertension; J44.9 Chronic obstructive pulmonary disease, unspecified; Z59.0 Homelessness; I25.2 Old myocardial infarction
CPT/HCPCS: 99283

== ENCOUNTER 2019-07-05 07:05 | Emergency (ER) | payer MEDICARE, MEDICAID ==
[2019-07-05 07:41] VITALS: BP 135/89
== END 2019-07-05 07:30 | disposition left against medical advice (07) ==
LOC: ER 07:05
DX: Z53.21 Procedure and treatment not carried out due to patient leaving prior to being seen by health care provider (principal)

== ENCOUNTER 2019-07-06 00:54 | Emergency (ER) | payer MEDICARE, MEDICAID ==
[2019-07-06 02:52] LABS: ABSOLUTE BASOPHILS # (AUTO) 0.1 10^3/uL (0.0-0.2); ABSOLUTE EOSINOPHILS # (AUTO) 0.1 10^3/uL (0.0-0.6); ABSOLUTE LYMPHOCYTES (AUTO) 1.8 10^3/uL (0.5-4.7); ABSOLUTE MONOCYTES (AUTO) 0.6 10^3/uL (0.1-1.4); ABSOLUTE NEUT (AUTO) 3.9 10^3/uL (1.7-8.2); BASOPHILS % (AUTO) 1.1 % (0-2); HEMATOCRIT 34.8 % (37.9-51.0); HEMOGLOBIN 12.5 g/dL (13.5-17.0); LYMPHOCYTES % (AUTO) 27.6 % (13-45); MEAN CORPUSCULAR HEMOGLOBIN 31.6 pg (27.0-33.4); MEAN CORPUSCULAR VOLUME 88 fl (80-97); MONOCYTES % (AUTO) 9.3 % (3-13); PLATELET COUNT 327 10^3/uL (150-450); RED BLOOD COUNT 3.97 10^6/uL (4.35-5.55); RED CELL DISTRIBUTION WIDTH 13.4 % (11.5-14.0); TOTAL CELLS COUNTED % (AUTO) 100 %; WHITE BLOOD COUNT 6.4 10^3/uL (4.0-10.5)
[2019-07-06 02:59] LABS: ALBUMIN 3.1 g/dL (3.5-5.0); ALKALINE PHOSPHATASE 51 U/L (38-126); ANION GAP 6 (5-19); ASPARTATE AMINO TRANSFERASE 38 U/L (17-59); BILIRUBIN,DIRECT 0.2 mg/dL (0.0-0.4); BILIRUBIN,TOTAL 0.5 mg/dL (0.2-1.3); BLOOD UREA NITROGEN 8 mg/dL (7-20); CALCIUM 8.9 mg/dL (8.4-10.2); CARBON DIOXIDE 29 mmol/L (22-30); CHLORIDE 95 mmol/L (98-107); GLUCOSE 104 mg/dL (75-110); TOTAL PROTEIN 5.7 g/dL (6.3-8.2)
[2019-07-06 03:01] LABS: ACETAMINOPHEN < 10 ug/mL (10-30); ALCOHOL < 10 mg/dL (NONE DETECTED); SALICYLATE < 1.0 mg/dL (2.0-20.0)
[2019-07-06 05:56] VITALS: BP 174/84
--- NOTE | 2019-07-06 18:23 | EKG REPORT ---
SEVERITY:- NORMAL ECG - SINUS RHYTHM : Confirmed by: Flor Logan 06-Jul-2019 18:21:26
--- NOTE | 2019-07-11 09:15 | ER Document Report ---
Entered by MARINO MCCLAIN SCRIBE 07/06/19 0435 Acting as scribe for:SAY HALE IV, MD ED General - General Chief Complaint: Pain All Over Stated Complaint: ALL OVER BODY PAIN Time Seen by Provider: 07/06/19 04:22 Primary Care Provider: TERA CUNNINGHAM MD [HONORARY] - Follow up as needed Mode of Arrival: Medic Information source: Patient Notes: 49-year-old male presents to the emergency department via EMS complaining of pain "all over". Patient requested to be tested for HIV due to his pain. Patient admitted to drinking a small bottle of vodka to EMS. TRAVEL OUTSIDE OF THE [place] IN LAST 30 DAYS: No - Related Data Allergies/Adverse Reactions: olanzapine [From Zyprexa] Allergy (Verified 07/03/19 00:22) metformin Adverse Reaction (Verified 07/03/19 00:22) Past Medical History - Social History Smoking Status: Current Every Day Smoker Cigarette use (# per day): Yes Chew tobacco use (# tins/day): No Family History: Reviewed & Not Pertinent, CVA, DM, Hypertension Patient has suicidal ideation: No Patient has homicidal ideation: No - Past Medical History Cardiac Medical History: Reports: Hx Heart Attack, Hx Hypertension Pulmonary Medical History: Reports: Hx Bronchitis, Hx COPD Endocrine Medical History: Reports: Hx Diabetes Mellitus Type 2 Skin Medical History: Reports Hx Cellulitis Psychiatric Medical History: Reports: Hx Bipolar Disorder, Hx Depression, Hx Schizoaffective Disorder, Hx Schizophrenia Surgical Hx: Negative - Immunizations Immunizations up to date: Yes Hx Diphtheria, Pertussis, Tetanus Vaccination: Yes Review of Systems - Review of Systems Constitutional: No symptoms reported EENT: No symptoms reported Cardiovascular: No symptoms reported Respiratory: No symptoms reported Gastrointestinal: See HPI, Abdominal pain Genitourinary: No symptoms reported Male Genitourinary: No symptoms reported Musculoskeletal: See HPI, Back pain, Muscle pain Skin: No symptoms reported Hematologic/Lymphatic: No symptoms reported Neurological/Psychological: No symptoms reported -: Yes All other systems reviewed and negative Physical Exam - Vital signs Vitals: Resp Pulse Ox 23 H 97 07/06/19 01:09 07/06/19 01:09 - Notes Notes: Physical Exam: General: Alert, appears well. HEENT: Normocephalic. Atraumatic. PERRL. Extraocular movements intact. Orop harynx clear. Neck: Supple. Non-tender. Respiratory: No respiratory distress. Clear and equal breath sounds bilaterally. Protecting airway. Cardiovascular: Regular rate and rhythm. Abdominal: Normal Inspection. Non-tender. No distension. Normal Bowel Sounds. Back: No gross abnormalities. Extremities: Moves all four extremities. Upper extremities: Normal inspection. Normal ROM. Lower extremities: Normal inspection. No edema. Normal ROM. Neurological: Normal cognition. AAOx4. Normal speech. Psychological: Normal affect. Normal Mood. Skin: Warm. Dry. Normal color. Course - Vital Signs Vital signs: Temp Pulse Resp BP Pulse Ox 98.0 F 23 H 165/88 H 91 L 07/06/19 01:11 07/06/19 03:01 07/06/19 04:01 07/06/19 04:01 - Laboratory Result Diagrams: 07/06/19 01:11 07/06/19 01:11 Laboratory results interpreted by me: 07/06/19 07/06/19 01:11 01:11 RBC 3.97 L Hgb 12.5 L Hct 34.8 L Sodium 129.5 L Chloride 95 L Creatinine 0.44 L Total Protein 5.7 L Albumin 3.1 L Salicylates < 1.0 L Acetaminophen < 10 L Discharge - Discharge Clinical Impression: Myalgia Condition: Good Disposition: HOME, SELF-CARE Additional Instructions: Return to the Emergency Department without delay if any worse. HOME CARE INSTRUCTIONS & INFORMATION: Thank you for choosing us for your medical needs. We hope you're satisfied with the care you received. After you leave, you must properly care for your problem and, at the same time, observe its progress. Any condition can change. Some illnesses can change rapidly over hours or days. If your condition worsens, return to the Emergency Department or see your physician promptly. ABOUT YOUR X-RAYS AND EKG'S: If you had an EKG or X-rays taken, they have been read by the Emergency Physician. The X-rays and EKG's will also be read by a Radiologist or Roll Plugger Machine Operator within 24 hours. If discrepancies are noted, you will be notified by telephone. Please be certain the ED has a correct telephone number & address where you can be reached. Also, realize that some fractures or abnormalities do not show up on initial X-rays. If your symptoms continue, see your physician. ABOUT YOUR LABORATORY TEST: If you had laboratory tests, the results have been reviewed by the Emergency Physician. Some test results (for example cultures) may not be available for several days. You will be contacted if any test result shows you need additional treatment. Please be certain the ED has a correct telephone number and address where you can be reached. ABOUT YOUR MEDICATIONS: You will receive instructions on how to take your medicine on the prescription label you receive. Additional information may be provided by the Pharmacy. If you have questions afterwards, call the ED for clarification or further instructions. Some prescribed medications may cause drowsiness. Do not perform tasks such as driving a car or operating machinery without consulting your Pharmacist. If you feel you need a refill of pain medication, your condition will need re-evaluation. Please do not call for a refill of any medication. ABOUT YOUR SIGNATURE: Signature of this document acknowledges to followin. Understanding that you received emergency treatment and that you may be released before al medical problems are known or treated. Please be certain the ED has a correct phone number & address where you can be reached. 2. Acknowledgement that you will arrange for follow-up care as recommended. 3. Authorization for the Emergency Physician to provide information to your follow-up Physician in order to maximize your care. AT ANY TIME, IF YOUR SYMPTOMS CHANGE SIGNIFICANTLY OR WORSEN OR YOU DEVELOP NEW SYMPTOMS, RETURN TO THE EMERGENCY DEPARTMENT IMMEDIATELY FOR RE-EVALUATION. OUR GOAL IS TO PROVIDE EXCELLENT MEDICAL CARE! WE HOPE THAT WE HAVE MET YOUR EXPECTATIONS DURING YOUR EMERGENCY DEPARTMENT VISIT AND THAT YOU FEEL YOU HAVE RECEIVED EXCELLENT CARE! Referrals: TERA CUNNINGHAM MD [HONORARY] - Follow up as needed I personally performed the services described in the documentation, reviewed and edited the documentation which was dictated to the scribe in my presence, and it accurately records my words and actions.
== END 2019-07-06 05:56 | disposition home or self-care (01) ==
LOC: ER 00:54
DX: M79.10 Myalgia, unspecified site (principal); M54.9 Dorsalgia, unspecified; R10.9 Unspecified abdominal pain; F10.10 Alcohol abuse, uncomplicated; F17.210 Nicotine dependence, cigarettes, uncomplicated; I10 Essential (primary) hypertension; J44.9 Chronic obstructive pulmonary disease, unspecified; E11.9 Type 2 diabetes mellitus without complications
CPT/HCPCS: 36415; 80053; 80307; 85025; 93005; 93010; 99284

== ENCOUNTER 2019-07-07 12:15 | Emergency (ER) | payer MEDICARE, MEDICAID ==
[2019-07-07] MEDS ORDERED: NALOXONE HCL INJ/PF 0.4 MG/1 ML SDV IV ONE (12:46)
[2019-07-07] MEDS ORDERED: NORMAL SALINE 1000 ML 1,000 ML IV ONE ×2 (12:51→17:10)
[2019-07-07 13:34] LABS: ABSOLUTE BASOPHILS # (AUTO) 0.1 10^3/uL (0.0-0.2); ABSOLUTE EOSINOPHILS # (AUTO) 0.1 10^3/uL (0.0-0.6); ABSOLUTE LYMPHOCYTES (AUTO) 1.5 10^3/uL (0.5-4.7); ABSOLUTE MONOCYTES (AUTO) 0.7 10^3/uL (0.1-1.4); ABSOLUTE NEUT (AUTO) 5.6 10^3/uL (1.7-8.2); BASOPHILS % (AUTO) 1.1 % (0-2); EOSINOPHILS % (AUTO) 0.9 % (0-6); HEMATOCRIT 36.8 % (37.9-51.0); HEMOGLOBIN 12.8 g/dL (13.5-17.0); LYMPHOCYTES % (AUTO) 18.8 % (13-45); MEAN CORPUSCULAR HEMOGLOBIN 30.8 pg (27.0-33.4); MEAN CORPUSCULAR HGB CONC 34.9 g/dL (32.0-36.0); MEAN CORPUSCULAR VOLUME 88 fl (80-97); MONOCYTES % (AUTO) 8.4 % (3-13); PLATELET COUNT 331 10^3/uL (150-450); RED BLOOD COUNT 4.17 10^6/uL (4.35-5.55); RED CELL DISTRIBUTION WIDTH 13.6 % (11.5-14.0); SEGMENTED NEUTROPHILS % (AUTO) 70.8 % (42-78); TOTAL CELLS COUNTED % (AUTO) 100 %; WHITE BLOOD COUNT 7.9 10^3/uL (4.0-10.5)
--- NOTE | 2019-07-07 13:38 | RADIOLOGY REPORT (SQ) ---
EXAM DESCRIPTION: CHEST SINGLE VIEW COMPLETED DATE/TIME: 07/07/2019 1:21 pm REASON FOR STUDY: [facility] [place]PARISON: 06/27/2019 NUMBER OF VIEWS: One view. TECHNIQUE: Single frontal radiographic view of the chest acquired. LIMITATIONS: None. FINDINGS: LUNGS AND PLEURA: No opacities, masses or pneumothorax. No pleural effusion. MEDIASTINUM AND HILAR STRUCTURES: No masses. Contour normal. HEART AND VASCULAR STRUCTURES: Heart normal in size. Normal vasculature. BONES: No acute findings. HARDWARE: None in the chest. OTHER: No other significant finding. IMPRESSION: NO SIGNIFICANT RADIOGRAPHIC FINDING IN THE CHEST. TECHNICAL DOCUMENTATION: JOB ID: [id number] 2010 [employer]- All Rights Reserved Reading location - IP/workstation name: [email or web address]
[2019-07-07 13:51] LABS: ALBUMIN 3.8 g/dL (3.5-5.0); CHLORIDE 92 mmol/L (98-107); POTASSIUM 4.1 mmol/L (3.6-5.0)
[2019-07-07 14:10] LABS: ALKALINE PHOSPHATASE 59 U/L (38-126); ANION GAP 9 (5-19); ASPARTATE AMINO TRANSFERASE 40 U/L (17-59); BILIRUBIN,DIRECT 0.1 mg/dL (0.0-0.4); BILIRUBIN,TOTAL 0.9 mg/dL (0.2-1.3); BLOOD UREA NITROGEN 7 mg/dL (7-20); CALCIUM 8.8 mg/dL (8.4-10.2); CARBON DIOXIDE 26 mmol/L (22-30); GLUCOSE 83 mg/dL (75-110); TOTAL PROTEIN 6.5 g/dL (6.3-8.2)
[2019-07-07 14:11] LABS: ACETAMINOPHEN < 10 ug/mL (10-30); ALCOHOL < 10 mg/dL (NONE DETECTED); SALICYLATE < 1.0 mg/dL (2.0-20.0)
--- NOTE | 2019-07-07 15:54 | ER Document Report ---
ED General - General Chief Complaint: Unresponsive Stated Complaint: UNRESPONSIVE Time Seen by Provider: 07/07/19 12:46 Mode of Arrival: Medic Information source: Emergency Med Personnel Notes: 49-year-old male arrives by EMS with mental status changes patient very somnolent and responsive only to painful stimuli. Patient was found by the roadside TRAVEL OUTSIDE OF THE [place] IN LAST 30 DAYS: No - HPI Onset: Just prior to arrival - Related Data Allergies/Adverse Reactions: olanzapine [From Zyprexa] Allergy (Verified 07/03/19 00:22) metformin Adverse Reaction (Verified 07/03/19 00:22) Past Medical History - General Information source: Emergency Med Personnel Cannot obtain history due to: Altered mental status - Social History Smoking Status: Unknown if Ever Smoked Cigarette use (# per day): No Chew tobacco use (# tins/day): No Smoking Education Provided: No Frequency of alcohol use: Unknown Drug Abuse: Other - Unknown Lives with: Other - Unknown Family History: Reviewed & Not Pertinent, CVA, DM, Hypertension Patient has suicidal ideation: No - Unknown Patient has homicidal ideation: No - Unknown - Past Medical History Cardiac Medical History: Reports: Hx Heart Attack, Hx Hypertension Pulmonary Medical History: Reports: Hx Bronchitis, Hx COPD Endocrine Medical History: Reports: Hx Diabetes Mellitus Type 2 Renal/ Medical History: Denies: Hx Peritoneal Dialysis Skin Medical History: Reports Hx Cellulitis Psychiatric Medical History: Reports: Hx Bipolar Disorder, Hx Depression, Hx Schizoaffective Disorder, Hx Schizophrenia - Immunizations Immunizations up to date: Yes Hx Diphtheria, Pertussis, Tetanus Vaccination: Yes Review of Systems - Review of Systems Constitutional: See HPI, Malaise, Weakness EENT: No symptoms reported Cardiovascular: No symptoms reported Respiratory: No symptoms reported Gastrointestinal: No symptoms reported Genitourinary: No symptoms reported Male Genitourinary: No symptoms reported Musculoskeletal: No symptoms reported Skin: No symptoms reported Hematologic/Lymphatic: No symptoms reported Neurological/Psychological: See HPI, Confusion, Weakness Physical Exam - Vital signs Vitals: Pulse Ox 93 07/07/19 12:18 Interpretation: Hypertensive, Tachycardic - HEENT Head: Normocephalic Eyes: Normal Conjunctiva: Normal Cornea: Normal Extraocular movements intact: Yes Eyelashes: Normal Pupils: PERRL Pharynx: Normal Neck: Normal - Respiratory Respiratory status: No respiratory distress Chest status: Nontender Breath sounds: Normal Chest palpation: Normal - Cardiovascular Rhythm: Regular Heart sounds: Normal auscultation Murmur: No Friction rub: No Teto's crunch: No - Abdominal Inspection: Normal Distension: No distension Bowel sounds: Normal Tenderness: Nontender Organomegaly: No organomegaly - Back Back: Normal - Extremities General upper extremity: Normal inspection General lower extremity: Normal inspection - But can simulate him at home she is he can get up to clean the cat food and her cat boxes - Neurological Neuro grossly intact: Yes Cognition: Normal Orientation: Disoriented to person, Disoriented to place, Disoriented to time [place] Coma Scale Eye Opening: To Pain [place] Coma Scale Verbal: Confused Speech: Other - none Cranial nerves: Normal Motor strength normal: LUE, RUE, LLE, RLE Course - Vital Signs Vital signs: Temp Pulse Resp BP Pulse Ox 98.2 F 85 24 H 184/92 H 91 L 07/07/19 17:39 07/07/19 12:20 07/07/19 12:20 07/07/19 17:35 07/07/19 16:05 - Laboratory Result Diagrams: 07/07/19 13:20 07/07/19 13:20 Laboratory results interpreted by me: 07/07/19 07/07/19 07/07/19 13:20 13:20 17:33 RBC 4.17 L Hgb 12.8 L Hct 36.8 L Sodium 127.0 L Chloride 92 L Creatinine 0.48 L Urine Ketones 20 H Urine Blood MODERATE H Salicylates < 1.0 L Acetaminophen < 10 L Critical Care Note - Critical Care Note Total time excluding time spent on procedures (mins): 90 Comments: Patient awoke by 1800 and was ready to leave the facility. I noticed he had been here every day to the ER for 10 days in a row. He has multiple visits for similar symptoms. He has history of schizoaffective disorder Discharge - Discharge Clinical Impression: Acute mental status change, Schizoaffective disorder Condition: Good Disposition: HOME, SELF-CARE Additional Instructions: Follow-up with personal doctor and with mental health doctor on Tuesday return to ER as needed encourage fluids take medicines as directed; if you are around any devices that put off carbon monoxide try to avoid these (like a gas stove or automobile exhaust.)
--- NOTE | 2019-07-07 16:21 | RADIOLOGY REPORT (SQ) ---
EXAM DESCRIPTION: CHEST SINGLE VIEW COMPLETED DATE/TIME: 07/07/2019 4:08 pm REASON FOR STUDY: ms changes COMPARISON: 07/07/2019 EXAM PARAMETERS: NUMBER OF VIEWS: One view. TECHNIQUE: Single frontal radiographic view of the chest acquired. RADIATION DOSE: NA LIMITATIONS: None. FINDINGS: LUNGS AND PLEURA: No opacities, masses or pneumothorax. No pleural effusion. MEDIASTINUM AND HILAR STRUCTURES: No masses. Contour normal. HEART AND VASCULAR STRUCTURES: Heart normal in size. Normal vasculature. BONES: No acute findings. HARDWARE: None in the chest. OTHER: No other significant finding. IMPRESSION: NO ACUTE RADIOGRAPHIC FINDING IN THE CHEST. TECHNICAL DOCUMENTATION: JOB ID: [id number] 2010 [employer]- All Rights Reserved Reading location - IP/workstation name: [email or web address]
--- NOTE | 2019-07-07 16:23 | RADIOLOGY REPORT (SQ) ---
EXAM DESCRIPTION: CT HEAD WITHOUT COMPLETED DATE/TIME: 07/07/2019 4:12 pm REASON FOR STUDY: ms changes COMPARISON: 06/27/2019 TECHNIQUE: Axial images acquired through the brain without intravenous contrast. Images reviewed wi th bone, brain and subdural windows. Additional sagittal and coronal reconstructions were generated. Images stored on PACS. All CT scanners at this facility use dose modulation, iterative reconstruction, and/or weight based d osing when appropriate to reduce radiation dose to as low as reasonably achievable (ALARA). [facility]: Dose Right [facility]: CareDose [facility]: Dose Right [facility]: Teradose 4D [facility]: Smart [place] RADIATION DOSE: CT Rad equipment meets quality standard of care and radiation dose reduction techniq ues were employed. CTDIvol: 53.2 mGy. DLP: 1150 mGy-cm. mGy. LIMITATIONS: Motion artifact. FINDINGS: VENTRICLES: Normal size and contour. CEREBRUM: No masses. No hemorrhage. No midline shift. No evidence for acute infarction. Normal gra y/white matter differentiation. No areas of low density in the white matter. CEREBELLUM: No masses. No hemorrhage. No alteration of density. No evidence for acute infarction. EXTRAAXIAL SPACES: No fluid collections. No masses. ORBITS AND GLOBE: No intra- or extraconal masses. Normal contour of globe without masses. CALVARIUM: No fracture. PARANASAL SINUSES: No fluid or mucosal thickening. SOFT TISSUES: No mass or hematoma. OTHER: No other significant finding. IMPRESSION: Limited study. No acute intracranial imaging findings. EVIDENCE OF ACUTE STROKE: NO. COMMENT: Quality ID # [id number]: Final reports with documentation of one or more dose reduction techniques (e.g., Automated exposure control, adjustment of the mA and/or kV according to patient size, use of iterative reconstruction technique) TECHNICAL DOCUMENTATION: JOB ID: [id number] 2010 [employer]- All Rights Reserved Reading location - IP/workstation name: [email or web address]
[2019-07-07] MEDS ORDERED: FLUMAZENIL INJ 0.5 MG/5 ML VIAL IV ONE (17:11)
[2019-07-07 18:04] LABS: APPEARANCE,URINE CLEAR; BILIRUBIN,URINE NEGATIVE (NEGATIVE); COLOR,URINE STRAW; GLUCOSE, URINE NEGATIVE (NEGATIVE); KETONES,URINE 20 mg/dL (NEGATIVE); LEUKOCYTE ESTERASE,URINE NEGATIVE (NEGATIVE); NITRITE,URINE NEGATIVE (NEGATIVE); PROTEIN,URINE NEGATIVE (NEGATIVE); URINE SPECIFIC GRAVITY 1.005; UROBILINOGEN,URINE NEGATIVE mg/dL (<2.0)
[2019-07-07 18:10] LABS: URINE AMPHETAMINES SCREEN NEGATIVE; URINE BARBITURATES SCREEN NEGATIVE; URINE BENZODIAZEPINES SCREEN NEGATIVE; URINE COCAINE SCREEN NEGATIVE; URINE MARIJUANA (THC) SCREEN NEGATIVE; URINE METHADONE SCREEN NEGATIVE; URINE PHENCYCLIDINE SCREEN NEGATIVE
[2019-07-07 18:23] VITALS: BP 192/89
== END 2019-07-07 18:23 | disposition home or self-care (01) ==
LOC: ER 12:15
DX: R40.0 Somnolence (principal); R41.0 Disorientation, unspecified; F25.9 Schizoaffective disorder, unspecified; R53.81 Other malaise; R53.1 Weakness; I10 Essential (primary) hypertension; J44.9 Chronic obstructive pulmonary disease, unspecified; E11.9 Type 2 diabetes mellitus without complications; Z88.8 Allergy status to other drugs, medicaments and biological substances; R00.0 Tachycardia, unspecified
CPT/HCPCS: 99291; 99292; 96361; 96374; 96375; 36415; 80307 ×4; 85025; 80053; 81001; 71045; 70450; J3490; J2310; J7030

== ENCOUNTER 2019-07-10 16:12 | Emergency (ER) | payer MEDICARE, MEDICAID ==
[2019-07-10 16:23] VITALS: BP 117/79
--- NOTE | 2019-07-10 16:26 | ER Document Report ---
ED Medical Screen (RME) - General Chief Complaint: Flu Symptoms Stated Complaint: FLU SYMPTOMS Time Seen by Provider: 07/10/19 16:18 Mode of Arrival: Ambulatory Information source: Patient Notes: 49-year-old male presented to ED for complaint of cough cold congestion. He states he is not had a fever. He states everybody in public is talking about his coverage hours so he wanted to come get checked out. I have informed him we do not check people for the covered virus and less they have certain symptoms and have been around somebody who has tested positive. That he is better off to stay home and called the lumbar hotline if he has the symptoms and has a fever. TRAVEL OUTSIDE OF THE [place] IN LAST 30 DAYS: No - HPI Onset: Other Onset/Duration: Gradual - 2 to 3 days Quality of pain: No pain Severity: None Pain Level: Denies Associated Symptoms: Cough (nonproductive) Exacerbated by: Denies Relieved by: Denies Similar symptoms previously: Yes Recently seen / treated by doctor: No - Related Data Smoking: Cigarettes Frequency of alcohol use: Social - Less than a pack a day Drug Abuse: None Allergies/Adverse Reactions: olanzapine [From Zyprexa] Allergy (Verified 07/03/19 00:22) metformin Adverse Reaction (Verified 07/03/19 00:22) Past Medical History - General Information source: Patient - Social History Cigarette use (# per day): Yes Frequency of alcohol use: Social Drug Abuse: None Lives with: Family Family history: Reviewed & Not Pertinent - Past Medical History Cardiac Medical History: Reports: Hx Heart Attack, Hx Hypertension Pulmonary Medical History: Reports: Hx Bronchitis, Hx COPD EENT Medical History: Reports: None Neurological Medical History: Reports: None Endocrine Medical History: Reports: Hx Diabetes Mellitus Type 2 Renal/ Medical History: Reports: None Malignancy Medical History: Reports None GI Medical History: Reports: None Musculoskeltal Medical History: Reports None Skin Medical History: Reports Hx Cellulitis Psychiatric Medical History: Reports: Hx Bipolar Disorder, Hx Depression, Hx Schizoaffective Disorder, Hx Schizophrenia Traumatic Medical History: Reports: None Infectious Medical History: Reports: None Surgical Hx: Negative Past Surgical History: Reports: None - Immunizations Immunizations up to date: Yes Hx Diphtheria, Pertussis, Tetanus Vaccination: Yes Review of Systems - Review of Systems Constitutional: No symptoms reported EENT: Nose discharge, Sinus discharge Cardiovascular: No symptoms reported Respiratory: Cough Gastrointestinal: No symptoms reported Genitourinary: No symptoms reported Male Genitourinary: No symptoms reported Musculoskeletal: No symptoms reported Skin: No symptoms reported Hematologic/Lymphatic: No symptoms reported Neurological/Psychological: No symptoms reported -: Yes All other systems reviewed and negative Physical Exam - Vital signs Vitals: Temp Pulse Resp BP Pulse Ox 97.9 F 84 20 117/79 97 07/10/19 16:20 07/10/19 16:20 07/10/19 16:20 07/10/19 16:20 07/10/19 16:20 Interpretation: Normal - General General appearance: Appears well, Alert - HEENT Head: Normocephalic, Atraumatic Eyes: Normal Pupils: PERRL Ears: Normal External canal: Normal Tympanic membrane: Normal Sinus: Normal Nasal: Purulent discharge, Swelling Mouth/Lips: Normal Pharynx: Post nasal drainage Neck: Normal - Respiratory Respiratory status: No respiratory distress Chest status: Nontender Breath sounds: Normal Chest palpation: Normal - Cardiovascular Rhythm: Regular Heart sounds: Normal auscultation Murmur: No - Abdominal Inspection: Normal Distension: No distension Bowel sounds: Normal Tenderness: Nontender Organomegaly: No organomegaly - Back Back: Normal, Nontender - Extremities General upper extremity: Normal inspection, Nontender, Normal color, Normal ROM, Normal temperature General lower extremity: Normal inspection, Nontender, Normal color, Normal ROM, Normal temperature, Normal weight bearing. No: Kapil's sign - Neurological Neuro grossly intact: Yes Cognition: Normal Orientation: AAOx4 [place] Coma Scale Eye Opening: Spontaneous [place] Coma Scale Verbal: Oriented [place] Coma Scale Motor: Obeys Commands [place] Coma Scale Total: 15 Speech: Normal Motor strength normal: LUE, RUE, LLE, RLE Sensory: Normal - Psychological Associated symptoms: Normal affect, Normal mood - Skin Skin Temperature: Warm Skin Moisture: Dry Skin Color: Normal Course - Vital Signs Vital signs: Temp Pulse Resp BP Pulse Ox 97.9 F 84 20 117/79 97 07/10/19 16:20 07/10/19 16:20 07/10/19 16:20 07/10/19 16:20 07/10/19 16:20 - Diagnostic Test Radiology reviewed: Image reviewed, Reports reviewed Doctor's Discharge - Discharge Clinical Impression: URI (upper respiratory infection) Qualifiers: URI type: unspecified viral URI Qualified Code(s): J06.9 - Acute upper respiratory infection, unspecified Condition: Stable Disposition: HOME, SELF-CARE Additional Instructions: UPPER RESPIRATORY ILLNESS: You have a viral infection of the respiratory passages -- a "cold." This common infection causes nasal congestion, drainage, and often sore throat and cough. It is highly contagious. The disease usually lasts about 10 to 14 days. There is no "cure" for the viral infection -- it must run its course. If there is a complication, such as bacterial infection in the nose, sinuses, middle ear, or bronchial tubes, antibiotics may be required. The antibiotics won't affect the virus. Drink plenty of fluids. A humidifier may help. An expectorant medication or decongestant may make you more comfortable. Use acetaminophen or ibuprofen for fever or aches. See the doctor if fever persists over two days, if there is any significant worsening of your symptoms, or if you simply fail to improve as expected. You have been recommended treatment with Flonase which is [id number] 1 spray each nostril twice a day. You could also use salt soda solution gargles. These will help to remove the drainage from the back your throat. Chloraseptic spray was [id number] that will also help with your sore throat. Salt and soda solution gargle 1 quart of water 1 tablespoon of salt 1 teaspoon of baking soda Mixed 3 ingredients together and boil for 1 minute Placed in a covered quart jar Use 1/2 ounce of cold solution to gargle 3 times a day USE OF ACETAMINOPHEN (Tylenol): Acetaminophen may be taken for pain relief or fever control. It's much safer than aspirin, offering a wider range of "safe" dosages. It is safe during . Some brand names are Tylenol, Panadol, Datril, Anacin 3, Tempra, and Liquiprin. Acetaminophen can be repeated every four hours. The following are maximum recommended dosages: >89 pounds or adults 650 mg to 900 mg Acetaminophen can be repeated every four hours. Maximum dose not to exceed 4000 mg a day. SMOKING: If you smoke, you should stop smoking. The tar and chemicals in cigarette smoke are harmful. Smoking has been shown to cause: emphysema chronic bronchitis lung cancer mouth and throat cancer stomach and pancreas cancer premature aging defects In addition, smoking increases ear and lung infections in children of s mokers. FOLLOW-UP CARE: If you have been referred to a physician for follow-up care, call the physicians office for an appointment as you were instructed or within the next two days. If you experience worsening or a significant change in your symptoms, notify the physician immediately or return to the Emergency Department at any time for re-evaluation. Forms: Smoking Cessation Education
--- NOTE | 2019-07-10 16:45 | RADIOLOGY REPORT (SQ) ---
EXAM DESCRIPTION: CHEST 2 VIEWS COMPLETED DATE/TIME: 07/10/2019 4:32 pm REASON FOR STUDY: cough congestion COMPARISON: Chest films 05/04/2019, 07/07/2019 EXAM PARAMETERS: NUMBER OF VIEWS: two views TECHNIQUE: Digital Frontal and Lateral radiographic views of the chest acquired. RADIATION DOSE: NA LIMITATIONS: none FINDINGS: LUNGS AND PLEURA: No opacities, masses or pneumothorax. No pleural effusion. MEDIASTINUM AND HILAR STRUCTURES: No masses or contour abnormalities. HEART AND VASCULAR STRUCTURES: Heart normal size. No evidence for failure. BONES: No acute findings. HARDWARE: None in the chest. OTHER: No other significant finding. IMPRESSION: NO ACUTE RADIOGRAPHIC FINDING IN THE CHEST. TECHNICAL DOCUMENTATION: JOB ID: [id number] 2010 [employer]- All Rights Reserved Reading location - IP/workstation name: [id number]
[2019-07-10 17:14] LABS: A TYPE INFLUENZA AG NEGATIVE (NEGATIVE); B INFLUENZA AG NEGATIVE (NEGATIVE)
== END 2019-07-10 17:31 | disposition home or self-care (01) ==
LOC: ER 16:12
DX: J06.9 Acute upper respiratory infection, unspecified (principal); R05 Cough; R09.81 Nasal congestion; R50.9 Fever, unspecified; F17.210 Nicotine dependence, cigarettes, uncomplicated; Z88.8 Allergy status to other drugs, medicaments and biological substances; I10 Essential (primary) hypertension; J44.9 Chronic obstructive pulmonary disease, unspecified; E11.9 Type 2 diabetes mellitus without complications
CPT/HCPCS: 71046; 87804; 99283

== ENCOUNTER 2019-07-11 23:12 | Emergency (ER) | payer MEDICARE, MEDICAID ==
[2019-07-11] MEDS ORDERED: BENZONATATE 100 MG CAPSULE PO ONE (23:23)
--- NOTE | 2019-07-11 23:30 | ER Document Report ---
ED General - General Chief Complaint: Cough Stated Complaint: COUGH Time Seen by Provider: 07/11/19 23:21 Mode of Arrival: Medic Information source: Patient, Emergency Med Personnel Notes: 49-year-old male arrives by EMS because of nonproductive cough. Patient was found at [facility] and EMS was called. He is well-known to this facility is being his schizoaffective individual with tendencies to come to the ER on a daily basis; he has been here in this ER greater than 13 times this month. He is actually here more than I am. Patient reports that he continues to smoke and smells quite heavily of nicotine ania smell. Erythema of periorbital skin suggest seasonal allergies and patient is noted to be rubbing them with his knuckles. TRAVEL OUTSIDE OF THE [place] IN LAST 30 DAYS: No - HPI Onset: This morning - Related Data Allergies/Adverse Reactions: olanzapine [From Zyprexa] Allergy (Verified 07/11/19 23:18) metformin Adverse Reaction (Verified 07/11/19 23:18) Past Medical History - General Information source: Patient - Social History Smoking Status: Current Every Day Smoker Cigarette use (# per day): Yes Chew tobacco use (# tins/day): No Smoking Education Provided: Yes Family History: Reviewed & Not Pertinent, CVA, DM, Hypertension - Past Medical History Cardiac Medical History: Reports: Hx Heart Attack, Hx Hypertension Pulmonary Medical History: Reports: Hx Bronchitis, Hx COPD Endocrine Medical History: Reports: Hx Diabetes Mellitus Type 2 Skin Medical History: Reports Hx Cellulitis Psychiatric Medical History: Reports: Hx Bipolar Disorder, Hx Depression, Hx Schizoaffective Disorder, Hx Schizophrenia - Immunizations Immunizations up to date: Yes Hx Diphtheria, Pertussis, Tetanus Vaccination: Yes Review of Systems - Review of Systems Constitutional: See HPI, Weakness EENT: See HPI, Sinus pressure Cardiovascular: No symptoms reported Respiratory: See HPI, Cough - Cough is nonproductive and patient is in no apparent distress laying in gurney quite comfortably. Gastrointestinal: No symptoms reported Genitourinary: No symptoms reported Male Genitourinary: No symptoms reported Musculoskeletal: No symptoms reported Skin: No symptoms reported Hematologic/Lymphatic: No symptoms reported Neurological/Psychological: No symptoms reported Physical Exam - Vital signs Vitals: Temp Pulse Resp BP Pulse Ox 98.2 F 73 22 H 130/68 H 95 07/11/19 23:18 07/11/19 23:18 07/11/19 23:18 07/11/19 23:18 07/11/19 23:18 Interpretation: Tachypneic - General General appearance: Appears well In distress: None - HEENT Head: Normocephalic Eyes: Normal, Periorbital edema - Periorbital erythema which appears to be allergy induced; patient rubs his eyes with his knuckles Conjunctiva: Normal Cornea: Normal Extraocular movements intact: Yes Eyelashes: Normal Pupils: PERRL External canal: Normal Tympanic membrane: Normal Sinus: Normal Nasal: Normal Mouth/Lips: Normal Mucous membranes: Normal Pharynx: Normal Neck: Normal - Respiratory Respiratory status: No respiratory distress - Please note patient's increased inspirations appear to be self induced Chest status: Nontender Breath sounds: Normal Chest palpation: Normal - Cardiovascular Rhythm: Regular Heart sounds: Normal auscultation Murmur: No Friction rub: No Teto's crunch: No - Abdominal Inspection: Normal Distension: No distension Bowel sounds: Normal Tenderness: Nontender Organomegaly: No organomegaly - Back Back: Normal - Extremities General upper extremity: Normal inspection General lower extremity: Normal inspection - Neurological Neuro grossly intact: Yes Cognition: Normal Orientation: AAOx4 [place] Coma Scale Eye Opening: Spontaneous [place] Coma Scale Verbal: Oriented [place] Coma Scale Motor: Obeys Commands [place] Coma Scale Total: 15 Speech: Normal Cranial nerves: Normal Cerebellar coordination: Normal Motor strength normal: LUE, RUE, LLE, RLE - Psychological Associated symptoms: Normal affect - Skin Skin Temperature: Warm Skin Moisture: Dry Course - Vital Signs Vital signs: Temp Pulse Resp BP Pulse Ox 97.4 F 93 20 162/94 H 100 07/12/19 03:12 07/12/19 03:12 07/12/19 03:12 07/12/19 03:12 07/12/19 03:12 - Diagnostic Test Radiology reviewed: Reports reviewed Critical Care Note - Critical Care Note Total time excluding time spent on procedures (mins): 60 Discharge - Discharge Clinical Impression: Cough, Allergic conjunctivitis of both eyes Schizoaffective disorder Qualifiers: Schizoaffective disorder type: unspecified Qualified Code(s): F25.9 - Schizoaffective disorder, unspecified Condition: Good Disposition: HOME, SELF-CARE Additional Instructions: Follow-up with personal doctor return to ER for true emergencies take medicines as directed encourage fluids; try not to call EMS for not emergencies Prescriptions: Hydroxyzine HCl [Atarax 10 mg Tablet] 10 mg PO TID PRN #30 tablet PRN Reason:
--- NOTE | 2019-07-11 23:49 | RADIOLOGY REPORT (SQ) ---
EXAM DESCRIPTION: XR CHEST 1 VIEW COMPLETED DATE/TME: 07/11/2019 23:21 CLINICAL HISTORY: 49 years, Male, cough COMPARISON: Multiple priors, most recent from 07/10/2019 NUMBER OF VIEWS: One TECHNIQUE: Single frontal view of the chest was obtained portably LIMITATIONS: None. FINDINGS: Cardiac and mediastinal contours are stable. Lungs are clear. No pleural effusion or pneumothorax. There is mild for curvature of the thoracic spine. IMPRESSION: No acute disease. copyright 2010 [employer]- All Rights Reserved
[2019-07-11] MEDS ORDERED: MUPIROCIN 2% OINTMENT 22 GM TOP ONE (23:51)
[2019-07-12 00:03] LABS: A TYPE INFLUENZA AG NEGATIVE (NEGATIVE); B INFLUENZA AG NEGATIVE (NEGATIVE)
[2019-07-12 03:15] VITALS: BP 162/94
== END 2019-07-12 03:29 | disposition home or self-care (01) ==
LOC: ER 23:12
DX: R05 Cough (principal); H10.13 Acute atopic conjunctivitis, bilateral; R09.89 Other specified symptoms and signs involving the circulatory and respiratory systems; R53.1 Weakness; F25.9 Schizoaffective disorder, unspecified; L53.9 Erythematous condition, unspecified; I10 Essential (primary) hypertension; J44.9 Chronic obstructive pulmonary disease, unspecified; E11.9 Type 2 diabetes mellitus without complications; F17.210 Nicotine dependence, cigarettes, uncomplicated; Z88.8 Allergy status to other drugs, medicaments and biological substances
CPT/HCPCS: 99285; 87070; 87880; 87804; 71045; A9270 ×2; J3490

== ENCOUNTER 2019-07-13 20:21 | Emergency (ER) | payer MEDICARE, MEDICAID ==
[2019-07-13 20:39] VITALS: BP 125/70
--- NOTE | 2019-07-13 20:52 | ER Document Report ---
HPI - HPI Time Seen by Provider: 07/13/19 20:43 Pain Level: 3 Notes: CHIEF COMPLAINT: Medication refill HPI: 49-year-old homeless male presenting requesting refills of his medications. Patient complains of a crack on a callus on his left foot heel as well. No fever. ROS: See HPI - all other systems were reviewed and are otherwise negative Constitutional: no fever Eyes: no drainage, no blurred vision ENT: no runny nose, no sore throat Cardiovascular: no chest pain Resp: no SOB, no cough GI: no vomiting, no diarrhea, no abdominal pain : no dysuria Integumentary: no rash Allergy: no hives Musculoskeletal: no extremity pain or swelling Neurological: no numbness/tingling, no weakness MEDICATIONS: I agree with the patient medications as charted by the RN. ALLERGIES: I agree with the allergies as charted by the RN. PAST MEDICAL HISTORY/PAST SURGICAL HISTORY: Reviewed and agree as charted by RN. SOCIAL HISTORY: Reviewed and agree as charted by RN. FAMILY HISTORY: No significant familial comorbid conditions directly related to patient complaint EXAM: Reviewed vital signs as charted by RN. CONSTITUTIONAL: Alert and oriented and responds appropriately to questions. Disheveled-appearing; well-nourished patient appears intoxicated HEAD: Normocephalic; atraumatic EYES: PERRL; Conjunctivae clear, sclerae non-icteric ENT: normal nose; no rhinorrhea; moist mucous membranes; pharynx without lesions noted, no uvula edema or deviation, no tonsillar hypertrophy, phonation normal NECK: Supple without meningismus; non-tender; no cervical lymphadenopathy, no masses CARD: symmetric distal pulses RESP: Normal chest excursion without splinting or tachypnea ABD/GI: Normal bowel sounds; non-distended; soft, non-tender BACK: The back appears normal EXT: Normal ROM in all joints; non-tender to palpation; no cyanosis, no effusions, no edema SKIN: Normal color for age and race; warm; dry; good turgor; there is a superficial crack in the callus on the heel of the left foot without erythema or discharge NEURO: Moves all extremities equally; Motor and sensory function intact PSYCH: The patient's mood and manner are intoxicated. Grooming and personal hygiene are appropriate. MDM: 49-year-old male presenting for refills of his medications we reviewed the patient in the EMR and he filled all of his prescriptions for multiple medications 1 week ago patient was specifically requesting hydroxyzine and gabapentin. He filled a 90-day supply of these medications 1 week ago. Discussed this with the patient aware that we cannot write him further medications or prescriptions when he just filled a 3-month supply 1 week ago. He should call his primary care provider for medication refills. There is no indication for antibiotics for the crack on the heel, patient will do symptomatic treatment at home or follow-up with his PCP - REPRODUCTIVE Reproductive: DENIES: : - MUSCULOSKELETAL Musculoskeletal: REPORTS: Extremity pain - BILATERAL FOOT - DERM Skin Color: Normal Past Medical History - Social History Smoking Status: Current Every Day Smoker Family History: Reviewed & Not Pertinent, CVA, DM, Hypertension Patient has suicidal ideation: No Patient has homicidal ideation: No - Past Medical History Cardiac Medical History: Reports: Hx Heart Attack, Hx Hypertension Pulmonary Medical History: Reports: Hx Bronchitis, Hx COPD Endocrine Medical History: Reports: Hx Diabetes Mellitus Type 2 Skin Medical History: Reports Hx Cellulitis Psychiatric Medical History: Reports: Hx Bipolar Disorder, Hx Depression, Hx Schizoaffective Disorder, Hx Schizophrenia - Immunizations Immunizations up to date: Yes Hx Diphtheria, Pertussis, Tetanus Vaccination: Yes Vertical Provider Document - INFECTION CONTROL TRAVEL OUTSIDE OF THE [place] IN LAST 30 DAYS: No Course - Vital Signs Vital signs: Temp Pulse Resp BP Pulse Ox 98.1 F 84 18 125/70 96 07/13/19 20:26 07/13/19 20:26 07/13/19 20:26 07/13/19 20:26 07/13/19 20:26 Discharge - Discharge Clinical Impression: Medication refill Condition: Stable Disposition: HOME, SELF-CARE Additional Instructions: Follow-up with your primary care provider regarding further medication refills. You filled your medications for all of your prescriptions on July 02. You will need to get any refills from your primary care provider. You filled a 3-month supply of your medications
== END 2019-07-13 20:48 | disposition home or self-care (01) ==
LOC: ER 20:21
DX: Z76.0 Encounter for issue of repeat prescription (principal); L84 Corns and callosities; F17.200 Nicotine dependence, unspecified, uncomplicated; I10 Essential (primary) hypertension; J44.9 Chronic obstructive pulmonary disease, unspecified; E11.9 Type 2 diabetes mellitus without complications; I25.2 Old myocardial infarction; Z59.0 Homelessness
CPT/HCPCS: 99283

== ENCOUNTER 2019-07-15 19:46 | Emergency (ER) | payer MEDICARE, MEDICAID ==
--- NOTE | 2019-07-15 19:51 | ER Document Report ---
ED Medical Screen (RME) - General Chief Complaint: Psych Problem Stated Complaint: PSYCH EVAL Time Seen by Provider: 07/15/19 19:49 Mode of Arrival: Ambulatory Information source: Patient Notes: 49-year-old male presented to ED for complaint of medical mental illness. He states he plans to hurt himself somehow. He states should not something or doing something to himself. He is not given a definite answer what he plans to do. He states he needs to be reevaluated. He states he lives in the [facility] because he chooses to live in the [facility]. He is not making any sense in his conversation. He does not have any shoes on he states he gave them all the way. I have greeted and performed a rapid initial assessment of this patient. A comprehensive ED assessment and evaluation of the patient, analysis of test results and completion of medical decision making process will be conducted by an additional ED providers. TRAVEL OUTSIDE OF THE [place] IN LAST 30 DAYS: No - Related Data Allergies/Adverse Reactions: olanzapine [From Zyprexa] Allergy (Verified 07/15/19 19:52) metformin Adverse Reaction (Verified 07/15/19 19:52) Past Medical History - Social History Family history: Reviewed & Not Pertinent - Past Medical History Cardiac Medical History: Reports: Hx Heart Attack, Hx Hypertension Pulmonary Medical History: Reports: Hx Bronchitis, Hx COPD Endocrine Medical History: Reports: Hx Diabetes Mellitus Type 2 Skin Medical History: Reports Hx Cellulitis Psychiatric Medical History: Reports: Hx Bipolar Disorder, Hx Depression, Hx Schizoaffective Disorder, Hx Schizophrenia - Immunizations Immunizations up to date: Yes Hx Diphtheria, Pertussis, Tetanus Vaccination: Yes
--- NOTE | 2019-07-15 20:36 | ER Document Report ---
ED General - General Chief Complaint: Suicidal Ideation Stated Complaint: PSYCH EVAL Time Seen by Provider: 07/15/19 19:49 Mode of Arrival: Ambulatory Information source: Patient Cannot obtain history due to: Uncooperative TRAVEL OUTSIDE OF THE [place] IN LAST 30 DAYS: No - HPI Onset: Other - unknown since patient is no cooperating Quality of pain: No pain Severity: Moderate Pain Level: 0 Associated symptoms: Other - Anxious, Suicidal, Homicidal Exacerbated by: Denies Relieved by: Denies Similar symptoms previously: Yes Recently seen / treated by doctor: Yes - patient has been seen in this ER several times in June for various issues. Notes: 49 year old male with a history of Schizoaffective Disorder, Depression, Chronic Hyponatremia, COPD, TIA, Asthma/COPD, Polysubstance Abuser here in the ER for suicidal and homicial ideation. The patient is not making much sense for me and he is not being cooperative. He apparently told the triage nurse that he wanted to harm himself and someone else. The patient is sleeping in his ER room and he louisa awake briefly with physical stimuli but then he falls back to sleep. quickly. The patient apparently has presented to this ER in a similar fashion several times before. The patient does not seem to have any actual plans on how he would harm himself or others. - Related Data Allergies/Adverse Reactions: olanzapine [From Zyprexa] Allergy (Verified 07/15/19 19:52) metformin Adverse Reaction (Verified 07/15/19 19:52) Past Medical History - General Information source: Patient Cannot obtain history due to: Uncooperative - Social History Smoking Status: Current Every Day Smoker Frequency of alcohol use: Heavy Drug Abuse: Marijuana Lives with: Homeless Family History: Reviewed & Not Pertinent, CVA, DM, Hypertension Patient has suicidal ideation: Yes Patient has homicidal ideation: Yes - Past Medical History Cardiac Medical History: Reports: Hx Heart Attack, Hx Hypertension Pulmonary Medical History: Reports: Hx Bronchitis, Hx COPD Endocrine Medical History: Reports: Hx Diabetes Mellitus Type 2 Skin Medical History: Reports Hx Cellulitis Psychiatric Medical History: Reports: Hx Bipolar Disorder, Hx Depression, Hx Schizoaffective Disorder, Hx Schizophrenia - Immunizations Immunizations up to date: Yes Hx Diphtheria, Pertussis, Tetanus Vaccination: Yes Review of Systems - Review of Systems -: Yes ROS unobtainable due to patient's medical condition Constitutional: No symptoms reported EENT: No symptoms reported Cardiovascular: No symptoms reported Respiratory: No symptoms reported Gastrointestinal: No symptoms reported Genitourinary: No symptoms reported Male Genitourinary: No symptoms reported Musculoskeletal: No symptoms reported Skin: No symptoms reported Hematologic/Lymphatic: No symptoms reported Neurological/Psychological: Homicidal ideation - according to nursing staff, Suicidal ideation - according to nursing staff -: Yes All other systems reviewed and negative Physical Exam - Vital signs Vitals: Temp Pulse Resp BP Pulse Ox 98.3 F 82 18 152/80 H 99 07/15/19 19:50 07/15/19 19:50 07/15/19 19:50 07/15/19 19:50 07/15/19 19:50 - Notes Notes: GENERAL: Poorly Groomed, well-nourished and in no acute distress. Patient is sleeping on my arrival and quickly falls asleep after being woken up. HEAD: Atraumatic, normocephalic. EYES: Pupils equal round and reactive to light, extraocular movements intact, sclera anicteric, conjunctiva are normal. ENT: Nares patent, oropharynx clear without exudates. Moist mucous membranes. NECK: Normal range of motion, supple without lymphadenopathy or JVD. LUNGS: Breath sounds clear to auscultation bilaterally and equal. No wheezes rales or rhonchi. HEART: Regular rate and rhythm without murmurs, rubs or gallops. ABDOMEN: Soft, nontender, normoactive bowel sounds. No guarding, no rebound. No masses appreciated. EXTREMITIES: Normal range of motion, no pitting or edema. No clubbing or cyanosis. NEUROLOGICAL: Cranial nerves II through XII grossly intact. Normal speech, normal gait. PSYCH: Patient is not cooperating with my questioning. He will not answer my questions of is he homicidal or suicidal. He told nursing staff that he was both. SKIN: Warm, Dry, normal turgor, no rashes or lesions noted. Course - Re-evaluation Re-evalutation: 07/15/19 23:45 The patient has been medically cleared. Plan is for patient to be evaluated by psych in the AM since he endorsed SI and HI to nursing staff. The patient would not answer my questions about SI and HI so patient should have these questions re-asked of him once he decides to wake up and cooperate. Patient slept comfortably the majority of my ER shift. Patient signed out to the oncoming ER doctor. Dispo per oncoming ER doctor and psych doctor. - Vital Signs Vital signs: Temp Pulse Resp BP Pulse Ox 98.3 F 82 18 152/80 H 99 07/15/19 19:50 07/15/19 19:50 07/15/19 19:50 07/15/19 19:50 07/15/19 19:50 - Laboratory Result Diagrams: 07/15/19 20:10 07/15/19 20:10 Laboratory results interpreted by me: 07/15/19 20:10 Sodium 130.2 L Chloride 92 L Carbon Dioxide 31 H Glucose 116 H ALT 51 H Salicylates < 1.0 L Acetaminophen < 10 L - EKG Interpretation by Me EKG shows normal: Sinus rhythm, Dry Prong, Intervals, QRS Complexes, ST-T Waves Rate: Normal Rhythm: NSR Discharge - Discharge Clinical Impression: Homeless Schizoaffective disorder Qualifiers: Schizoaffective disorder type: unspecified Qualified Code(s): F25.9 - Schizoaffective disorder, unspecified Condition: Stable Disposition: OTHER Instructions: Schizophrenia ([facility])
[2019-07-15 20:40] LABS: ABSOLUTE BASOPHILS # (AUTO) 0.1 10^3/uL (0.0-0.2); ABSOLUTE EOSINOPHILS # (AUTO) 0.1 10^3/uL (0.0-0.6); ABSOLUTE MONOCYTES (AUTO) 0.6 10^3/uL (0.1-1.4); EOSINOPHILS % (AUTO) 1.3 % (0-6); TOTAL CELLS COUNTED % (AUTO) 100 %
[2019-07-15 20:48] LABS: ABSOLUTE NEUT (AUTO) 5.6 10^3/uL (1.7-8.2); BASOPHILS % (AUTO) 1.1 % (0-2); HEMATOCRIT 40.5 % (37.9-51.0); LYMPHOCYTES % (AUTO) 23.6 % (13-45); MEAN CORPUSCULAR HEMOGLOBIN 30.2 pg (27.0-33.4); MEAN CORPUSCULAR HGB CONC 34.5 g/dL (32.0-36.0); MEAN CORPUSCULAR VOLUME 87 fl (80-97); MONOCYTES % (AUTO) 6.8 % (3-13); PLATELET COUNT 398 10^3/uL (150-450); RED BLOOD COUNT 4.63 10^6/uL (4.35-5.55); RED CELL DISTRIBUTION WIDTH 13.5 % (11.5-14.0); SEGMENTED NEUTROPHILS % (AUTO) 67.2 % (42-78); WHITE BLOOD COUNT 8.3 10^3/uL (4.0-10.5)
[2019-07-15 21:08] LABS: ALKALINE PHOSPHATASE 62 U/L (38-126); ANION GAP 7 (5-19); ASPARTATE AMINO TRANSFERASE 45 U/L (17-59); BILIRUBIN,DIRECT 0.3 mg/dL (0.0-0.4); BILIRUBIN,TOTAL 0.5 mg/dL (0.2-1.3); BLOOD UREA NITROGEN 9 mg/dL (7-20); CALCIUM 9.7 mg/dL (8.4-10.2); CARBON DIOXIDE 31 mmol/L (22-30); CHLORIDE 92 mmol/L (98-107); GLUCOSE 116 mg/dL (75-110); POTASSIUM 4.9 mmol/L (3.6-5.0); TOTAL PROTEIN 6.9 g/dL (6.3-8.2)
[2019-07-15 21:09] LABS: ACETAMINOPHEN < 10 ug/mL (10-30); ALCOHOL < 10 mg/dL (NONE DETECTED); SALICYLATE < 1.0 mg/dL (2.0-20.0)
[2019-07-15 22:50] LABS: APPEARANCE,URINE CLEAR; BILIRUBIN,URINE NEGATIVE (NEGATIVE); COLOR,URINE YELLOW; GLUCOSE, URINE NEGATIVE (NEGATIVE); KETONES,URINE NEGATIVE (NEGATIVE); LEUKOCYTE ESTERASE,URINE NEGATIVE (NEGATIVE); NITRITE,URINE NEGATIVE (NEGATIVE); PROTEIN,URINE NEGATIVE (NEGATIVE); URINE SPECIFIC GRAVITY 1.005; UROBILINOGEN,URINE NEGATIVE mg/dL (<2.0)
[2019-07-15 23:03] LABS: URINE AMPHETAMINES SCREEN NEGATIVE; URINE BARBITURATES SCREEN NEGATIVE; URINE BENZODIAZEPINES SCREEN NEGATIVE; URINE COCAINE SCREEN NEGATIVE; URINE MARIJUANA (THC) SCREEN NEGATIVE; URINE METHADONE SCREEN NEGATIVE; URINE PHENCYCLIDINE SCREEN NEGATIVE
--- NOTE | 2019-07-16 05:49 | EKG REPORT ---
SEVERITY:- NORMAL ECG - SINUS RHYTHM : Confirmed by: Kayleigh Rollins MD 16-Jul-2019 05:49:19
[2019-07-16 09:45] VITALS: BP 127/71
--- NOTE | 2019-07-16 11:43 | PSYCHOLOGICAL NOTE ---
Psych Note - Psych Note Date seen by psych provider: 07/16/19 Time seen by psych provider: 07:15 Psych Note: Patient is a 49-year-old male who presents to ED for suicidal ideation. Patient is well known to both ED and behavioral health teams. Patient has been at the ED for medical treatment 13 times during the month of June. Patient was last evaluated by behavioral health on 05/09/2019. Patient states he is ready for discharge. Patient denies suicidal and homicidal ideations. Patient reports "I just said it." Patient states he had "used up all his money on other people." Clinician discussed the need for patient to make sound financial decisions. Patient was provided with psychoeducation regarding what constitutes a legitimate medical and/or psychiatric emergency. Patient was informed he could not fabricate a medical and/or psychiatric illness for a place to sleep. Patient verbalized understanding. Patient is alert and orientated to person, place, time and circumstance. Mood is eurythmic with congruent affect. Patient denies suicidal and homicidal ideation; admits to "just saying" he was suicidal and homicidal to be admitted. Delusions are absent and behaviors congruent with an intact reality based presentation ie organized and linear thought process. Eye contact is well- maintained. Conversational speech is within normal rate, tone and prosody. Intellectual abilities appear to be within the average range. Attention and concentration are good. Insight, judgment, impulse control are poor. Impression\\plan: Patient is cleared from acute psychiatric services. Patient denies suicidal and homicidal ideations, and admits to fabricating SI/HI at triage in order to utilize ED services for a place to sleep. Clinician provided psychoeducation importance of using inpatient psychiatric treatment and emergency services appropriately, and informed patient it was not acceptable to fabricate mental health concerns so he can have a place to sleep. Dr. Galeano was consulted to care management of this patient; attending physicians in a greement with recommendations and disposition.
== END 2019-07-16 09:46 | disposition home or self-care (01) ==
LOC: ER 19:46
DX: F25.9 Schizoaffective disorder, unspecified (principal); Z59.0 Homelessness; J44.9 Chronic obstructive pulmonary disease, unspecified; F12.10 Cannabis abuse, uncomplicated; F17.200 Nicotine dependence, unspecified, uncomplicated; E11.9 Type 2 diabetes mellitus without complications; Z88.8 Allergy status to other drugs, medicaments and biological substances
CPT/HCPCS: 36415; 80053; 80307; 81001; 82962; 85025; 93005; 93010; 99285

== ENCOUNTER 2019-07-17 02:00 | Emergency (ER) | payer MEDICARE, MEDICAID ==
--- NOTE | 2019-07-17 02:43 | ER Document Report ---
ED General - General Chief Complaint: Back Pain Stated Complaint: BACK PAIN Time Seen by Provider: 07/17/19 02:24 TRAVEL OUTSIDE OF THE [place] IN LAST 30 DAYS: No - Related Data Allergies/Adverse Reactions: olanzapine [From Zyprexa] Allergy (Verified 07/17/19 02:07) metformin Adverse Reaction (Verified 07/17/19 02:07) Past Medical History - Social History Smoking Status: Current Some Day Smoker Family History: Reviewed & Not Pertinent, CVA, DM, Hypertension Patient has suicidal ideation: No Patient has homicidal ideation: No - Past Medical History Cardiac Medical History: Reports: Hx Heart Attack, Hx Hypertension Pulmonary Medical History: Reports: Hx Bronchitis, Hx COPD Endocrine Medical History: Reports: Hx Diabetes Mellitus Type 2 Skin Medical History: Reports Hx Cellulitis Psychiatric Medical History: Reports: Hx Bipolar Disorder, Hx Depression, Hx Schizoaffective Disorder, Hx Schizophrenia - Immunizations Immunizations up to date: Yes Hx Diphtheria, Pertussis, Tetanus Vaccination: Yes Physical Exam - Vital signs Vitals: Temp Pulse Resp BP Pulse Ox 97.5 F 71 16 112/60 100 07/17/19 02:07 07/17/19 02:07 07/17/19 02:07 07/17/19 02:07 07/17/19 02:07 Course - Vital Signs Vital signs: Temp Pulse Resp BP Pulse Ox 97.5 F 71 16 112/60 100 07/17/19 02:07 07/17/19 02:07 07/17/19 02:07 07/17/19 02:07 07/17/19 02:07
--- NOTE | 2019-07-17 02:55 | ER Document Report ---
ED General - General Chief Complaint: Back Pain Stated Complaint: BACK PAIN Time Seen by Provider: 07/17/19 02:24 Notes: 49-year-old man presents to the emergency department with complaint of back pain. He is a frequent ER visitor. Apparently history of schizoaffective disorder, homelessness. Upon arrival, patient said "you the doctor" cannot get a blanket? He did not complain of back pain, laid on the bed and went to sleep. He had been transported to the emergency department by EMS. TRAVEL OUTSIDE OF THE [place] IN LAST 30 DAYS: No - Related Data Allergies/Adverse Reactions: olanzapine [From Zyprexa] Allergy (Verified 07/17/19 02:07) metformin Adverse Reaction (Verified 07/17/19 02:07) Past Medical History - Social History Smoking Status: Current Some Day Smoker Family History: Reviewed & Not Pertinent, CVA, DM, Hypertension Patient has suicidal ideation: No Patient has homicidal ideation: No - Past Medical History Cardiac Medical History: Reports: Hx Heart Attack, Hx Hypertension Pulmonary Medical History: Reports: Hx Bronchitis, Hx COPD Endocrine Medical History: Reports: Hx Diabetes Mellitus Type 2 Skin Medical History: Reports Hx Cellulitis Psychiatric Medical History: Reports: Hx Bipolar Disorder, Hx Depression, Hx Schizoaffective Disorder, Hx Schizophrenia - Immunizations Immunizations up to date: Yes Hx Diphtheria, Pertussis, Tetanus Vaccination: Yes Review of Systems - Review of Systems Notes: Constitutional: Negative for fever. HENT: Negative for sore throat. Eyes: Negative for visual changes. Cardiovascular: Negative for chest pain. Respiratory: Negative for shortness of breath. Gastrointestinal: Negative for abdominal pain, vomiting or diarrhea. Genitourinary: Negative for dysuria. Musculoskeletal: + Chronic back pain. Skin: Negative for rash. Neurological: Negative for headaches, weakness or numbness. 10 point ROS negative except as marked above and in HPI. Physical Exam - Vital signs Vitals: Temp Pulse Resp BP Pulse Ox 97.5 F 71 16 112/60 100 07/17/19 02:07 07/17/19 02:07 07/17/19 02:07 07/17/19 02:07 07/17/19 02:07 - Notes Notes: PHYSICAL EXAMINATION: Physical Exam: General: Poorly kept 49-year-old male in no acute distress HEENT: NC/AT, pupils equal round and reactive to light, MM moist,nares clear, oropharynx clear, airway patent Neck: supple, no adenopathy, no masses. Good range of motion Lungs: clear, no wheezing, no rales no rhonchi CVS: Regular rate and rhythm no murmur gallop or rub Abdomen: Soft, active, nontender, no masses, no hepatosplenomegaly Ext: No edema, clubbing or cyanosis. Neuro: Alert and responsive, moving all 4 extremities on command, ambulated into the emergency department. Skin: Intact no open lesions, no rash PSYCH: Normal mood, normal affect. Course - Vital Signs Vital signs: Temp Pulse Resp BP Pulse Ox 97.5 F 71 16 112/60 100 07/17/19 02:07 07/17/19 02:07 07/17/19 02:07 07/17/19 02:07 07/17/19 02:07 Discharge - Discharge Clinical Impression: Homelessness, Noncompliance Chronic back pain Qualifiers: Back pain location: low back pain Back pain laterality: unspecified Sciatica presence: without sciatica Qualified Code(s): M54.5 - Low back pain; G89.29 - Other chronic pain Schizoaffective disorder Qualifiers: Schizoaffective disorder type: unspecified Qualified Code(s): F25.9 - Schizoaffective disorder, unspecified Condition: Good Disposition: HOME, SELF-CARE Instructions: Low Back Pain ([facility]) Additional Instructions: You may use Tylenol for your back pain. Please continue your usual medications HOME CARE INSTRUCTIONS & INFORMATION: Thank you for choosing us for your medical needs. We hope you're satisfied with the care you received. After you leave, you must properly care for your problem and, at the same time, observe its progress. Any condition can change. Some illnesses can change rapidly over hours or days. If your condition worsens, return to the Emergency Department or see your physician promptly. ABOUT YOUR X-RAYS AND EKG'S: If you had an EKG or X-rays taken, they have been read by the Emergency Physician. The X-rays and EKG's will also be read by a Radiologist or Antenna Rigger within 24 hours. If discrepancies are noted, you will be notified by telephone. Please be certain the ED has a correct telephone number & address where you can be reached. Also, realize that some fractures or abnormalities do not show up on initial X-rays. If your symptoms continue, see your physician. ABOUT YOUR LABORATORY TEST: If you had laboratory tests, the results have been reviewed by the Emergency Physician. Some test results (for example cultures) may not be available for several days. You will be contacted if any test result shows you need additional treatment. Please be certain the ED has a correct telephone number and address where you can be reached. ABOUT YOUR MEDICATIONS: You will receive instructions on how to take your medicine on the prescription label you receive. Additional information may be provided by the Pharmacy. If you have questions afterwards, call the ED for clarification or further instructions. Some prescribed medications may cause drowsiness. Do not perform tasks such as driving a car or operating machinery without consulting your Pharmacist. If you feel you need a refill of pain medication, your condition will need re-evaluation. Please do not call for a refill of any medication. ABOUT YOUR SIGNATURE: Signature of this document acknowledges to followin. Understanding that you received emergency treatment and that you may be released before al medical problems are known or treated. Please be certain the ED has a correct phone number & address where you can be reached. 2. Acknowledgement that you will arrange for follow-up care as recommended. 3. Authorization for the Emergency Physician to provide information to your follow-up Physician in order to maximize your care. AT ANY TIME, IF YOUR SYMPTOMS CHANGE SIGNIFICANTLY OR WORSEN OR YOU DEVELOP NEW SYMPTOMS, RETURN TO THE EMERGENCY DEPARTMENT IMMEDIATELY FOR RE-EVALUATION. OUR GOAL IS TO PROVIDE EXCELLENT MEDICAL CARE! WE HOPE THAT WE HAVE MET YOUR EXPECTATIONS DURING YOUR EMERGENCY DEPARTMENT VISIT AND THAT YOU FEEL YOU HAVE RECEIVED EXCELLENT CARE!
[2019-07-17 04:10] VITALS: BP 138/59
== END 2019-07-17 04:25 | disposition home or self-care (01) ==
LOC: ER 02:00
DX: G89.29 Other chronic pain (principal); M54.5 Low back pain; Z91.19 Patient's noncompliance with other medical treatment and regimen; Z59.0 Homelessness; I10 Essential (primary) hypertension; J44.9 Chronic obstructive pulmonary disease, unspecified; E11.9 Type 2 diabetes mellitus without complications; F17.200 Nicotine dependence, unspecified, uncomplicated; Z88.8 Allergy status to other drugs, medicaments and biological substances
CPT/HCPCS: 82962; 99281; 99283

== ENCOUNTER 2019-07-17 23:15 | Emergency (ER) | payer MEDICARE, MEDICAID ==
--- NOTE | 2019-07-18 00:11 | ER Document Report ---
ED General Pain - General Stated Complaint: DIABETIC ISSUE Time Seen by Provider: 07/17/19 23:26 Notes: Patient told EMS and nursing that he was here for low blood sugar however patient tells me that he is worried he may have abnormal blood sugar and other problems because he has not yet picked up his medications. States that they are filled and waiting for him at [facility] however he will not be able to pick them up until tomorrow morning when he gets paid. Patient states he does not know what medications he is on, states he would like to have whichever medications I think are important for him to get 10 night. Denies any other complaints, denies any pain, admits to being homeless and having difficulty finding a place to stay. Does not wish to have any assistance with finding a place to stay this evening. States that he is already connected with [facility] and other social media manager resources. TRAVEL OUTSIDE OF THE [place] IN LAST 30 DAYS: No - Related Data Allergies/Adverse Reactions: olanzapine [From Zyprexa] Allergy (Verified 07/17/19 02:07) metformin Adverse Reaction (Verified 07/17/19 02:07) Past Medical History - General Information source: Patient - Social History Smoking Status: Current Every Day Smoker Frequency of alcohol use: Used to use heavy alcohol, states he quit 2 weeks ago. Drug Abuse: None Family History: Reviewed & Not Pertinent, CVA, DM, Hypertension Patient has suicidal ideation: No Patient has homicidal ideation: No - Past Medical History Cardiac Medical History: Reports: Hx Heart Attack, Hx Hypertension Pulmonary Medical History: Reports: Hx Bronchitis, Hx COPD Endocrine Medical History: Reports: Hx Diabetes Mellitus Type 2 Skin Medical History: Reports Hx Cellulitis Psychiatric Medical History: Reports: Hx Bipolar Disorder, Hx Depression, Hx Schizoaffective Disorder, Hx Schizophrenia - Immunizations Immunizations up to date: Yes Hx Diphtheria, Pertussis, Tetanus Vaccination: Yes Review of Systems - Review of Systems Constitutional: No symptoms reported EENT: No symptoms reported Cardiovascular: No symptoms reported Skin: No symptoms reported Hematologic/Lymphatic: No symptoms reported Neurological/Psychological: No symptoms reported -: Yes All other systems reviewed and negative Physical Exam - Vital signs Vitals: Temp Pulse Resp BP Pulse Ox 97.6 F 81 16 150/95 H 100 07/17/19 23:26 07/17/19 23:26 07/17/19 23:26 07/17/19 23:26 07/17/19 23:26 Interpretation: Hypertensive - Notes Notes: GENERAL: Alert, interacts well. No acute distress. Strong body odor. HEAD: Normocephalic, atraumatic EYES: Pupils equal, round and reactive to light, extraocular movements intact. ENT: Oral mucosa moist, tongue midline. NECK: Full range of motion, supple, trachea midline. LUNGS: Clear to auscultation bilaterally, no wheezes, rales or rhonchi, no respiratory distress. HEART: Regular rate and rhythm, no murmurs, gallops, rubs. ABDOMEN: Soft, nontender, nondistended, bowel sounds present in all 4 quadrants. EXTREMITIES: Moves all 4 extremities spontaneously, no edema, radial and dorsalis pedis pulses 2/4 bilaterally. No cyanosis. NEUROLOGICAL: Alert and oriented x3, normal speech, biceps and patellar DTRs 2+ bilaterally. PSYCH: Normal mood, normal affect. SKIN: Warm, Dry, normal turgor. Course - Re-evaluation Re-evalutation: 07/18/19 00:08 No need for blood work at this time, patient is simply complaining that he is out of his medications. There are very few medications that he absolutely has to have him to wait rather than waiting until tomorrow morning. I am concerned about the fact that he has not has Plavix so I will give him Plavix 75 mg. His blood sugar was checked here and found to be 123. It is not low. Aside from the Plavix patient can take all of his other medications when he picks them up from [facility] tomorrow morning. - Vital Signs Vital signs: Temp Pulse Resp BP Pulse Ox 97.6 F 81 16 150/95 H 100 07/17/19 23:26 07/17/19 23:26 07/17/19 23:26 07/17/19 23:26 07/17/19 23:26 Discharge - Discharge Clinical Impression: Medication nonadherence due to psychosocial problem, Homeless Condition: Stable Disposition: HOME, SELF-CARE Additional Instructions: Today your blood sugar was not low. You have told me you will be able to fill your medications tomorrow morning. The only medication that you need this evening is your Plavix. This is the blood thinner that will help you to not have another heart attack or blood clot. You are safe to wait till tomorrow morning to get your other medications.
[2019-07-18] MEDS ORDERED: CLOPIDOGREL BISULFATE 75 MG TABLET PO ONE (00:12)
[2019-07-18 00:33] VITALS: BP 159/89
== END 2019-07-18 00:35 | disposition home or self-care (01) ==
LOC: ER 23:15
DX: Z59.0 Homelessness (principal); Z91.14 Patient's other noncompliance with medication regimen; E11.649 Type 2 diabetes mellitus with hypoglycemia without coma; Z79.899 Other long term (current) drug therapy; Z88.8 Allergy status to other drugs, medicaments and biological substances; F17.200 Nicotine dependence, unspecified, uncomplicated; I10 Essential (primary) hypertension; J44.9 Chronic obstructive pulmonary disease, unspecified
CPT/HCPCS: 99281; 82962; A9270

== ENCOUNTER 2019-07-20 11:06 | Emergency (ER) | payer MEDICARE, MEDICAID ==
[2019-07-20 11:11] VITALS: BP 117/66
[2019-07-20] MEDS ORDERED: IBUPROFEN 800 MG TABLET PO ONE (11:23)
--- NOTE | 2019-07-20 11:25 | ER Document Report ---
HPI - HPI Patient complains to provider of: leg pain Time Seen by Provider: 07/20/19 11:18 Onset: Other - 4 days Onset/Duration: Persistent Quality of pain: Achy Pain Level: 5 Context: Patient states he was at work 4 days ago and hit his leg while working. Patient complains of continued pain since then. Associated Symptoms: Other - Right lower leg pain. denies: Fever, Nausea Exacerbated by: Standing, Movement Relieved by: Denies Similar symptoms previously: No Recently seen / treated by doctor: No - ROS ROS below otherwise negative: Yes Systems Reviewed and Negative: Yes All other systems reviewed and negative - CONSTITUTIONAL Constitutional: DENIES: Fever, Chills - NEURO Neurology: DENIES: Weakness - GASTROINTESTINAL Gastrointestinal: DENIES: Nausea - REPRODUCTIVE Reproductive: DENIES: : - MUSCULOSKELETAL Musculoskeletal: REPORTS: Extremity pain. DENIES: Swelling - DERM Skin Color: Normal Skin Problems: None Past Medical History - General Information source: Patient - Social History Smoking Status: Current Every Day Smoker Frequency of alcohol use: Occasional Drug Abuse: None Occupation: Sanitation Family History: Reviewed & Not Pertinent, CVA, DM, Hypertension Patient has suicidal ideation: No Patient has homicidal ideation: No - Past Medical History Cardiac Medical History: Reports: Hx Heart Attack, Hx Hypertension Pulmonary Medical History: Reports: Hx Bronchitis, Hx COPD Endocrine Medical History: Reports: Hx Diabetes Mellitus Type 2 Skin Medical History: Reports Hx Cellulitis Psychiatric Medical History: Reports: Hx Bipolar Disorder, Hx Depression, Hx Schizoaffective Disorder, Hx Schizophrenia Surgical Hx: Negative - Immunizations Immunizations up to date: Yes Hx Diphtheria, Pertussis, Tetanus Vaccination: Yes Vertical Provider Document - CONSTITUTIONAL Agree With Documented VS: Yes Exam Limitations: No Limitations General Appearance: WD/WN, No Apparent Distress - INFECTION CONTROL TRAVEL OUTSIDE OF THE [place] IN LAST 30 DAYS: No - HEENT HEENT: Atraumatic, Normocephalic - NECK Neck: Normal Inspection - RESPIRATORY Respiratory: No Respiratory Distress - CARDIOVASCULAR Pulses: Normal: Dorsalis pedis - MUSCULOSKELETAL/EXTREMETIES Musculoskeletal/Extremeties: MAEW, FROM, Tender - Tenderness to distal anterior third of right lower leg, no obvious injury, No Edema. negative: Eccymosis - NEURO Level of Consciousness: Awake, Alert, Appropriate Motor/Sensory: No Motor Deficit - DERM Integumentary: Warm, Dry Course - Re-evaluation Re-evalutation: 07/20/19 12:06 Patient's x-ray reviewed, no acute fracture. Will offer patient crutches to assist with ambulation. 07/20/19 12:08 RN advised that patient is ready to be disposition. RN states that patient was observed leaving the department. RN suspects that patient eloped. - Vital Signs Vital signs: Temp Pulse Resp BP Pulse Ox 98.5 F 97 18 117/66 100 07/20/19 11:10 07/20/19 11:10 07/20/19 11:10 07/20/19 11:10 07/20/19 11:10 - Diagnostic Test Radiology reviewed: Image reviewed, Reports reviewed Discharge - Discharge Clinical Impression: Right leg injury Qualifiers: Encounter type: initial encounter Qualified Code(s): S89.91XA - Unspecified injury of right lower leg, initial encounter Condition: Stable Disposition: ELOPED Instructions: Acetaminophen, Use of Crutches ([facility]), Ice & Elevation ([facility]) Additional Instructions: Return immediately for any new or worsening symptoms Followup with your primary care provider, call tomorrow to make a followup appointment Weightbearing as tolerated Follow-up with orthopedics for any persistent pain or problems Forms: Return to Work Referrals: [facility] [Provider Group] - Follow up as needed
--- NOTE | 2019-07-20 12:01 | RADIOLOGY REPORT (SQ) ---
EXAM DESCRIPTION: TIBIA FIBULA RIGHT COMPLETED DATE/TIME: 07/20/2019 11:48 am REASON FOR STUDY: leg pain COMPARISON: None. NUMBER OF VIEWS: Two views. TECHNIQUE: Two radiographic images acquired of the right tibia and fibula to include the knee and an kle in at least one projection. LIMITATIONS: None. FINDINGS: MINERALIZATION: Normal. BONES: No acute fracture or dislocation. No worrisome bone lesions. SOFT TISSUES: There is soft tissue swelling laterally. OTHER: No other significant finding. IMPRESSION: Soft tissue swelling laterally. No displaced fractures. TECHNICAL DOCUMENTATION: JOB ID: [id number] [employer]- All Rights Reserved Reading location - IP/workstation name: [email or web address]
== END 2019-07-20 12:05 | disposition left against medical advice (07) ==
LOC: ER 11:06
DX: S89.91XA Unspecified injury of right lower leg, initial encounter (principal); M79.604 Pain in right leg; X58.XXXA Exposure to other specified factors, initial encounter; F17.200 Nicotine dependence, unspecified, uncomplicated; I10 Essential (primary) hypertension; J44.9 Chronic obstructive pulmonary disease, unspecified; E11.9 Type 2 diabetes mellitus without complications
CPT/HCPCS: 99281; 73590; A9270

== ENCOUNTER 2019-07-21 03:03 | Emergency (ER) | payer MEDICARE, MEDICAID ==
[2019-07-21 04:05] VITALS: BP 131/73
[2019-07-21] MEDS ORDERED: IBUPROFEN 600 MG TABLET PO ONE (04:11)
[2019-07-21] MEDS ORDERED: FAMOTIDINE 20 MG TABLET PO ONE (04:11)
--- NOTE | 2019-07-21 04:13 | ER Document Report ---
HPI - HPI Time Seen by Provider: 07/21/19 04:05 Pain Level: 3 Context: Patient is a 49-year-old male that comes emergency department for chief complaint of right leg pain. He states that he struck his leg while at work almost 5 days ago now, he has had swelling and pain to the area since. He had a negative x-ray of this yesterday. He denies reinjury. He states that it simply hurts anyone something to wrap it with anyone something for the pain. He denies numbness, redness, fever, or any other complaints. - REPRODUCTIVE Reproductive: DENIES: : Past Medical History - General Information source: Patient - Social History Smoking Status: Current Every Day Smoker Frequency of alcohol use: etoh last evening Lives with: Friend Family History: Reviewed & Not Pertinent, CVA, DM, Hypertension Patient has suicidal ideation: No Patient has homicidal ideation: No - Past Medical History Cardiac Medical History: Reports: Hx Heart Attack, Hx Hypertension Pulmonary Medical History: Reports: Hx Bronchitis, Hx COPD Endocrine Medical History: Reports: Hx Diabetes Mellitus Type 2 Skin Medical History: Reports Hx Cellulitis Psychiatric Medical History: Reports: Hx Bipolar Disorder, Hx Depression, Hx Schizoaffective Disorder, Hx Schizophrenia - Immunizations Immunizations up to date: Yes Hx Diphtheria, Pertussis, Tetanus Vaccination: Yes Vertical Provider Document - CONSTITUTIONAL General Appearance: WD/WN, No Apparent Distress - Patient sleeping and easily aroused - INFECTION CONTROL TRAVEL OUTSIDE OF THE [place] IN LAST 30 DAYS: No - HEENT HEENT: Atraumatic, Normocephalic - NECK Neck: Normal Inspection - RESPIRATORY Respiratory: Breath Sounds Normal, No Respiratory Distress, Chest Non-Tender - CARDIOVASCULAR Cardiovascular: Regular Rate, Regular Rhythm. negative: Tachycardia - GI/ABDOMEN Gastrointestinal: Abdomen Soft, Abdomen Non-Tender. negative: Abdomen Tender - BACK Back: Normal Inspection - MUSCULOSKELETAL/EXTREMETIES Musculoskeletal/Extremeties: MAEW, FROM, Tender - There is tenderness with very mild soft tissue swelling over the anterior distal tibia on the right. There is no wound, no erythema, no edema to the leg, no other concerning finding. Normal knee, ankle, foot exam, normal distal neurovascular exam. Normal hip exam. He ambulates without difficulty. - NEURO Level of Consciousness: Awake, Alert, Appropriate Motor/Sensory: No Motor Deficit, No Sensory Deficit - DERM Integumentary: Warm, Dry, No Rash Course - Re-evaluation Re-evalutation: X-ray reviewed from previous visit and is negative. There is no significant injury noted on my exam, no wound, no area of infection, no evidence of swelling or compartment syndrome. No neurovascular deficit. Patient is very well-known to me and is here frequently. Patient states he simply wants something for the pain now, he was given ibuprofen/pepcid. He asked for an Reid wrap and was provided with one. He has no other requests or complaint. Stable at time of discharge. - Vital Signs Vital signs: Temp Pulse Resp BP Pulse Ox 98.2 F 86 16 131/73 H 97 07/21/19 04:04 07/21/19 04:04 07/21/19 04:04 07/21/19 04:04 07/21/19 04:04 Discharge - Discharge Clinical Impression: Right leg injury Qualifiers: Encounter type: subsequent encounter Qualified Code(s): S89.91XD - Unspecified injury of right lower leg, subsequent encounter Condition: Stable Disposition: HOME, SELF-CARE Additional Instructions: The x-ray of your leg did not show any fractures. Your evaluation shows soft tissue injury only. I recommend that you elevate your leg as much as possible, ice, take [id number] medication such as ibuprofen. Symptoms should simply resolve. You can use the Reid wrap for comfort. You were given ibuprofen and Pepcid tonight in the emergency department. Return for any concerning symptoms including developing severe swelling, redness, fever, numbness, or any other concerning symptoms.
== END 2019-07-21 04:28 | disposition home or self-care (01) ==
LOC: ER 03:03
DX: S89.91XD Unspecified injury of right lower leg, subsequent encounter (principal); M79.604 Pain in right leg; W22.09XD Striking against other stationary object, subsequent encounter; Y99.0 Civilian activity done for income or pay; F17.200 Nicotine dependence, unspecified, uncomplicated; I10 Essential (primary) hypertension; J44.9 Chronic obstructive pulmonary disease, unspecified; E11.9 Type 2 diabetes mellitus without complications; I25.2 Old myocardial infarction
CPT/HCPCS: 99283; A9270 ×2

== ENCOUNTER 2019-08-02 00:39 | Emergency (ER) | payer MEDICARE, MEDICAID ==
[2019-08-02 00:51] VITALS: BP 147/79
--- NOTE | 2019-08-02 01:29 | ER Document Report ---
ED General - General Chief Complaint: Leg Pain Stated Complaint: LEG PAIN Time Seen by Provider: 08/02/19 01:10 Notes: 49-year-old male presents emergency department complaining of soreness in his right calf and a cyst for the past 2 days. Denies any injury initially and then states to me that he has been having pain since I saw him about 2 weeks ago. He was also seen in the past 2 weeks for a fall and landing on his right knee. States that pain is better. Denies having tried an Reid wrap for compression of his right calf. Denies any new injury since he had an x-ray on the . Denies any numbness, tingling, weakness. States it hurts a little bit to walk. TRAVEL OUTSIDE OF THE [place] IN LAST 30 DAYS: No - Related Data Allergies/Adverse Reactions: olanzapine [From Zyprexa] Allergy (Verified 07/17/19 02:07) metformin Adverse Reaction (Verified 07/17/19 02:07) Past Medical History - General Information source: Patient - Social History Smoking Status: Current Every Day Smoker Family History: CVA, DM, Hypertension Patient has suicidal ideation: No Patient has homicidal ideation: No - Past Medical History Cardiac Medical History: Reports: Hx Heart Attack, Hx Hypertension Pulmonary Medical History: Reports: Hx Bronchitis, Hx COPD Endocrine Medical History: Reports: Hx Diabetes Mellitus Type 2 Skin Medical History: Reports Hx Cellulitis Psychiatric Medical History: Reports: Hx Bipolar Disorder, Hx Depression, Hx Schizoaffective Disorder, Hx Schizophrenia - Immunizations Immunizations up to date: Yes Hx Diphtheria, Pertussis, Tetanus Vaccination: Yes Review of Systems - Review of Systems Constitutional: No symptoms reported EENT: No symptoms reported Cardiovascular: No symptoms reported. denies: Dizziness, Edema Musculoskeletal: See HPI, Other - right leg pain Skin: See HPI, Lumps -: Yes All other systems reviewed and negative Physical Exam - Vital signs Vitals: Temp Pulse Resp BP Pulse Ox 97.9 F 84 18 147/79 H 99 08/02/19 00:49 08/02/19 00:49 08/02/19 00:49 08/02/19 00:49 08/02/19 00:49 Interpretation: Hypertensive - Notes Notes: GENERAL: Alert, interacts well. No acute distress. Witnessed ambulating into and around the emergency department without any difficulty. HEAD: Normocephalic, atraumatic EYES: Pupils equal, round and reactive to light, extraocular movements intact. ENT: Oral mucosa moist, tongue midline. NECK: Full range of motion, supple, trachea midline. LUNGS: No respiratory distress. ABDOMEN: nondistended. EXTREMITIES: Moves all 4 extremities spontaneously, no edema, radial and dorsalis pedis pulses 2/4 bilaterally. No cyanosis. Right calf is not tender to palpation, there is no gross swelling and no color change. There is a small area on the lateral aspect of the right calf, approximately 12 cm above the ankle, that is slightly protruberant, easily compressible, non-tender, non- fluctuant, no evidence of abscess. Likely a small varicose vein. No evidence of thrombosis. When I palpate his leg he tells me it actually makes it feel better, particularly when I compress his calf. NEUROLOGICAL: Alert and oriented x3. Course - Re-evaluation Re-evalutation: 08/02/19 01:35 No evidence of DVT or abscess. No indication for ultrasound. No evidence of thrombosis. No indication for x-ray. Patient will have an Reid wrap placed to due to the fact that he says his leg actually feels better when he squeeze it. Discharged home. - Vital Signs Vital signs: Temp Pulse Resp BP Pulse Ox 97.9 F 84 18 147/79 H 99 08/02/19 00:49 08/02/19 00:49 08/02/19 00:49 08/02/19 00:49 08/02/19 00:49 Discharge - Discharge Clinical Impression: Right calf pain Condition: Stable Disposition: HOME, SELF-CARE Additional Instructions: Today you not have any sign of abscess or infection. Please consider wearing the Reid wrap around your right calf or consider wearing compression stockings as me squeezing your leg seem to make it feel better. Please return should the lump on your leg get bigger, get more painful or have drainage.
== END 2019-08-02 02:02 | disposition home or self-care (01) ==
LOC: ER 00:39
DX: M79.604 Pain in right leg (principal); M25.561 Pain in right knee; W19.XXXA Unspecified fall, initial encounter; F17.200 Nicotine dependence, unspecified, uncomplicated; I10 Essential (primary) hypertension; J44.9 Chronic obstructive pulmonary disease, unspecified; E11.9 Type 2 diabetes mellitus without complications
CPT/HCPCS: 99283

== ENCOUNTER 2019-08-03 01:56 | Emergency (ER) | payer MEDICARE, MEDICAID ==
[2019-08-03 02:21] VITALS: BP 147/62
--- NOTE | 2019-08-03 09:52 | EKG REPORT ---
SEVERITY:- NORMAL ECG - SINUS RHYTHM : Confirmed by: Kayleigh Rollins MD 03-Aug-2019 09:51:15
== END 2019-08-03 03:20 | disposition left against medical advice (07) ==
LOC: ER 01:56
DX: Z53.21 Procedure and treatment not carried out due to patient leaving prior to being seen by health care provider (principal)
CPT/HCPCS: 93005; 93010

== ENCOUNTER 2019-08-03 15:01 | Emergency (ER) | payer MEDICARE, MEDICAID ==
[2019-08-03] MEDS ORDERED: NORMAL SALINE 1000 ML 1,000 ML IV ONE (16:12)
--- NOTE | 2019-08-03 16:32 | ER Document Report ---
ED General - General Chief Complaint: Altered Mental Status Stated Complaint: DIZZINESS Time Seen by Provider: 08/03/19 15:18 TRAVEL OUTSIDE OF THE [place] IN LAST 30 DAYS: No - HPI Notes: Chief complaint: Altered mental status This is a 49-year-old male well-known to our emergency department and to me per sonally from prior encounters who is brought in by EMS today for evaluation of altered mental status. Patient was found in an acute confusional state along the road with no obvious trauma. He was transported here with no other specific intervention from EMS. This man has a longstanding history of schizoaffective disorder. He is marginally compliant with prescribed Haldol. He also has hypertension, diabetes mellitus and COPD and is a heavy cigarette smoker. He is homeless. Patient has presented on multiple occasions with altered mental status. He has had extensive work-up in the past and on several occasions is been found to be hyponatremic and hypomagnesemic. The hyponatremia is felt to possibly be related to Celexa which someone had prescribed for him. He is advised not to take this anymore but it is unclear whether he is currently on this medication. He has had multiple negative head CTs in the past. He has repeatedly signed himself out from the inpatient medicine service AMA after he was admitted for these transient episodes of altered mental status. - Related Data Allergies/Adverse Reactions: olanzapine [From Zyprexa] Allergy (Verified 07/17/19 02:07) metformin Adverse Reaction (Verified 07/17/19 02:07) Past Medical History - General Information source: Emergency Med Personnel, [facility] Records - Social History Smoking Status: Current Every Day Smoker Family History: CVA, DM, Hypertension Patient has suicidal ideation: No Patient has homicidal ideation: No - Past Medical History Cardiac Medical History: Reports: Hx Heart Attack, Hx Hypertension Pulmonary Medical History: Reports: Hx Bronchitis, Hx COPD Endocrine Medical History: Reports: Hx Diabetes Mellitus Type 2 Skin Medical History: Reports Hx Cellulitis Psychiatric Medical History: Reports: Hx Bipolar Disorder, Hx Depression, Hx Schizoaffective Disorder, Hx Schizophrenia - Immunizations Immunizations up to date: Yes Hx Diphtheria, Pertussis, Tetanus Vaccination: Yes Review of Systems - Review of Systems -: Yes ROS unobtainable due to patient's medical condition Physical Exam - Vital signs Vitals: Resp Pulse Ox 21 H 94 08/03/19 15:13 08/03/19 15:13 - Notes Notes: GENERAL: Middle-age male with unkempt appearance minimally arousable to noxious stimuli. SKIN: Flushed and warm. HEAD: Normocephalic atraumatic. EYES: Conjunctivae are bilaterally injected. Pupils are mid position equal and sluggishly reactive to light with conjugate gaze. EARS: CANALS AND TMS CLEAR. NOSE: CLEAR. MOUTH: Dry mucosa. Tongue appears to be abraded. Gag reflex intact. Extremely poor dentition. No stridor or edema. No drooling. NECK: Supple. No masses or thyromegaly. No adenopathy. Carotids 2+ without bruits. No JVD. BACK: Symmetrical without tenderness. CHEST: Mildly tachypneic. Breath sounds are symmetrical with scattered wheezes and rhonchi bilaterally. HEART: Tachycardic. Regular rhythm. No murmur gallop or rub. ABDOMEN: Soft nontender without masses, organomegaly or rebound. Bowel sounds normally active. No bruits. GENITALIA: Deferred. EXTREMITIES: No edema. No calf tenderness. Cap refill less than 1.5 seconds. Dorsalis pedis and posterior tibial pulses 3+ and symmetrical. NEUROLOGICAL: GCS 10. Eyes equal to verbal equals 3 best motor 5. Cranial nerves II through XII intact. Moves all 4 extremities symmetrically in response to noxious stimuli. Course - Re-evaluation Re-evalutation: 08/03/19 19:10 This gentleman presents once again with altered mental status. Head CT shows no acute changes. He is moving all 4 extremities in response to pain. He has a GCS of 10 had preserved gag reflex. His serum glucose is 135. His urine drug screen is negative. His comprehensive metabolic profile is remarkable for a sodium of 128. His arterial blood gas is consistent with acute respiratory failure showing a pH of 7.14 and a PCO2 of 77 and PO2 of 71 on 2 L of nasal O2. I placed him on BiPAP and he is tolerated this well maintaining an O2 saturation between 95 and 100. I am awaiting a repeat arterial blood gas now. His chest x-ray did not show any focal infiltrates although he did sound a bit wheezy initially. His blood pressure is markedly elevated when he came in and around 188 systolic. This is normalized into the 120s systolic since he went on BiPAP. 08/03/19 19:20 Repeat ABG is pending at this time. His GCS remains about 10. He is arousable opening eyes and speaking some nonsense syllables in response to noxious stimuli and loud verbal stimuli. He continues to move all 4 extremities spontaneously. I am awaiting repeat ABG right now. Findings have been discussed with team from the critical care unit and they will come down and evaluate him at this time. - Vital Signs Vital signs: Temp Pulse Resp BP Pulse Ox 97.5 F 79 21 H 141/67 H 95 08/04/19 02:42 08/04/19 02:42 08/04/19 02:42 08/04/19 02:42 08/04/19 02:42 - Laboratory Result Diagrams: 08/03/19 15:10 08/03/19 15:10 Laboratory results interpreted by me: 08/03/19 08/03/19 08/03/19 15:10 15:10 15:10 RBC 4.07 L Hgb 12.6 L Hct 35.6 L Carbonic Acid ABG pH ABG pCO2 ABG pO2 ABG HCO3 ABG Total CO2 ABG O2 Saturation Sodium 128.7 L Chloride 95 L BUN 5 L Creatinine 0.41 L POC Glucose Total Protein 6.1 L Salicylates < 1.0 L Acetaminophen < 10 L 08/03/19 08/03/19 08/03/19 16:48 16:53 18:57 RBC Hgb Hct Carbonic Acid 2.32 H 1.40 H ABG pH 7.15 L* ABG pCO2 77.2 H* 46.5 H ABG pO2 74.2 L 138.7 H ABG HCO3 26.0 H 26.5 H ABG Total CO2 28.4 H 27.9 H ABG O2 Saturation 89.6 L 98.7 H Sodium Chloride BUN Creatinine POC Glucose 136 H Total Protein Salicylates Acetaminophen - EKG Interpretation by Me Additional EKG results interpreted by me: 08/03/19 19:05 Twelve-lead EKG from 1652 hrs. reviewed contemporaneously by me demonstrating sinus tachycardia with a rate of 101 and a normal axis of 56 degrees with normal intervals and no acute ST/T wave changes. Critical Care Note - Critical Care Note Total time excluding time spent on procedures (mins): 65 - Ventilatory assistance with BiPAP. Complex decision making. Discharge - Discharge Clinical Impression: Altered mental status Qualifiers: Altered mental status type: somnolence Qualified Code(s): R40.0 - Somnolence Condition: Good Disposition: HOME, SELF-CARE
[2019-08-03 16:37] LABS: ACETAMINOPHEN < 10 ug/mL (10-30); ALCOHOL < 10 mg/dL (NONE DETECTED); SALICYLATE < 1.0 mg/dL (2.0-20.0)
[2019-08-03 16:54] LABS: ABSOLUTE LYMPHOCYTES (AUTO) 1.8 10^3/uL (0.5-4.7); ABSOLUTE MONOCYTES (AUTO) 0.6 10^3/uL (0.1-1.4); ABSOLUTE NEUT (AUTO) 4.2 10^3/uL (1.7-8.2); BASOPHILS % (AUTO) 0.7 % (0-2); EOSINOPHILS % (AUTO) 0.7 % (0-6); HEMATOCRIT 35.6 % (37.9-51.0); HEMOGLOBIN 12.6 g/dL (13.5-17.0); MEAN CORPUSCULAR HEMOGLOBIN 30.9 pg (27.0-33.4); MEAN CORPUSCULAR HGB CONC 35.4 g/dL (32.0-36.0); MEAN CORPUSCULAR VOLUME 87 fl (80-97); MONOCYTES % (AUTO) 8.6 % (3-13); PLATELET COUNT 357 10^3/uL (150-450); RED BLOOD COUNT 4.07 10^6/uL (4.35-5.55); RED CELL DISTRIBUTION WIDTH 13.4 % (11.5-14.0); TOTAL CELLS COUNTED % (AUTO) 100 %; WHITE BLOOD COUNT 6.7 10^3/uL (4.0-10.5)
[2019-08-03 16:55] LABS: ALBUMIN 3.6 g/dL (3.5-5.0); ALKALINE PHOSPHATASE 59 U/L (38-126); ANION GAP 5 (5-19); ASPARTATE AMINO TRANSFERASE 27 U/L (17-59); BILIRUBIN,DIRECT 0.3 mg/dL (0.0-0.4); BILIRUBIN,TOTAL 0.3 mg/dL (0.2-1.3); BLOOD UREA NITROGEN 5 mg/dL (7-20); CALCIUM 8.9 mg/dL (8.4-10.2); CARBON DIOXIDE 29 mmol/L (22-30); CHLORIDE 95 mmol/L (98-107); GLUCOSE 102 mg/dL (75-110); POTASSIUM 3.7 mmol/L (3.6-5.0); TOTAL PROTEIN 6.1 g/dL (6.3-8.2)
[2019-08-03 17:15] LABS: ARTERIAL BLOOD BASE EXCESS -4.6 mmol/L; ARTERIAL BLOOD H2CO3 2.32 mmol/L (1.05-1.35); ARTERIAL BLOOD O2 SATURATION 89.6 % (94-98); ARTERIAL BLOOD PO2 74.2 mmHg (80-100); ARTERIAL BLOOD TOTAL CO2 28.4 mmol/L (23-27)
[2019-08-03 17:17] LABS: ARTERIAL BLOOD FIO2 3L
[2019-08-03 17:25] LABS: APPEARANCE,URINE CLEAR; BILIRUBIN,URINE NEGATIVE (NEGATIVE); COLOR,URINE STRAW; GLUCOSE, URINE NEGATIVE (NEGATIVE); KETONES,URINE NEGATIVE (NEGATIVE); PROTEIN,URINE NEGATIVE (NEGATIVE); URINE SPECIFIC GRAVITY 1.003; UROBILINOGEN,URINE NEGATIVE mg/dL (<2.0)
[2019-08-03 17:27] LABS: ARTERIAL BLOOD PCO2 77.2 mmHg (35-45); ARTERIAL BLOOD PH 7.15 (7.35-7.45)
[2019-08-03 17:38] LABS: URINE AMPHETAMINES SCREEN NEGATIVE; URINE BARBITURATES SCREEN NEGATIVE; URINE BENZODIAZEPINES SCREEN NEGATIVE; URINE COCAINE SCREEN NEGATIVE; URINE MARIJUANA (THC) SCREEN NEGATIVE; URINE METHADONE SCREEN NEGATIVE; URINE PHENCYCLIDINE SCREEN NEGATIVE
--- NOTE | 2019-08-03 17:42 | RADIOLOGY REPORT (SQ) ---
EXAM DESCRIPTION: CHEST SINGLE VIEW IMAGES COMPLETED DATE/TIME: 08/03/2019 5:24 pm REASON FOR STUDY: AMS COMPARISON: 07/11/2019 NUMBER OF VIEWS: One view. TECHNIQUE: Single frontal radiographic view of the chest acquired. LIMITATIONS: None. FINDINGS: LUNGS AND PLEURA: Low lung volumes. No opacities, masses or pneumothorax. No pleural eff usion. MEDIASTINUM AND HILAR STRUCTURES: No masses. No contour abnormality. HEART AND VASCULAR STRUCTURES: Normal size. No evidence for failure. BONES: No acute findings. HARDWARE: None in the chest. OTHER: No other significant finding. IMPRESSION: LOW LUNG VOLUMES. NO SIGNIFICANT RADIOGRAPHIC FINDING IN THE CHEST. TECHNICAL DOCUMENTATION: JOB ID: [id number] 2010 [employer]- All Rights Reserved Reading location - IP/workstation name: [email or web address]
--- NOTE | 2019-08-03 17:48 | RADIOLOGY REPORT (SQ) ---
EXAM DESCRIPTION: CT HEAD WITHOUT IMAGES COMPLETED DATE/TIME: 08/03/2019 5:37 pm REASON FOR STUDY: AMS COMPARISON: 07/07/2019 TECHNIQUE: Axial images acquired through the brain without intravenous contrast. Images reviewed wi th bone, brain and subdural windows. Additional sagittal and coronal reconstructions were generated. Images stored on PACS. All CT scanners at this facility use dose modulation, iterative reconstruction, and/or weight based d osing when appropriate to reduce radiation dose to as low as reasonably achievable (ALARA). [facility]: Dose Right [facility]: CareDose [facility]: Dose Right [facility]: Teradose 4D [facility]: [employer] RADIATION DOSE: CT Rad equipment meets quality standard of care and radiation dose reduction techniq ues were employed. CTDIvol: 53.2 mGy. DLP: 1070 mGy-cm. mGy. LIMITATIONS: None. FINDINGS: VENTRICLES: Normal size and contour. CEREBRUM: No masses. No hemorrhage. No midline shift. No evidence for acute infarction. Normal gra y/white matter differentiation. No areas of low density in the white matter. CEREBELLUM: No masses. No hemorrhage. No alteration of density. No evidence for acute infarction. EXTRAAXIAL SPACES: No fluid collections. No masses. ORBITS AND GLOBE: No intra- or extraconal masses. Normal contour of globe without masses. CALVARIUM: No fracture. PARANASAL SINUSES: No fluid or mucosal thickening. SOFT TISSUES: No mass or hematoma. OTHER: No other significant finding. IMPRESSION: NORMAL BRAIN CT WITHOUT CONTRAST. EVIDENCE OF ACUTE STROKE: NO. COMMENT: Quality ID # [id number]: Final reports with documentation of one or more dose reduction techniques (e.g., Automated exposure control, adjustment of the mA and/or kV according to patient size, use of iterative reconstruction technique) TECHNICAL DOCUMENTATION: JOB ID: [id number] 2010 [employer]- All Rights Reserved Reading location - IP/workstation name: [email or web address]
[2019-08-03 19:26] LABS: ARTERIAL BLOOD BASE EXCESS 0.8 mmol/L; ARTERIAL BLOOD HCO3 26.5 mmol/L (20-24); ARTERIAL BLOOD O2 SATURATION 98.7 % (94-98); ARTERIAL BLOOD PCO2 46.5 mmHg (35-45); ARTERIAL BLOOD PH 7.37 (7.35-7.45); ARTERIAL BLOOD PO2 138.7 mmHg (80-100); ARTERIAL BLOOD TOTAL CO2 27.9 mmol/L (23-27)
[2019-08-03 19:27] LABS: ARTERIAL BLOOD FIO2 35%
--- NOTE | 2019-08-03 20:02 | EKG REPORT ---
SEVERITY:- OTHERWISE NORMAL ECG - SINUS TACHYCARDIA : Confirmed by: Kayleigh Rollins MD 03-Aug-2019 20:01:27
--- NOTE | 2019-08-04 02:40 | ER Document Report ---
Doctor's Note Notes: 08/04/19 02:39 Dr. Haque informed the patient's nurse that he would be discharging the patient home.
[2019-08-04 02:43] VITALS: BP 141/67
== END 2019-08-04 03:16 | disposition home or self-care (01) ==
LOC: ER 15:01
DX: R40.0 Somnolence (principal); R42 Dizziness and giddiness; F25.9 Schizoaffective disorder, unspecified; I10 Essential (primary) hypertension; E11.9 Type 2 diabetes mellitus without complications; J44.9 Chronic obstructive pulmonary disease, unspecified; F17.210 Nicotine dependence, cigarettes, uncomplicated; I25.2 Old myocardial infarction
CPT/HCPCS: 93005; 99291; 96360; 36415; 87040; 82962; 80307 ×4; 82803; 83605; 83735; 85025; 80053; 81001; 84484; 71045; 70450; 93010; 94660; J7030

== ENCOUNTER 2019-08-11 20:10 | Emergency (ER) | payer MEDICARE, MEDICAID ==
[2019-08-11 20:33] VITALS: BP 145/77
--- NOTE | 2019-08-11 20:47 | ER Document Report ---
ED General - General Chief Complaint: Suicidal Ideation Stated Complaint: SUICIDAL IDEATION Time Seen by Provider: 08/11/19 20:42 Mode of Arrival: Ambulatory Information source: Patient Notes: 49-year-old male arrives with chief complaint of needing a ride to go to [facility]. Charli from behavioral health knows this man well and is in the triage room with Mark and nursing staff and myself and advises the patient that this is not going to happen. Patient reports he has fire ants and snakes in his truck and that he could probably drive himself but he would prefer this facility to do it. Charli disagrees with this. Patient otherwise is in no apparent distress and has prescriptions from [facility]. His other medications are in his bags including his psychiatric medications. TRAVEL OUTSIDE OF THE [place] IN LAST 30 DAYS: No - HPI Onset: Just prior to arrival Onset/Duration: Sudden Quality of pain: No pain Severity: None Associated symptoms: None Exacerbated by: Denies Relieved by: Denies Similar symptoms previously: Yes Recently seen / treated by doctor: Yes - Related Data Allergies/Adverse Reactions: olanzapine [From Zyprexa] Allergy (Verified 07/17/19 02:07) metformin Adverse Reaction (Verified 07/17/19 02:07) Past Medical History - General Information source: Patient - Social History Smoking Status: Current Every Day Smoker Cigarette use (# per day): Yes Chew tobacco use (# tins/day): No Smoking Education Provided: Yes Frequency of alcohol use: Occasional Drug Abuse: Prescription drugs Lives with: Family Family History: CVA, DM, Hypertension - Past Medical History Cardiac Medical History: Reports: Hx Heart Attack, Hx Hypertension Pulmonary Medical History: Reports: Hx Bronchitis, Hx COPD Endocrine Medical History: Reports: Hx Diabetes Mellitus Type 2 Skin Medical History: Reports Hx Cellulitis Psychiatric Medical History: Reports: Hx Bipolar Disorder, Hx Depression, Hx Schizoaffective Disorder, Hx Schizophrenia - Immunizations Immunizations up to date: Yes Hx Diphtheria, Pertussis, Tetanus Vaccination: Yes Review of Systems - Review of Systems Constitutional: No symptoms reported EENT: No symptoms reported Cardiovascular: No symptoms reported Respiratory: No symptoms reported Gastrointestinal: No symptoms reported Genitourinary: No symptoms reported Male Genitourinary: No symptoms reported Musculoskeletal: No symptoms reported Skin: No symptoms reported Hematologic/Lymphatic: No symptoms reported Neurological/Psychological: No symptoms reported, Other - Patient reports she has psychiatric problems and would like to be transported to [facility] but [facility] advises him she is spoken to him about this many times in the past. Physical Exam - Vital signs Vitals: Temp Pulse Resp BP Pulse Ox 98.0 F 97 18 145/77 H 97 08/11/19 20:32 08/11/19 20:32 08/11/19 20:32 08/11/19 20:32 08/11/19 20:32 Interpretation: Normal - General General appearance: Appears well, Alert - HEENT Head: Normocephalic, Atraumatic Eyes: Normal Pupils: PERRL - Respiratory Respiratory status: No respiratory distress Chest status: Nontender Breath sounds: Normal Chest palpation: Normal - Cardiovascular Rhythm: Regular Heart sounds: Normal auscultation Murmur: No - Abdominal Inspection: Normal Distension: No distension Bowel sounds: Normal Tenderness: Nontender Organomegaly: No organomegaly - Back Back: Normal, Nontender - Extremities General upper extremity: Normal inspection, Nontender, Normal color, Normal ROM, Normal temperature General lower extremity: Normal inspection, Nontender, Normal color, Normal ROM, Normal temperature, Normal weight bearing. No: Kapil's sign - Neurological Neuro grossly intact: Yes Cognition: Normal Orientation: AAOx4 [place] Coma Scale Eye Opening: Spontaneous [place] Coma Scale Verbal: Oriented [place] Coma Scale Motor: Obeys Commands [place] Coma Scale Total: 15 Speech: Normal Motor strength normal: LUE, RUE, LLE, RLE Sensory: Normal - Psychological Associated symptoms: Normal affect, Normal mood, Other - Patient secondary gains as his chief complaint - Skin Skin Temperature: Warm Skin Moisture: Dry Skin Color: Normal Course - Vital Signs Vital signs: Temp Pulse Resp BP Pulse Ox 98.0 F 97 18 145/77 H 97 08/11/19 20:32 08/11/19 20:32 08/11/19 20:32 08/11/19 20:32 08/11/19 20:32 Critical Care Note - Critical Care Note Total time excluding time spent on procedures (mins): 30 Discharge - Discharge Clinical Impression: Bipolar 1 disorder, secondary gain Disposition: HOME, SELF-CARE Additional Instructions: Follow-up with mental health specialist and come here if you have true emergencies.
--- NOTE | 2019-08-11 21:20 | PSYCHOLOGICAL NOTE ---
Psych Note - Psych Note Date seen by psych provider: 08/11/19 Time seen by psych provider: 08:30 Psych Note: Reason For Consult:Suicidal ideation Patient reports he was just at [facility] and got prescription medications but he was unable to pay for them. He reports he picked up his medical medications for his heart, asthma, and diabetes but did not have enough money for his psychiatric medications. He reports he is supposed to have Haldol. The patient continued to report that he needs clearance to go to [facility] and states they sent him over to [facility]. He denies any thoughts of wanting to harm himself or others. He discusses the difficulties with living in the car (patient currently lives in his father's old car that is does not work). He states there are fire ants and snakes and then states he would like to go to [facility]. Clinician explained that hospitals can not be used for housing and reminded the patient emergency rooms are for emergency. Patient was asked if he had any emergent concerns, he denied stating he just is wanting a prescription for his mental health medications and clearance to go to [facility]. Patient is alert and orientated to person, place, time and circumstance. Mood is euthymic with congruent affect. Patient denies suicidal and homicidal ideation. Delusions are absent and behaviors congruent with an intact reality based presentation ie organized and linear thought process. Eye contact is well-maintained. Conversational speech is difficult to understand at time, but it is his baseline. Intellectual abilities appear to be within the average range to low average range. Attention and concentration are fair. Insight, judgment, impulse control are fair. Clinician contacted [facility] to confirm they sent the patient over and what they are requesting. They confirm they sent the patient for clearance because he blew a .40 and they are unable to assist until he is under .20. They confirm they can accept the patient once his alcohol level is lowered. Clinician spoke with [facility] again to confirm information. They report they mistakenly reported alcohol level for a different patient. They report they did not sent this patient over, they have not screened him at all. Chart review conducted: Patient received a Haldol Decanoate shot of 200 mg on 07/30/2019 Patient has prescriptions at [facility] for Cogentin 2 mg nightly citalopram 20 mg daily gabapentin 100 mg 3 times daily Haldol 5 mg 3 times daily Seroquel 100 mg nightly Impression\plan: Patient is cleared from acute psychiatric services. Patient reports needing psychiatric medication prescriptions however chart review indicates patient has prescriptions at [facility] for his medications. Patient denies suicidal and homicidal ideation. Patient reports he wanted clearance and was told by [facility] to come to [facility] ED for medical clearance. Clinician spoke with [facility], they deny seeing the patient today or sending the patient over for clearance. They confirm they do have beds available if he would like to self refer and have an evaluation. Clinician spoke with patient on concerns the patient is continuing to use emergency services and psychiatric inpatient hospitalization to meet his socioeconomic needs i.e. housing. Patient denies stating he just needs clearance and prescriptions. Patient is reminded of his prescriptions waiting for him at [facility]. Patient is reminded he needs to use services appropriately. Patient is able to self refer to [facility] for an evaluation. At this time the patient does not meet involuntary commitment criteria as he is denying suicidal and homicidal ideation. He is not demonstrating any behaviors of responding to internal stimuli. Dr. Galeano was consulted to care management of this patient; attending physicians in agreement with recommendations and disposition.
== END 2019-08-11 21:26 | disposition home or self-care (01) ==
LOC: ER 20:10
DX: R45.851 Suicidal ideations (principal); F31.89 Other bipolar disorder; F17.210 Nicotine dependence, cigarettes, uncomplicated; I10 Essential (primary) hypertension; J44.9 Chronic obstructive pulmonary disease, unspecified; E11.9 Type 2 diabetes mellitus without complications; I25.2 Old myocardial infarction
CPT/HCPCS: 36415; 80307; 99291

== ENCOUNTER 2019-08-12 23:09 | Emergency (ER) | payer MEDICARE, MEDICAID ==
[2019-08-12 23:20] VITALS: BP 135/70
--- NOTE | 2019-08-13 00:08 | ER Document Report ---
Entered by CEDRIC LYONS SCRIBE 08/12/19 [id number] Acting as scribe for:SAY HALE IV, MD ED General - General Chief Complaint: Shortness Of Breath Stated Complaint: SHORTNESS OF BREATH Time Seen by Provider: 08/12/19 23:32 Primary Care Provider: TERA CUNNINGHAM MD [HONORARY] - Follow up as needed Mode of Arrival: Ambulatory Information source: Patient Notes: This 49 year old male patient with a psychiatric history of bipolar disorder, depression, schizoaffective disorder, and schizophrenia presents to the ED today with complaints of cough and shortness of breath that started prior to arrival. Patient states that he thinks his symptoms are "mostly indigestion". Denies fever. TRAVEL OUTSIDE OF THE [place] IN LAST 30 DAYS: No - Related Data Allergies/Adverse Reactions: olanzapine [From Zyprexa] Allergy (Verified 07/17/19 02:07) metformin Adverse Reaction (Verified 07/17/19 02:07) Past Medical History - General Information source: Patient, [facility] Records - Social History Smoking Status: Current Every Day Smoker Cigarette use (# per day): Yes Chew tobacco use (# tins/day): No Smoking Education Provided: No Lives with: Homeless Family History: Reviewed & Not Pertinent, CVA, DM, Hypertension Patient has suicidal ideation: No Patient has homicidal ideation: No - Past Medical History Cardiac Medical History: Reports: Hx Heart Attack, Hx Hypertension Pulmonary Medical History: Reports: Hx Bronchitis, Hx COPD Endocrine Medical History: Reports: Hx Diabetes Mellitus Type 2 Skin Medical History: Reports Hx Cellulitis Psychiatric Medical History: Reports: Hx Bipolar Disorder, Hx Depression, Hx Schizoaffective Disorder, Hx Schizophrenia Surgical Hx: Negative - Immunizations Immunizations up to date: Yes Hx Diphtheria, Pertussis, Tetanus Vaccination: Yes Review of Systems - Review of Systems Constitutional: See HPI. denies: Fever EENT: No symptoms reported Cardiovascular: No symptoms reported Respiratory: See HPI, Cough, Short of breath Gastrointestinal: See HPI, Other - Dyspepsia Genitourinary: No symptoms reported Male Genitourinary: No symptoms reported Musculoskeletal: No symptoms reported Skin: No symptoms reported Hematologic/Lymphatic: No symptoms reported Neurological/Psychological: No symptoms reported -: Yes All other systems reviewed and negative Physical Exam - Vital signs Vitals: Temp Pulse Resp BP Pulse Ox 97.9 F 83 20 135/70 H 98 08/12/19 23:16 08/12/19 23:16 08/12/19 23:16 08/12/19 23:16 08/12/19 23:16 - General General appearance: Alert In distress: None - HEENT Head: Normocephalic, Atraumatic Eyes: Normal Pupils: PERRL - Respiratory Respiratory status: No respiratory distress Chest status: Nontender Breath sounds: Normal Chest palpation: Normal - Cardiovascular Rhythm: Regular Heart sounds: Normal auscultation Murmur: No Friction rub: No Gallop: None auscultated - Abdominal Inspection: Normal Distension: No distension Bowel sounds: Normal Tenderness: Nontender - Abdomen soft Organomegaly: No organomegaly - Back Back: Normal, Nontender - Extremities General upper extremity: Normal inspection General lower extremity: Normal inspection - Neurological Neuro grossly intact: Yes - Psychological Associated symptoms: Normal affect, Normal mood - Skin Skin Temperature: Warm Skin Moisture: Dry Skin Color: Normal Course - Re-evaluation Re-evalutation: 08/12/19 23:43 Emergency signs and symptoms, reasons to return to the emergency department discussed with patient. - Vital Signs Vital signs: Temp Pulse Resp BP Pulse Ox 97.9 F 83 20 135/70 H 98 08/12/19 23:16 08/12/19 23:16 08/12/19 23:16 08/12/19 23:16 08/12/19 23:16 Discharge - Discharge Clinical Impression: Cough, Tobacco abuse Condition: Good Disposition: HOME, SELF-CARE Additional Instructions: Return to the Emergency Department without delay if any worse. HOME CARE INSTRUCTIONS & INFORMATION: Thank you for choosing us for your medical needs. We hope you're satisfied with the care you received. After you leave, you must properly care for your problem and, at the same time, observe its progress. Any condition can change. Some illnesses can change rapidly over hours or days. If your condition worsens, return to the Emergency Department or see your physician promptly. ABOUT YOUR X-RAYS AND EKG'S: If you had an EKG or X-rays taken, they have been read by the Emergency Physician. The X-rays and EKG's will also be read by a Radiologist or Professor Of Philosophy within 24 hours. If discrepancies are noted, you will be notified by telephone. Please be certain the ED has a correct telephone number & address where you can be reached. Also, realize that some fractures or abnormalities do not show up on initial X-rays. If your symptoms continue, see your physician. ABOUT YOUR LABORATORY TEST: If you had laboratory tests, the results have been reviewed by the Emergency Physician. Some test results (for example cultures) may not be available for several days. You will be contacted if any test result shows you need additional treatment. Please be certain the ED has a correct telephone number and address where you can be reached. ABOUT YOUR MEDICATIONS: You will receive instructions on how to take your medicine on the prescription label you receive. Additional information may be provided by the Pharmacy. If you have questions afterwards, call the ED for clarification or further instructions. Some prescribed medications may cause drowsiness. Do not perform tasks such as driving a car or operating machinery without consulting your Pharmacist. If you feel you need a refill of pain medication, your condition will need re-evaluation. Please do not call for a refill of any medication. ABOUT YOUR SIGNATURE: Signature of this document acknowledges to followin. Understanding that you received emergency treatment and that you may be released before al medical problems are known or treated. Please be certain the ED has a correct phone number & address where you can be reached. 2. Acknowledgement that you will arrange for follow-up care as recommended. 3. Authorization for the Emergency Physician to provide information to your follow-up Physician in order to maximize your care. AT ANY TIME, IF YOUR SYMPTOMS CHANGE SIGNIFICANTLY OR WORSEN OR YOU DEVELOP NEW SYMPTOMS, RETURN TO THE EMERGENCY DEPARTMENT IMMEDIATELY FOR RE-EVALUATION. OUR GOAL IS TO PROVIDE EXCELLENT MEDICAL CARE! WE HOPE THAT WE HAVE MET YOUR EXPECTATIONS DURING YOUR EMERGENCY DEPARTMENT VISIT AND THAT YOU FEEL YOU HAVE RECEIVED EXCELLENT CARE! Referrals: TERA CUNNINGHAM MD [HONORARY] - Follow up as needed I personally performed the services described in the documentation, reviewed and edited the documentation which was dictated to the scribe in my presence, and it accurately records my words and actions.
== END 2019-08-12 23:50 | disposition home or self-care (01) ==
LOC: ER 23:09
DX: R05 Cough (principal); R06.02 Shortness of breath; F17.210 Nicotine dependence, cigarettes, uncomplicated; F20.9 Schizophrenia, unspecified; F31.9 Bipolar disorder, unspecified; I10 Essential (primary) hypertension; J44.9 Chronic obstructive pulmonary disease, unspecified; E11.9 Type 2 diabetes mellitus without complications; I25.2 Old myocardial infarction
CPT/HCPCS: 99283

== ENCOUNTER 2019-08-15 00:11 | Emergency (ER) | payer MEDICARE, MEDICAID ==
--- NOTE | 2019-08-15 00:17 | ER Document Report ---
ED General - General Chief Complaint: Abrasion(s) Stated Complaint: ABRASION RIGHT ARM Notes: Patient presents with baseline intoxication same as prior with abrasion to the right arm. Not sure how he got it. Blood is dried up. Tetanus up-to-date. No other injuries. TRAVEL OUTSIDE OF THE [place] IN LAST 30 DAYS: No - Related Data Allergies/Adverse Reactions: olanzapine [From Zyprexa] Allergy (Verified 08/15/19 00:21) metformin Adverse Reaction (Verified 08/15/19 00:21) Past Medical History - Social History Smoking Status: Unknown if Ever Smoked Family History: Reviewed & Not Pertinent, CVA, DM, Hypertension - Past Medical History Cardiac Medical History: Reports: Hx Heart Attack, Hx Hypertension Pulmonary Medical History: Reports: Hx Bronchitis, Hx COPD Endocrine Medical History: Reports: Hx Diabetes Mellitus Type 2 Skin Medical History: Reports Hx Cellulitis Psychiatric Medical History: Reports: Hx Bipolar Disorder, Hx Depression, Hx Schizoaffective Disorder, Hx Schizophrenia - Immunizations Immunizations up to date: Yes Hx Diphtheria, Pertussis, Tetanus Vaccination: Yes Review of Systems - Review of Systems Notes: REVIEW OF SYSTEMS GEN: Denies fever, chills, weight loss ENT: Denies sore throat, nasal discharge, ear pain EYES: Denies blurry vision, eye pain, discharge CV: Denies chest pain, palpitations, edema RESP: Denies cough, shortness of breath, wheezing GI: Denies abdominal pain, nausea, vomiting, diarrhea MSK: Denies joint pain/swelling, edema, SKIN: Abrasion LYMPH: Denies swollen glands/lymph nodes NEURO: Denies headache, focal weakness or numbness, dizziness PSYCH: Chronic alcoholism n PHYSICAL EXAMINATION G general: No acute distress, well-nourished Head: Atraumatic, normocephalic ENT: Mouth normal, oropharynx moist, lips normal Eyes: Conjunctiva normal, pupils equal, lids normal Neck: No JVD, supple, no guarding Resp: No resp distress, equal chest rise GI: Nondistended, no guarding Back: No midline or CVA tenderness Ext: Right forearm abrasion shallow clean with scabbed blood a Skin: Well-perfused, no rash Neuro: Awake, alert. Face symmetric. Steady gait. Course - Re-evaluation Re-evalutation: 08/15/19 00:22 Abrasion, tetanus up-to-date no infection local wound care recommended Mild intoxication although walks with steady gait with no signs of withdrawal. Best disposition would be home with local wound care. No indication for psychiatric emergency or intoxication/withdrawal needing ED observation and treatment. I have discussed with the patient there likely diagnosis, aftercare plan, follow-up plans and my usual and customary return precautions. They verbalized understanding of this. Discharge - Discharge Clinical Impression: Abrasion of right arm Qualifiers: Encounter type: initial encounter Qualified Code(s): S40.811A - Abrasion of right upper arm, initial encounter Condition: Good Disposition: HOME, SELF-CARE Instructions: Soap Cleansing ([facility])
[2019-08-15 00:30] VITALS: BP 142/84
== END 2019-08-15 00:30 | disposition home or self-care (01) ==
LOC: ER 00:11
DX: S40.811A Abrasion of right upper arm, initial encounter (principal); X58.XXXA Exposure to other specified factors, initial encounter; I10 Essential (primary) hypertension; J44.9 Chronic obstructive pulmonary disease, unspecified; E11.9 Type 2 diabetes mellitus without complications; I25.2 Old myocardial infarction
CPT/HCPCS: 99282

== ENCOUNTER 2019-08-16 20:46 | Emergency (ER) | payer MEDICARE, MEDICAID ==
[2019-08-16 21:35] LABS: ABSOLUTE BASOPHILS # (AUTO) 0.1 10^3/uL (0.0-0.2); ABSOLUTE EOSINOPHILS # (AUTO) 0.3 10^3/uL (0.0-0.6); ABSOLUTE LYMPHOCYTES (AUTO) 2.1 10^3/uL (0.5-4.7); ABSOLUTE MONOCYTES (AUTO) 0.6 10^3/uL (0.1-1.4); ABSOLUTE NEUT (AUTO) 4.6 10^3/uL (1.7-8.2); EOSINOPHILS % (AUTO) 3.8 % (0-6); HEMATOCRIT 35.8 % (37.9-51.0); HEMOGLOBIN 12.8 g/dL (13.5-17.0); LYMPHOCYTES % (AUTO) 27.1 % (13-45); MEAN CORPUSCULAR HGB CONC 35.6 g/dL (32.0-36.0); MEAN CORPUSCULAR VOLUME 87 fl (80-97); MONOCYTES % (AUTO) 8.4 % (3-13); PLATELET COUNT 371 10^3/uL (150-450); RED BLOOD COUNT 4.12 10^6/uL (4.35-5.55); SEGMENTED NEUTROPHILS % (AUTO) 59.7 % (42-78); TOTAL CELLS COUNTED % (AUTO) 100 %; WHITE BLOOD COUNT 7.7 10^3/uL (4.0-10.5)
[2019-08-16 21:40] LABS: ALBUMIN 3.8 g/dL (3.5-5.0); ALKALINE PHOSPHATASE 60 U/L (38-126); ANION GAP 7 (5-19); ASPARTATE AMINO TRANSFERASE 43 U/L (17-59); BILIRUBIN,TOTAL 0.3 mg/dL (0.2-1.3); BLOOD UREA NITROGEN 8 mg/dL (7-20); CALCIUM 9.5 mg/dL (8.4-10.2); CARBON DIOXIDE 30 mmol/L (22-30); CHLORIDE 94 mmol/L (98-107); GLUCOSE 184 mg/dL (75-110); POTASSIUM 3.9 mmol/L (3.6-5.0); TOTAL PROTEIN 6.2 g/dL (6.3-8.2)
[2019-08-16 21:41] LABS: ALCOHOL < 10 mg/dL (NONE DETECTED)
[2019-08-16 23:08] VITALS: BP 164/90
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
[2019-08-16 23:38] LABS: APPEARANCE,URINE CLEAR; BILIRUBIN,URINE NEGATIVE (NEGATIVE); COLOR,URINE YELLOW; GLUCOSE, URINE NEGATIVE (NEGATIVE); KETONES,URINE NEGATIVE (NEGATIVE); LEUKOCYTE ESTERASE,URINE NEGATIVE (NEGATIVE); NITRITE,URINE NEGATIVE (NEGATIVE); PROTEIN,URINE NEGATIVE (NEGATIVE); URINE SPECIFIC GRAVITY 1.005; UROBILINOGEN,URINE NEGATIVE mg/dL (<2.0)
[2019-08-16 23:52] LABS: URINE AMPHETAMINES SCREEN NEGATIVE; URINE BARBITURATES SCREEN NEGATIVE; URINE BENZODIAZEPINES SCREEN NEGATIVE; URINE COCAINE SCREEN NEGATIVE; URINE MARIJUANA (THC) SCREEN NEGATIVE; URINE METHADONE SCREEN NEGATIVE; URINE PHENCYCLIDINE SCREEN NEGATIVE
--- NOTE | 2019-08-17 00:02 | EKG REPORT ---
SEVERITY:- NORMAL ECG - SINUS RHYTHM : Confirmed by: Flor Logan 17-Aug-2019 00:01:50
== END 2019-08-16 23:48 | disposition home or self-care (01) ==
LOC: ER 20:46
DX: Z59.0 Homelessness (principal); M54.9 Dorsalgia, unspecified; Z88.8 Allergy status to other drugs, medicaments and biological substances; I10 Essential (primary) hypertension; I25.2 Old myocardial infarction; J44.9 Chronic obstructive pulmonary disease, unspecified; E11.9 Type 2 diabetes mellitus without complications
CPT/HCPCS: 36415; 80053; 80307; 81001; 83735; 85025; 93005; 93010; 99283

== ENCOUNTER 2019-08-21 23:53 | Emergency (ER) | payer MEDICARE, MEDICAID ==
[2019-08-22 00:09] VITALS: BP 127/73
[2019-08-22] MEDS ORDERED: CEPHALEXIN 500 MG CAPSULE PO ONE (01:01)
--- NOTE | 2019-08-22 01:05 | ER Document Report ---
ED General - General Chief Complaint: Medication Refill Stated Complaint: PRESCRIPTION REFILL Time Seen by Provider: 08/22/19 00:41 Mode of Arrival: Ambulatory Information source: Patient Notes: 49-year-old male past medical history significant for neuropathy, schizophrenia, hypertension with the previous UT presents to the emergency room requesting medication refills. Also would like some cream for ulceration that he has had to his left heel for several weeks. Patient states he was recently incarcerated and was released early this morning. States he did have all his medications this morning. Patient states he was at the crisis center all day today and did not call his primary care and doctor for medication refills. He has no other complaints. No fevers, no chills, no shortness of breath, no chest pain, no difficulty breathing. TRAVEL OUTSIDE OF THE [place] IN LAST 30 DAYS: No - Related Data Allergies/Adverse Reactions: olanzapine [From Zyprexa] Allergy (Verified 08/15/19 00:21) metformin Adverse Reaction (Verified 08/15/19 00:21) Past Medical History - General Information source: Patient - Social History Smoking Status: Current Every Day Smoker Frequency of alcohol use: Occasional Drug Abuse: None Lives with: Alone Family History: Reviewed & Not Pertinent, CVA, DM, Hypertension Patient has suicidal ideation: No Patient has homicidal ideation: No - Past Medical History Cardiac Medical History: Reports: Hx Heart Attack, Hx Hypertension Pulmonary Medical History: Reports: Hx Bronchitis, Hx COPD Endocrine Medical History: Reports: Hx Diabetes Mellitus Type 2, Other - Diabetic neuropathy Skin Medical History: Reports Hx Cellulitis Psychiatric Medical History: Reports: Hx Bipolar Disorder, Hx Depression, Hx Schizoaffective Disorder, Hx Schizophrenia - Immunizations Immunizations up to date: Yes Hx Diphtheria, Pertussis, Tetanus Vaccination: Yes Review of Systems - Review of Systems Constitutional: No symptoms reported EENT: No symptoms reported Cardiovascular: No symptoms reported Respiratory: No symptoms reported Musculoskeletal: No symptoms reported Skin: Other - Left heel ulceration Neurological/Psychological: No symptoms reported -: Yes All other systems reviewed and negative Physical Exam - Vital signs Vitals: Temp Pulse Resp BP Pulse Ox 97.7 F 85 18 127/73 H 98 08/22/19 00:07 08/22/19 00:07 08/22/19 00:07 08/22/19 00:07 08/22/19 00:07 - General General appearance: Appears well, Alert In distress: None - HEENT Head: Normocephalic, Atraumatic Eyes: Normal Pupils: PERRL - Respiratory Respiratory status: No respiratory distress Chest status: Nontender Breath sounds: Normal Chest palpation: Normal - Cardiovascular Rhythm: Regular Heart sounds: Normal auscultation Murmur: No - Extremities Foot: Nontender, Other - There is a 2 cm poorly healing ulceration noted to the left heel. There is mild erythema noted not warm or tender to palpation. - Neurological Neuro grossly intact: Yes Cognition: Normal Orientation: AAOx4 Notes: Positive left pedal pulse. Capillary refill less than 3 seconds. - Skin Skin Temperature: Warm Skin Moisture: Dry Skin Color: Normal Irregularity with: Inflammation - Poor healing 2 cm ulceration noted to the left heel. Erythema but not warm or tender to palpation. No active discharge or drainage noted. Course - Re-evaluation Re-evalutation: 08/22/19 01:09 Patient will be given 1 dose of Keflex in the emergency room for the cellulitis to his left heel. He was counseled to follow-up with his primary care physician in the morning for his medication refills of his chronic medications. Take antibiotics as prescribed. Given strict return to the emergency room guidelines. Return for any new or worsening symptoms. All questions answered. Patient verbalized understanding agrees with plan of care. - Vital Signs Vital signs: Temp Pulse Resp BP Pulse Ox 98.0 F 85 18 127/73 H 98 08/22/19 00:12 08/22/19 00:07 08/22/19 00:07 08/22/19 00:07 08/22/19 00:07 Discharge - Discharge Clinical Impression: Cellulitis of left heel, Medication refill Condition: Stable Disposition: HOME, SELF-CARE Instructions: Cellulitis ([facility]) Additional Instructions: Take antibiotics as prescribed. Recheck with primary care physician tomorrow. Call your primary care physician for an outpatient follow-up appointment as well as for medication refills. Return for any new or worsening symptoms. Prescriptions: Cephalexin Monohydrate [Keflex 500 mg Capsule] 500 mg PO Q6H 10 Days #39 capsule
== END 2019-08-22 01:22 | disposition home or self-care (01) ==
LOC: ER 23:53
DX: Z76.0 Encounter for issue of repeat prescription (principal); L03.116 Cellulitis of left lower limb; E11.40 Type 2 diabetes mellitus with diabetic neuropathy, unspecified; I10 Essential (primary) hypertension; I25.2 Old myocardial infarction; J44.9 Chronic obstructive pulmonary disease, unspecified; Z88.8 Allergy status to other drugs, medicaments and biological substances; F17.200 Nicotine dependence, unspecified, uncomplicated
CPT/HCPCS: 99281; A9270

== ENCOUNTER 2019-08-24 01:52 | Emergency (ER) | payer MEDICARE, MEDICAID ==
[2019-08-24 01:57] VITALS: BP 139/72
== END 2019-08-24 05:57 | disposition left against medical advice (07) ==
LOC: ER 01:52
DX: Z76.0 Encounter for issue of repeat prescription (principal); Z79.899 Other long term (current) drug therapy

== ENCOUNTER 2019-08-24 23:38 | Emergency (ER) | payer MEDICARE, MEDICAID ==
[2019-08-24 23:52] VITALS: BP 137/81
== END 2019-08-25 01:34 | disposition left against medical advice (07) ==
LOC: ER 23:38
DX: Z76.0 Encounter for issue of repeat prescription (principal); Z53.21 Procedure and treatment not carried out due to patient leaving prior to being seen by health care provider

== ENCOUNTER 2019-08-28 20:23 | Emergency (ER) | payer MEDICARE, MEDICAID ==
[2019-08-28 20:36] VITALS: BP 150/94
== END 2019-08-28 21:54 | disposition left against medical advice (07) ==
LOC: ER 20:23
DX: Z53.21 Procedure and treatment not carried out due to patient leaving prior to being seen by health care provider (principal)

== ENCOUNTER 2019-08-29 21:22 | Emergency (ER) | payer MEDICARE, MEDICAID ==
--- NOTE | 2019-08-29 22:32 | ER Document Report ---
ED General - General Chief Complaint: Medical Complaint Stated Complaint: PSYCH Time Seen by Provider: 08/29/19 22:08 Primary Care Provider: PHILLIP URBINA DO [Primary Care Provider] - Follow up as needed Mode of Arrival: Ambulatory Information source: Patient Notes: 49 male well-known to this facility arrives with chief complaint of wanting to go to [facility]. He has LWBS x3 days in a row this month. Patient has a history of bipolar and depressive disease and schizoaffective disorder and schizophrenia and severe dental caries as well as poor overall hygiene. Patient reports he wants some coffee and something to eat patient is homeless. my note 16 August 2019 49-year-old male who is well-known to the ER and staff members and behavioral health staff. Patient is here more than most of the ER staff per month. Patient is well-known to Charli Mcfarland behavioral health specialist who saw this patient with me only 4 days ago. Patient today is sleeping in bed 18 and reports he has been drinking some and has is [place] snuff and a tin by the bed. Patient's alcohol level was negative. Patient has given urine. Patient lives and a vehicle his sister gave him. He often has a story that fire ants and snakes get in it. He used to use suicidal and homicidal ideation but was told if he abuses assist him with this he will be arrested and therefore he no longer uses this as his admitting diagnosis. He is homeless. On his last visit he requested Awa De Jesus and/or Nri. Charli advises sending the patient home to his vehicle. TRAVEL OUTSIDE OF THE [place] IN LAST 30 DAYS: No - Related Data Allergies/Adverse Reactions: olanzapine [From Zyprexa] Allergy (Verified 08/29/19 21:41) metformin Adverse Reaction (Verified 08/29/19 21:41) Past Medical History - General Information source: Patient Cannot obtain history due to: Other - Social History Smoking Status: Current Every Day Smoker Cigarette use (# per day): Yes Chew tobacco use (# tins/day): No Smoking Education Provided: Yes Frequency of alcohol use: None Drug Abuse: None Lives with: Family - Patient reports his son now is in residential at [place] Family History: Reviewed & Not Pertinent, CVA, DM, Hypertension Patient has suicidal ideation: No Patient has homicidal ideation: No - Past Medical History Cardiac Medical History: Reports: Hx Heart Attack, Hx Hypertension Pulmonary Medical History: Reports: Hx Bronchitis, Hx COPD Endocrine Medical History: Reports: Hx Diabetes Mellitus Type 2 Skin Medical History: Reports Hx Cellulitis Psychiatric Medical History: Reports: Hx Bipolar Disorder, Hx Depression, Hx Schizoaffective Disorder, Hx Schizophrenia - Immunizations Immunizations up to date: Yes Hx Diphtheria, Pertussis, Tetanus Vaccination: Yes Review of Systems - Review of Systems Constitutional: No symptoms reported EENT: No symptoms reported, Other - Diffuse dental erosions to his gumlines Cardiovascular: No symptoms reported Respiratory: No symptoms reported Gastrointestinal: No symptoms reported Genitourinary: No symptoms reported Male Genitourinary: No symptoms reported Musculoskeletal: No symptoms reported Skin: No symptoms reported Hematologic/Lymphatic: No symptoms reported Neurological/Psychological: See HPI, Depression, Anxiety. denies: Confusion, Dementia, Hallucinations, Sensory change, Homicidal ideation, Weakness, Gait changes, Loss of power, Paralysis, Seizure, Lost consciousness, Headaches, Speech impairment, Numbness, Suicidal ideation, Tingling, Tremor Physical Exam - Vital signs Vitals: Temp Pulse Resp BP Pulse Ox 97.5 F 84 20 149/87 H 97 08/29/19 21:26 08/29/19 21:26 08/29/19 21:26 08/29/19 21:26 08/29/19 21:26 Interpretation: Normal - General General appearance: Alert - HEENT Head: Normocephalic, Atraumatic Eyes: Normal Pupils: PERRL Mouth/Lips: Caries Pharynx: Normal Neck: Normal - Respiratory Respiratory status: No respiratory distress Chest status: Nontender Breath sounds: Normal Chest palpation: Normal - Cardiovascular Rhythm: Regular Heart sounds: Normal auscultation Murmur: No - Abdominal Inspection: Normal Distension: No distension Bowel sounds: Normal Tenderness: Nontender Organomegaly: No organomegaly - Genitourinary Scrotum: Other - deferred - Back Back: Normal - Extremities General upper extremity: Normal inspection General lower extremity: Normal inspection - Neurological Neuro grossly intact: Yes Cognition: Normal Orientation: AAOx4 [place] Coma Scale Eye Opening: Spontaneous [place] Coma Scale Verbal: Oriented [place] Coma Scale Motor: Obeys Commands [place] Coma Scale Total: 15 Speech: Normal Motor strength normal: LUE, RUE, LLE, RLE Sensory: Normal - Psychological Associated symptoms: Circumferential speech - Skin Skin Temperature: Warm Skin Moisture: Dry Course - Vital Signs Vital signs: Temp Pulse Resp BP Pulse Ox 97.5 F 84 20 149/87 H 97 08/29/19 21:41 08/29/19 21:26 08/29/19 21:26 08/29/19 21:26 08/29/19 21:26 Critical Care Note - Critical Care Note Total time excluding time spent on procedures (mins): 90 Discharge - Discharge Clinical Impression: Homeless single person, secondary gain Condition: Good Disposition: HOME, SELF-CARE Additional Instructions: Follow-up with personal doctor or with community care or health department; also follow-up with Dr. Galeano psychiatry on return visit in the near future; make sure you brush your teeth to keep the cavities down and follow-up with your dentist because of your eroded teeth. Referrals: PHILLIP URBINA, [Primary Care Provider] - Follow up as needed
[2019-08-29 23:00] VITALS: BP 169/89
== END 2019-08-29 23:00 | disposition home or self-care (01) ==
LOC: ER 21:22
DX: Z59.0 Homelessness (principal); F17.210 Nicotine dependence, cigarettes, uncomplicated; I10 Essential (primary) hypertension; E11.9 Type 2 diabetes mellitus without complications; F31.9 Bipolar disorder, unspecified; I25.2 Old myocardial infarction
CPT/HCPCS: 99284

== ENCOUNTER 2019-08-31 21:15 | Emergency (ER) | payer MEDICARE, MEDICAID ==
[2019-08-31] MEDS ORDERED: BUPIVACAINE HCL 0.25 % INJ/PF (2.5 MG/1 ML) 30 ML VIAL INJ ONE (23:15)
[2019-08-31] MEDS ORDERED: CLINDAMYCIN HCL 150 MG CAPSULE PO ONE (23:23)
[2019-08-31] MEDS ORDERED: LIDOCAINE 1% INJ (10 MG/ML) 10 ML MDV INJ ONE (23:33)
--- NOTE | 2019-09-01 01:43 | ER Document Report ---
Entered by FRIDA HOWARD SCRIBE 08/31/19 [id number] Acting as scribe for:JARON BARAJAS DO ED Oral Problem - General Chief Complaint: tooth abcess Stated Complaint: MOUTH PAIN Time Seen by Provider: 08/31/19 22:56 Primary Care Provider: PHILLIP URBINA DO [Primary Care Provider] - Follow up as needed Mode of Arrival: Ambulatory Information source: Patient Notes: This homeless 49 year old male patient that is well known to the ED staff here for frequent visits. Erica's visit will make number 15 over the last 30 days. Patient reports left lower dental pain and swelling. Patient reports that he frequently has dental infections and he would like to have a nerve block done to the tooth. Patient has no other complaints. TRAVEL OUTSIDE OF THE [place] IN LAST 30 DAYS: No - Related Data Allergies/Adverse Reactions: olanzapine [From Zyprexa] Allergy (Verified 08/29/19 21:41) metformin Adverse Reaction (Verified 08/29/19 21:41) Past Medical History - General Information source: Patient - Social History Smoking Status: Current Every Day Smoker Cigarette use (# per day): Yes Chew tobacco use (# tins/day): Yes Frequency of alcohol use: Occasional Drug Abuse: None Lives with: Homeless Family History: Reviewed & Not Pertinent, CVA, DM, Hypertension Patient has homicidal ideation: No - Past Medical History Cardiac Medical History: Reports: Hx Heart Attack, Hx Hypertension Pulmonary Medical History: Reports: Hx Bronchitis, Hx COPD Endocrine Medical History: Reports: Hx Diabetes Mellitus Type 2 Skin Medical History: Reports Hx Cellulitis Psychiatric Medical History: Reports: Hx Bipolar Disorder, Hx Depression, Hx Schizoaffective Disorder, Hx Schizophrenia - Immunizations Immunizations up to date: Yes Hx Diphtheria, Pertussis, Tetanus Vaccination: Yes Review of Systems - Review of Systems Constitutional: No symptoms reported EENT: See HPI, Mouth pain, Mouth swelling, Dental problem Cardiovascular: No symptoms reported Respiratory: No symptoms reported Gastrointestinal: No symptoms reported Genitourinary: No symptoms reported Male Genitourinary: No symptoms reported Musculoskeletal: No symptoms reported Skin: No symptoms reported Hematologic/Lymphatic: No symptoms reported Neurological/Psychological: No symptoms reported -: Yes All other systems reviewed and negative Physical Exam - Vital signs Vitals: Temp Pulse Resp BP Pulse Ox 98.7 F 89 16 149/70 H 100 08/31/19 21:19 08/31/19 21:19 08/31/19 21:19 08/31/19 21:19 08/31/19 21:19 Interpretation: Normal - General General appearance: Alert Notes: Disheveled, chronically ill-appearing - HEENT Head: Normocephalic, Atraumatic Eyes: Normal Pupils: PERRL Mouth/Lips: Caries, Dental fracture, Other - Swelling over left anterior mandible an area where patient has multiple dental caries and broken teeth. No fluctuance or erythema. Mucous membranes: Moist Pharynx: Normal - Respiratory Respiratory status: No respiratory distress Chest status: Nontender Breath sounds: Normal Chest palpation: Normal - Cardiovascular Rhythm: Regular Heart sounds: Normal auscultation Murmur: No - Abdominal Inspection: Normal Distension: No distension Bowel sounds: Normal Tenderness: Nontender Organomegaly: No organomegaly - Back Back: Normal, Nontender - Extremities General upper extremity: Normal inspection, Nontender, Normal color, Normal ROM, Normal temperature General lower extremity: Normal inspection, Nontender, Normal color, Normal ROM, Normal temperature, Normal weight bearing. No: Kapil's sign - Neurological Neuro grossly intact: Yes Cognition: Normal Orientation: AAOx4 [place] Coma Scale Eye Opening: Spontaneous [place] Coma Scale Verbal: Oriented [place] Coma Scale Motor: Obeys Commands [place] Coma Scale Total: 15 Sensory: Normal - Psychological Associated symptoms: Normal affect - Skin Skin Temperature: Warm Skin Moisture: Dry Skin Color: Normal Course - Re-evaluation Re-evalutation: 09/01/19 01:42 Patient is a 49-year-old male who is well-known to this facility. Patient comes in clinic complaining of dental pain. Exam consistent with dental abscess but no fluctuance and nothing drainable. Received dental block. Please see procedure note. Feeling better. Will be discharged home with clindamycin. Patient is in touch with outpatient resources and has no further complaints or concerns tonight. - Vital Signs Vital signs: Temp Pulse Resp BP Pulse Ox 98.7 F 89 16 149/70 H 100 08/31/19 21:50 08/31/19 21:19 08/31/19 21:19 08/31/19 21:19 08/31/19 21:19 Procedures - Additional Procedures Dental block Additional Procedures: Other - Inferior alveolar block on the left. Tolerated well. Given bupivacaine lidocaine, 2 cc of each. Discharge - Discharge Clinical Impression: Dental caries, Dental abscess Condition: Stable Disposition: HOME, SELF-CARE Instructions: Dental Infection or Abscess ([facility]), Dentist Prescriptions: Clindamycin HCl 300 mg PO TID #30 capsule Referrals: PHILLIP URBINA DO [Primary Care Provider] - Follow up as needed I personally performed the services described in the documentation, reviewed and edited the documentation which was dictated to the scribe in my presence, and it accurately records my words and actions.
[2019-09-01 02:38] VITALS: BP 158/95
== END 2019-09-01 02:37 | disposition home or self-care (01) ==
LOC: ER 21:15
DX: K02.9 Dental caries, unspecified (principal); K04.7 Periapical abscess without sinus; Z59.0 Homelessness; F17.210 Nicotine dependence, cigarettes, uncomplicated; I10 Essential (primary) hypertension; E11.9 Type 2 diabetes mellitus without complications; J44.9 Chronic obstructive pulmonary disease, unspecified; I25.2 Old myocardial infarction
CPT/HCPCS: 99282; 64400; A9270

== ENCOUNTER 2019-09-02 00:39 | Emergency (ER) | payer MEDICARE, MEDICAID ==
--- NOTE | 2019-09-02 03:22 | ER Document Report ---
ED General - General Chief Complaint: Jaw Pain Stated Complaint: LEFT JAW PAIN Time Seen by Provider: 09/02/19 02:22 Primary Care Provider: PHILLIP URBINA DO [Primary Care Provider] - Follow up as needed Mode of Arrival: Ambulatory Information source: Patient Notes: 49-year-old male presents to the emergency department complaining of right jaw pain. He is a frequent flyer in the emergency department and apparently presently sleeping. When asked about his mouth with patient incoherently mumbled that he needs to get to the bathroom. TRAVEL OUTSIDE OF THE [place] IN LAST 30 DAYS: No - Related Data Allergies/Adverse Reactions: olanzapine [From Zyprexa] Allergy (Verified 08/29/19 21:41) metformin Adverse Reaction (Verified 08/29/19 21:41) Past Medical History - Social History Smoking Status: Unknown if Ever Smoked Frequency of alcohol use: STATES HE HAS BEEN DRINKING Family History: Reviewed & Not Pertinent, CVA, DM, Hypertension Patient has homicidal ideation: No - Past Medical History Cardiac Medical History: Reports: Hx Heart Attack, Hx Hypertension Pulmonary Medical History: Reports: Hx Bronchitis, Hx COPD Endocrine Medical History: Reports: Hx Diabetes Mellitus Type 2 Skin Medical History: Reports Hx Cellulitis Psychiatric Medical History: Reports: Hx Bipolar Disorder, Hx Depression, Hx Schizoaffective Disorder, Hx Schizophrenia - Immunizations Immunizations up to date: Yes Hx Diphtheria, Pertussis, Tetanus Vaccination: Yes Review of Systems - Review of Systems Notes: Constitutional: Negative for fever. HENT: Negative for sore throat. Eyes: Negative for visual changes. Cardiovascular: Negative for chest pain. Respiratory: Negative for shortness of breath. Gastrointestinal: Negative for abdominal pain, vomiting or diarrhea. Genitourinary: Negative for dysuria. Musculoskeletal: Negative for back pain. Skin: Negative for rash. Neurological: Negative for headaches, weakness or numbness. 10 point ROS negative except as marked above and in HPI. Physical Exam - Vital signs Vitals: Temp 97.4 F 09/02/19 00:40 - Notes Notes: PHYSICAL EXAMINATION: Physical Exam: General: Well-nourished well-developed in no acute distress HEENT: NC/AT, pupils equal round and reactive to light, MM moist,nares clear, oropharynx clear, airway patent Neck: supple, no adenopathy, no masses. Good range of motion Lungs: clear, no wheezing, no rales no rhonchi CVS: Regular rate and rhythm no murmur gallop or rub Abdomen: Soft, active, nontender, no masses, no hepatosplenomegaly Ext: No edema, clubbing or cyanosis. Neuro: Poor historian, alert responsive able removal in all 4 extremities. Skin: Intact no open lesions, no rash PSYCH: Normal mood, normal affect. Course - Vital Signs Vital signs: Temp Pulse Resp BP Pulse Ox 97.4 F 79 20 148/74 H 100 09/02/19 01:02 09/02/19 01:02 09/02/19 01:02 09/02/19 01:02 09/02/19 01:02 Discharge - Discharge Clinical Impression: Homeless single person, Dental caries Condition: Good Disposition: HOME, SELF-CARE Instructions: Dental Infection or Abscess ([facility]) Additional Instructions: Please take medication as prescribed amoxicillin and may help you dental caries and sore mouth. Follow-up with a dentist as soon as possible HOME CARE INSTRUCTIONS & INFORMATION: Thank you for choosing us for your medical needs. We hope you're satisfied with the care you received. After you leave, you must properly care for your problem and, at the same time, observe its progress. Any condition can change. Some illnesses can change rapidly over hours or days. If your condition worsens, return to the Emergency Department or see your physician promptly. ABOUT YOUR X-RAYS AND EKG'S: If you had an EKG or X-rays taken, they have been read by the Emergency Physician. The X-rays and EKG's will also be read by a Radiologist or Wire Hanger within 24 hours. If discrepancies are noted, you will be notified by telephone. Please be certain the ED has a correct telephone number & address where you can be reached. Also, realize that some fractures or abnormalities do not show up on initial X-rays. If your symptoms continue, see your physician. ABOUT YOUR LABORATORY TEST: If you had laboratory tests, the results have been reviewed by the Emergency Physician. Some test results (for example cultures) may not be available for several days. You will be contacted if any test result shows you need additional treatment. Please be certain the ED has a correct telephone number and address where you can be reached. ABOUT YOUR MEDICATIONS: You will receive instructions on how to take your medicine on the prescription label you receive. Additional information may be provided by the Pharmacy. If you have questions afterwards, call the ED for clarification or further instructions. Some prescribed medications may cause drowsiness. Do not perform tasks such as driving a car or operating machinery without consulting your Pharmacist. If you feel you need a refill of pain medication, your condition will need re-evaluation. Please do not call for a refill of any medication. ABOUT YOUR SIGNATURE: Signature of this document acknowledges to followin. Understanding that you received emergency treatment and that you may be released before al medical problems are known or treated. Please be certain the ED has a correct phone number & address where you can be reached. 2. Acknowledgement that you will arrange for follow-up care as recommended. 3. Authorization for the Emergency Physician to provide information to your follow-up Physician in order to maximize your care. AT ANY TIME, IF YOUR SYMPTOMS CHANGE SIGNIFICANTLY OR WORSEN OR YOU DEVELOP NEW SYMPTOMS, RETURN TO THE EMERGENCY DEPARTMENT IMMEDIATELY FOR RE-EVALUATION. OUR GOAL IS TO PROVIDE EXCELLENT MEDICAL CARE! WE HOPE THAT WE HAVE MET YOUR EXPECTATIONS DURING YOUR EMERGENCY DEPARTMENT VISIT AND THAT YOU FEEL YOU HAVE RECEIVED EXCELLENT CARE! Prescriptions: Amoxicillin 1 tab PO TID #30 tab Referrals: PHILLIP URBINA DO [Primary Care Provider] - Follow up as needed
[2019-09-02 06:30] VITALS: BP 157/97
== END 2019-09-02 06:30 | disposition home or self-care (01) ==
LOC: ER 00:39
DX: K02.9 Dental caries, unspecified (principal); Z59.0 Homelessness; R68.84 Jaw pain; I10 Essential (primary) hypertension; E11.9 Type 2 diabetes mellitus without complications; Z79.84 Long term (current) use of oral hypoglycemic drugs; I25.2 Old myocardial infarction
CPT/HCPCS: 99283

== ENCOUNTER 2019-09-03 21:18 | Emergency (ER) | payer MEDICARE, MEDICAID ==
[2019-09-03 21:56] VITALS: BP 167/72
[2019-09-04] MEDS ORDERED: IBUPROFEN 600 MG TABLET PO ONE (00:07)
[2019-09-04] MEDS ORDERED: PENICILLIN V POTASSIUM 500 MG TABLET PO ONE (00:08)
--- NOTE | 2019-09-04 00:13 | ER Document Report ---
ED General - General Chief Complaint: Toothache Stated Complaint: TOOTHACHE Time Seen by Provider: 09/03/19 22:52 Primary Care Provider: PHILLIP URBINA DO [Primary Care Provider] - Follow up as needed Information source: Patient TRAVEL OUTSIDE OF THE [place] IN LAST 30 DAYS: No - HPI Notes: 49-year 49-year-old male history of numerous dental caries, poor dentition, EtOH abuse, diabetes presents with dental pain in lateral mandibular incisors over the past several days with some localized swelling around the tooth. Patient says he would like referral to dentist that accepts patients without insurance. Patient also says that he ran out of his Januvia and requests a refill. Patient denies any fever, spreading pain, headache, neck pain/rigidity, other sources of immune compromise, trauma, shortness of breath, vomiting, abdominal pain, recent infection, prior treatment. - Related Data Allergies/Adverse Reactions: olanzapine [From Zyprexa] Allergy (Verified 09/06/19 23:51) metformin Adverse Reaction (Verified 09/06/19 23:51) Past Medical History - General Information source: Patient - Social History Smoking Status: Current Some Day Smoker Frequency of alcohol use: Heavy Family History: Reviewed & Not Pertinent, CVA, DM, Hypertension Patient has homicidal ideation: No - Past Medical History Cardiac Medical History: Reports: Hx Heart Attack, Hx Hypertension Pulmonary Medical History: Reports: Hx Bronchitis, Hx COPD Endocrine Medical History: Reports: Hx Diabetes Mellitus Type 2 Skin Medical History: Reports Hx Cellulitis Psychiatric Medical History: Reports: Hx Bipolar Disorder, Hx Depression, Hx Schizoaffective Disorder, Hx Schizophrenia - Immunizations Immunizations up to date: Yes Hx Diphtheria, Pertussis, Tetanus Vaccination: Yes Review of Systems - Review of Systems Notes: REVIEW OF SYSTEMS: CONSTITUTIONAL : Denies fever, chills, or sweats. EENT: Denies recent cold/sinus symptoms, denies throat pain CARDIOVASCULAR: Denies chest pain, TEENA RESPIRATORY: Denies cough, denies shortness of breath. GASTROINTESTINAL: Denies abdominal pain, nausea/vomiting. GENITOURINARY: Denies difficulty urinating, painful urination. MUSCULOSKELETAL: Denies neck pain, back pain. SKIN: Denies rash or skin lesions. HEMATOLOGIC : Denies easy bruising or bleeding. LYMPHATIC: Denies swollen, enlarged glands. NEUROLOGICAL: Denies headache, denies change in gait. PSYCHIATRIC: Denies anxiety or stress or depression. Physical Exam - Vital signs Vitals: Temp 98.9 F 09/03/19 21:18 - Notes Notes: PHYSICAL EXAMINATION: GENERAL: Well appearing middle-aged male appearing older than stated age lying across multiple waiting room chairs sleeping comfortably without any visible signs of discomfort HEAD: Atraumatic, normocephalic. EYES: Pupils equal round and appropriate constriction, sclera anicteric, conjunctiva are normal. ENT: nares patent, moist mucous membranes. Multiple chronically missing teeth, multiple teeth with visible caries without any tenderness or laxity, mandibular left lateral incisors with mild tenderness and mild localized swelling around tooth root without any tracking, normal-appearing cheek, no signs of facial involvement. Normal posterior pharynx. NECK: Normal range of motion, supple without lymphadenopathy LUNGS: Normal respiratory rate and effort, speaking in full sentences HEART: Regular rate, no JVD, no lower extremity edema ABDOMEN: Soft, nontender, no guarding, no masses, no CVAT EXTREMITIES: Normal range of motion, no pitting or edema. No cyanosis. NEUROLOGICAL: Awake, alert, conversing appropriately, moves all extremities spontaneously, steady gait PSYCH: Normal mood, normal affect. SKIN: Warm, Dry, normal turgor, no rashes or lesions noted. Course - Re-evaluation Re-evalutation: 09/04/19 00:19 Presentation consistent with early periodontal abscess, no signs of systemic involvement, no signs of contiguous spread or intracranial involvement. Patient well-appearing, will give dose of penicillin and referred to outpatient dental clinic for for outpatient drainage. Patient requests refill of Januvia, no symptoms of DKA/honk/significant hyperglycemia, will obtain fingerstick and likely discharge with PCP follow-up and 1 week refill. 09/04/19 01:36 Patient eloped prior to administering meds, giving refill. Patient had the capacity to leave, was oriented and ambulatory with steady gait and no indication to emergently recall to ED. 09/12/19 14:09 The patient walked in and out of ED multiple times during this visit, a new visit was created for him under [id number], under which visit number my discharge information was created, the physician documentation for these two visits should be merged as I only evaluated and treated the patient one time. - Vital Signs Vital signs: Temp Pulse Resp BP Pulse Ox 98.9 F 94 14 167/72 H 95 09/03/19 21:53 09/03/19 21:53 09/03/19 21:53 09/03/19 21:53 09/03/19 21:53 Discharge - Discharge Clinical Impression: Jaw pain Disposition: ELOPED Referrals: PHILLIP URBINA DO [Primary Care Provider] - Follow up as needed
== END 2019-09-04 | disposition left against medical advice (07) ==
LOC: ER 21:18
DX: Z76.0 Encounter for issue of repeat prescription (principal); R68.84 Jaw pain; K08.89 Other specified disorders of teeth and supporting structures; K02.9 Dental caries, unspecified; F10.10 Alcohol abuse, uncomplicated; R22.0 Localized swelling, mass and lump, head; E11.9 Type 2 diabetes mellitus without complications; F17.200 Nicotine dependence, unspecified, uncomplicated; I10 Essential (primary) hypertension; J44.9 Chronic obstructive pulmonary disease, unspecified
CPT/HCPCS: 99281

== ENCOUNTER 2019-09-04 01:14 | Emergency (ER) | payer MEDICARE, MEDICAID ==
[2019-09-04] MEDS ORDERED: IBUPROFEN 600 MG TABLET PO ONE (01:50)
[2019-09-04] MEDS ORDERED: PENICILLIN V POTASSIUM 500 MG TABLET PO ONE (01:52)
[2019-09-04 02:01] VITALS: BP 165/72
--- NOTE | 2019-09-04 02:26 | ER Document Report ---
ED General - General Chief Complaint: Toothache Stated Complaint: MOUTH PAIN Time Seen by Provider: 09/04/19 02:23 Primary Care Provider: PHILLIP URBINA DO [Primary Care Provider] - Follow up as needed TRAVEL OUTSIDE OF THE [place] IN LAST 30 DAYS: No - Related Data Allergies/Adverse Reactions: olanzapine [From Zyprexa] Allergy (Verified 08/29/19 21:41) metformin Adverse Reaction (Verified 08/29/19 21:41) Past Medical History - Social History Smoking Status: Current Every Day Smoker Family History: Reviewed & Not Pertinent, CVA, DM, Hypertension Patient has homicidal ideation: No - Past Medical History Cardiac Medical History: Reports: Hx Heart Attack, Hx Hypertension Pulmonary Medical History: Reports: Hx Bronchitis, Hx COPD Endocrine Medical History: Reports: Hx Diabetes Mellitus Type 2 Skin Medical History: Reports Hx Cellulitis Psychiatric Medical History: Reports: Hx Bipolar Disorder, Hx Depression, Hx Schizoaffective Disorder, Hx Schizophrenia - Immunizations Immunizations up to date: Yes Hx Diphtheria, Pertussis, Tetanus Vaccination: Yes Physical Exam - Vital signs Vitals: Temp 98.8 F 09/04/19 01:15 Course - Vital Signs Vital signs: Temp Pulse Resp BP Pulse Ox 98.8 F 88 13 165/72 H 99 09/04/19 01:54 09/04/19 01:54 09/04/19 01:54 09/04/19 01:54 09/04/19 01:54 Discharge - Discharge Clinical Impression: Jaw pain, Medication refill Condition: Good Disposition: HOME, SELF-CARE Additional Instructions: Dental Infection or Abscess You have an infection, perhaps an abscess (pus formation) of the gum around one of your teeth, which is probably decayed. If there is an abscess, it may drain on its own or it may need to be opened or lanced. Severe swelling or drainage around a tooth usually means a deep dental abscess which usually requires evaluation and treatment by a dentist or oral surgeon. Antibiotics may be prescribed while awaiting dental treatment. If you develop high fever with chills, worsening pain, or increasing swelling in the area, see a dentist or oral surgeon immediately or return to the Emergency Department immediately. Call dental clinic on handout tomorrow to make appointment. Return to ED immediately if you have fever 100.4 or higher, confusion, spreading or worsening pain, vomiting, change in vision, weakness/numbness, or any other worsening or alarming symptoms. Follow-up with your primary doctor and dentist within 1 week Prescriptions: Sitagliptin Phosphate [Januvia 50 mg Tablet] 100 mg PO QAM 7 Days tablet Penicillin V Potassium [Penicillin Vk 500 mg Tablet] 500 mg PO QID #28 tablet Referrals: PHILLIP URBINA DO [Primary Care Provider] - Follow up as needed
== END 2019-09-04 03:03 | disposition home or self-care (01) ==
LOC: ER 01:14
DX: Z76.0 Encounter for issue of repeat prescription (principal); R68.84 Jaw pain; K08.89 Other specified disorders of teeth and supporting structures; F17.200 Nicotine dependence, unspecified, uncomplicated; I10 Essential (primary) hypertension; J44.9 Chronic obstructive pulmonary disease, unspecified; E11.9 Type 2 diabetes mellitus without complications; Z88.8 Allergy status to other drugs, medicaments and biological substances
CPT/HCPCS: 99282; 82962; A9270 ×2

== ENCOUNTER 2019-09-04 21:35 | Emergency (ER) | payer MEDICARE, MEDICAID | END 2019-09-05 03:03 | disposition left against medical advice (07) | LOC: ER 21:35 | DX: Z53.21 Procedure and treatment not carried out due to patient leaving prior to being seen by health care provider (principal) ==

== ENCOUNTER 2019-09-05 02:40 | Emergency (ER) | payer MEDICARE, MEDICAID ==
[2019-09-05 03:13] VITALS: BP 153/89
--- NOTE | 2019-09-05 05:22 | ER Document Report ---
ED General - General Chief Complaint: Headache Stated Complaint: HEADACHE/CHILLS Primary Care Provider: PHILLIP URBINA DO [Primary Care Provider] - Follow up as needed TRAVEL OUTSIDE OF THE [place] IN LAST 30 DAYS: No - HPI Notes: 49-year-old male history of schizophrenia diabetes presents with desire for 1 dose of Januvia. Triage note says patient had headache and chills but at time of my evaluation patient denied the symptoms and said that he came in because he had not picked up his Januvia prescription which she was said on the prior visit to this ED this week and he wanted to get 1 dose. Said yes to headache and chills because "sometimes he gets them." Patient has no physical or psychiatric symptoms currently and none recently. - Related Data Allergies/Adverse Reactions: olanzapine [From Zyprexa] Allergy (Verified 08/29/19 21:41) metformin Adverse Reaction (Verified 08/29/19 21:41) Past Medical History - General Information source: Patient - Social History Smoking Status: Current Every Day Smoker Frequency of alcohol use: Heavy Drug Abuse: None Family History: Reviewed & Not Pertinent, CVA, DM, Hypertension Patient has homicidal ideation: No - Past Medical History Cardiac Medical History: Reports: Hx Heart Attack, Hx Hypertension Pulmonary Medical History: Reports: Hx Bronchitis, Hx COPD Endocrine Medical History: Reports: Hx Diabetes Mellitus Type 2 Skin Medical History: Reports Hx Cellulitis Psychiatric Medical History: Reports: Hx Bipolar Disorder, Hx Depression, Hx Schizoaffective Disorder, Hx Schizophrenia - Immunizations Immunizations up to date: Yes Hx Diphtheria, Pertussis, Tetanus Vaccination: Yes Review of Systems - Review of Systems Notes: REVIEW OF SYSTEMS: CONSTITUTIONAL : Denies fever, chills, or sweats. EENT: Denies recent cold/sinus symptoms, denies throat pain CARDIOVASCULAR: Denies chest pain, TEENA RESPIRATORY: Denies cough, denies shortness of breath. GASTROINTESTINAL: Denies abdominal pain, nausea/vomiting. GENITOURINARY: Denies difficulty urinating, painful urination. MUSCULOSKELETAL: Denies neck pain, back pain. SKIN: Denies rash or skin lesions. HEMATOLOGIC : Denies easy bruising or bleeding. LYMPHATIC: Denies swollen, enlarged glands. NEUROLOGICAL: Denies headache, denies change in gait. PSYCHIATRIC: Denies anxiety or stress or depression. Physical Exam - Vital signs Vitals: Temp Pulse Resp BP Pulse Ox 97.5 F 101 H 18 153/89 H 100 09/05/19 03:02 09/05/19 03:02 09/05/19 03:02 09/05/19 03:02 09/05/19 03:02 - Notes Notes: PHYSICAL EXAMINATION: GENERAL: Well-appearing middle-aged male appearing older than stated age initially sleeping comfortably with light snore in hospital stretcher with no distress HEAD: Atraumatic, normocephalic. EYES: Pupils equal round and appropriate constriction, sclera anicteric, conjunctiva are normal. ENT: nares patent, moist mucous membranes. NECK: Normal range of motion, supple without lymphadenopathy LUNGS: Normal respiratory rate and effort, speaking in full sentences HEART: Regular rate, no JVD, no lower extremity edema ABDOMEN: Soft, nontender, no guarding, no masses, no CVAT EXTREMITIES: Normal range of motion, no pitting or edema. No cyanosis. NEUROLOGICAL: Awake, alert, conversing appropriately, moves all extremities spontaneously, ambulatory with steady gait. PSYCH: Normal mood, normal affect. SKIN: Warm, Dry, normal turgor, no rashes or lesions noted. Course - Re-evaluation Re-evalutation: 09/05/19 05:21 Instructed patient that he needs to follow-up at pharmacy and with primary doctor for [facility]. Check fingerstick and was not significantly elevated. No medical complaints currently. Patient ready for discharge with outpatient follow-up. Patient given extensive return precautions which he demonstrated understanding of. - Vital Signs Vital signs: Temp Pulse Resp BP Pulse Ox 97.5 F 101 H 18 153/89 H 100 09/05/19 03:06 09/05/19 03:02 09/05/19 03:02 09/05/19 03:02 09/05/19 03:02 - Laboratory Laboratory results interpreted by me: 09/05/19 04:29 POC Glucose 121 H Discharge - Discharge Clinical Impression: Medication care plan discussed with patient Condition: Good Disposition: HOME, SELF-CARE Additional Instructions: Follow-up with primary care doctor within 1 week. Return to ED if you have any vomiting, confusion, dizziness, fainting, or any other concerning symptoms. Referrals: PHILLIP URBINA DO [Primary Care Provider] - Follow up as needed
== END 2019-09-05 06:16 | disposition home or self-care (01) ==
LOC: ER 02:40
DX: E11.9 Type 2 diabetes mellitus without complications (principal); I10 Essential (primary) hypertension; J44.9 Chronic obstructive pulmonary disease, unspecified; F17.200 Nicotine dependence, unspecified, uncomplicated; Z86.73 Personal history of transient ischemic attack (TIA), and cerebral infarction without residual deficits; Z88.8 Allergy status to other drugs, medicaments and biological substances
CPT/HCPCS: 82962; 99281

== ENCOUNTER 2019-09-06 01:39 | Emergency (ER) | payer MEDICARE, MEDICAID ==
--- NOTE | 2019-09-06 03:57 | ER Document Report ---
ED General - General Chief Complaint: Medication Refill Stated Complaint: PSYCH MEDS Time Seen by Provider: 09/06/19 01:57 Primary Care Provider: PHILLIP URBINA DO [Primary Care Provider] - Follow up as needed Mode of Arrival: Medic Information source: Patient Notes: 49-year-old male presents to the emergency department history of multiple ER visits in the past, poor dentition, presents tonight stating he needs medication was refilled, however, does not appear to know what medicines are needed. He is also now asking for shower and food. Patient appears to be medically stable and in no acute distress TRAVEL OUTSIDE OF THE [place] IN LAST 30 DAYS: No - Related Data Allergies/Adverse Reactions: olanzapine [From Zyprexa] Allergy (Verified 08/29/19 21:41) metformin Adverse Reaction (Verified 08/29/19 21:41) Past Medical History - Social History Smoking Status: Current Every Day Smoker Chew tobacco use (# tins/day): No Frequency of alcohol use: None Drug Abuse: None Family History: Reviewed & Not Pertinent, CVA, DM, Hypertension Patient has homicidal ideation: No - Past Medical History Cardiac Medical History: Reports: Hx Heart Attack, Hx Hypertension Pulmonary Medical History: Reports: Hx Bronchitis, Hx COPD Endocrine Medical History: Reports: Hx Diabetes Mellitus Type 2 Skin Medical History: Reports Hx Cellulitis Psychiatric Medical History: Reports: Hx Bipolar Disorder, Hx Depression, Hx Schizoaffective Disorder, Hx Schizophrenia - Immunizations Immunizations up to date: Yes Hx Diphtheria, Pertussis, Tetanus Vaccination: Yes Review of Systems - Review of Systems Notes: Constitutional: Negative for fever. HENT: + Poor dentition, negative for sore throat. Eyes: Negative for visual changes. Cardiovascular: Negative for chest pain. Respiratory: Negative for shortness of breath. Gastrointestinal: Negative for abdominal pain, vomiting or diarrhea. Genitourinary: Negative for dysuria. Musculoskeletal: Negative for back pain. Skin: Negative for rash. Neurological: Negative for headaches, weakness or numbness. 10 point ROS negative except as marked above and in HPI. Physical Exam - Vital signs Vitals: Temp Pulse Resp BP Pulse Ox 97.9 F 89 16 159/96 H 96 09/06/19 01:40 09/06/19 01:40 09/06/19 01:40 09/06/19 01:40 09/06/19 01:40 - Notes Notes: PHYSICAL EXAMINATION: Physical Exam: General: Well-nourished well-developed in no acute distress HEENT: NC/AT, pupils equal round and reactive to light, MM moist,nares clear, oropharynx notable for carious teeth, multiple missing teeth, broken and decayed to the gumline. airway patent Neck: supple, no adenopathy, no masses. Good range of motion Lungs: clear, no wheezing, no rales no rhonchi CVS: Regular rate and rhythm no murmur gallop or rub Abdomen: Soft, active, nontender, no masses, no hepatosplenomegaly Ext: No edema, clubbing or cyanosis. Neuro: Alert and responsive, moving all 4 extremities on command, cranial nerves intact, no focal findings Skin: Intact no open lesions, no rash PSYCH: Normal mood, normal affect. Course - Vital Signs Vital signs: Temp Pulse Resp BP Pulse Ox 97.9 F 89 16 159/96 H 96 09/06/19 01:40 09/06/19 01:40 09/06/19 01:40 09/06/19 01:40 09/06/19 01:40 Discharge - Discharge Clinical Impression: Poor dentition, Homelessness Condition: Good Disposition: HOME, SELF-CARE Additional Instructions: HOME CARE INSTRUCTIONS & INFORMATION: Thank you for choosing us for your medical needs. We hope you're satisfied with the care you received. After you leave, you must properly care for your problem and, at the same time, observe its progress. Any condition can change. Some illnesses can change rapidly over hours or days. If your condition worsens, return to the Emergency Department or see your physician promptly. ABOUT YOUR X-RAYS AND EKG'S: If you had an EKG or X-rays taken, they have been read by the Emergency Physician. The X-rays and EKG's will also be read by a Radiologist or [employer] Operations Craftsman within 24 hours. If discrepancies are noted, you will be notified by telephone. Please be certain the ED has a correct telephone number & address where you can be reached. Also, realize that some fractures or abnormalities do not show up on initial X-rays. If your symptoms continue, see your physician. ABOUT YOUR LABORATORY TEST: If you had laboratory tests, the results have been reviewed by the Emergency Physician. Some test results (for example cultures) may not be available for several days. You will be contacted if any test result shows you need additional treatment. Please be certain the ED has a correct telephone number and address where you can be reached. ABOUT YOUR MEDICATIONS: You will receive instructions on how to take your medicine on the prescription label you receive. Additional information may be provided by the Pharmacy. If you have questions afterwards, call the ED for clarification or further instructions. Some prescribed medications may cause drowsiness. Do not perform tasks such as driving a car or operating machinery without consulting your Pharmacist. If you feel you need a refill of pain medication, your condition will need re-evaluation. Please do not call for a refill of any medication. ABOUT YOUR SIGNATURE: Signature of this document acknowledges to followin. Understanding that you received emergency treatment and that you may be released before al medical problems are known or treated. Please be certain the ED has a correct phone number & address where you can be reached. 2. Acknowledgement that you will arrange for follow-up care as recommended. 3. Authorization for the Emergency Physician to provide information to your follow-up Physician in order to maximize your care. AT ANY TIME, IF YOUR SYMPTOMS CHANGE SIGNIFICANTLY OR WORSEN OR YOU DEVELOP NEW SYMPTOMS, RETURN TO THE EMERGENCY DEPARTMENT IMMEDIATELY FOR RE-EVALUATION. OUR GOAL IS TO PROVIDE EXCELLENT MEDICAL CARE! WE HOPE THAT WE HAVE MET YOUR EXPECTATIONS DURING YOUR EMERGENCY DEPARTMENT VISIT AND THAT YOU FEEL YOU HAVE RECEIVED EXCELLENT CARE! Referrals: PHILLIP URBINA, [Primary Care Provider] - Follow up as needed
[2019-09-06 05:56] VITALS: BP 144/88
== END 2019-09-06 05:54 | disposition home or self-care (01) ==
LOC: ER 01:39
DX: K08.9 Disorder of teeth and supporting structures, unspecified (principal); Z59.0 Homelessness; F17.200 Nicotine dependence, unspecified, uncomplicated
CPT/HCPCS: 99281

== ENCOUNTER 2019-09-06 18:26 | Emergency (ER) | payer MEDICARE, MEDICAID ==
[2019-09-06 18:32] VITALS: BP 135/76
== END 2019-09-06 19:15 | disposition left against medical advice (07) ==
LOC: ER 18:26
DX: Z53.21 Procedure and treatment not carried out due to patient leaving prior to being seen by health care provider (principal)

== ENCOUNTER 2019-09-06 23:36 | Emergency (ER) | payer MEDICARE, MEDICAID ==
[2019-09-06 23:46] VITALS: BP 144/76
== END 2019-09-07 00:10 | disposition left against medical advice (07) ==
LOC: ER 23:36
DX: Z53.21 Procedure and treatment not carried out due to patient leaving prior to being seen by health care provider (principal)

== ENCOUNTER 2019-09-07 12:22 | Emergency (ER) | payer MEDICARE, MEDICAID ==
--- NOTE | 2019-09-07 12:39 | ER Document Report ---
ED General - General Chief Complaint: Shortness Of Breath Stated Complaint: SHORT OF BREATH Primary Care Provider: PHILLIP URBINA DO [Primary Care Provider] - Follow up as needed TRAVEL OUTSIDE OF THE [place] IN LAST 30 DAYS: No - HPI Notes: Chief complaint: Shortness of breath HPI: 49-year-old homeless man with history of bipolar disorder, hypertension, diabetes mellitus type 2, COPD with ongoing cigarette smoking and noncompliance with medications now presenting reporting increasing difficulty breathing over several days. He denies fever, chills, sputum production or chest pain. Presently smoking about a pack per day. Patient is well-known to this facility from multiple prior similar encounters. - Related Data Allergies/Adverse Reactions: olanzapine [From Zyprexa] Allergy (Verified 09/06/19 23:51) metformin Adverse Reaction (Verified 09/06/19 23:51) Past Medical History - General Information source: Patient - Social History Smoking Status: Current Every Day Smoker Chew tobacco use (# tins/day): No Frequency of alcohol use: Occasional Drug Abuse: None Lives with: Homeless Family History: Reviewed & Not Pertinent, CVA, DM, Hypertension Patient has homicidal ideation: No - Past Medical History Cardiac Medical History: Reports: Hx Heart Attack, Hx Hypertension Pulmonary Medical History: Reports: Hx Bronchitis, Hx COPD Endocrine Medical History: Reports: Hx Diabetes Mellitus Type 2 Skin Medical History: Reports Hx Cellulitis Psychiatric Medical History: Reports: Hx Bipolar Disorder, Hx Depression, Hx Schizoaffective Disorder, Hx Schizophrenia - Immunizations Immunizations up to date: Yes Hx Diphtheria, Pertussis, Tetanus Vaccination: Yes Review of Systems - Review of Systems Notes: Constitutional: Negative for fever. HENT: Negative for sore throat. Eyes: Negative for visual changes. Cardiovascular: Negative for chest pain. Respiratory: As per HPI. Gastrointestinal: Negative for abdominal pain, vomiting or diarrhea. Genitourinary: Negative for dysuria. Musculoskeletal: Complains of widespread chronic pain secondary to arthritis.. Skin: Negative for rash. Neurological: Negative for headaches, weakness or numbness. 10 point ROS negative except as marked above and in HPI. Physical Exam - Vital signs Vitals: Temp 98.3 F 09/07/19 12:29 - Notes Notes: Remote Exam Using Telemedicine System due to COVID 19 risk mitigation GENERAL: Mildly disheveled middle-age male appearing in no acute distress. SKIN: no rashes. HEAD: Normocephalic atraumatic. EYES: PERRL. EOMI. Conjunctivae and sclerae clear. NOSE: CLEAR. MOUTH: Moist mucosa. Good dentition. No stridor or edema. No drooling. NECK: Full ROM. No visible masses or thyromegaly. No JVD. BACK: Symmetrical. CHEST: Respirations unlabored. Expands symmetrical. ABDOMEN: Non-distended. GENITALIA: Deferred. EXTREMITIES: No edema. NEUROLOGICAL: GCS 15. Alert and oriented x3. Normal gait. Mildly slurred speech. Cranial nerves II through XII intact. Motor and cerebellar normal. PSYCHIATRIC: Appropriate affect. Course - Re-evaluation Re-evalutation: 09/07/19 16:56 Patient's oxygenation is normal here. Chest x-ray shows no infiltrate per radiologist. EKG showed normal sinus rhythm with no ST changes. His alcohol is less than 10 and his urine tox screen is negative. Chemistry profile is remarkable for some mild elevation of his transaminases felt to be related to known history of chronic alcohol abuse. Patient sodium here is 130. He received a liter normal saline here and feels much better. I think he stable for discharge and we will give him a metered-dose inhaler encouraged him to stop smoking. 09/07/19 16:58 - Vital Signs Vital signs: Temp Pulse Resp BP Pulse Ox 98.3 F 95 28 H 140/73 H 99 09/07/19 12:30 09/07/19 12:30 09/07/19 12:30 09/07/19 12:30 09/07/19 12:30 - Laboratory Result Diagrams: 09/07/19 12:47 09/07/19 12:47 Laboratory results interpreted by me: 09/07/19 09/07/19 12:47 12:47 RBC 4.15 L Hgb 12.8 L Hct 36.4 L RDW 14.7 H Sodium 130.9 L Chloride 96 L Glucose 129 H AST 79 H ALT 80 H - EKG Interpretation by Me Additional EKG results interpreted by me: 09/07/19 13:13 Twelve-lead EKG from 1251 hrs. reviewed contemporaneously by me demonstrating normal sinus rhythm with a rate of 94 and a QRS axis of +68 degrees. Intervals are normal. No acute ST/T wave changes present. Discharge - Discharge Clinical Impression: COPD exacerbation Condition: Stable Disposition: HOME, SELF-CARE Prescriptions: Albuterol Sulfate [Proair HFA Inhalation Aerosol 8.5 gm MDI] 2 puff IH Q4H PRN #1 mdi PRN Reason: Forms: Smoking Cessation Education Referrals: PHILLIP URBINA DO [Primary Care Provider] - Follow up as needed
[2019-09-07 13:03] LABS: ABSOLUTE BASOPHILS # (AUTO) 0.1 10^3/uL (0.0-0.2); ABSOLUTE EOSINOPHILS # (AUTO) 0.2 10^3/uL (0.0-0.6); ABSOLUTE LYMPHOCYTES (AUTO) 1.8 10^3/uL (0.5-4.7); ABSOLUTE MONOCYTES (AUTO) 0.5 10^3/uL (0.1-1.4); ABSOLUTE NEUT (AUTO) 6.9 10^3/uL (1.7-8.2); EOSINOPHILS % (AUTO) 1.9 % (0-6); HEMATOCRIT 36.4 % (37.9-51.0); HEMOGLOBIN 12.8 g/dL (13.5-17.0); LYMPHOCYTES % (AUTO) 18.4 % (13-45); MEAN CORPUSCULAR HEMOGLOBIN 30.8 pg (27.0-33.4); MEAN CORPUSCULAR VOLUME 88 fl (80-97); MONOCYTES % (AUTO) 5.8 % (3-13); PLATELET COUNT 386 10^3/uL (150-450); RED BLOOD COUNT 4.15 10^6/uL (4.35-5.55); RED CELL DISTRIBUTION WIDTH 14.7 % (11.5-14.0); SEGMENTED NEUTROPHILS % (AUTO) 72.9 % (42-78); TOTAL CELLS COUNTED % (AUTO) 100 %; WHITE BLOOD COUNT 9.5 10^3/uL (4.0-10.5)
[2019-09-07 13:21] LABS: APPEARANCE,URINE CLEAR; BILIRUBIN,URINE NEGATIVE (NEGATIVE); COLOR,URINE STRAW; GLUCOSE, URINE NEGATIVE (NEGATIVE); KETONES,URINE NEGATIVE (NEGATIVE); PROTEIN,URINE NEGATIVE (NEGATIVE); URINE SPECIFIC GRAVITY 1.004; UROBILINOGEN,URINE NEGATIVE mg/dL (<2.0)
[2019-09-07 13:29] LABS: ALBUMIN 3.7 g/dL (3.5-5.0); ALKALINE PHOSPHATASE 61 U/L (38-126); ANION GAP 8 (5-19); ASPARTATE AMINO TRANSFERASE 79 U/L (17-59); BILIRUBIN,TOTAL 0.2 mg/dL (0.2-1.3); BLOOD UREA NITROGEN 15 mg/dL (7-20); CARBON DIOXIDE 27 mmol/L (22-30); CHLORIDE 96 mmol/L (98-107); GLUCOSE 129 mg/dL (75-110); POTASSIUM 3.9 mmol/L (3.6-5.0); TOTAL PROTEIN 6.3 g/dL (6.3-8.2)
[2019-09-07 13:30] LABS: ALCOHOL < 10 mg/dL (NONE DETECTED)
--- NOTE | 2019-09-07 13:36 | RADIOLOGY REPORT (SQ) ---
EXAM DESCRIPTION: CHEST SINGLE VIEW IMAGES COMPLETED DATE/TIME: 09/07/2019 1:26 pm REASON FOR STUDY: dyspnea COMPARISON: 08/03/2019 EXAM PARAMETERS: NUMBER OF VIEWS: One view. TECHNIQUE: Single frontal radiographic view of the chest acquired. RADIATION DOSE: NA LIMITATIONS: None. FINDINGS: LUNGS AND PLEURA: No opacities, masses or pneumothorax. No pleural effusion. MEDIASTINUM AND HILAR STRUCTURES: No masses. Contour normal. HEART AND VASCULAR STRUCTURES: Heart normal in size. Normal vasculature. BONES: No acute findings. HARDWARE: None in the chest. OTHER: No other significant finding. IMPRESSION: NO ACUTE RADIOGRAPHIC FINDING IN THE CHEST. TECHNICAL DOCUMENTATION: JOB ID: [id number] 2010 [employer]- All Rights Reserved Reading location - IP/workstation name: [email or web address]
[2019-09-07 13:51] LABS: URINE AMPHETAMINES SCREEN NEGATIVE; URINE BARBITURATES SCREEN NEGATIVE; URINE BENZODIAZEPINES SCREEN NEGATIVE; URINE COCAINE SCREEN NEGATIVE; URINE MARIJUANA (THC) SCREEN NEGATIVE; URINE METHADONE SCREEN NEGATIVE; URINE PHENCYCLIDINE SCREEN NEGATIVE
[2019-09-07 17:36] VITALS: BP 152/95
--- NOTE | 2019-09-09 10:56 | EKG REPORT ---
SEVERITY:- NORMAL ECG - SINUS RHYTHM : Confirmed by: Flor Logan 09-Sep-2019 10:54:52
== END 2019-09-07 17:36 | disposition home or self-care (01) ==
LOC: ER 12:22
DX: J44.1 Chronic obstructive pulmonary disease with (acute) exacerbation (principal); R06.02 Shortness of breath; F31.9 Bipolar disorder, unspecified; F17.210 Nicotine dependence, cigarettes, uncomplicated; I10 Essential (primary) hypertension; E11.9 Type 2 diabetes mellitus without complications; Z91.14 Patient's other noncompliance with medication regimen; I25.2 Old myocardial infarction
CPT/HCPCS: 36415; 71045; 80053; 80307; 81001; 83735; 85025; 93005; 93010; 99285

== ENCOUNTER 2019-09-08 11:46 | Emergency (ER) | payer MEDICARE, MEDICAID ==
[2019-09-08 11:56] VITALS: BP 140/79
--- NOTE | 2019-09-08 12:08 | ER Document Report ---
ED Medical Screen (RME) - General Chief Complaint: Other Stated Complaint: LEG PAIN Time Seen by Provider: 09/08/19 11:55 Primary Care Provider: PHILLIP URBINA DO [Primary Care Provider] - Follow up as needed Mode of Arrival: Ambulatory Information source: Patient Notes: 49-year-old male presenting to the emergency department with unknown chief complaint. Unable to ascertain what patient's main complaint is today as he is a flight of ideas and is talking non-sensible. He has not stopped talking since he walked into the triage room. He has made mention of drinking a Sunkist and getting kicked out of a [employer] mall, attempting to get a job with [employer], multiple mentions of [employer], mentions of needing Seroquel, mentions of going to [place] and mentions of shooting himself in the head. Patient taken to a room, basic labs initiated as patient has had electrolyte derangements in the past. I have greeted and performed a rapid initial assessment of this patient. A comprehensive ED assessment and evaluation of the patient, analysis of test results and completion of the medical decision making process will be conducted by additional ED providers. I have specifically instructed the patient or family members with the patient to immediately return to any nursing staff should anything change in the patient's condition or with their chief complaint. TRAVEL OUTSIDE OF THE [place] IN LAST 30 DAYS: No - Related Data Allergies/Adverse Reactions: olanzapine [From Zyprexa] Allergy (Verified 09/06/19 23:51) metformin Adverse Reaction (Verified 09/06/19 23:51) Past Medical History - Social History Family history: Reviewed & Not Pertinent - Past Medical History Cardiac Medical History: Reports: Hx Heart Attack, Hx Hypertension Pulmonary Medical History: Reports: Hx Bronchitis, Hx COPD Endocrine Medical History: Reports: Hx Diabetes Mellitus Type 2 Skin Medical History: Reports Hx Cellulitis Psychiatric Medical History: Reports: Hx Bipolar Disorder, Hx Depression, Hx Schizoaffective Disorder, Hx Schizophrenia - Immunizations Immunizations up to date: Yes Hx Diphtheria, Pertussis, Tetanus Vaccination: Yes Physical Exam - Vital signs Vitals: Temp Pulse Resp BP Pulse Ox 98.6 F 86 16 140/79 H 96 09/08/19 11:55 09/08/19 11:55 09/08/19 11:55 09/08/19 11:55 09/08/19 11:55 Course - Vital Signs Vital signs: Temp Pulse Resp BP Pulse Ox 98.6 F 86 16 140/79 H 96 09/08/19 11:56 09/08/19 11:55 09/08/19 11:55 09/08/19 11:55 09/08/19 11:55 Doctor's Discharge - Discharge Referrals: PHILLIP URBINA DO [Primary Care Provider] - Follow up as needed
--- NOTE | 2019-09-08 13:05 | ER Document Report ---
ED General - General Mode of Arrival: Ambulatory TRAVEL OUTSIDE OF THE [place] IN LAST 30 DAYS: No - General Chief Complaint: Other Stated Complaint: LEG PAIN Time Seen by Provider: 09/08/19 11:55 Primary Care Provider: PHILLIP URBINA DO [Primary Care Provider] - Follow up as needed - HPI Notes: Chief complaint: "I have trouble taking care of things and I need a place to stay" HPI: Mr. Ward is a homeless man with a history of bipolar disorder who is a frequent visitor to the ED presenting once again today with vague complaints and generally stating that he feels he is not able to care for himself. This is a second time I have seen him in 24 hours. He had a full medical evaluation yesterday including an EKG chest x-ray tox screen chemistry profile blood alcohol and CBC all of which were normal. He says he slept in the duff last night. When pressed as to why he is asked to come in the day he says his whole body hurts sometimes and he just feels overwhelmed. I am not currently getting any suicidal or homicidal statements from them. He does have flight of ideas as he is consistent with his usual baseline. I do not think he is taking any of his prescribed medications. (PHILLIP PABON) - Related Data Allergies/Adverse Reactions: olanzapine [From Zyprexa] Allergy (Verified 09/06/19 23:51) metformin Adverse Reaction (Verified 09/06/19 23:51) Past Medical History - General Information source: Patient, [facility] - Social History Smoking Status: Smoker,Current Status Unk Family History: Reviewed & Not Pertinent, CVA, DM, Hypertension Patient has homicidal ideation: No - Past Medical History Cardiac Medical History: Reports: Hx Heart Attack, Hx Hypertension Pulmonary Medical History: Reports: Hx Bronchitis, Hx COPD Endocrine Medical History: Reports: Hx Diabetes Mellitus Type 2 Skin Medical History: Reports Hx Cellulitis Psychiatric Medical History: Reports: Hx Bipolar Disorder, Hx Depression, Hx Schizoaffective Disorder, Hx Schizophrenia - Immunizations Immunizations up to date: Yes Hx Diphtheria, Pertussis, Tetanus Vaccination: Yes Review of Systems - Review of Systems Notes: Constitutional: Negative for fever. HENT: Negative for sore throat. Eyes: Negative for visual changes. Cardiovascular: Negative for chest pain. Respiratory: Negative for shortness of breath. Gastrointestinal: Negative for abdominal pain, vomiting or diarrhea. Genitourinary: Negative for dysuria. Musculoskeletal: Arthritic pain both legs. Skin: Negative for rash. Neurological: Negative for headaches, weakness or numbness. 10 point ROS negative except as marked above and in HPI. (PHILLIP PABON) Physical Exam - Vital signs Vitals: Temp Pulse Resp BP Pulse Ox 98.6 F 86 16 140/79 H 96 09/08/19 11:55 09/08/19 11:55 09/08/19 11:55 09/08/19 11:55 09/08/19 11:55 - Notes Notes: GENERAL: Unkempt middle-age male with extremely poor personal hygiene. SKIN: Good turgor no rashes. HEAD: Normocephalic atraumatic. EYES: PERRLA. EOMI. Conjunctivae and sclerae clear. EARS: CANALS AND TMS CLEAR. NOSE: CLEAR. MOUTH: Moist mucosa. Good dentition. No stridor or edema. No drooling. NECK: Supple. No masses or thyromegaly. No adenopathy. Carotids 2+ without bruits. No JVD. BACK: Symmetrical without tenderness. CHEST: Respirations unlabored. Breath sounds clear and symmetrical. HEART: Regular rhythm. No murmur gallop or rub. ABDOMEN: Soft nontender without masses, organomegaly or rebound. Bowel sounds normally active. No bruits. GENITALIA: Deferred. EXTREMITIES: No edema. No calf tenderness. Cap refill less than 1.5 seconds. Dorsalis pedis and posterior tibial pulses 3+ and symmetrical. NEUROLOGICAL: GCS 15. Alert and oriented x3. Normal gait. Fluent speech. Cranial nerves II through XII intact. Sensorimotor and cerebellar normal. Normal tone. PSYCHIATRIC: Patient has some flight of ideas consistent with his usual basel ine. He does not appear to be actively hallucinating. (PHILLIP PABON) Course - Re-evaluation Re-evalutation: 09/08/19 13:05 I reviewed all of his lab work-up and studies from yesterday. All this was essentially unremarkable. He did not have any alcohol in his system at that time and his urine tox screen was also negative. This was less than 24 hours ago. I am going to ask behavioral services team and social work to see this man as I think this is primarily I social and perhaps outpatient psychiatric disposition. 09/08/19 15:38 Behavioral health team his recommended that we give this man his monthly injection of Haldol decanoate 200 mg and 1 mg of IM Cogentin. Both have been administered. They feel that there are no other acute issues at this time and that he can be reasonably discharged. (PHILLIP PABON) - Vital Signs Vital signs: Temp Pulse Resp BP Pulse Ox 98.6 F 86 16 140/79 H 96 09/08/19 11:56 09/08/19 11:55 09/08/19 11:55 09/08/19 11:55 09/08/19 11:55 Discharge - Discharge Clinical Impression: Schizoaffective disorder, bipolar type, Homelessness, Homelessness Condition: Stable Disposition: HOME, SELF-CARE Additional Instructions: You are reminded that you must follow-up with outpatient mental health and medical providers for medication management and routine checkups and treatment. [facility] emergency department is for true medical emergencies, we are unable to provide socioeconomic needs i.e. longterm, food, clothing. You have been provided resources on multiple occasions to follow-up with the appropriate agencies and programs. AT ANY TIME, IF YOUR SYMPTOMS CHANGE SIGNIFICANTLY OR WORSEN OR YOU DEVELOP NEW SYMPTOMS, RETURN TO THE EMERGENCY DEPARTMENT IMMEDIATELY FOR RE-EVALUATION. Referrals: PHILLIP URBINA DO [Primary Care Provider] - Follow up as needed
[2019-09-08] MEDS ORDERED: HALOPERIDOL DECANOATE INJ 100 MG/1 ML VIAL IM ONE (13:19)
[2019-09-08] MEDS ORDERED: BENZTROPINE MESYLATE INJ 2 MG/2 ML AMPULE IM ONE (13:47)
--- NOTE | 2019-09-08 15:18 | PSYCHOLOGICAL NOTE ---
Psych Note - Psych Note Date seen by psych provider: 09/08/19 Time seen by psych provider: 13:00 Psych Note: Reason for Consult: AMS Patient is alert and orientated to person, place, time and circumstance. Patient received a shower upon arrival' he still has dirt imbedded into finger nails. Mood is overall euthymic with congruent affect. Patient denies suicidal and homicidal ideation. Delusions are absent and behaviors congruent with an intact reality based presentation ie organized and linear thought process. Eye contact is well-maintained. Conversational speech is difficult to understand at time, but it is his baseline. Intellectual abilities appear to be within the average range to low average range. Attention and concentration are fair. Insight, judgment, impulse control are fair. Medication recommendations per [facility]'s contracted psychiatrist Dr. Niraj MARIEE are as follows: Haldol Decanoate shot of 200 mg once Cogentin 1 mg once Impression\plan: Patient is cleared from acute psychiatric services. Patient denies suicidal and homicidal ideation. Patient reports he wanted to get out of the sun for a little bit. He reports he has not received his monthly shot. Patient is reminded he needs to follow through with is outpatient mental health provider to continue medication management. He should not be using emergency services for housing or routine medical appointments. Clinician notes the patient has been told this numerous times and continues to come to the ED. The patient has been to the Ed 10 times this month (08/23 twice, 08/27, 08/28, 08/30, 09/01, 09/02, 09/03 twice, 09/04, 09/05 three times, 09/06,and today), 9 times last month (07/31, 08/01, 08/02 twice,08/10, 08/11, 08/14, 08/15, and 08/20), 18 times in June (06/23, 06/24, 06/25 twice,06/26, 06/28 twice, 07/01, 07/04,07/05, 07/06, 07/09, 07/10, 07/12, 07/14,07/16,07/19, and 07/20), 8 times in May (06/08, 06/13 twice, 06/15 twice, and 06/16 three times), 7 times in April (04/28, 04/30, 05/03 twice, 05/08 twice, 05/19 and 05/25). The patient has been warned many times about abusing services and being banned; today the Behavioral health has contacted [employer] to follow through with banning the patient unless there is a true medical emergency. The patient needs to understand the consequences for his poor decisions and bad behaviors. There is a clear pattern that is progressively getting worse as the patient continues to refuse to follow up with appropriate services. At this time the patient does not meet involuntary commitment criteria as he is denying suicidal and homicidal ideation. He is not demonstrating any behaviors of responding to internal stimuli. Dr. Galeano was consulted to care management of this patient; attending physicians in agreement with recommendations and disposition.
== END 2019-09-08 16:00 | disposition home or self-care (01) ==
LOC: ER 11:46
DX: F25.0 Schizoaffective disorder, bipolar type (principal); Z59.0 Homelessness; Z88.8 Allergy status to other drugs, medicaments and biological substances; Z79.899 Other long term (current) drug therapy; F17.200 Nicotine dependence, unspecified, uncomplicated; I10 Essential (primary) hypertension; J44.9 Chronic obstructive pulmonary disease, unspecified; E11.9 Type 2 diabetes mellitus without complications
CPT/HCPCS: 99284; 96372; J0515; J1631

== ENCOUNTER 2019-09-11 00:08 | Emergency (ER) | payer MEDICARE, MEDICAID ==
[2019-09-11 00:16] VITALS: BP 139/66
--- NOTE | 2019-09-11 00:51 | ER Document Report ---
HPI - HPI Time Seen by Provider: 09/11/19 00:22 Context: Patient is a 49-year-old male that comes emergency department for chief complaint of "chills". Patient denies fever, cough, congestion, abdominal pain, nausea, vomiting, chest pain, headache. He admits that his clothes got wet and he started getting cold and "my legs in my arms". He denies any injuries or any other complaints. Patient has a history of chronic alcoholism and homelessness. He denies exposure to anyone sick, denies recent travel. - REPRODUCTIVE Reproductive: DENIES: : Past Medical History - General Information source: Patient - Social History Smoking Status: Current Some Day Smoker Frequency of alcohol use: Heavy Drug Abuse: None Lives with: Alone Family History: Reviewed & Not Pertinent, CVA, DM, Hypertension - Past Medical History Cardiac Medical History: Reports: Hx Heart Attack, Hx Hypertension Pulmonary Medical History: Reports: Hx Bronchitis, Hx COPD Endocrine Medical History: Reports: Hx Diabetes Mellitus Type 2 Skin Medical History: Reports Hx Cellulitis Psychiatric Medical History: Reports: Hx Bipolar Disorder, Hx Depression, Hx Schizoaffective Disorder, Hx Schizophrenia - Immunizations Immunizations up to date: Yes Hx Diphtheria, Pertussis, Tetanus Vaccination: Yes Vertical Provider Document - CONSTITUTIONAL General Appearance: WD/WN, No Apparent Distress - Sleeping and easily aroused. No signs of distress. Somewhat disheveled - INFECTION CONTROL TRAVEL OUTSIDE OF THE [place] IN LAST 30 DAYS: No - HEENT HEENT: Atraumatic, Normal ENT Exam, Normocephalic - NECK Neck: Normal Inspection - RESPIRATORY Respiratory: Breath Sounds Normal, No Respiratory Distress. negative: Wheezing - CARDIOVASCULAR Cardiovascular: Regular Rate, Regular Rhythm. negative: Tachycardia, Mandepe ycardia - GI/ABDOMEN Gastrointestinal: Abdomen Soft, Abdomen Non-Tender. negative: Abdomen Tender - MUSCULOSKELETAL/EXTREMETIES Musculoskeletal/Extremeties: MAEW, FROM, Non-Tender - NEURO Level of Consciousness: Awake, Alert, Appropriate Motor/Sensory: No Motor Deficit, No Sensory Deficit - DERM Integumentary: Warm, Dry, No Rash Course - Re-evaluation Re-evalutation: Patient has slightly damp clothing, patient was sleeping and easily aroused on my evaluation, patient has clear lungs, unremarkable physical exam, unremarkable vital signs. Patient only complaining of chills after his close got wet. I am familiar with this patient from previous evaluations, patient visits this emergency department frequently. No acute abnormality noted, patient will be discharged with return precautions. I did discuss with patient. Patient states understanding. - Vital Signs Vital signs: Temp Pulse Resp BP Pulse Ox 97.5 F 66 16 139/66 H 100 09/11/19 00:15 09/11/19 00:15 09/11/19 00:15 09/11/19 00:15 09/11/19 00:15 Discharge - Discharge Clinical Impression: Cold extremities, Homelessness Condition: Stable Disposition: HOME, SELF-CARE Additional Instructions: Your evaluation does not show any concerning findings at this time. Follow-up with primary care and with detox listed below. Return if you worsen including developing fever, vomiting, difficulty breathing, or any other concerning or worsening symptoms. [facility] [address] [place] [id number] Hours: Open 24 hours Referrals: PHILLIP URBINA DO [Primary Care Provider] - Follow up in 3-5 days
== END 2019-09-11 01:26 | disposition home or self-care (01) ==
LOC: ER 00:08
DX: R68.83 Chills (without fever) (principal); Z59.0 Homelessness; F10.20 Alcohol dependence, uncomplicated; F17.200 Nicotine dependence, unspecified, uncomplicated; I10 Essential (primary) hypertension; J44.9 Chronic obstructive pulmonary disease, unspecified; E11.9 Type 2 diabetes mellitus without complications
CPT/HCPCS: 99282

== ENCOUNTER 2019-09-19 15:14 | Emergency (ER) | payer MEDICARE, OTHER, MEDICAID ==
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
[2019-09-19 16:16] LABS: ABSOLUTE BASOPHILS # (AUTO) 0.1 10^3/uL (0.0-0.2); ABSOLUTE EOSINOPHILS # (AUTO) 0.2 10^3/uL (0.0-0.6); ABSOLUTE MONOCYTES (AUTO) 0.4 10^3/uL (0.1-1.4); ABSOLUTE NEUT (AUTO) 4.6 10^3/uL (1.7-8.2); EOSINOPHILS % (AUTO) 2.3 % (0-6); HEMATOCRIT 36.3 % (37.9-51.0); HEMOGLOBIN 13.1 g/dL (13.5-17.0); LYMPHOCYTES % (AUTO) 27.5 % (13-45); MEAN CORPUSCULAR HEMOGLOBIN 31.3 pg (27.0-33.4); MEAN CORPUSCULAR VOLUME 87 fl (80-97); MONOCYTES % (AUTO) 5.3 % (3-13); PLATELET COUNT 398 10^3/uL (150-450); RED BLOOD COUNT 4.17 10^6/uL (4.35-5.55); RED CELL DISTRIBUTION WIDTH 14.8 % (11.5-14.0); SEGMENTED NEUTROPHILS % (AUTO) 63.9 % (42-78); TOTAL CELLS COUNTED % (AUTO) 100 %; WHITE BLOOD COUNT 7.2 10^3/uL (4.0-10.5)
[2019-09-19 16:32] LABS: ALBUMIN 4.1 g/dL (3.5-5.0); ALCOHOL 164 mg/dL (NONE DETECTED); ALKALINE PHOSPHATASE 52 U/L (38-126); ANION GAP 11 (5-19); ASPARTATE AMINO TRANSFERASE 30 U/L (17-59); BILIRUBIN,TOTAL 0.3 mg/dL (0.2-1.3); BLOOD UREA NITROGEN 8 mg/dL (7-20); CALCIUM 8.9 mg/dL (8.4-10.2); CARBON DIOXIDE 26 mmol/L (22-30); CHLORIDE 86 mmol/L (98-107); GLUCOSE 105 mg/dL (75-110); POTASSIUM 4.6 mmol/L (3.6-5.0); TOTAL PROTEIN 6.6 g/dL (6.3-8.2)
[2019-09-19 16:34] LABS: ACETAMINOPHEN < 10 ug/mL (10-30); SALICYLATE < 1.0 mg/dL (2.0-20.0)
[2019-09-19] MEDS ORDERED: NORMAL SALINE 1000 ML 1,000 ML IV ONE (17:06)
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
--- NOTE | 2019-09-19 19:37 | EKG REPORT ---
SEVERITY:- NORMAL ECG - SINUS RHYTHM : Confirmed by: Andrew Dumont MD 19-Sep-2019 19:37:16
[2019-09-19 20:18] LABS: APPEARANCE,URINE CLEAR; BILIRUBIN,URINE NEGATIVE (NEGATIVE); COLOR,URINE STRAW; GLUCOSE, URINE NEGATIVE (NEGATIVE); KETONES,URINE NEGATIVE (NEGATIVE); LEUKOCYTE ESTERASE,URINE NEGATIVE (NEGATIVE); NITRITE,URINE NEGATIVE (NEGATIVE); PROTEIN,URINE NEGATIVE (NEGATIVE); URINE SPECIFIC GRAVITY 1.002; UROBILINOGEN,URINE NEGATIVE mg/dL (<2.0)
[2019-09-19 20:26] LABS: URINE AMPHETAMINES SCREEN NEGATIVE; URINE BARBITURATES SCREEN NEGATIVE; URINE BENZODIAZEPINES SCREEN NEGATIVE; URINE COCAINE SCREEN NEGATIVE; URINE MARIJUANA (THC) SCREEN NEGATIVE; URINE METHADONE SCREEN NEGATIVE; URINE PHENCYCLIDINE SCREEN NEGATIVE
[2019-09-20 00:38] VITALS: BP 156/85
== END 2019-09-20 01:21 | disposition home or self-care (01) ==
LOC: ER 15:14
DX: F10.10 Alcohol abuse, uncomplicated (principal); E87.1 Hypo-osmolality and hyponatremia; F17.200 Nicotine dependence, unspecified, uncomplicated; E66.9 Obesity, unspecified; I10 Essential (primary) hypertension; I25.2 Old myocardial infarction
CPT/HCPCS: 93005; 99285; 96360; 96361; 36415; 80307 ×4; 85025; 80053; 81001; 93010; J7030

== ENCOUNTER 2019-09-23 02:20 | Emergency (ER) | payer MEDICARE, MEDICAID ==
[2019-09-23 02:30] VITALS: BP 136/78
--- NOTE | 2019-09-23 03:26 | ER Document Report ---
ED General - General Chief Complaint: Chest Tightness Stated Complaint: SHORTNESS OF BREATH, CONGESTION Time Seen by Provider: 09/23/19 03:14 Primary Care Provider: PHILLIP URBINA DO [Primary Care Provider] - Follow up as needed Notes: CHIEF COMPLAINT: Chest tightness earlier today HPI: 49-year-old homeless alcoholic male presenting stating he had chest tightness earlier today none now. Patient difficult to obtain history from, slurring his speech, with some difficulty staying on topic. Patient denies headache denies fever denies cough denies abdominal pain nausea or vomiting. He denies shortness of breath or chest pain at this time ROS: See HPI - all other systems were reviewed and are otherwise negative Constitutional: no fever Eyes: no drainage, no blurred vision ENT: no runny nose, no sore throat Cardiovascular: + chest pain Resp: no SOB, no cough GI: no vomiting, no diarrhea, no abdominal pain : no dysuria Integumentary: no rash Allergy: no hives Musculoskeletal: no extremity pain or swelling Neurological: no numbness/tingling, no weakness MEDICATIONS: I agree with the patient medications as charted by the RN. ALLERGIES: I agree with the allergies as charted by the RN. PAST MEDICAL HISTORY/PAST SURGICAL HISTORY: Reviewed and agree as charted by RN. SOCIAL HISTORY: Reviewed and agree as charted by RN. FAMILY HISTORY: No significant familial comorbid conditions directly related to patient complaint EXAM: Reviewed vital signs as charted by RN. CONSTITUTIONAL: Alert and oriented and responds inappropriately to questions. Disheveled-appearing; well-nourished HEAD: Normocephalic; atraumatic EYES: PERRL; Conjunctivae clear, sclerae non-icteric ENT: normal nose; no rhinorrhea; moist mucous membranes; pharynx without lesions noted, no uvula edema or deviation, no tonsillar hypertrophy, phonation normal NECK: Supple without meningismus; non-tender; no cervical lymphadenopathy, no masses CARD: RRR; no murmurs, no clicks, no rubs, no gallops; symmetric distal pulses RESP: Normal chest excursion without splinting or tachypnea; breath sounds clear and equal bilaterally; no wheezes, no rhonchi, no rales, pulse oximetry 98% on room air not hypoxic ABD/GI: Normal bowel sounds; non-distended; soft, non-tender, no rebound, no guarding; no palpable organomegaly or masses. BACK: The back appears normal and is non-tender to palpation, there is no CVA tenderness EXT: Normal ROM in all joints; non-tender to palpation; no cyanosis, no effusions, no edema SKIN: Normal color for age and race; warm; dry; good turgor; no acute lesions noted NEURO: Moves all extremities equally; Motor and sensory function intact PSYCH: The patient's mood and manner are intoxicated. Grooming and personal hygiene are poor. MDM: 49-year-old homeless alcoholic male stated he had chest tightness earlier yesterday. No discomfort at this time. Very difficult to obtain history he appears intoxicated. I reviewed the patient's prior charts he is here every few days with intoxication or homelessness. Patient was most recently here 4 days ago with intoxication. He was evaluated by behavioral health at that time. Patient has been eating and drinking in his room. He is in no distress. Given his complaint I will obtain 1 set of screening cardiac labs EKG just to ensure that we are not missing a medical problem but I suspect that patient is coming to the emergency department looking for food and a place to sleep. He has been banned previously for malingering TRAVEL OUTSIDE OF THE [place] IN LAST 30 DAYS: No - Related Data Allergies/Adverse Reactions: olanzapine [From Zyprexa] Allergy (Verified 09/23/19 02:36) metformin Adverse Reaction (Verified 09/23/19 02:36) Past Medical History - Social History Smoking Status: Former Smoker Family History: Reviewed & Not Pertinent, CVA, DM, Hypertension Patient has homicidal ideation: No - Past Medical History Cardiac Medical History: Reports: Hx Heart Attack, Hx Hypertension Pulmonary Medical History: Reports: Hx Bronchitis, Hx COPD Endocrine Medical History: Reports: Hx Diabetes Mellitus Type 2 Skin Medical History: Reports Hx Cellulitis Psychiatric Medical History: Reports: Hx Bipolar Disorder, Hx Depression, Hx Schizoaffective Disorder, Hx Schizophrenia - Immunizations Immunizations up to date: Yes Hx Diphtheria, Pertussis, Tetanus Vaccination: Yes Physical Exam - Vital signs Vitals: Temp 98.2 F 09/23/19 02:21 Course - Re-evaluation Re-evalutation: 09/23/19 04:58 Patient is not intoxicated or utilizing drugs at this time per the labs. His initial screening cardiac labs were negative. Patient remains a difficult historian with frequent visits for similar complaints. Will refer to cardiology for follow-up. - Vital Signs Vital signs: Temp Pulse Resp BP Pulse Ox 98.2 F 85 14 136/78 H 96 09/23/19 02:29 09/23/19 02:29 09/23/19 02:29 09/23/19 02:29 09/23/19 02:29 - Laboratory Result Diagrams: 09/23/19 03:37 09/23/19 03:37 Laboratory results interpreted by me: 09/23/19 09/23/19 03:37 03:37 RBC 4.02 L Hgb 12.5 L Hct 35.2 L RDW 14.8 H Sodium 129.5 L Chloride 97 L Creatinine 0.48 L Glucose 142 H Total Protein 6.2 L Discharge - Discharge Clinical Impression: Chest tightness, Hyponatremia Condition: Stable Disposition: HOME, SELF-CARE Additional Instructions: Follow-up with a double backer for further evaluation if you have continued episodes of chest tightness. Return to the emergency department for other concerns or problems Referrals: PHILLIP URBINA DO [Primary Care Provider] - Follow up as needed
[2019-09-23 03:49] LABS: ABSOLUTE BASOPHILS # (AUTO) 0.1 10^3/uL (0.0-0.2); ABSOLUTE EOSINOPHILS # (AUTO) 0.2 10^3/uL (0.0-0.6); ABSOLUTE LYMPHOCYTES (AUTO) 2.1 10^3/uL (0.5-4.7); ABSOLUTE MONOCYTES (AUTO) 0.6 10^3/uL (0.1-1.4); BASOPHILS % (AUTO) 1.6 % (0-2); EOSINOPHILS % (AUTO) 2.1 % (0-6); HEMATOCRIT 35.2 % (37.9-51.0); HEMOGLOBIN 12.5 g/dL (13.5-17.0); LYMPHOCYTES % (AUTO) 26.5 % (13-45); MEAN CORPUSCULAR HGB CONC 35.4 g/dL (32.0-36.0); MEAN CORPUSCULAR VOLUME 88 fl (80-97); MONOCYTES % (AUTO) 7.7 % (3-13); PLATELET COUNT 340 10^3/uL (150-450); RED BLOOD COUNT 4.02 10^6/uL (4.35-5.55); RED CELL DISTRIBUTION WIDTH 14.8 % (11.5-14.0); SEGMENTED NEUTROPHILS % (AUTO) 62.1 % (42-78); TOTAL CELLS COUNTED % (AUTO) 100 %; WHITE BLOOD COUNT 8.1 10^3/uL (4.0-10.5)
[2019-09-23 04:08] LABS: ALBUMIN 3.6 g/dL (3.5-5.0); ALKALINE PHOSPHATASE 48 U/L (38-126); ANION GAP 5 (5-19); ASPARTATE AMINO TRANSFERASE 26 U/L (17-59); BILIRUBIN,TOTAL 0.4 mg/dL (0.2-1.3); BLOOD UREA NITROGEN 13 mg/dL (7-20); CALCIUM 9.2 mg/dL (8.4-10.2); CARBON DIOXIDE 28 mmol/L (22-30); CHLORIDE 97 mmol/L (98-107); GLUCOSE 142 mg/dL (75-110); POTASSIUM 4.3 mmol/L (3.6-5.0); TOTAL PROTEIN 6.2 g/dL (6.3-8.2)
[2019-09-23 04:12] LABS: ALCOHOL < 10 mg/dL (NONE DETECTED)
--- NOTE | 2019-09-23 04:13 | RADIOLOGY REPORT (SQ) ---
EXAM DESCRIPTION: XR CHEST 1 VIEW COMPLETED DATE/TME: 09/23/2019 03:25 CLINICAL HISTORY: 49 years, Male, chest tightness COMPARISON: 09/07/2019 chest NUMBER OF VIEWS: 1 TECHNIQUE: Portable chest LIMITATIONS: None. FINDINGS: Heart size is normal. Patient is slightly rotated. The lungs are hyperinflated. Equivocal/mild prominence of the pulmonary interstitium. Blunting of the left costophrenic angle consistent with tiny left effusion IMPRESSION: Underlying hyperinflation. Equivocal/mild interstitial prominence. Tiny left effusion copyright 2010 [employer]- All Rights Reserved
[2019-09-23] MEDS ORDERED: NORMAL SALINE 1000 ML 1,000 ML IV ONE (04:22)
[2019-09-23 04:57] LABS: URINE AMPHETAMINES SCREEN NEGATIVE; URINE BARBITURATES SCREEN NEGATIVE; URINE BENZODIAZEPINES SCREEN NEGATIVE; URINE COCAINE SCREEN NEGATIVE; URINE MARIJUANA (THC) SCREEN NEGATIVE; URINE METHADONE SCREEN NEGATIVE; URINE PHENCYCLIDINE SCREEN NEGATIVE
--- NOTE | 2019-09-23 09:29 | EKG REPORT ---
SEVERITY:- NORMAL ECG - SINUS RHYTHM : Confirmed by: Andrew Dumont MD 23-Sep-2019 09:28:52
== END 2019-09-23 06:18 | disposition home or self-care (01) ==
LOC: ER 02:20
DX: R07.9 Chest pain, unspecified (principal); E87.1 Hypo-osmolality and hyponatremia; R06.02 Shortness of breath; Z59.0 Homelessness; I10 Essential (primary) hypertension; E11.9 Type 2 diabetes mellitus without complications; I25.2 Old myocardial infarction
CPT/HCPCS: 93005; 99284; 96360; 36415; 80307 ×2; 85025; 80053; 84484; 71045; 93010; J7030

== ENCOUNTER 2019-10-04 22:56 | Emergency (ER) | payer MEDICARE, MEDICAID ==
[2019-10-04] MEDS ORDERED: GABAPENTIN 100 MG CAPSULE PO ONE (23:45)
[2019-10-04] MEDS ORDERED: HALOPERIDOL 5 MG TABLET PO ONE (23:45)
[2019-10-04] MEDS ORDERED: CLOPIDOGREL BISULFATE 75 MG TABLET PO ONE (23:45)
[2019-10-04] MEDS ORDERED: CITALOPRAM HYDROBROMIDE 20 MG TABLET PO ONE (23:45)
[2019-10-04] MEDS ORDERED: BENZTROPINE MESYLATE 1 MG TABLET PO ONE (23:45)
--- NOTE | 2019-10-04 23:48 | ER Document Report ---
ED General - General Chief Complaint: Other Stated Complaint: BODY PAIN Primary Care Provider: PHILLIP URBINA DO [Primary Care Provider] - Follow up as needed Notes: Patient is a 49-year-old white male who is well-known to this facility for [facility] who presents tonight requesting clearance medically so that he may self admit to [facility] [place]. He also states that he needs a dose of Plavix, 75 mg, Neurontin 100 mg, Celexa 20 mg, Haldol 5 mg and Cogentin 1 mg. These are his normal medications. He is homeless and states he is out of his medicines. He reports that [facility] is going to help him coordinate his psychiatric care and in apparent relocation to [place]. He denies any suicidal or homicidal ideations. No reported delusions hallucinations. TRAVEL OUTSIDE OF THE [place] IN LAST 30 DAYS: No - Related Data Allergies/Adverse Reactions: olanzapine [From Zyprexa] Allergy (Verified 10/04/19 23:27) metformin Adverse Reaction (Verified 10/04/19 23:27) Past Medical History - Social History Smoking Status: Former Smoker Family History: Reviewed & Not Pertinent, CVA, DM, Hypertension Patient has homicidal ideation: No - Past Medical History Cardiac Medical History: Reports: Hx Heart Attack, Hx Hypertension Pulmonary Medical History: Reports: Hx Bronchitis, Hx COPD Endocrine Medical History: Reports: Hx Diabetes Mellitus Type 2 Skin Medical History: Reports Hx Cellulitis Psychiatric Medical History: Reports: Hx Bipolar Disorder, Hx Depression, Hx Schizoaffective Disorder, Hx Schizophrenia - Immunizations Immunizations up to date: Yes Hx Diphtheria, Pertussis, Tetanus Vaccination: Yes Review of Systems - Review of Systems -: Yes All other systems reviewed and negative Physical Exam - Vital signs Vitals: Temp Pulse Resp BP Pulse Ox 98.9 F 87 20 147/87 H 97 10/04/19 23:27 10/04/19 23:27 10/04/19 23:27 10/04/19 23:27 10/04/19 23:27 - General General appearance: Appears well, Alert In distress: None - HEENT Pupils: PERRL - Respiratory Respiratory status: No respiratory distress Chest status: Nontender Breath sounds: Normal Chest palpation: Normal - Cardiovascular Rhythm: Regular Heart sounds: Normal auscultation - Extremities General upper extremity: Normal inspection, Nontender General lower extremity: Normal inspection, Nontender - Neurological Neuro grossly intact: Yes Cognition: Normal Orientation: AAOx4 [place] Coma Scale Eye Opening: Spontaneous [place] Coma Scale Verbal: Oriented [place] Coma Scale Motor: Obeys Commands [place] Coma Scale Total: 15 Speech: Normal Sensory: Normal - Psychological Associated symptoms: Anxious, Flight of ideas - Skin Skin Temperature: Warm Skin Moisture: Dry Skin Color: Normal Course - Re-evaluation Re-evalutation: 10/05/19 00:47 Sodium correction for hyperglycemia shows a sodium of 132 actual. Patient is tolerating oral intake well and will replace this orally. 10/05/19 01:18 Reevaluation at this time, patient is resting comfortably in the room. He is stable and appropriate for discharge and outpatient follow-up. He is going to self report to [facility] immediately upon discharge. He is medically cleared. - Vital Signs Vital signs: Temp Pulse Resp BP Pulse Ox 98.9 F 87 20 147/87 H 97 10/04/19 23:27 10/04/19 23:27 10/04/19 23:27 10/04/19 23:27 10/04/19 23:27 - Laboratory Result Diagrams: 10/05/19 00:01 10/05/19 00:01 Laboratory results interpreted by me: 10/05/19 10/05/19 00:01 00:01 RBC 3.95 L Hgb 12.0 L Hct 35.0 L RDW 14.3 H Seg Neutrophils % 78.8 H Sodium 129.5 L Chloride 97 L Glucose 217 H Total Protein 6.1 L Salicylates < 1.0 L Acetaminophen < 10 L Discharge - Discharge Clinical Impression: Encounter for medication administration, Medical clearance for psychiatric admission Condition: Stable Disposition: OTHER Instructions: (NO) Medical Clearance ([facility]) Additional Instructions: Please report straight to [facility] upon discharge. Return here any ER immediately with any new, persistent or worsening symptoms. Referrals: PHILLIP URBINA DO [Primary Care Provider] - Follow up as needed
[2019-10-05 00:11] LABS: ABSOLUTE BASOPHILS # (AUTO) 0.1 10^3/uL (0.0-0.2); ABSOLUTE EOSINOPHILS # (AUTO) 0.1 10^3/uL (0.0-0.6); ABSOLUTE LYMPHOCYTES (AUTO) 1.1 10^3/uL (0.5-4.7); ABSOLUTE MONOCYTES (AUTO) 0.5 10^3/uL (0.1-1.4); ABSOLUTE NEUT (AUTO) 6.8 10^3/uL (1.7-8.2); EOSINOPHILS % (AUTO) 1.3 % (0-6); LYMPHOCYTES % (AUTO) 13.1 % (13-45); MEAN CORPUSCULAR HEMOGLOBIN 30.5 pg (27.0-33.4); MEAN CORPUSCULAR HGB CONC 34.4 g/dL (32.0-36.0); MEAN CORPUSCULAR VOLUME 89 fl (80-97); MONOCYTES % (AUTO) 5.8 % (3-13); PLATELET COUNT 291 10^3/uL (150-450); RED BLOOD COUNT 3.95 10^6/uL (4.35-5.55); RED CELL DISTRIBUTION WIDTH 14.3 % (11.5-14.0); SEGMENTED NEUTROPHILS % (AUTO) 78.8 % (42-78); TOTAL CELLS COUNTED % (AUTO) 100 %; WHITE BLOOD COUNT 8.7 10^3/uL (4.0-10.5)
[2019-10-05 00:26] LABS: ACETAMINOPHEN < 10 ug/mL (10-30); ALBUMIN 3.7 g/dL (3.5-5.0); ALCOHOL < 10 mg/dL (NONE DETECTED); ALKALINE PHOSPHATASE 56 U/L (38-126); ANION GAP 7 (5-19); ASPARTATE AMINO TRANSFERASE 29 U/L (17-59); BILIRUBIN,TOTAL 0.5 mg/dL (0.2-1.3); BLOOD UREA NITROGEN 19 mg/dL (7-20); CALCIUM 8.8 mg/dL (8.4-10.2); CARBON DIOXIDE 26 mmol/L (22-30); CHLORIDE 97 mmol/L (98-107); GLUCOSE 217 mg/dL (75-110); POTASSIUM 3.9 mmol/L (3.6-5.0); SALICYLATE < 1.0 mg/dL (2.0-20.0); TOTAL PROTEIN 6.1 g/dL (6.3-8.2)
[2019-10-05 00:29] LABS: APPEARANCE,URINE CLEAR; BILIRUBIN,URINE NEGATIVE (NEGATIVE); COLOR,URINE YELLOW; GLUCOSE, URINE NEGATIVE (NEGATIVE); KETONES,URINE NEGATIVE (NEGATIVE); PROTEIN,URINE NEGATIVE (NEGATIVE); URINE SPECIFIC GRAVITY 1.008; UROBILINOGEN,URINE NEGATIVE mg/dL (<2.0)
[2019-10-05 00:47] LABS: URINE AMPHETAMINES SCREEN NEGATIVE; URINE BARBITURATES SCREEN NEGATIVE; URINE BENZODIAZEPINES SCREEN NEGATIVE; URINE COCAINE SCREEN NEGATIVE; URINE MARIJUANA (THC) SCREEN NEGATIVE; URINE METHADONE SCREEN NEGATIVE; URINE PHENCYCLIDINE SCREEN NEGATIVE
[2019-10-05 02:52] VITALS: BP 163/83
--- NOTE | 2019-10-05 19:18 | EKG REPORT ---
SEVERITY:- NORMAL ECG - SINUS RHYTHM : Confirmed by: Kayleigh Rollins MD 05-Oct-2019 19:17:32
== END 2019-10-05 02:52 | disposition other institution (70) ==
LOC: ER 22:56
DX: Z76.0 Encounter for issue of repeat prescription (principal); R52 Pain, unspecified; Z79.899 Other long term (current) drug therapy; Z59.0 Homelessness; Z87.891 Personal history of nicotine dependence; I25.2 Old myocardial infarction; I10 Essential (primary) hypertension; J44.9 Chronic obstructive pulmonary disease, unspecified; E11.9 Type 2 diabetes mellitus without complications
CPT/HCPCS: 93005; 99283; 36415; 80307 ×4; 85025; 80053; 81001; 93010; A9270 ×5

== ENCOUNTER 2019-10-08 12:39 | Emergency (ER) | payer MEDICARE, MEDICAID ==
[2019-10-08] MEDS ORDERED: NORMAL SALINE 1000 ML 1,000 ML IV ONE (12:59)
--- NOTE | 2019-10-08 13:00 | ER Document Report ---
ED Medical Screen (RME) - General Chief Complaint: ETOH Abuse Stated Complaint: ETOH Time Seen by Provider: 10/08/19 12:57 Primary Care Provider: PHILLIP URBINA DO [Primary Care Provider] - Follow up as needed Mode of Arrival: Medic Information source: Patient Notes: 49-year-old male presented to ED for with question relation to [facility]. He will need his work-up to go over to drugs as he is intoxicated. He is eating like his usual self. He does have a COVID test pending from Tuesday. Aspirations regular nonlabored at this time. I have greeted and performed a rapid initial assessment of this patient. A comprehensive ED assessment and evaluation of the patient, analysis of test results and completion of medical decision making process will be conducted by an additional ED providers. TRAVEL OUTSIDE OF THE [place] IN LAST 30 DAYS: No - Related Data Allergies/Adverse Reactions: olanzapine [From Zyprexa] Allergy (Verified 10/04/19 23:27) metformin Adverse Reaction (Verified 10/04/19 23:27) Past Medical History - Social History Family history: Reviewed & Not Pertinent - Past Medical History Cardiac Medical History: Reports: Hx Heart Attack, Hx Hypertension Pulmonary Medical History: Reports: Hx Bronchitis, Hx COPD Endocrine Medical History: Reports: Hx Diabetes Mellitus Type 2 Skin Medical History: Reports Hx Cellulitis Psychiatric Medical History: Reports: Hx Bipolar Disorder, Hx Depression, Hx Schizoaffective Disorder, Hx Schizophrenia - Immunizations Immunizations up to date: Yes Hx Diphtheria, Pertussis, Tetanus Vaccination: Yes Doctor's Discharge - Discharge Referrals: PHILLIP URBINA DO [Primary Care Provider] - Follow up as needed
[2019-10-08 14:14] LABS: ABSOLUTE BASOPHILS # (AUTO) 0.1 10^3/uL (0.0-0.2); ABSOLUTE EOSINOPHILS # (AUTO) 0.2 10^3/uL (0.0-0.6); ABSOLUTE LYMPHOCYTES (AUTO) 1.8 10^3/uL (0.5-4.7); ABSOLUTE MONOCYTES (AUTO) 0.4 10^3/uL (0.1-1.4); ABSOLUTE NEUT (AUTO) 4.5 10^3/uL (1.7-8.2); HEMATOCRIT 41.6 % (37.9-51.0); HEMOGLOBIN 14.9 g/dL (13.5-17.0); LYMPHOCYTES % (AUTO) 25.9 % (13-45); MEAN CORPUSCULAR HEMOGLOBIN 31.4 pg (27.0-33.4); MEAN CORPUSCULAR HGB CONC 35.9 g/dL (32.0-36.0); MEAN CORPUSCULAR VOLUME 88 fl (80-97); PLATELET COUNT 345 10^3/uL (150-450); RED BLOOD COUNT 4.75 10^6/uL (4.35-5.55); RED CELL DISTRIBUTION WIDTH 14.4 % (11.5-14.0); SEGMENTED NEUTROPHILS % (AUTO) 64.1 % (42-78); TOTAL CELLS COUNTED % (AUTO) 100 %; WHITE BLOOD COUNT 7.1 10^3/uL (4.0-10.5)
[2019-10-08 14:26] LABS: APPEARANCE,URINE CLEAR; BILIRUBIN,URINE NEGATIVE (NEGATIVE); COLOR,URINE COLORLESS; GLUCOSE, URINE NEGATIVE (NEGATIVE); KETONES,URINE NEGATIVE (NEGATIVE); LEUKOCYTE ESTERASE,URINE NEGATIVE (NEGATIVE); NITRITE,URINE NEGATIVE (NEGATIVE); PROTEIN,URINE NEGATIVE (NEGATIVE); URINE SPECIFIC GRAVITY 1.002; UROBILINOGEN,URINE NEGATIVE mg/dL (<2.0)
[2019-10-08 14:31] LABS: ALBUMIN 4.8 g/dL (3.5-5.0); ALKALINE PHOSPHATASE 72 U/L (38-126); ANION GAP 6 (5-19); ASPARTATE AMINO TRANSFERASE 45 U/L (17-59); BILIRUBIN,TOTAL 0.7 mg/dL (0.2-1.3); BLOOD UREA NITROGEN 10 mg/dL (7-20); CALCIUM 9.8 mg/dL (8.4-10.2); CARBON DIOXIDE 30 mmol/L (22-30); CHLORIDE 94 mmol/L (98-107); GLUCOSE 89 mg/dL (75-110); TOTAL PROTEIN 7.7 g/dL (6.3-8.2)
[2019-10-08 14:33] LABS: ACETAMINOPHEN < 10 ug/mL (10-30); ALCOHOL < 10 mg/dL (NONE DETECTED); SALICYLATE < 1.0 mg/dL (2.0-20.0)
[2019-10-08 14:42] LABS: URINE AMPHETAMINES SCREEN NEGATIVE; URINE BARBITURATES SCREEN NEGATIVE; URINE BENZODIAZEPINES SCREEN NEGATIVE; URINE COCAINE SCREEN NEGATIVE; URINE MARIJUANA (THC) SCREEN NEGATIVE; URINE METHADONE SCREEN NEGATIVE; URINE PHENCYCLIDINE SCREEN NEGATIVE
--- NOTE | 2019-10-08 14:44 | ER Document Report ---
ED General - General Chief Complaint: ETOH Abuse Stated Complaint: ETOH Time Seen by Provider: 10/08/19 12:57 Primary Care Provider: PHILLIP URBINA DO [NO LOCAL MD] - Follow up as needed Mode of Arrival: Medic TRAVEL OUTSIDE OF THE [place] IN LAST 30 DAYS: No - HPI Notes: Chief complaint: It is raining outside and I am cold and I need help with alcohol problems HPI: 49-year-old homeless male male with history of personality disorder, chronic alcoholism, COPD and diabetes mellitus type 2 who is a frequent visitor to this emergency department and well-known to the behavioral health service here as well who comes in with complaint as stated above. He admits that he has been drinking today. Says he would like to go to an alcohol detox facility. We note that he has been previously banned from this emergency department for recurrent episodes of severe disruptive behavior and he has apparently also been banned from [facility] detox facility. He denies any suicidal or homicidal intent. He denies auditory visual hallucinations. He denies any current drug use. He denies tremor or vomiting. He notes that he had a COVID test several days ago and still has not been informed as to the results of this. He denies fever. He denies travel outside the area. He denies any specific known exposure to a COVID positive individual. - Related Data Allergies/Adverse Reactions: olanzapine [From Zyprexa] Allergy (Verified 10/04/19 23:27) metformin Adverse Reaction (Verified 10/04/19 23:27) Past Medical History - General Information source: Patient - Social History Smoking Status: Current Every Day Smoker Frequency of alcohol use: Heavy Lives with: Homeless Family History: Reviewed & Not Pertinent, CVA, DM, Hypertension Patient has homicidal ideation: No - Past Medical History Cardiac Medical History: Reports: Hx Heart Attack, Hx Hypertension Pulmonary Medical History: Reports: Hx Bronchitis, Hx COPD Endocrine Medical History: Reports: Hx Diabetes Mellitus Type 2 Skin Medical History: Reports Hx Cellulitis Psychiatric Medical History: Reports: Other - Personality disorder - Immunizations Immunizations up to date: Yes Hx Diphtheria, Pertussis, Tetanus Vaccination: Yes Review of Systems - Review of Systems Notes: Constitutional: Negative for fever. HENT: Negative for sore throat. Eyes: Negative for visual changes. Cardiovascular: Negative for chest pain. Respiratory: Negative for shortness of breath. Gastrointestinal: Negative for abdominal pain, vomiting or diarrhea. Genitourinary: Negative for dysuria. Musculoskeletal: Negative for back pain. Skin: Negative for rash. Neurological: Negative for headaches, weakness or numbness. 10 point ROS negative except as marked above and in HPI. Physical Exam - Vital signs Vitals: Temp Pulse Resp BP Pulse Ox 97.6 F 81 19 175/86 H 99 10/08/19 12:53 10/08/19 12:53 10/08/19 12:53 10/08/19 12:53 10/08/19 12:53 - Notes Notes: GENERAL: Unkempt middle-age male with mildly slurred speech and odor of old alcohol present in no acute distress. SKIN: Good turgor no rashes. HEAD: Normocephalic atraumatic. EYES: PERRLA. EOMI. Conjunctivae and sclerae clear. EARS: CANALS AND TMS CLEAR. NOSE: CLEAR. MOUTH: Moist mucosa. Extremely poor dentition. No stridor or edema. No drooling. NECK: Supple. No masses or thyromegaly. No adenopathy. Carotids 2+ without bruits. No JVD. BACK: Symmetrical without tenderness. CHEST: Respirations unlabored. Breath sounds clear and symmetrical. HEART: Regular rhythm. No murmur gallop or rub. ABDOMEN: Soft nontender without masses, organomegaly or rebound. Bowel sounds normally active. No bruits. GENITALIA: Deferred. EXTREMITIES: No edema. No calf tenderness. Cap refill less than 1.5 seconds. Dorsalis pedis and posterior tibial pulses 3+ and symmetrical. NEUROLOGICAL: GCS 15. Alert and oriented x3. Mildly ataxic gait. Mildly slurred speech. Cranial nerves II through XII intact. Sensorimotor and cerebellar normal. Normal tone. PSYCHIATRIC: Flat affect. Course - Vital Signs Vital signs: Temp Pulse Resp BP Pulse Ox 97.5 F 100 18 176/95 H 99 10/08/19 15:20 10/08/19 15:20 10/08/19 15:20 10/08/19 15:20 10/08/19 15: - Laboratory Result Diagrams: 10/08/19 13:58 10/08/19 13:58 Laboratory results interpreted by me: 10/08/19 10/08/19 10/08/19 13:55 13:58 13:58 RDW 14.4 H Sodium 130.4 L Chloride 94 L Urine Blood SMALL H Salicylates < 1.0 L Acetaminophen < 10 L Discharge - Discharge Clinical Impression: Chronic Alcoholism Disposition: HOME, SELF-CARE Referrals: PHILLIP URBINA DO [NO LOCAL MD] - Follow up as needed
[2019-10-08 15:30] VITALS: BP 176/95
--- NOTE | 2019-10-08 20:08 | EKG REPORT ---
SEVERITY:- BORDERLINE ECG - SINUS RHYTHM BORDERLINE PROLONGED QT INTERVAL : Confirmed by: Andrew Dumont MD 08-Oct-2019 20:07:57
== END 2019-10-08 15:21 | disposition home or self-care (01) ==
LOC: ER 12:39
DX: F10.229 Alcohol dependence with intoxication, unspecified (principal); J44.9 Chronic obstructive pulmonary disease, unspecified; E11.9 Type 2 diabetes mellitus without complications; Z59.0 Homelessness; F17.200 Nicotine dependence, unspecified, uncomplicated; I10 Essential (primary) hypertension; Z88.8 Allergy status to other drugs, medicaments and biological substances
CPT/HCPCS: 93005; 99284; 96360; 36415; 80307 ×4; 85025; 80053; 81001; 93010; J7030